=== PATIENT | male | born 1985 | race Two or more races ===

== ENCOUNTER 2016-05-09 18:27 | Emergency (ER) | payer MEDICAID ==
[2016-05-09 19:21] VITALS: BP 145/87
[2016-05-09] MEDS ORDERED: Ketorolac 60 MG/2 ML SDV IM ONE (19:26)
[2016-05-09] MEDS ORDERED: Cyclobenzaprine 10 MG Tab PO ONE (19:30)
[2016-05-09] MEDS ORDERED: traMADol 50 MG Tab PO ONE (19:30)
--- NOTE | 2016-05-10 01:53 | ER ---
DATE SEEN: 05/09/2016 CHIEF COMPLAINT: Back pain. HISTORY OF PRESENT ILLNESS: This is a 30-year-old male with back pain. Complains that the pain is severe, started about 2 days ago and goes down to the right lower extremity. Has not taken anything to relieve and any movement makes it worse. PAST MEDICAL HISTORY: Chronic back pain, had surgery last year for cauda equina syndrome. ALLERGIES: No known allergies. REVIEW OF SYSTEMS: No urinary symptoms or fever. PHYSICAL EXAMINATION: GENERAL: Pleasant in a wheelchair. VITAL SIGNS: Blood pressure and temperature are normal. EXTREMITIES: Lower back, no obvious swelling. There is tenderness on the right paraspinal muscle group and the buttock. Straight leg raising test is positive. Deep tendon reflexes are symmetric. NEUROLOGIC: No lateralizing signs. IMPRESSION: Acute lumbar back pain. PLAN: 1. Ketorolac 60 mg IM. 2. Flexeril and tramadol p.r.n. 3. I advised him to follow up in the office in 1 to 2 days. /[id number] JASON/NIMCO
== END 2016-05-09 19:37 | disposition home or self-care (01) ==
LOC: FB.ED 18:27
DX: M54.5 Low back pain (principal)
CPT/HCPCS: 96372; 99282; A9270; J1885

== ENCOUNTER 2016-05-11 13:20 | Emergency (ER) | payer MEDICAID ==
[2016-05-11] MEDS ORDERED: Gabapentin 300 MG Cap PO ONE (13:37)
[2016-05-11] MEDS ORDERED: Ketorolac 60 MG/2 ML SDV IM ONE (13:37)
--- NOTE | 2016-05-11 13:43 | EDM.PDOC ---
ED HPI LOWER BACK PAIN/INJURY - General Chief Complaint: Back Pain or Injury Stated Complaint: BACK PAIN Time Seen by Provider: 05/11/16 13:30 Source: Reports: Patient History Limitations: Reports: Other (poor historian) - History of Present Illness INITIAL COMMENTS - FREE TEXT/NARRATIVE: 30 yo male presents for the 2nd time in the past 48 hrs with a complaint of low back pain radiating down his R leg posteriorly. He denies bowel or bladder dysfunction. Was given Tramadol and Flexeril which is not giving him relief. He was asked when he was last here by Dr. Ceballos to follow up in the clinic in 1- 2 days, he didn't call yet for an appt. Onset of pain this time after moving a couch. Last May he had discectomies at L4L5 and L5S1. This pain he has now is similar to then, but he is not having urinary incontinence now like he was then. 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 below) (Tramadol/Flexeril) - Related Data Allergies/ADRs: Allergies Allergy/AdvReac Type Severity Reaction Status Date / Time No Known Allergies Allergy Verified 05/09/16 19:21 Home Meds: Home Meds NK [No Known Home Meds] 05/09/16 [History] Past Medical History - Past Health History Medical/Surgical History: Denies Medical/Surgical History HEENT History: Reports: Impaired vision Gastrointestinal History: Reports: Pancreatitis, Other (see below) Other Gastrointestinal History: HX OF PANCREATITIS Musculoskeletal History: Reports: Fracture, Other (see below) Other Musculoskeletal History: LOW BACK PAIN Psychiatric History: Reports: ADD, Addiction, Bipolar, Depression, Hallucinations, Panic attack, Psych Hospitalization(s), Suicide attempt, Suicidal ideation, Other (see below) Other Psychiatric History: ALCOHOL ABUSE - Infectious Disease History Infectious Disease History: Reports: Chicken pox - Past Surgical History GI Surgical History: Reports: Appendectomy Musculoskeletal Surgical History: Reports: Other (see below) Other Musculoskeletal Surgeries/Procedures:: back surgery 2016 Social & Family History - Family History Family Medical History: Noncontributory Cardiac: Reports: None GI: Reports: None Neurological: Reports: None Psychiatric: Reports: None Endocrine/Metabolic: Reports: None - Tobacco Use Smoking Status *Q: Current Every Day Smoker Years of Tobacco use: 10 Packs/Tins Daily: 0.2 Used Tobacco, but Quit: No Second Hand Smoke Exposure: No - Caffeine Use Caffeine Use: Reports: None - Alcohol Use Days Per Week of Alcohol Use: 3 Number of Drinks Per Day: 10 Total Drinks Per Week: 30 - Recreational Drug Use Recreational Drug Use: Yes Drug Use in Last 12 Months: No Recreational Drug Type: Reports: Cocaine, Marijuana/Hashish, Methamphetamine Recreational Drug Use Frequency: Patient Refuses To Answer - Living Situation & Occupation Living situation: Reports: Occupation: employed ([employer]) ED ROS GENERAL - Review of Systems Review Of Systems: See Below Constitutional: Reports: no symptoms HEENT: Reports: No symptoms Respiratory: Reports: No Symptoms Cardiovascular: Reports: No symptoms Endocrine: Reports: no symptoms GI/Abdominal: Reports: No symptoms : Reports: no symptoms Musculoskeletal: Reports: back pain (low), leg pain (posterior R thigh) Skin: Reports: no symptoms Neurological: Reports: No Symptoms Psychiatric: Reports: No symptoms ED EXAM,LOWER BACK PAIN/INJURY - Physical Exam Exam: See Below Exam Limited By: No limitations General Appearance: alert, WD/WN, no apparent distress Eye Exam: bilateral eye: normal inspection, PERRL Ears: normal external exam, normal canal, hearing grossly normal Nose: normal inspection, normal mucosa, no blood Throat/Mouth: Normal inspection, Normal lips, Normal teeth, Normal oropharynx, Normal voice, No airway compromise Head: atraumatic, normocephalic Neck: normal inspection, supple, non-tender Respiratory/Chest: no respiratory distress, lungs clear, normal breath sounds Cardiovascular: regular rate, rhythm, no murmur GI/Abdominal: normal bowel sounds, soft, non tender, no distention Back Exam: normal inspection Extremities: normal inspection, normal range of motion, no pedal edema, leg pain (straight leg raising + on right) Neurological: alert, normal mood/affect, normal dorsiflexion, CN II-XII intact, normal plantar flexion, no motor/sensory deficits, oriented x 3, straight leg raise (R). No: straight leg raise (L), saddle anesthesia Psychiatric: normal affect, normal mood Skin Exam: Warm, Dry, Intact, Normal color, No rash Lymphatic: no adenopathy Course - Orders/Labs/Meds Meds: Medications Discontinued Medications Generic Name Dose Route Start Last Admin Trade Name Freq PRN Reason Stop Dose Admin Gabapentin 300 mg 05/11/16 13:37 Neurontin PO 05/11/16 13:38 ONETIME ONE Ketorolac Tromethamine 60 mg 05/11/16 13:37 Toradol IM 05/11/16 13:38 ONETIME ONE Departure - Departure Time of Disposition: 14:30 Disposition: Home, Self-Care 01 Condition: fair Clinical Impression: Sciatica associated with disorder of lumbar spine
[2016-05-11] MEDS ORDERED: Gadobutrol 10 mMOL/10 ML SDV IV SCH (14:15)
[2016-05-11 18:27] VITALS: BP 132/70
== END 2016-05-11 15:00 | disposition home or self-care (01) ==
LOC: FB.ED 13:20
DX: M54.41 Lumbago with sciatica, right side (principal); Z90.49 Acquired absence of other specified parts of digestive tract; F17.210 Nicotine dependence, cigarettes, uncomplicated
CPT/HCPCS: 72158; 96372; 99284; A9270; A9585; J1885

== ENCOUNTER 2016-05-13 17:07 | Emergency (ER) | payer MEDICAID ==
[2016-05-13 17:32] VITALS: BP 159/94
[2016-05-13] MEDS ORDERED: Ondansetron 8 MG Tab.DIS PO ONE (17:52)
[2016-05-13] MEDS ORDERED: HYDROmorphone 2 MG/ML SDV IM ONE (17:52)
[2016-05-13] MEDS ORDERED: Acetaminophen/oxyCODONE 325-5 MG Tab PO ONE (18:08)
--- NOTE | 2016-05-19 11:26 | ER ---
DATE SEEN: 05/13/2016 TIME SEEN: The patient was seen at 1745 hours. CHIEF COMPLAINT: Back pain. HISTORY OF PRESENT ILLNESS: This 30-year-old man was seen at 1745 hours. He was recently seen on 05/09/[address] Ceballos and placed on ketorolac, Flexeril, to be off work for 1 to 2 days. One year ago, he was diagnosed with cauda equina syndrome. On 05/11/2016, he was also seen for low back pain, again with radiation of pain down the right leg, treated with tramadol and Flexeril with no relief. On review of the chart, it is apparent that in 05/2015 he had a diskectomy of L4-5 and L5-S1 without urinary incontinence in combination with posterior leg pain radiating down, was "burning, aching, numb and increased with movement". His previous surgeries: Appendectomy, back surgery in 2015. SOCIAL HISTORY: He used to smoke of half a pack of cigarettes per day. PAST MEDICAL HISTORY: Pancreatitis, drug abuse, drug use, depression, alcohol abuse, hallucinations, previous use of cocaine and marijuana, hash and methamphetamine. More recently he was treated with gabapentin and ketorolac. MRI was performed on 05/11/2016, two days ago, and the results demonstrate postoperative changes, prior posterior decompression at L4-5, L5-S1 on the right. Normal alignment lumbar spine. Vertebral body heights are maintained. Facet joints well aligned. No evidence for acute fracture or subluxation. Multilevel degenerative disk disease with facet arthropathy as described below. Spinal cord terminates at L1. The spinal cord and cauda equina within normal limits. L5-S1 circumferential disk bulge with superimposed large central and right paracentral disk protrusion, which displaces and likely impinges upon S1 nerve root, causes mild spinal canal narrowing. No significant neural foraminal narrowing noted. Mild bilateral facet arthropathy per Dr. Jelani Law, Radiology, on 05/12/2016. PHYSICAL EXAMINATION: VITAL SIGNS: Blood pressure 159/94, heart rate 98, respirations 18, oxygen saturation 98%, and temperature 36.8 degrees. SKIN: No needle abraham noted in the antecubital fossa. HEENT: PERRLA intact. Appropriate response to pupils noted. No miosis and no mydriasis to suggest any drug abuse/use. NECK: Supple. No cervical adenopathy or thyromegaly. GENERAL: The patient is a moderately asthenic, muscular fellow, in moderate distress. He is also very polite. LUNGS: Clear to auscultation. HEART: S1, S2. No murmur. ABDOMEN: Soft. No guarding. No abdominal discomfort. Groin negative. GENITALIA: Negative. No ulcers noted. EXTREMITIES: Lower extremities, moderate discomfort in the left lateral thigh and posterior to the left lateral thigh. Does not go beyond the popliteal fossa. He has no muscle wasting noted in lower extremities. Deep tendon reflexes in the upper extremities normal. Normoactive lower extremities. Straight leg raise causes moderate pain in the right leg, none in the left leg. On the right leg it occurs at about 60 to 80 degrees. ASSESSMENT: On the basis of the MRI, the patient has a large bulge, which may be impinging on the S1 right nerve root and has large central and paracentral disk protrusion, which displaces this and impinges on this nerve root. I think he has true nociceptive pain. PLAN: Treat with pain medicine. The patient was given a shot of Dilaudid 2 mg IM and also Zofran 8 mg orally sublingual. The patient was given prescription for Percocet 12 tablets one q.4 to 6 hours p.r.n. for breakthrough pain, otherwise use Tylenol 1000 mg and ibuprofen 600 mg q.6 hours. Follow up with doctor this week or earlier. Further discussion regarding perhaps surgical intervention is raised by the abnormalities noted on the MRI. He did not have any S3 involvement which is perirectal and also superior and posterior thigh involvement. /[id number] CARLOS/NIMCO
--- NOTE | 2016-06-07 21:48 | ER ---
DATE SEEN: 05/13/2016 ADDENDUM: DIAGNOSES: 1. Low back pain, disk impingement S1 right nerve, large paracentral and central disk protrusion - nociceptive pain. 2. Chemical dependency. 3. Pancreatitis. 4. Depression. 5. Alcohol abuse history. 6. Hallucinations, previous use of cocaine, marijuana, alcohol and other drugs, hashish and methamphetamine. 7. 05/2015, diskectomy of L4-5 and L5-S1 without incontinence in combination with posterior leg pain radiating down. 8. Status post appendectomy. /[id number] CARLOS/RODERICKL
== END 2016-05-13 18:20 | disposition home or self-care (01) ==
LOC: FB.ED 17:07
DX: M53.3 Sacrococcygeal disorders, not elsewhere classified (principal); F17.210 Nicotine dependence, cigarettes, uncomplicated; F32.9 Major depressive disorder, single episode, unspecified; Z90.49 Acquired absence of other specified parts of digestive tract
CPT/HCPCS: 96372; 99282; A9270; J1170

== ENCOUNTER 2016-09-26 07:37 | Emergency (ER) | payer MEDICAID ==
[2016-09-26] MEDS ORDERED: Aspirin 325 MG Tab.EC PO ONE (08:01)
[2016-09-26] MEDS ORDERED: Aspirin 81 MG Tab.Chew PO ONE (08:01)
--- NOTE | 2016-09-26 08:03 | EDM.PDOC ---
ED HPI GENERAL MEDICAL PROBLEM - General Chief Complaint: Chest Pain Stated Complaint: CHEST PAIN Time Seen by Provider: 09/26/16 07:53 Source of Information: Reports: Patient History Limitations: Reports: No Limitations - History of Present Illness Onset: Unknown/Unsure Onset Date: 09/23/16 Onset Time: 04:00 Duration: Day(s):, Intermittent Location: Reports: Chest Quality: Reports: Dull, Pressure Severity: Moderate Improves with: Reports: Medication Worsens with: Reports: Movement Associated Symptoms: Reports: No Other Symptoms Left Chest Pain Score (Numeric/FACES): 8 - Related Data Allergies Allergy/AdvReac Type Severity Reaction Status Date / Time No Known Allergies Allergy Verified 05/13/16 17:18 Home Meds: Home Meds Ibuprofen [Motrin] 600 mg PO TID PRN #20 tab 09/26/16 [Rx] Past Medical History - Past Health History Medical/Surgical History: Denies Medical/Surgical History HEENT History: Reports: Impaired Vision Gastrointestinal History: Reports: Pancreatitis, Other (See Below) Other Gastrointestinal History: HX OF PANCREATITIS Musculoskeletal History: Reports: Fracture, Other (See Below) Other Musculoskeletal History: LOW BACK PAIN Psychiatric History: Reports: ADD, Addiction, Bipolar, Depression, Hallucinations, Panic Attack, Psych Hospitalization(s), Suicide Attempt, Suicidal Ideation, Other (See Below) Other Psychiatric History: ALCOHOL ABUSE - Infectious Disease History Infectious Disease History: Reports: Chicken Pox - Past Surgical History Musculoskeletal Surgical History: Reports: Other (See Below) Social & Family History - Family History Family Medical History: Noncontributory Cardiac: Reports: None GI: Reports: None Neurological: Reports: None Psychiatric: Reports: None Endocrine/Metabolic: Reports: None - Tobacco Use Smoking Status *Q: Current Every Day Smoker Years of Tobacco use: 10 Packs/Tins Daily: 0.2 Used Tobacco, but Quit: No Second Hand Smoke Exposure: No - Caffeine Use Caffeine Use: Reports: None - Alcohol Use Days Per Week of Alcohol Use: 1 Number of Drinks Per Day: 4 Total Drinks Per Week: 4 - Recreational Drug Use Recreational Drug Use: No Drug Use in Last 12 Months: No Recreational Drug Type: Reports: Cocaine, Marijuana/Hashish, Methamphetamine Recreational Drug Use Frequency: Patient Refuses To Answer - Living Situation & Occupation Living situation: Reports: Occupation: Employed ED ROS GENERAL - Review of Systems Review Of Systems: See Below Constitutional: Reports: No Symptoms HEENT: Reports: No Symptoms Respiratory: Reports: No Symptoms Cardiovascular: Reports: Chest Pain Endocrine: Reports: No Symptoms GI/Abdominal: Reports: No Symptoms : Reports: No Symptoms Musculoskeletal: Reports: No Symptoms Skin: Reports: No Symptoms Neurological: Reports: No Symptoms Psychiatric: Reports: No Symptoms Hematologic/Lymphatic: Reports: No Symptoms Immunologic: Reports: No Symptoms ED EXAM, GENERAL - Physical Exam Exam: See Below Exam Limited By: No Limitations General Appearance: Alert, WD/WN, Mild Distress Eye Exam: Bilateral Eye: Normal Inspection Ears: Normal External Exam Ear Exam: Bilateral Ear: Auricle Normal Nose: Normal Inspection, Normal Mucosa Throat/Mouth: Normal Inspection, Normal Lips, Normal Teeth Head: Atraumatic, Normocephalic Neck: Normal Inspection, Supple, Non-Tender Respiratory/Chest: No Respiratory Distress, Lungs Clear, Normal Breath Sounds Cardiovascular: Normal Peripheral Pulses, Regular Rate, Rhythm, No Edema, No Gallop Peripheral Pulses: 1+: Femoral (L), Femoral (R) GI/Abdominal: Normal Bowel Sounds, Soft, Non-Tender, No Organomegaly (Male) Exam: Deferred Rectal (Males) Exam: Deferred Back Exam: Normal Inspection, Full Range of Motion Extremities: Normal Inspection, Normal Range of Motion, Non-Tender, No Pedal Edema, Normal Capillary Refill Neurological: Alert, Oriented, CN II-XII Intact, Normal Cognition, Normal Gait Psychiatric: Normal Affect, Normal Mood Skin Exam: Warm, Dry, Intact, Normal Color, No Rash Lymphatic: No Adenopathy EKG INTERPRETATION EKG Date: 09/26/16 Time: 07:45 Rhythm: NSR Rate (Beats/Min): 99 [place]: Normal P-Wave: Present QRS: Normal ST-T: Normal QT: Normal Comparison: NA - No Prior EKG Course - Vital Signs Last Recorded V/S: Last Vital Signs Temp 36.8 C 09/26/16 07:53 Pulse 97 09/26/16 07:53 Resp 16 09/26/16 09:16 BP 146/89 H 09/26/16 09:16 Pulse Ox 100 09/26/16 09:16 - Orders/Labs/Meds Orders: Active Orders 24 hr Category Date Time Status EKG Documentation Completion [RC] STAT Care 09/26/16 08:37 Active Chest 1V Frontal [CR] Stat Exams 09/26/16 08:01 Taken EKG 12 Lead [EK] Routine Ther 09/26/16 08:37 Stop Req Labs: Laboratory Tests 09/26/16 09/26/16 09/26/16 Range/Units 08:25 08:25 08:25 WBC 6.1 (4.5-12.0) X10-3/uL RBC 5.69 (4.30-5.75) x10(6)uL Hgb 18.2 H (11.5-15.5) g/dL Hct 50.8 (30.0-51.3) % MCV 89.4 (80-96) fL MCH 32.1 (27.7-33.6) pg MCHC 35.9 H (32.2-35.4) g/dL RDW 11.9 (11.5-15.5) % Plt Count 339 (125-369) X10(3)uL MPV 8.6 (7.4-10.4) fL Neut % (Auto) 57.7 (46-82) % Lymph % (Auto) 32.8 (13-37) % [place] % (Auto) 6.3 (4-12) % Eos % (Auto) 2 (1.0-5.0) % Baso % (Auto) 1 (0-2) % Neut # (Auto) 3.5 (1.6-8.3) # Lymph # (Auto) 2.0 (0.6-5.0) # [place] # (Auto) 0.4 (0.0-1.3) # Eos # (Auto) 0.1 (0.0-0.8) # Baso # (Auto) 0.1 (0.0-0.2) # D-Dimer, Quantitative < 100 L (100-400) ng/mL Sodium 134 L (135-145) mmol/L Potassium 3.4 L (3.5-5.3) mmol/L Chloride 101 (100-110) mmol/L Carbon Dioxide 24 (23-29) mmol/L BUN 12 (5-20) mg/dL Creatinine 0.6 (0.6-1.3) mg/dL Est Cr Clr Drug Dosing 183.30 mL/min Estimated GFR (MDRD) > 60 (>60) BUN/Creatinine Ratio 20.0 (9-20) Glucose 117 H (80-116) mg/dL Calcium 9.1 (8.6-10.2) mg/dL Creatine Kinase (60-160) IU/L Troponin I (0.02-0.06) NG/ML B-Natriuretic Peptide (0-100) pg/mL Urine Opiates Screen (NEGATIVE) Ur Oxycodone Screen (NEGATIVE) Ur Propoxyphene Screen (NEGATIVE) Ur Barbituates Screen (NEGATIVE) Ur Tricyclics Screen (NEGATIVE) Ur Phencyclidine Scrn (NEGATIVE) Ur Amphetamine Screen (NEGATIVE) Urine MDMA Screen (NEGATIVE) U Benzodiazepines Scrn (NEGATIVE) U Cocaine Metab Screen (NEGATIVE) U Marijuana (THC) Screen (NEGATIVE) Ethyl Alcohol (<0.01) % 09/26/16 09/26/16 09/26/16 Range/Units 08:25 08:25 08:25 WBC (4.5-12.0) X10-3/uL RBC (4.30-5.75) x10(6)uL Hgb (11.5-15.5) g/dL Hct (30.0-51.3) % MCV (80-96) fL MCH (27.7-33.6) pg MCHC (32.2-35.4) g/dL RDW (11.5-15.5) % Plt Count (125-369) X10(3)uL MPV (7.4-10.4) fL Neut % (Auto) (46-82) % Lymph % (Auto) (13-37) % [place] % (Auto) (4-12) % Eos % (Auto) (1.0-5.0) % Baso % (Auto) (0-2) % Neut # (Auto) (1.6-8.3) # Lymph # (Auto) (0.6-5.0) # [place] # (Auto) (0.0-1.3) # Eos # (Auto) (0.0-0.8) # Baso # (Auto) (0.0-0.2) # D-Dimer, Quantitative (100-400) ng/mL Sodium (135-145) mmol/L Potassium (3.5-5.3) mmol/L Chloride (100-110) mmol/L Carbon Dioxide (23-29) mmol/L BUN (5-20) mg/dL Creatinine (0.6-1.3) mg/dL Est Cr Clr Drug Dosing mL/min Estimated GFR (MDRD) (>60) BUN/Creatinine Ratio (9-20) Glucose (80-116) mg/dL Calcium (8.6-10.2) mg/dL Creatine Kinase 55 L (60-160) IU/L Troponin I (0.02-0.06) NG/ML B-Natriuretic Peptide < 5 (0-100) pg/mL Urine Opiates Screen (NEGATIVE) Ur Oxycodone Screen (NEGATIVE) Ur Propoxyphene Screen (NEGATIVE) Ur Barbituates Screen (NEGATIVE) Ur Tricyclics Screen (NEGATIVE) Ur Phencyclidine Scrn (NEGATIVE) Ur Amphetamine Screen (NEGATIVE) Urine MDMA Screen (NEGATIVE) U Benzodiazepines Scrn (NEGATIVE) U Cocaine Metab Screen (NEGATIVE) U Marijuana (THC) Screen (NEGATIVE) Ethyl Alcohol 0.01 (<0.01) % 09/26/16 09/26/16 Range/Units 08:25 08:30 WBC (4.5-12.0) X10-3/uL RBC (4.30-5.75) x10(6)uL Hgb (11.5-15.5) g/dL Hct (30.0-51.3) % MCV (80-96) fL MCH (27.7-33.6) pg MCHC (32.2-35.4) g/dL RDW (11.5-15.5) % Plt Count (125-369) X10(3)uL MPV (7.4-10.4) fL Neut % (Auto) (46-82) % Lymph % (Auto) (13-37) % [place] % (Auto) (4-12) % Eos % (Auto) (1.0-5.0) % Baso % (Auto) (0-2) % Neut # (Auto) (1.6-8.3) # Lymph # (Auto) (0.6-5.0) # [place] # (Auto) (0.0-1.3) # Eos # (Auto) (0.0-0.8) # Baso # (Auto) (0.0-0.2) # D-Dimer, Quantitative (100-400) ng/mL Sodium (135-145) mmol/L Potassium (3.5-5.3) mmol/L Chloride (100-110) mmol/L Carbon Dioxide (23-29) mmol/L BUN (5-20) mg/dL Creatinine (0.6-1.3) mg/dL Est Cr Clr Drug Dosing mL/min Estimated GFR (MDRD) (>60) BUN/Creatinine Ratio (9-20) Glucose (80-116) mg/dL Calcium (8.6-10.2) mg/dL Creatine Kinase (60-160) IU/L Troponin I < 0.01 L (0.02-0.06) NG/ML B-Natriuretic Peptide (0-100) pg/mL Urine Opiates Screen Negative (NEGATIVE) Ur Oxycodone Screen Negative (NEGATIVE) Ur Propoxyphene Screen Negative (NEGATIVE) Ur Barbituates Screen Negative (NEGATIVE) Ur Tricyclics Screen Negative (NEGATIVE) Ur Phencyclidine Scrn Negative (NEGATIVE) Ur Amphetamine Screen Negative (NEGATIVE) Urine MDMA Screen Negative (NEGATIVE) U Benzodiazepines Scrn Negative (NEGATIVE) U Cocaine Metab Screen Negative (NEGATIVE) U Marijuana (THC) Screen Negative (NEGATIVE) Ethyl Alcohol (<0.01) % Meds: Medications Discontinued Medications Generic Name Dose Route Start Last Admin Trade Name Freq PRN Reason Stop Dose Admin Aspirin 324 mg 09/26/16 08:01 09/26/16 08:08 Aspirin PO 09/26/16 08:02 324 mg ONETIME ONE Administration Aspirin 325 mg 09/26/16 08:01 Ecotrin PO 09/26/16 08:02 ONETIME ONE Ketorolac Tromethamine 30 mg 09/26/16 09:24 09/26/16 09:29 Toradol IVPUSH 09/26/16 09:25 30 mg ONETIME ONE Administration Potassium Chloride 40 meq 09/26/16 08:47 09/26/16 09:12 Klor-Con M20 PO 09/26/16 08:48 40 meq ONETIME ONE Administration Departure - Departure Time of Disposition: 10:00 Disposition: Home, Self-Care 01 Condition: Good Clinical Impression: Atypical chest pain, Pleurisy Prescriptions: Ibuprofen [Motrin] 600 mg PO TID PRN #20 tab PRN Reason: pleuritic chest pain Referrals: Deniz Ceballos MD [Primary Care Provider] - Forms: ED Department Discharge Additional Instructions: Please take motrin for pain, please follow up, please come back if your symptoms get worse acutely. - My Orders Last 24 Hours: My Active Orders 09/26/16 08:01 Chest 1V Frontal [CR] Stat 09/26/16 08:37 EKG Documentation Completion [RC] STAT EKG 12 Lead [EK] Routine - Assessment/Plan Last 24 Hours: My Active Orders 09/26/16 08:01 Chest 1V Frontal [CR] Stat 09/26/16 08:37 EKG Documentation Completion [RC] STAT EKG 12 Lead [EK] Routine
[2016-09-26] MEDS ORDERED: Potassium Chloride 20 MEQ Tab.ER PO ONE (08:47)
[2016-09-26] MEDS ORDERED: Ketorolac 30 MG/ML SDV IVPUSH ONE (09:24)
[2016-09-26 10:25] VITALS: BP 138/88
--- NOTE | 2016-09-26 11:50 | CR ---
INDICATION: Chest pain started 3 days ago, into left arm. CHEST: AP portable view of the chest 09/26/2016 was obtained. No comparisons. The heart is normal in size and shape. Mediastinum and bony thorax were unremarkable. An active infiltrate or effusion was not identified. IMPRESSION: No active disease. MTDD
== END 2016-09-26 10:15 | disposition home or self-care (01) ==
LOC: FB.ED 07:37
DX: R09.1 Pleurisy (principal); F98.8 Other specified behavioral and emotional disorders with onset usually occurring in childhood and adolescence; F17.210 Nicotine dependence, cigarettes, uncomplicated
CPT/HCPCS: 36415; 71010; 80048; 80305; 82550; 83880; 84484; 85025; 85379; 93005; 96374; 99285; A9270; G0480; J1885

== ENCOUNTER 2016-12-14 06:57 | Emergency (ER) | payer MEDICAID ==
[2016-12-14] MEDS ORDERED: Sodium Chloride 0.9% 1,000 ML IV ONE (07:23)
[2016-12-14] MEDS ORDERED: Pantoprazole 40 MG Vial IVPUSH ONE (07:23)
[2016-12-14] MEDS ORDERED: Ondansetron 4 MG/2 ML SDV IVPUSH ONE (07:23)
--- NOTE | 2016-12-14 07:29 | EDM.PDOC ---
ED HPI GENERAL MEDICAL PROBLEM - General Stated Complaint: STOMACH CRAMPS Time Seen by Provider: 12/14/16 07:00 Source of Information: Reports: Patient History Limitations: Reports: No Limitations - History of Present Illness INITIAL COMMENTS - FREE TEXT/NARRATIVE: 31 y.o.w.m. with h/o pancreatitis, was drinking last night and came to the ed this am due to vomiting and epigtsric pain. last [facility], no blood in stool. No other acute med. issues, pt was seen for same in this ED. Onset: Today Onset Date: 12/13/16 Onset Time: 21:00 Duration: Hour(s): Location: Reports: Abdomen (periumbilical) Quality: Reports: Ache Severity: Moderate Improves with: Reports: Medication Worsens with: Reports: Movement Associated Symptoms: Reports: Nausea/Vomiting Abdominal Pain Score (Numeric/FACES): 9 - Related Data Allergies Allergy/AdvReac Type Severity Reaction Status Date / Time No Known Allergies Allergy Verified 12/14/16 07:11 Home Meds: Home Meds Hydrocodone/Acetaminophen [Vicodin 5-300 mg Tablet] 1 each PO Q4HR #4 tablet [Rx] Ondansetron [Zofran ODT] 4 mg PO Q6H PRN #10 tab.dis 12/14/16 [Rx] Pantoprazole Sodium [Protonix] 20 mg PO DAILY #20 tablet. 12/14/16 [Rx] Past Medical History - Past Health History Medical/Surgical History: Denies Medical/Surgical History HEENT History: Reports: Impaired Vision Gastrointestinal History: Reports: Pancreatitis, Other (See Below) Other Gastrointestinal History: HX OF PANCREATITIS Musculoskeletal History: Reports: Fracture, Other (See Below) Other Musculoskeletal History: LOW BACK PAIN Psychiatric History: Reports: ADD, Addiction, Bipolar, Depression, Hallucinations, Panic Attack, Psych Hospitalization(s), Suicide Attempt, Suicidal Ideation, Other (See Below) Other Psychiatric History: ALCOHOL ABUSE - Infectious Disease History Infectious Disease History: Reports: Chicken Pox - Past Surgical History Musculoskeletal Surgical History: Reports: Other (See Below) Social & Family History - Family History Family Medical History: Noncontributory Cardiac: Reports: None GI: Reports: None Neurological: Reports: None Psychiatric: Reports: None Endocrine/Metabolic: Reports: None - Tobacco Use Smoking Status *Q: Never Smoker Years of Tobacco use: 10 Packs/Tins Daily: 0.2 Used Tobacco, but Quit: No Second Hand Smoke Exposure: No - Caffeine Use Caffeine Use: Reports: None - Alcohol Use Days Per Week of Alcohol Use: 3 Number of Drinks Per Day: 10 Total Drinks Per Week: 30 - Recreational Drug Use Recreational Drug Use: No Drug Use in Last 12 Months: No Recreational Drug Type: Reports: Cocaine, Marijuana/Hashish, Methamphetamine Recreational Drug Use Frequency: Patient Refuses To Answer - Living Situation & Occupation Living situation: Reports: Occupation: Employed ED ROS GENERAL - Review of Systems Review Of Systems: See Below Constitutional: Reports: No Symptoms HEENT: Reports: No Symptoms Respiratory: Reports: No Symptoms Cardiovascular: Reports: No Symptoms Endocrine: Reports: No Symptoms GI/Abdominal: Reports: Abdominal Pain (epigastric) : Reports: No Symptoms Musculoskeletal: Reports: No Symptoms Skin: Reports: No Symptoms Neurological: Reports: No Symptoms Psychiatric: Reports: No Symptoms Hematologic/Lymphatic: Reports: No Symptoms Immunologic: Reports: No Symptoms ED EXAM, GI/ABD - Physical Exam Exam: See Below Exam Limited By: No Limitations General Appearance: Alert, WD/WN, Mild Distress Eyes: Bilateral: Normal Appearance Ears: Normal External Exam Nose: Normal Inspection Throat/Mouth: Other (dry mucosal membrane) Head: Atraumatic Neck: Normal Inspection Respiratory/Chest: No Respiratory Distress Cardiovascular: Normal Peripheral Pulses GI/Abdominal Exam: Normal Bowel Sounds, Distended, Tender (Male) Exam: No Hernia Rectal (Males) Exam: Deferred Back Exam: Normal Inspection Extremities: Normal Inspection Neurological: Alert, Oriented, CN II-XII Intact, Normal Cognition, Normal Gait, Normal Reflexes, No Motor/Sensory Deficits Psychiatric: Normal Affect, Normal Mood Skin Exam: Warm, Dry, Intact, Normal Color, No Rash Lymphatic: No Adenopathy Course - Vital Signs Text/Narrative:: 31 y.o.w.m. with h/o pancreatitis, was drinking last night and came to the ed this am due to vomiting and epigastric pain. Last BM [facility], no blood in stool. No other acute med. issues, pt was seen for same in this ED. PE: Epigastric pain Labs; CBC NlETOH and drug screen neg, Amylase neg Imaging: Flat/upright abdomen: NAD Impression: gastritis Tx: NS. Protonix, Dilaudid reexam: improved Plan: D/C with instructions Last Recorded V/S: Last Vital Signs Temp 36.6 C 12/14/16 09:40 Pulse 88 12/14/16 09:40 Resp 17 12/14/16 09:40 BP 149/100 H 12/14/16 09:40 Pulse Ox 99 12/14/16 09:40 - Orders/Labs/Meds Orders: Active Orders 24 hr Category Date Time Status Abdomen 2V AP Flat Upright [CR] Stat Exams 12/14/16 07:28 Taken Labs: Laboratory Tests 12/14/16 12/14/16 12/14/16 Range/Units 07:15 07:15 07:15 WBC 9.1 (4.5-12.0) X10-3/uL RBC 5.61 (4.30-5.75) x10(6)uL Hgb 15.8 H (11.5-15.5) g/dL Hct 49.5 (30.0-51.3) % MCV 88.3 (80-96) fL MCH 31.6 (27.7-33.6) pg MCHC 35.9 H (32.2-35.4) g/dL RDW 12.5 (11.5-15.5) % Plt Count 286 (125-369) X10(3)uL MPV 8.7 (7.4-10.4) fL Add Manual Diff Yes Neutrophils % (Manual) 67 (46-82) % Lymphocytes % (Manual) 25 (13-37) % Monocytes % (Manual) 4 (4-12) % Eosinophils % (Manual) 4 (0-5) % Sodium 139 (135-145) mmol/L Potassium 4.2 (3.5-5.3) mmol/L Chloride 102 (100-110) mmol/L Carbon Dioxide 25 (23-29) mmol/L BUN 13 (5-20) mg/dL Creatinine 0.8 (0.6-1.3) mg/dL Est Cr Clr Drug Dosing 127.38 mL/min Estimated GFR (MDRD) > 60 (>60) BUN/Creatinine Ratio 16.3 (9-20) Glucose 125 H (80-116) mg/dL Calcium 8.6 (8.6-10.2) mg/dL Total Bilirubin 0.8 (0.1-1.3) mg/dL AST 64 H D (5-27) IU/L ALT 92 H D (14-26) IU/L Alkaline Phosphatase 67 (56-112) IU/L Total Protein 6.7 (6.0-8.0) g/dL Albumin 4.7 (3.5-5.2) g/dL Globulin 2.0 g/dL Albumin/Globulin Ratio 2.4 Amylase 41 (28-100) U/L Urine Color (YELLOW) Urine Appearance (CLEAR) Urine pH (5.0-6.5) Ur Specific [place] (1.010-1.025) Urine Protein (NEGATIVE) mg/dL Urine Glucose (UA) (NEGATIVE) mg/dL Urine Ketones (NEGATIVE) mg/dL Urine Occult Blood (NEGATIVE) Urine Nitrite (NEGATIVE) Urine Bilirubin (NEGATIVE) Urine Urobilinogen (NEGATIVE) mg/dL Ur Leukocyte Esterase (NEGATIVE) Urine WBC (0) Ur Squamous Epith Cells (NS,R,O) Urine Bacteria (NS) Urine Mucus (NS) Urine Opiates Screen (NEGATIVE) Ur Oxycodone Screen (NEGATIVE) Ur Propoxyphene Screen (NEGATIVE) Ur Barbituates Screen (NEGATIVE) Ur Tricyclics Screen (NEGATIVE) Ur Phencyclidine Scrn (NEGATIVE) Ur Amphetamine Screen (NEGATIVE) Urine MDMA Screen (NEGATIVE) U Benzodiazepines Scrn (NEGATIVE) U Cocaine Metab Screen (NEGATIVE) U Marijuana (THC) Screen (NEGATIVE) Ethyl Alcohol < 0.01 (<0.01) % 12/14/16 12/14/16 Range/Units 07:40 07:40 WBC (4.5-12.0) X10-3/uL RBC (4.30-5.75) x10(6)uL Hgb (11.5-15.5) g/dL Hct (30.0-51.3) % MCV (80-96) fL MCH (27.7-33.6) pg MCHC (32.2-35.4) g/dL RDW (11.5-15.5) % Plt Count (125-369) X10(3)uL MPV (7.4-10.4) fL Add Manual Diff Neutrophils % (Manual) (46-82) % Lymphocytes % (Manual) (13-37) % Monocytes % (Manual) (4-12) % Eosinophils % (Manual) (0-5) % Sodium (135-145) mmol/L Potassium (3.5-5.3) mmol/L Chloride (100-110) mmol/L Carbon Dioxide (23-29) mmol/L BUN (5-20) mg/dL Creatinine (0.6-1.3) mg/dL Est Cr Clr Drug Dosing mL/min Estimated GFR (MDRD) (>60) BUN/Creatinine Ratio (9-20) Glucose (80-116) mg/dL Calcium (8.6-10.2) mg/dL Total Bilirubin (0.1-1.3) mg/dL AST (5-27) IU/L ALT (14-26) IU/L Alkaline Phosphatase (56-112) IU/L Total Protein (6.0-8.0) g/dL Albumin (3.5-5.2) g/dL Globulin g/dL Albumin/Globulin Ratio Amylase (28-100) U/L Urine Color Yellow (YELLOW) Urine Appearance Clear (CLEAR) Urine pH 7.0 H (5.0-6.5) Ur Specific [place] 1.010 (1.010-1.025) Urine Protein Negative (NEGATIVE) mg/dL Urine Glucose (UA) Normal (NEGATIVE) mg/dL Urine Ketones Negative (NEGATIVE) mg/dL Urine Occult Blood Negative (NEGATIVE) Urine Nitrite Negative (NEGATIVE) Urine Bilirubin Negative (NEGATIVE) Urine Urobilinogen Normal (NEGATIVE) mg/dL Ur Leukocyte Esterase Negative (NEGATIVE) Urine WBC 0-5 (0) Ur Squamous Epith Cells Rare (NS,R,O) Urine Bacteria Rare H (NS) Urine Mucus Rare H (NS) Urine Opiates Screen Negative (NEGATIVE) Ur Oxycodone Screen Negative (NEGATIVE) Ur Propoxyphene Screen Negative (NEGATIVE) Ur Barbituates Screen Negative (NEGATIVE) Ur Tricyclics Screen Negative (NEGATIVE) Ur Phencyclidine Scrn Negative (NEGATIVE) Ur Amphetamine Screen Negative (NEGATIVE) Urine MDMA Screen Negative (NEGATIVE) U Benzodiazepines Scrn Negative (NEGATIVE) U Cocaine Metab Screen Negative (NEGATIVE) U Marijuana (THC) Screen Negative (NEGATIVE) Ethyl Alcohol (<0.01) % Meds: Medications Discontinued Medications Generic Name Dose Route Start Last Admin Trade Name Freq PRN Reason Stop Dose Admin Hydromorphone HCl 0.5 mg 12/14/16 08:54 12/14/16 09:17 Dilaudid IVPUSH 12/14/16 08:55 0.5 mg ONETIME ONE Administration Sodium Chloride 1,000 mls @ 999 mls/hr 12/14/16 07:23 12/14/16 08:27 Normal Saline IV 12/14/16 08:23 999 mls/hr .BOLUS ONE Administration Ondansetron HCl 8 mg 12/14/16 07:23 12/14/16 08:27 Zofran IVPUSH 12/14/16 07:24 8 mg ONETIME ONE Administration Pantoprazole Sodium 40 mg 12/14/16 07:23 12/14/16 08:33 Protonix Iv IVPUSH 12/14/16 07:24 40 mg ONETIME ONE Administration Departure - Departure Time of Disposition: 09:07 Disposition: Home, Self-Care 01 Condition: Good Clinical Impression: Gastritis Qualifiers: Gastritis type: superficial Chronicity: acute Gastritis bleeding: without bleeding Qualified Code(s): K29.00 - Acute gastritis without bleeding - Discharge Information Prescriptions: Hydrocodone/Acetaminophen [Vicodin 5-300 mg Tablet] 1 each PO Q4HR #4 tablet Ondansetron [Zofran ODT] 4 mg PO Q6H PRN #10 tab.dis PRN Reason: Nausea Pantoprazole Sodium [Protonix] 20 mg PO DAILY #20 tablet.dr Instructions: Gastritis, Adult, [id number] Referrals: Deniz Ceballos MD [Primary Care Provider] - Forms: ED Department Discharge Additional Instructions: Please, NO ETOH, ever. Please take the meds as recommended, please f/u with your PMD, please advance diet as tolerated, please come back if your symptoms get worse acutely - My Orders Last 24 Hours: My Active Orders 12/14/16 07:28 Abdomen 2V AP Flat Upright [CR] Stat - Assessment/Plan Last 24 Hours: My Active Orders 12/14/16 07:28 Abdomen 2V AP Flat Upright [CR] Stat
[2016-12-14] MEDS ORDERED: HYDROmorphone 2 MG/ML SDV IVPUSH ONE (08:54)
[2016-12-14 09:49] VITALS: BP 149/100
== END 2016-12-14 09:43 | disposition home or self-care (01) ==
LOC: FB.ED 06:57
DX: K29.00 Acute gastritis without bleeding (principal)
CPT/HCPCS: 36415; 74020; 80053; 80305; 81001; 82150; 85025; 96361; 96374; 99284; C9113; G0480; J1170; J2405; J7040; 96375

== ENCOUNTER 2017-07-01 17:50 | Emergency (ER) | payer MEDICAID ==
[2017-07-01] MEDS ORDERED: Ketorolac 60 MG/2 ML SDV IM ONE (18:11)
[2017-07-01] MEDS ORDERED: Cyclobenzaprine 10 MG Tab PO ONE (18:12)
--- NOTE | 2017-07-01 18:18 | EDM.PDOC ---
ED HPI GENERAL MEDICAL PROBLEM - General Chief Complaint: Back Pain or Injury Stated Complaint: BACK PAIN Time Seen by Provider: 07/01/17 18:05 Source of Information: Reports: Patient History Limitations: Reports: No Limitations - History of Present Illness INITIAL COMMENTS - FREE TEXT/NARRATIVE: c/o LBP h/o recurrent LBP, had surgery on 2 discs 2y ago in 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, worked Mon-Sun this week without difficulty yesterday, Sat, pt spent 8h cleaning out his garage, he reached for his leaf blower and had pain in his L lower back and down his leg took no meds at home came into ED in a w/c says he will have pain for 1w and will need to miss work some days does stretches x 15 min for his back every AM as taught to him by PT did his stretches yesterday last saw PCP Dr Ceballos 2w ago, given meloxicam 7.5 mg 1 tab daily for mild LBP which he takes before work altho not this weekend, thinks he has 5 tabs left did put cold bag of rice on his back not working tomorrow (Sun), has class instead Lower Back Pain Score (Numeric/FACES): 9 - Related Data Allergies Allergy/AdvReac Type Severity Reaction Status Date / Time No Known Allergies Allergy Verified 07/01/17 17:54 Home Meds: Home Meds Cyclobenzaprine HCl 10 mg PO TID PRN #15 tablet 07/01/17 [Rx] DULoxetine [Cymbalta] 60 mg PO DAILY 07/01/17 [History] Meloxicam 15 mg PO DAILY #30 tablet 07/01/17 [Rx] hydrOXYzine HCl [Atarax] 50 mg PO BEDTIME 07/01/17 [History] Past Medical History - Past Health History Medical/Surgical History: Denies Medical/Surgical History HEENT History: Reports: Impaired Vision Cardiovascular History: Reports: Hypertension Gastrointestinal History: Reports: Pancreatitis, Other (See Below) Other Gastrointestinal History: HX OF PANCREATITIS Musculoskeletal History: Reports: Fracture, Other (See Below) Other Musculoskeletal History: LOW BACK PAIN Neurological History: Reports: Concussion Other Neuro History: concussion x 2 Psychiatric History: Reports: ADD, Addiction, Bipolar, Depression, Hallucinations, Panic Attack, Psych Hospitalization(s), Suicide Attempt, Suicidal Ideation, Other (See Below) Other Psychiatric History: ALCOHOL ABUSE Endocrine/Metabolic History: Reports: Obesity/BMI 30+ - Infectious Disease History Infectious Disease History: Reports: Chicken Pox - Past Surgical History Musculoskeletal Surgical History: Reports: Other (See Below) Social & Family History - Family History Family Medical History: Noncontributory Cardiac: Reports: None GI: Reports: None Neurological: Reports: None Psychiatric: Reports: None Endocrine/Metabolic: Reports: None - Tobacco Use Smoking Status *Q: Current Every Day Smoker Years of Tobacco use: 10 Packs/Tins Daily: 0.5 Used Tobacco, but Quit: No Second Hand Smoke Exposure: No - Caffeine Use Caffeine Use: Reports: None - Alcohol Use Days Per Week of Alcohol Use: 1 Number of Drinks Per Day: 1 Total Drinks Per Week: 1 - Recreational Drug Use Recreational Drug Use: No Drug Use in Last 12 Months: No Recreational Drug Type: Reports: Cocaine, Marijuana/Hashish, Methamphetamine Recreational Drug Use Frequency: Patient Refuses To Answer - Living Situation & Occupation Living situation: Reports: Occupation: Employed ED ROS GENERAL - Review of Systems Review Of Systems: See Below Constitutional: Reports: No Symptoms HEENT: Reports: No Symptoms Respiratory: Reports: No Symptoms Cardiovascular: Reports: No Symptoms Endocrine: Reports: No Symptoms GI/Abdominal: Reports: No Symptoms : Reports: No Symptoms Musculoskeletal: Reports: Back Pain Skin: Reports: No Symptoms Neurological: Reports: No Symptoms Psychiatric: Reports: No Symptoms Hematologic/Lymphatic: Reports: No Symptoms Immunologic: Reports: No Symptoms ED EXAM,LOWER BACK PAIN/INJURY - Physical Exam Exam: See Below Exam Limited By: No Limitations General Appearance: Alert, WD/WN, Mild Distress Ears: Normal External Exam, Hearing Grossly Normal Nose: Normal Inspection, Normal Mucosa, No Blood Throat/Mouth: Normal Inspection, Normal Lips, Normal Gums, No Airway Compromise Head: Atraumatic, Normocephalic Neck: Normal Inspection, Supple, Non-Tender, Full Range of Motion Respiratory/Chest: No Respiratory Distress, Lungs Clear, Normal Breath Sounds, No Accessory Muscle Use, Chest Non-Tender Cardiovascular: Regular Rate, Rhythm, No Edema Back Exam: Other (l-spine NT, mild tender at sacrum in midline as well as L SI joint, NT at L iliac crest, muscles tight in lower back after I began examining him) Extremities: Normal Inspection, Normal Range of Motion, Non-Tender, No Pedal Edema Neurological: Alert, Normal Mood/Affect, CN II-XII Intact, Normal Gait, Normal Reflexes, No Motor/Sensory Deficits, Oriented x 3, Other (2+ patella DTR b/l, 1 + Achilles b/l, m/s intact at feet, great toe extension 5/5) Psychiatric: Normal Affect, Normal Mood Skin Exam: Warm, Dry, Intact, Normal Color, No Rash Lymphatic: No Adenopathy Course - Vital Signs Last Recorded V/S: Last Vital Signs Temp 36.7 C 07/01/17 17:50 Pulse 99 07/01/17 17:50 Resp 17 07/01/17 17:50 BP 153/103 H 07/01/17 17:50 Pulse Ox 98 07/01/17 17:50 - Orders/Labs/Meds Orders: Active Orders 24 hr Category Date Time Status Cyclobenzaprine [Flexeril] Med 07/01/17 18:12 Once 10 mg PO ONETIME ONE Medication Orders Cyclobenzaprine HCl (Flexeril) 10 mg PO ONETIME ONE Stop: 07/01/17 18:13 Meds: Medications Generic Name Dose Route Start Last Admin Trade Name Freq PRN Reason Stop Dose Admin Cyclobenzaprine HCl 10 mg 07/01/17 18:12 Flexeril PO 07/01/17 18:13 ONETIME ONE Discontinued Medications Generic Name Dose Route Start Last Admin Trade Name Freq PRN Reason Stop Dose Admin Ketorolac Tromethamine 60 mg 07/01/17 18:11 Toradol IM 07/01/17 18:12 ONETIME ONE - Re-Assessments/Exams Free Text/Narrative Re-Assessment/Exam: 07/01/17 18:21 exam most c/w a strain Departure - Departure Time of Disposition: 18:21 Disposition: Home, Self-Care 01 Condition: Good Clinical Impression: Low back strain - Discharge Information Prescriptions: Cyclobenzaprine HCl 10 mg PO TID PRN #15 tablet PRN Reason: Spasms Meloxicam 15 mg PO DAILY #30 tablet Instructions: Muscle Strain, Back Pain, Adult, Back Exercises Referrals: Deniz Ceballos MD [Primary Care Provider] - Additional Instructions: Resume taking the duloxetine 60 mg 1 tab daily as long as it does not make you dizzy or give you side effects, as it can help with your back pain. For pain and inflammation, take meloxicam 7.5 mg 2 tabs daily until gone, then change to 15 mg 1 tab daily. Do this for 1 week, longer if needed. For pain and inflammation, take acetaminophen 500 mg 2 tabs 4 times a day for 1 week, longer if needed. For spasm, take cyclobenzaprine 15 mg 1 tab 3 times a day as needed. Use ice for 10 minutes 4 times a day for the next 2 days. Do your stretching exercises (gently) 2 times a day for the next several days, then resume once a day as you are doing. No lifting for 24 hours. May work in 2 days if feeling better. See your PCP in 2-3 days. Call your Physician or Return to Emergency Department if: * Your condition worsens in any way. * You develop fever greater than 100.4. * You have vomitting that does not stop with medications. * You have pain that is not controlled with medications. - My Orders Last 24 Hours: My Active Orders 07/01/17 18:12 Cyclobenzaprine [Flexeril] 10 mg PO ONETIME ONE - Assessment/Plan Last 24 Hours: My Active Orders 07/01/17 18:12 Cyclobenzaprine [Flexeril] 10 mg PO ONETIME ONE
[2017-07-01 18:47] VITALS: BP 152/107
== END 2017-07-01 18:40 | disposition home or self-care (01) ==
LOC: FB.ED 17:50
DX: S39.012A Strain of muscle, fascia and tendon of lower back, initial encounter (principal); I10 Essential (primary) hypertension; F17.210 Nicotine dependence, cigarettes, uncomplicated; F31.9 Bipolar disorder, unspecified; Z79.899 Other long term (current) drug therapy; X58.XXXA Exposure to other specified factors, initial encounter; Y99.0 Civilian activity done for income or pay
CPT/HCPCS: 96372; 99283; A9270; J1885

== ENCOUNTER 2017-07-16 16:40 | Emergency (ER) | payer MEDICAID ==
[2017-07-16] MEDS ORDERED: Ciprofloxacin 500 MG Tab PO ONE (18:40)
--- NOTE | 2017-07-16 18:40 | EDM.PDOC ---
ED HPI GENERAL MEDICAL PROBLEM - General Chief Complaint: Upper Extremity Injury/Pain Stated Complaint: SHOT WITH NAIL GUN IN FINGER ON LT HAND Time Seen by Provider: 07/16/17 17:00 Source of Information: Reports: Patient History Limitations: Reports: No Limitations - History of Present Illness INITIAL COMMENTS - FREE TEXT/NARRATIVE: c/o finger injury pt shot a nail through his L index finger with a nail gun, just nicked his L middle finger last Td 2015 has some pain XR neg no joint involvement left index finger Pain Score (Numeric/FACES): 10 - Related Data Allergies Allergy/AdvReac Type Severity Reaction Status Date / Time No Known Allergies Allergy Verified 07/16/17 17:20 Home Meds: Home Meds Cyclobenzaprine HCl 10 mg PO TID PRN #15 tablet 07/01/17 [Rx] DULoxetine [Cymbalta] 60 mg PO DAILY 07/01/17 [History] Meloxicam 15 mg PO DAILY #30 tablet 07/01/17 [Rx] hydrOXYzine HCl [Atarax] 50 mg PO BEDTIME 07/01/17 [History] Ciprofloxacin HCl [Cipro] 500 mg PO BID #10 tablet 07/16/17 [Rx] Past Medical History - Past Health History Medical/Surgical History: Denies Medical/Surgical History HEENT History: Reports: Impaired Vision Cardiovascular History: Reports: Hypertension Gastrointestinal History: Reports: Pancreatitis, Other (See Below) Other Gastrointestinal History: HX OF PANCREATITIS Musculoskeletal History: Reports: Fracture, Other (See Below) Other Musculoskeletal History: LOW BACK PAIN Neurological History: Reports: Concussion Other Neuro History: concussion x 2 Psychiatric History: Reports: ADD, Addiction, Bipolar, Depression, Hallucinations, Panic Attack, Psych Hospitalization(s), Suicide Attempt, Suicidal Ideation, Other (See Below) Other Psychiatric History: ALCOHOL ABUSE Endocrine/Metabolic History: Reports: Obesity/BMI 30+ - Infectious Disease History Infectious Disease History: Reports: Chicken Pox - Past Surgical History Musculoskeletal Surgical History: Reports: Other (See Below) Social & Family History - Family History Family Medical History: Noncontributory Cardiac: Reports: None GI: Reports: None Neurological: Reports: None Psychiatric: Reports: None Endocrine/Metabolic: Reports: None - Tobacco Use Smoking Status *Q: Current Every Day Smoker Years of Tobacco use: 10 Packs/Tins Daily: 0.5 - Caffeine Use Caffeine Use: Reports: None - Alcohol Use Days Per Week of Alcohol Use: 1 Number of Drinks Per Day: 1 Total Drinks Per Week: 1 - Recreational Drug Use Recreational Drug Use: No - Living Situation & Occupation Living situation: Reports: Occupation: Employed Review of Systems - Review of Systems Review Of Systems: See Below Constitutional: Reports: No Symptoms Eyes: Reports: No Symptoms Ears: Reports: No Symptoms Nose: Reports: No Symptoms Mouth/Throat: Reports: No Symptoms Respiratory: Reports: No Symptoms Cardiovascular: Reports: No Symptoms GI/Abdominal: Reports: No Symptoms Genitourinary: Reports: No Symptoms Musculoskeletal: Reports: Other (finger pain) Skin: Reports: Other (puncture wound) Neurological: Reports: No Symptoms Psychiatric: Reports: No Symptoms ED EXAM, GENERAL - Physical Exam Exam: See Below Exam Limited By: No Limitations General Appearance: Alert, WD/WN, No Apparent Distress Extremities: Other (2 mm entry and exit wounds at distal L index finger, both closed, exits laterally over the midline and may have injured nerve bundle altho sensation seems intact, no swell, 1+ tender over distal phalanx, XR neg, nail appears to have grazed the bone based on locations of wounds) Course - Vital Signs Last Recorded V/S: Last Vital Signs Temp 36.7 C 07/16/17 16:40 Pulse 106 H 07/16/17 16:40 Resp 20 07/16/17 16:40 BP 160/108 H 07/16/17 16:40 Pulse Ox 99 07/16/17 16:40 - Orders/Labs/Meds Orders: Active Orders 24 hr Category Date Time Status Fingers Second Digit Lt F1 [CR] Stat Exams 07/16/17 17:22 Taken Departure - Departure Time of Disposition: 18:39 Disposition: Home, Self-Care 01 Condition: Good Clinical Impression: Puncture wound of finger of left hand Qualifiers: Encounter type: initial encounter Qualified Code(s): S61.239A - Puncture wound without foreign body of unspecified finger without damage to nail, initial encounter - Discharge Information Prescriptions: Ciprofloxacin HCl [Cipro] 500 mg PO BID #10 tablet Instructions: Puncture Wound Referrals: Deniz Ceballos MD [Primary Care Provider] - Additional Instructions: Use fingerguard for next 5 days. No pressure on fingerpad. For possible infection, take ciprofloxacin 500 mg 1 tab 2 times a day for 5 days. This antibiotic penetrates well into bone. For pain and inflammation, take ibuprofen 200 mg 4 tabs 3 times a day as needed. See your doctor in 3-4 days. See your doctor the same day for any increase in redness, swelling, pain, warmth , fever or drainage. - My Orders Last 24 Hours: My Active Orders 07/16/17 17:22 Fingers Second Digit Lt F1 [CR] Stat - Assessment/Plan Last 24 Hours: My Active Orders 07/16/17 17:22 Fingers Second Digit Lt F1 [CR] Stat
[2017-07-16 20:55] VITALS: BP 154/97
--- NOTE | 2017-07-17 13:07 | CR ---
INDICATION: Nail gun injury - finishing nail through distal finger, entrance on thumb side, exit on third digit side. LEFT SECOND FINGER: Three views of the left second finger revealed no evidence of a fracture, dislocation, or other significant bone or joint abnormality. [facility]
== END 2017-07-16 18:50 | disposition home or self-care (01) ==
LOC: FB.ED 16:40
DX: S61.231A Puncture wound without foreign body of left index finger without damage to nail, initial encounter (principal); I10 Essential (primary) hypertension; F31.9 Bipolar disorder, unspecified; F32.9 Major depressive disorder, single episode, unspecified; Z79.899 Other long term (current) drug therapy; W29.4XXA Contact with nail gun, initial encounter
CPT/HCPCS: 73140; 99283; A9270

== ENCOUNTER 2017-08-30 13:43 | Emergency (ER) | payer MEDICAID ==
[2017-08-30] MEDS ORDERED: Ketorolac 60 MG/2 ML SDV IM ONE (14:04)
[2017-08-30] MEDS ORDERED: Doxycycline 100 MG Tab PO ONE (14:04)
--- NOTE | 2017-08-30 14:13 | EDM.PDOC ---
ED HPI GENERAL MEDICAL PROBLEM - General Chief Complaint: Bite:Animal, Insect Stated Complaint: INSECT BITE LEFT LEG Time Seen by Provider: 08/30/17 13:43 Source of Information: Reports: Patient, Family History Limitations: Reports: No Limitations - History of Present Illness INITIAL COMMENTS - FREE TEXT/NARRATIVE: 31 y.o.m came to the ed shortly after he was bit by a spider into his left lower leg. this am. Pt has painh around the wound with mild erythema. No F/C no N/V/D or any other acute medical issue. 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 Left Lower Leg Pain Score (Numeric/FACES): 8 - Related Data Allergies Allergy/AdvReac Type Severity Reaction Status Date / Time No Known Allergies Allergy Verified 08/30/17 13:50 Home Meds: Home Meds Doxycycline [Vibramycin] 100 mg PO BID #20 cap 08/30/17 [Rx] Past Medical History - Past Health History Medical/Surgical History: Denies Medical/Surgical History HEENT History: Reports: Impaired Vision Cardiovascular History: Reports: Hypertension Gastrointestinal History: Reports: Pancreatitis, Other (See Below) Other Gastrointestinal History: HX OF PANCREATITIS Musculoskeletal History: Reports: Fracture, Other (See Below) Other Musculoskeletal History: LOW BACK PAIN Neurological History: Reports: Concussion Other Neuro History: concussion x 2 Psychiatric History: Reports: ADD, Addiction, Bipolar, Depression, Hallucinations, Panic Attack, Psych Hospitalization(s), Suicide Attempt, Suicidal Ideation, Other (See Below) Other Psychiatric History: ALCOHOL ABUSE Endocrine/Metabolic History: Reports: Obesity/BMI 30+ - Infectious Disease History Infectious Disease History: Reports: Chicken Pox - Past Surgical History Musculoskeletal Surgical History: Reports: Other (See Below) Social & Family History - Family History Family Medical History: Noncontributory Cardiac: Reports: None GI: Reports: None Neurological: Reports: None Psychiatric: Reports: None Endocrine/Metabolic: Reports: None - Caffeine Use Caffeine Use: Reports: None - Living Situation & Occupation Living situation: Reports: Occupation: Employed ED ROS GENERAL - Review of Systems Review Of Systems: See Below Constitutional: Reports: No Symptoms HEENT: Reports: No Symptoms Respiratory: Reports: No Symptoms Cardiovascular: Reports: No Symptoms Endocrine: Reports: No Symptoms GI/Abdominal: Reports: No Symptoms : Reports: No Symptoms Musculoskeletal: Reports: No Symptoms Skin: Reports: Wound (spider bite left lower leg) Neurological: Reports: No Symptoms Psychiatric: Reports: No Symptoms Hematologic/Lymphatic: Reports: No Symptoms Immunologic: Reports: No Symptoms ED EXAM, ANIMAL BITE - Physical Exam Exam: See Below Exam Limited By: No Limitations General Appearance: Alert, WD/WN, Mild Distress Eye Exam: Bilateral Eye: Normal Inspection Ears: Normal External Exam, Normal Canal, Hearing Grossly Normal, Normal TMs Nose: Normal Inspection, Normal Mucosa, No Blood Throat/Mouth: Normal Inspection, Normal Lips, Normal Gums, Normal Voice, No Airway Compromise Head: Atraumatic, Normocephalic Neck: Normal Inspection, Supple, Non-Tender, Full Range of Motion Respiratory/Chest: No Respiratory Distress Cardiovascular: Normal Peripheral Pulses, Regular Rate, Rhythm, No Edema, No Gallop, No JVD, No Murmur, No Rub Peripheral Pulses: 1+: Brachial (R) GI/Abdominal: Normal Bowel Sounds, Soft, Non-Tender, No Organomegaly, No Abnormal Bruit, No Mass (Male) Exam: Deferred Rectal (Males) Exam: Deferred Back Exam: Normal Inspection, Full Range of Motion Extremities: Normal Range of Motion, No Pedal Edema, Other (spider bite left lower leg) Neurological: Alert, Oriented, CN II-XII Intact, Normal Cognition, Normal Gait Psychiatric: Normal Affect, Normal Mood Skin Exam: Rash (spider bite left lower leg) Lymphadenopathy: Bilateral: No Adenopathy Lymphatic: No Adenopathy Course - Vital Signs Text/Narrative:: 31 y.o.m came to the ed shortly after he was bit by a spider into his left lower leg. this am. Pt has painh around the wound with mild erythema. No F/C no N/V/D or any other acute medical issue. BP 155/112 Pulse 102 RR 16 Pulse ox 95% on RA temp 36.7 Pt said, he was at one time on BP meds, but does not remember its name PE: WNWD male with a spider bite wound left lower leg, no FB seen in wound Impression: Spider bite left lower leg Tx: Doxycycline, Toradol, Ice Reexam: Improved Plan: D/C with instructions Last Recorded V/S: Last Vital Signs Temp 37.0 C 08/30/17 14:39 Pulse 99 08/30/17 14:39 Resp 18 08/30/17 14:39 BP 151/104 H 08/30/17 14:39 Pulse Ox 97 08/30/17 14:39 - Orders/Labs/Meds Orders: Active Orders 24 hr Category Date Time Status Cooling Warming Measures [RC] ASDIRECTED Care 08/30/17 14:05 Active Ice Bag [Ice Therapy] [OM.PC] Routine Oth 08/30/17 14:05 Ordered Meds: Medications Discontinued Medications Generic Name Dose Route Start Last Admin Trade Name Samantha PRN Reason Stop Dose Admin Doxycycline Hyclate 200 mg 08/30/17 14:04 08/30/17 14:19 Vibra-Tabs PO 08/30/17 14:05 200 mg ONETIME ONE Administration Ketorolac Tromethamine 60 mg 08/30/17 14:04 08/30/17 14:16 Toradol IM 08/30/17 14:05 60 mg ONETIME ONE Administration Departure - Departure Time of Disposition: 14:08 Disposition: Home, Self-Care 01 Condition: Good Clinical Impression: Spider bite Qualifiers: Encounter type: initial encounter - Discharge Information Prescriptions: Doxycycline [Vibramycin] 100 mg PO BID #20 cap Instructions: Spider Bite, [id number] Referrals: Deniz Ceballos MD [Primary Care Provider] - Forms: ED Department Discharge Additional Instructions: Please apply ice to the affected area, please take motrin for pain, please f/u with your Doctor, please come back if your symptoms get worse acutely. - My Orders Last 24 Hours: My Active Orders 08/30/17 14:05 Cooling Warming Measures [RC] ASDIRECTED Ice Bag [Ice Therapy] [OM.PC] Routine - Assessment/Plan Last 24 Hours: My Active Orders 08/30/17 14:05 Cooling Warming Measures [RC] ASDIRECTED Ice Bag [Ice Therapy] [OM.PC] Routine
[2017-08-30 14:57] VITALS: BP 151/104
== END 2017-08-30 14:39 | disposition home or self-care (01) ==
LOC: FB.ED 13:43
DX: S80.862A Insect bite (nonvenomous), left lower leg, initial encounter (principal); I10 Essential (primary) hypertension; E66.9 Obesity, unspecified; W57.XXXA Bitten or stung by nonvenomous insect and other nonvenomous arthropods, initial encounter
CPT/HCPCS: 99282; A9270; J1885; 96372

== ENCOUNTER 2017-09-09 15:31 | Emergency (ER) | payer MEDICAID ==
[2017-09-09] MEDS ORDERED: hydrOXYzine HCl 50 MG/ML SDV IM ONE (15:37)
--- NOTE | 2017-09-09 15:38 | EDM.PDOC ---
ED HPI GENERAL MEDICAL PROBLEM - General Stated Complaint: ALLERGIC REACTION Time Seen by Provider: 09/09/17 15:31 Source of Information: Reports: Patient, Family History Limitations: Reports: No Limitations - History of Present Illness INITIAL COMMENTS - FREE TEXT/NARRATIVE: 31 y.o.w.m came to the ed with is family due to gen itch whicg started after he was cleaning the basement. No SOB. No N/V/D. Pt has never those symptoms before. No dizziness, No F/C or any other acute medical issues. HBP 147/99 RR 19 Pulse ox 98% on RA temp 37.0 Pule 87 Onset Date: 09/09/17 Onset Time: 07:00 Duration: Hour(s):, Intermittent Location: Reports: Generalized Severity: Moderate Improves with: Reports: None Worsens with: Reports: None Context: Reports: Other (exposture ) Associated Symptoms: Reports: Other (itch) head Pain Score (Numeric/FACES): 8 - Related Data Allergies Allergy/AdvReac Type Severity Reaction Status Date / Time No Known Allergies Allergy Verified 09/09/17 15:43 Home Meds: Home Meds hydrOXYzine Pamoate [Vistaril] 50 mg PO Q6H PRN #20 cap 09/09/17 [Rx] Past Medical History - Past Health History Medical/Surgical History: Denies Medical/Surgical History HEENT History: Reports: Impaired Vision Cardiovascular History: Reports: Hypertension Gastrointestinal History: Reports: Pancreatitis, Other (See Below) Other Gastrointestinal History: HX OF PANCREATITIS Musculoskeletal History: Reports: Fracture, Other (See Below) Other Musculoskeletal History: LOW BACK PAIN Neurological History: Reports: Concussion Other Neuro History: concussion x 2 Psychiatric History: Reports: ADD, Addiction, Bipolar, Depression, Hallucinations, Panic Attack, Psych Hospitalization(s), Suicide Attempt, Suicidal Ideation, Other (See Below) Other Psychiatric History: ALCOHOL ABUSE Endocrine/Metabolic History: Reports: Obesity/BMI 30+ - Infectious Disease History Infectious Disease History: Reports: Chicken Pox - Past Surgical History Musculoskeletal Surgical History: Reports: Other (See Below) Social & Family History - Family History Family Medical History: Noncontributory Cardiac: Reports: None GI: Reports: None Neurological: Reports: None Psychiatric: Reports: None Endocrine/Metabolic: Reports: None - Caffeine Use Caffeine Use: Reports: None - Living Situation & Occupation Living situation: Reports: Occupation: Employed ED ROS GENERAL - Review of Systems Review Of Systems: See Below Constitutional: Reports: No Symptoms HEENT: Reports: No Symptoms Respiratory: Reports: No Symptoms Cardiovascular: Reports: No Symptoms Endocrine: Reports: No Symptoms GI/Abdominal: Reports: No Symptoms : Reports: No Symptoms Musculoskeletal: Reports: No Symptoms Skin: Reports: Pruritis Neurological: Reports: No Symptoms Psychiatric: Reports: No Symptoms Hematologic/Lymphatic: Reports: No Symptoms Immunologic: Reports: No Symptoms ED EXAM, SKIN/RASH Exam: See Below Exam Limited By: No Limitations General Appearance: Alert, WD/WN, Mild Distress Eye Exam: Bilateral Eye: Normal Inspection Ears: Normal External Exam Nose: Normal Inspection Throat/Mouth: Normal Inspection Head: Atraumatic, Normocephalic Neck: Normal Inspection Respiratory/Chest: No Respiratory Distress, Lungs Clear, Normal Breath Sounds Cardiovascular: Normal Peripheral Pulses, Regular Rate, Rhythm, No Edema, No Gallop Peripheral Pulses: 2+: Brachial (L) GI/Abdominal: Normal Bowel Sounds, Soft, Non-Tender, No Organomegaly, No Abnormal Bruit (Male) Exam: Deferred Rectal (Males) Exam: Deferred Back Exam: Normal Inspection, Full Range of Motion Extremities: Normal Inspection, Normal Range of Motion, Non-Tender, No Pedal Edema Neurological: Alert, Oriented, CN II-XII Intact, Normal Cognition, Normal Gait, No Motor/Sensory Deficits Psychiatric: Normal Affect Skin: Rash (itching, urticaria) Course - Vital Signs Text/Narrative:: 31 y.o.w.m came to the ed with is family due to gen itch whicg started after he was cleaning the basement. No SOB. No N/V/D. Pt has never those symptoms before. No dizziness, No F/C or any other acute medical issues. HBP 147/99 RR 19 Pulse ox 98% on RA temp 37.0 Pule 87 PE: WNWD W M with gen itch, hives/urticaria Impression: Urticaria TxL Vistrail Reexam: 100% improvement Plan: D/C with instructions Last Recorded V/S: Last Vital Signs Temp 36.7 C 09/09/17 15:32 Pulse 103 H 09/09/17 15:32 Resp 19 09/09/17 15:32 BP 147/99 H 09/09/17 15:32 Pulse Ox 99 09/09/17 15:32 - Orders/Labs/Meds Meds: Medications Discontinued Medications Generic Name Dose Route Start Last Admin Trade Name Dagobertoq PRN Reason Stop Dose Admin Hydroxyzine HCl 50 mg 09/09/17 15:37 09/09/17 15:47 Vistaril IM 09/09/17 15:38 50 mg ONETIME ONE Administration Departure - Departure Time of Disposition: 17:09 Disposition: Home, Self-Care 01 Condition: Good Clinical Impression: Urticaria - Discharge Information Prescriptions: hydrOXYzine Pamoate [Vistaril] 50 mg PO Q6H PRN #20 cap PRN Reason: for itch, hives Instructions: Hives, [id number] Referrals: Deniz Ceballos MD [Primary Care Provider] - Forms: ED Department Discharge Additional Instructions: Please increase water intake, take vistaril as recommended, please f/u, come back if your symptoms get worse acutely
[2017-09-09 18:46] VITALS: BP 139/99
== END 2017-09-09 17:34 | disposition home or self-care (01) ==
LOC: FB.ED 15:31
DX: L50.9 Urticaria, unspecified (principal); I10 Essential (primary) hypertension
CPT/HCPCS: 96372; 99283; A9270; J3410

== ENCOUNTER 2017-10-06 15:40 | Emergency (ER) | payer MEDICAID ==
[2012-12-28 09:12] VITALS: BP 145/93
[2017-10-06] MEDS ORDERED: Ketorolac 60 MG/2 ML SDV IM ONE (17:26)
[2017-10-06 18:14] VITALS: BP 137/101
--- NOTE | 2017-10-08 08:45 | EDM.PDOC ---
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 that gets worse while he is working the chest pain is midsternal , 8/10 radiates to his left "arm pit" Location: Reports: Chest Quality: Reports: Sharp, Other (intermittent) Severity: Severe Improves with: Reports: Medication Worsens with: Reports: Movement Context: Reports: Activity, Exercise, Lifting, Other (mostly with hoeing) Treatments 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: Other (see below) (none) Midsternal chest region Pain Score (Numeric/FACES): 8 - Related Data Allergies Allergy/AdvReac Type Severity Reaction Status Date / Time No Known Allergies Allergy Verified 10/06/17 16:58 Home Meds: Home Meds hydrOXYzine pamoate [Vistaril] 50 mg PO Q6H PRN #20 cap 09/09/17 [Rx] oxyCODONE HCl/Acetaminophen [Percocet 5-325 mg Tablet] 1 each PO Q6HR PRN #10 tablet 10/06/17 [Rx] Past Medical History - Past Health History Medical/Surgical History: Denies Medical/Surgical History HEENT History: Reports: Impaired Vision Cardiovascular History: Reports: Hypertension Gastrointestinal History: Reports: Pancreatitis, Other (See Below) Other Gastrointestinal History: HX OF PANCREATITIS Musculoskeletal History: Reports: Fracture, Other (See Below) Other Musculoskeletal History: LOW BACK PAIN Neurological History: Reports: Concussion Other Neuro History: concussion x 2 Psychiatric History: Reports: ADD, Addiction, Bipolar, Depression, Hallucinations, Panic Attack, Psych Hospitalization(s), Suicide Attempt, Suicidal Ideation, Other (See Below) Other Psychiatric History: ALCOHOL ABUSE Endocrine/Metabolic History: Reports: Obesity/BMI 30+ - Infectious Disease History Infectious Disease History: Reports: Chicken Pox - Past Surgical History Cardiovascular Surgical History: Reports: None Social & Family History - Family History Family Medical History: Noncontributory Cardiac: Reports: None GI: Reports: None Neurological: Reports: None Psychiatric: Reports: None Endocrine/Metabolic: Reports: None - Tobacco Use Smoking Status *Q: Current Every Day Smoker Years of Tobacco use: 12 Packs/Tins Daily: 0.4 - Caffeine Use Caffeine Use: Reports: Coffee - Alcohol Use Days Per Week of Alcohol Use: 1 Number of Drinks Per Day: 8 Total Drinks Per Week: 8 - Recreational Drug Use Recreational Drug Use: No - Living Situation & Occupation Living situation: Reports: Occupation: Employed ED ROS GENERAL - Review of Systems Review Of Systems: See Below Constitutional: Reports: No Symptoms HEENT: Reports: No Symptoms Respiratory: Reports: No Symptoms Cardiovascular: Reports: Chest Pain Endocrine: Reports: No Symptoms GI/Abdominal: Reports: No Symptoms : Reports: No Symptoms Musculoskeletal: Reports: Other (chest wall pain) Skin: Reports: No Symptoms Neurological: Reports: No Symptoms Psychiatric: Reports: No Symptoms ED EXAM, GENERAL - Physical Exam Exam: See Below Free Text/Narrative:: health looking man with reproducible lefgt parasternal and costochondral chest wall pain tahtr radiates to the left pectoral area Exam Limited By: No Limitations General Appearance: Alert, Mild Distress, Moderate Distress Nose: Normal Inspection Throat/Mouth: Normal Inspection Head: Atraumatic Neck: Normal Inspection Respiratory/Chest: No Respiratory Distress, Other (tender left parasterna asn costochondral tenderness) Cardiovascular: Normal Peripheral Pulses, Regular Rate, Rhythm, No Edema, No Gallop, No JVD, No Murmur Peripheral Pulses: 0: Dorsalis Pedis (L), 1+: Brachial (L), Brachial (R) GI/Abdominal: Normal Bowel Sounds, Soft, Non-Tender, No Organomegaly, No Distention, No Abnormal Bruit, No Mass (Male) Exam: Normal Inspection Rectal (Males) Exam: Normal Rectal Tone Back Exam: Normal Inspection, Full Range of Motion Extremities: Normal Inspection, Normal Range of Motion, Non-Tender, No Pedal Edema, Normal Capillary Refill Neurological: Alert Course - Vital Signs Last Recorded V/S: Last Vital Signs Temp 37.0 C 10/06/17 15:45 Pulse 111 H 10/06/17 15:45 Resp 18 10/06/17 18:10 BP 137/101 H 10/06/17 18:10 Pulse Ox 97 10/06/17 18:10 - Orders/Labs/Meds Labs: Laboratory Tests 10/06/17 10/06/17 10/06/17 Range/Units 16:05 16:05 16:05 WBC 2.9 L (4.5-12.0) X10-3/uL RBC 5.65 (4.30-5.75) x10(6)uL Hgb 17.9 H (11.5-15.5) g/dL Hct 51.3 (30.0-51.3) % MCV 90.9 (80-96) fL MCH 31.6 (27.7-33.6) pg MCHC 34.8 (32.2-35.4) g/dL RDW 12.7 (11.5-15.5) % Plt Count 191 (125-369) X10(3)uL MPV 9.5 (7.4-10.4) fL Add Manual Diff Yes Neutrophils % (Manual) 40 L (46-82) % Lymphocytes % (Manual) 35 (13-37) % Monocytes % (Manual) 25 H (4-12) % D-Dimer, Quantitative (0.0-0.59) mg/LFEU Sodium 136 (135-145) mmol/L Potassium 3.4 L (3.5-5.3) mmol/L Chloride 102 (100-110) mmol/L Carbon Dioxide 23 (21-32) mmol/L BUN 10 (7-18) mg/dL Creatinine 0.9 (0.70-1.30) mg/dL Est Cr Clr Drug Dosing TNP Estimated GFR (MDRD) > 60 (>60) BUN/Creatinine Ratio 11.1 (9-20) Glucose 129 H (80-116) mg/dL Calcium 8.3 L (8.6-10.2) mg/dL Total Bilirubin 0.8 (0.1-1.3) mg/dL AST 237 H* (5-25) IU/L ALT 440 H* (12-36) U/L Alkaline Phosphatase 81 (56-112) IU/L Troponin I < 0.017 L (<0.017-0.056) ng/mL Total Protein 7.6 (6.0-8.0) g/dL Albumin 3.6 (3.5-5.2) g/dL Globulin 4.0 g/dL Albumin/Globulin Ratio 0.9 08//18 Range/Units 16:05 WBC (4.5-12.0) X10-3/uL RBC (4.30-5.75) x10(6)uL Hgb (11.5-15.5) g/dL Hct (30.0-51.3) % MCV (80-96) fL MCH (27.7-33.6) pg MCHC (32.2-35.4) g/dL RDW (11.5-15.5) % Plt Count (125-369) X10(3)uL MPV (7.4-10.4) fL Add Manual Diff Neutrophils % (Manual) (46-82) % Lymphocytes % (Manual) (13-37) % Monocytes % (Manual) (4-12) % D-Dimer, Quantitative 0.28 (0.0-0.59) mg/LFEU Sodium (135-145) mmol/L Potassium (3.5-5.3) mmol/L Chloride (100-110) mmol/L Carbon Dioxide (21-32) mmol/L BUN (7-18) mg/dL Creatinine (0.70-1.30) mg/dL Est Cr Clr Drug Dosing Estimated GFR (MDRD) (>60) BUN/Creatinine Ratio (9-20) Glucose (80-116) mg/dL Calcium (8.6-10.2) mg/dL Total Bilirubin (0.1-1.3) mg/dL AST (5-25) IU/L ALT (12-36) U/L Alkaline Phosphatase (56-112) IU/L Troponin I (<0.017-0.056) ng/mL Total Protein (6.0-8.0) g/dL Albumin (3.5-5.2) g/dL Globulin g/dL Albumin/Globulin Ratio Meds: Medications Discontinued Medications Generic Name Dose Route Start Last Admin Trade Name Freq PRN Reason Stop Dose Admin Ketorolac Tromethamine 60 mg 10/06/17 17:26 10/06/17 18:12 Toradol IM 10/06/17 17:27 60 mg ONETIME ONE Administration Departure - Departure Time of Disposition: 18:00 Disposition: Home, Self-Care 01 Clinical Impression: Costochondritis, Chest wall pain Prescriptions: oxyCODONE HCl/Acetaminophen [Percocet 5-325 mg Tablet] 1 each PO Q6HR PRN #10 tablet PRN Reason: Pain Instructions: Costochondritis, [id number], Ketorolac injection, Liver Function Tests, Chest Wall Pain, [id number] Referrals: Deniz Ceballos MD [Primary Care Provider] - Forms: ED Department Discharge Additional Instructions: YOU WILL HAVE TO FOLLOW UP WITH YOUR MD FOR THE RESULTS OF THE HEPATITIS BLOOD TEST FOR YOUR LEFT RIB PAIN YOU CAN TAKE 1000 MG OF TYLENOL AND 600 MG OF IBUPROFEN TOGETHER EVERY 6 HOURS SEE YOUR MD NEXT WEEK
--- NOTE | 2017-10-08 12:47 | CR ---
INDICATION: Left parasternal chest discomfort. CHEST: Two PA views and a lateral view of the chest 10/06/2017 were compared with an AP of 09/26/2016, again revealing the heart to be normal in size and shape. Mediastinum and bony thorax are unremarkable. An active infiltrate or effusion was not identified. IMPRESSION: No acute process - no definite active disease. MTDD
[2017-10-09 07:36] LABS: HBSAG SCREEN Negative (Negative); HEP A AB, IGM Negative (Negative); HEP B CORE AB, IGM Negative (Negative); HEP C VIRUS AB <0.1 s/co ratio (0.0-0.9)
== END 2017-10-06 18:24 | disposition home or self-care (01) ==
LOC: FB.ED 15:40
DX: M94.0 Chondrocostal junction syndrome [Tietze] (principal); I10 Essential (primary) hypertension; F17.210 Nicotine dependence, cigarettes, uncomplicated
CPT/HCPCS: 36415; 71046; 80053; 80074; 84484; 85025; 85379; 96372; 99284; J1885

== ENCOUNTER 2018-08-14 10:15 | Emergency (ER) | payer MEDICAID ==
[2018-08-14] MEDS ORDERED: Ketorolac 60 MG/2 ML SDV IM ONE (10:36)
--- NOTE | 2018-08-14 10:41 | EDM.PDOC ---
ED HPI GENERAL MEDICAL PROBLEM - General Chief Complaint: Back Pain or Injury Stated Complaint: INJURED BACK Time Seen by Provider: 08/14/18 10:37 Source of Information: Reports: Patient History Limitations: Reports: No Limitations - History of Present Illness INITIAL COMMENTS - FREE TEXT/NARRATIVE: Attempted to sit in a chair, it rolled, patient fell to the ground. Complains of low back pain radiating to RLE, and RLE tingling. Has a prior h/o lumbar disk herniation. 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 Denies incontinence. 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: Denies: Acetaminophen, NSAIDS Low back Pain Score (Numeric/FACES): 9 - Related Data Allergies Allergy/AdvReac Type Severity Reaction Status Date / Time No Known Allergies Allergy Verified 08/14/18 10:23 Home Meds: Home Meds Cyclobenzaprine [Flexeril] 10 mg PO TID PRN #20 tab 08/14/18 [Rx] Ibuprofen 600 mg PO Q6H PRN #20 tablet 08/14/18 [Rx] Past Medical History HEENT History: Reports: Impaired Vision Cardiovascular History: Reports: Hypertension Gastrointestinal History: Reports: Pancreatitis, Other (See Below) Other Gastrointestinal History: HX OF PANCREATITIS Musculoskeletal History: Reports: Fracture, Other (See Below) Other Musculoskeletal History: Intervertebral disk disease Neurological History: Reports: Concussion Other Neuro History: concussion x 2 Psychiatric History: Reports: ADD, Addiction, Bipolar, Depression, Hallucinations, Panic Attack, Psych Hospitalization(s), Suicide Attempt, Suicidal Ideation, Other (See Below) Other Psychiatric History: ALCOHOL ABUSE Endocrine/Metabolic History: Reports: Obesity/BMI 30+ - Infectious Disease History Infectious Disease History: Reports: Chicken Pox - Past Surgical History Cardiovascular Surgical History: Reports: None Social & Family History - Family History Family Medical History: Noncontributory Cardiac: Reports: None GI: Reports: None Neurological: Reports: None Psychiatric: Reports: None Endocrine/Metabolic: Reports: None - Caffeine Use Caffeine Use: Reports: Coffee - Living Situation & Occupation Living situation: Reports: Occupation: Employed ED ROS GENERAL - Review of Systems Review Of Systems: ROS reveals no pertinent complaints other than HPI. ED EXAM,LOWER BACK PAIN/INJURY - Physical Exam Exam: See Below Exam Limited By: No Limitations General Appearance: Alert, WD/WN, No Apparent Distress Ears: Normal External Exam Nose: Normal Inspection Throat/Mouth: No Airway Compromise Head: Atraumatic, Normocephalic Neck: Full Range of Motion Respiratory/Chest: No Respiratory Distress Back Exam: Other (mild low back tenderness) Extremities: Normal Inspection, Normal Range of Motion Neurological: Alert, Normal Mood/Affect, No Motor/Sensory Deficits DTR - Lower Extremities: 2+: Knee (R), Knee (L) Psychiatric: Normal Affect, Normal Mood Skin Exam: Warm, Dry, Intact, Normal Color, No Rash Course - Vital Signs Last Recorded V/S: Last Vital Signs Temp 36.3 C 08/14/18 10:17 Pulse 54 L 08/14/18 10:17 Resp 16 08/14/18 10:17 BP 157/93 H 08/14/18 10:17 Pulse Ox 98 08/14/18 10:17 - Orders/Labs/Meds Orders: Active Orders 24 hr Category Date Time Status Lumbar Spine 2 or 3V [CR] Stat Exams 08/14/18 10:41 Taken Meds: Medications Discontinued Medications Generic Name Dose Route Start Last Admin Trade Name Freq PRN Reason Stop Dose Admin Ketorolac Tromethamine 60 mg 08/14/18 10:36 08/14/18 10:45 Toradol IM 08/14/18 10:37 60 mg ONETIME ONE Administration Ondansetron HCl 4 mg 08/14/18 10:48 08/14/18 10:58 Zofran IM 08/14/18 10:49 Not Given ONETIME ONE Ondansetron HCl 4 mg 08/14/18 10:52 08/14/18 10:55 Zofran Odt PO 08/14/18 10:53 4 mg ONETIME ONE Administration - Radiology Interpretation Free Text/Narrative:: Lumbar spine XR: No fracture or subluxation - Re-Assessments/Exams Free Text/Narrative Re-Assessment/Exam: 08/14/18 12:12 Patient request PO Zofran w/ Toradol as this medication causes nausea. Symptoms improved after Toradol 60 mg IM. Departure - Departure Time of Disposition: 12:13 Disposition: Home, Self-Care 01 Condition: Good Clinical Impression: Sciatica of right side - Discharge Information *PRESCRIPTION DRUG MONITORING PROGRAM REVIEWED*: Yes *COPY OF PRESCRIPTION DRUG MONITORING REPORT IN PATIENT MAN: Not Applicable Prescriptions: Cyclobenzaprine [Flexeril] 10 mg PO TID PRN #20 tab PRN Reason: Muscle Spasm Ibuprofen 600 mg PO Q6H PRN #20 tablet PRN Reason: Pain Instructions: Sciatica, [id number] Referrals: Deniz Ceballos MD [Primary Care Provider] - 2 Days Forms: ED Department Discharge, ED Return to Work/School Form Additional Instructions: Fill prescriptions for Ibuprofen and Flexeril and take as directed. Do not lift more than 10 lbs x 1 week. Follow up with your primary physician in 2 days. Return to the ER if symptoms worsen. - My Orders Last 24 Hours: My Active Orders 08/14/18 10:41 Lumbar Spine 2 or 3V [CR] Stat - Assessment/Plan Last 24 Hours: My Active Orders 08/14/18 10:41 Lumbar Spine 2 or 3V [CR] Stat
[2018-08-14] MEDS ORDERED: Ondansetron 4 MG/2 ML SDV IM ONE (10:48)
[2018-08-14] MEDS ORDERED: Ondansetron 4 MG Tab.DIS PO ONE (10:52)
[2018-08-14 13:24] VITALS: BP 153/96
== END 2018-08-14 12:29 | disposition home or self-care (01) ==
LOC: FB.ED 10:15
DX: M54.41 Lumbago with sciatica, right side (principal); I10 Essential (primary) hypertension; Z79.899 Other long term (current) drug therapy; W19.XXXA Unspecified fall, initial encounter
CPT/HCPCS: 72100; 96372; 99283-25; A9270-GY; J1885

== ENCOUNTER 2018-10-17 16:36 | Emergency (ER) | payer MEDICAID ==
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
[2018-10-17 19:07] VITALS: BP 155/115
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
== END 2018-10-17 18:33 | disposition home or self-care (01) ==
LOC: FB.ED 16:36
DX: S90.31XA Contusion of right foot, initial encounter (principal); S90.32XA Contusion of left foot, initial encounter; I10 Essential (primary) hypertension; F17.210 Nicotine dependence, cigarettes, uncomplicated; V86.59XA Driver of other special all-terrain or other off-road motor vehicle injured in nontraffic accident, initial encounter; Y99.0 Civilian activity done for income or pay
CPT/HCPCS: 73630-50; 99283-25

== ENCOUNTER 2018-11-22 15:01 | Observation (INO) | payer MEDICAID ==
[2018-11-22] MEDS ORDERED: Ondansetron 4 MG/2 ML SDV IVPUSH ONE (15:27)
[2018-11-22] MEDS ORDERED: Sodium Chloride 0.9% 1,000 ML IV ONE (15:27)
[2018-11-22] MEDS ORDERED: Alum Hydroxide/Mag Hydroxide 15 ML, Lidocaine 2% 15 ML PO ONE ×2 (15:28)
--- NOTE | 2018-11-22 15:29 | EDM.PDOC ---
ED HPI GENERAL MEDICAL PROBLEM - General Chief Complaint: Abdominal Pain Time Seen by Provider: 11/22/18 15:07 Source of Information: Reports: Patient, Family History Limitations: Reports: No Limitations - History of Present Illness INITIAL COMMENTS - FREE TEXT/NARRATIVE: 33 y.o.w.m with a h/o ETOH abuse and chronic pancreatitis, came to the ed due to epigastric pain and vomiting. Last ETOH intake was > 12 hours ago. No trauma. Pt No Cp.NoSOB or any other acute medical issues. He is here with his . BP 147/112 RR 18 Pulse ox 98% on RA temp 36.8 Onset Date: 11/22/18 Onset Time: 06:00 Duration: Hour(s):, Getting Worse, Intermittent Location: Reports: Abdomen (epigatsric pain) Quality: Reports: Burning, Dull Severity: Moderate Improves with: Reports: None Worsens with: Reports: Eating Context: Reports: Other Associated Symptoms: Reports: Nausea/Vomiting Upper abdominal pain Pain Score (Numeric/FACES): 10 - Related Data Allergies Allergy/AdvReac Type Severity Reaction Status Date / Time No Known Allergies Allergy Verified 11/22/18 15:13 Home Meds: Home Meds Metoprolol Tartrate 25 mg BID 11/22/18 [History] Past Medical History HEENT History: Reports: Impaired Vision Cardiovascular History: Reports: Hypertension Gastrointestinal History: Reports: Gastritis, Pancreatitis, Other (See Below) Other Gastrointestinal History: HX OF PANCREATITIS Musculoskeletal History: Reports: Back Pain, Chronic, Fracture, Other (See Below ) Other Musculoskeletal History: Intervertebral disk disease Neurological History: Reports: Concussion Other Neuro History: concussion x 2 Psychiatric History: Reports: ADD, Addiction, Bipolar, Depression, Hallucinations, Panic Attack, Psych Hospitalization(s), Suicide Attempt, Suicidal Ideation, Other (See Below) Other Psychiatric History: ALCOHOL ABUSE Endocrine/Metabolic History: Reports: Obesity/BMI 30+ - Infectious Disease History Infectious Disease History: Reports: Chicken Pox - Past Surgical History HEENT Surgical History: Reports: None Cardiovascular Surgical History: Reports: None GI Surgical History: Reports: None Musculoskeletal Surgical History: Reports: Other (See Below) Other Musculoskeletal Surgeries/Procedures:: hx back surgery (discetomy) Social & Family History - Family History Family Medical History: Noncontributory Cardiac: Reports: None GI: Reports: None Neurological: Reports: None Psychiatric: Reports: None Endocrine/Metabolic: Reports: None - Tobacco Use Smoking Status *Q: Current Every Day Smoker Years of Tobacco use: 13 Packs/Tins Daily: 0.7 - Caffeine Use Caffeine Use: Reports: Soda - Alcohol Use Days Per Week of Alcohol Use: 2 Number of Drinks Per Day: 6 Total Drinks Per Week: 12 - Recreational Drug Use Recreational Drug Use: Yes - Living Situation & Occupation Living situation: Reports: Occupation: Employed ED ROS GENERAL - Review of Systems Review Of Systems: See Below Constitutional: Reports: No Symptoms HEENT: Reports: No Symptoms Respiratory: Reports: No Symptoms Cardiovascular: Reports: No Symptoms Endocrine: Reports: No Symptoms GI/Abdominal: Reports: Abdominal Pain (epigastric) : Reports: No Symptoms Musculoskeletal: Reports: No Symptoms Skin: Reports: No Symptoms Neurological: Reports: No Symptoms Psychiatric: Reports: No Symptoms Hematologic/Lymphatic: Reports: No Symptoms Immunologic: Reports: No Symptoms ED EXAM, GI/ABD - Physical Exam Exam: See Below Exam Limited By: No Limitations General Appearance: Alert, WD/WN, Moderate Distress Eyes: Bilateral: Normal Appearance Ears: Normal External Exam, Normal Canal Nose: Normal Inspection, Normal Mucosa, No Blood Throat/Mouth: Normal Lips, Normal Voice, No Airway Compromise Head: Atraumatic, Normocephalic Neck: Normal Inspection, Non-Tender Respiratory/Chest: No Respiratory Distress, Lungs Clear, Normal Breath Sounds, Chest Non-Tender Cardiovascular: Normal Peripheral Pulses, Regular Rate, Rhythm, No Edema, No Gallop, No JVD, No Murmur, No Rub GI/Abdominal Exam: Normal Bowel Sounds, Tender (epigatsric area) (Male) Exam: Deferred Rectal (Males) Exam: Deferred Back Exam: Normal Inspection, Full Range of Motion Extremities: Normal Inspection, Normal Range of Motion, Non-Tender Neurological: Alert, Oriented, CN II-XII Intact, Normal Cognition, Normal Gait, No Motor/Sensory Deficits Psychiatric: Normal Affect, Normal Mood Skin Exam: Warm, Dry, Intact, Normal Color, No Rash Lymphatic: No Adenopathy Course - Vital Signs Text/Narrative:: 33 y.o.w.m with a h/o ETOH abuse and chronic pancreatitis, came to the ed due to epigastric pain and vomiting. Last ETOH intake was > 12 hours ago. No trauma. Pt No CP. No SOB or any other acute medical issues. He is here with his . BP 147/112 RR 18 Pulse ox 98% on RA temp 36.8 PE: WNWD W M with epigastric pain Imaging: CT abd/pelvis: Chronic pancreatitis Labs: CBC nl INR 1.15 Ca 8.4 Na 146 CL 111 ALT> AST Lipase 987 Impression: Acute pancreatitis on top of chronic pancreatitis, chronic ETOH abuse. Dehydration, Hypernatremia. Tx Zofran, GI cocktail, NS, Dilaudid, Morphine Clonidine. Reexam: pain improved from 12/05 to 10/05 Plan: Admit for obs to M/S Addendum 11/23/2018 Was called by the nurse 0.5 mg Q 2 hours is too low of a dose. in increased to 1 mg every 3 hours. CHECKERER HAND pump protocol is not available at this time Last Recorded V/S: Last Vital Signs Temp 36.8 C 11/23/18 00:00 Pulse 92 11/23/18 00:00 Resp 19 11/23/18 00:00 BP 149/99 H 11/23/18 00:00 Pulse Ox 96 11/23/18 00:00 - Orders/Labs/Meds Orders: Active Orders 24 hr Category Date Time Status Abdomen Pelvis w Cont [CT] Stat Exams 11/22/18 18:30 Taken Sodium Chloride 0.9% [Saline Flush] Med 11/22/18 19:36 Active 10 ml FLUSH ASDIRECTED PRN Medication Orders Hydromorphone HCl (Dilaudid) 1 mg IVPUSH ONETIME PRN PRN Reason: Pain (severe 7-10) Lactated Ringer's (Ringers, Lactated) 1,000 mls @ 125 mls/hr IV ASDIRECTED RAHAT Last Admin: 11/22/18 20:52 Dose: 125 mls/hr Ondansetron HCl (Zofran) 8 mg IV Q6H PRN PRN Reason: Nausea/Vomiting Sodium Chloride (Saline Flush) 10 ml FLUSH ASDIRECTED PRN PRN Reason: Abdominal Pain Last Admin: 11/22/18 19:40 Dose: 10 ml Labs: Laboratory Tests 11/22/18 11/22/18 11/22/18 Range/Units 15:15 15:15 15:15 WBC 6.0 (4.5-12.0) X10-3/uL RBC 5.32 (4.30-5.75) x10(6)uL Hgb 15.8 (13.5-17.8) g/dL Hct 49.5 (30.0-51.3) % MCV 88.3 (80-96) fL MCH 31.6 (27.7-33.6) pg MCHC 35.9 H (32.2-35.4) g/dL RDW 12.5 (11.5-15.5) % Plt Count 154 (125-369) X10(3)uL MPV 8.8 (7.4-10.4) fL Add Manual Diff Yes Neutrophils % (Manual) 76 (46-82) % Band Neutrophils % 4 (0-6) % Lymphocytes % (Manual) 12 L (13-37) % Monocytes % (Manual) 6 (4-12) % Eosinophils % (Manual) 2 (0-5) % PT 11.9 H (8.7-11.1) INR 1.22 H (0.89-1.13) Sodium 146 H D (135-145) mmol/L Potassium 4.5 D (3.5-5.3) mmol/L Chloride 111 H D (100-110) mmol/L Carbon Dioxide 28 (21-32) mmol/L BUN 12 (7-18) mg/dL Creatinine 0.7 (0.70-1.30) mg/dL Est Cr Clr Drug Dosing 142.95 mL/min Estimated GFR (MDRD) > 60 (>60) BUN/Creatinine Ratio 17.1 (9-20) Glucose 91 (80-116) mg/dL Calcium 8.4 L (8.6-10.2) mg/dL Total Bilirubin 0.9 (0.1-1.3) mg/dL Direct Bilirubin 0.10 (0.10-0.20) mg/dL AST 68 H D (5-25) IU/L ALT 114 H D (12-36) U/L Alkaline Phosphatase 76 (56-112) IU/L Total Protein 7.5 (6.0-8.0) g/dL Albumin 3.6 (3.5-5.2) g/dL Amylase (25-115) U/L Lipase (73-393) U/L Urine Color (YELLOW) Urine Appearance (CLEAR) Urine pH (5.0-6.5) Ur Specific [place] (1.010-1.025) Urine Protein (NEGATIVE) mg/dL Urine Glucose (UA) (NORMAL) mg/dL Urine Ketones (NEGATIVE) mg/dL Urine Occult Blood (NEGATIVE) Urine Nitrite (NEGATIVE) Urine Bilirubin (NEGATIVE) Urine Urobilinogen (NEGATIVE) mg/dL Ur Leukocyte Esterase (NEGATIVE) Urine RBC (0-5) Urine WBC (0-5) Ur Squamous Epith Cells (NS,R,O) Urine Bacteria (NS) Urine Opiates Screen (NEGATIVE) Ur Oxycodone Screen (NEGATIVE) Ur Propoxyphene Screen (NEGATIVE) Ur Barbituates Screen (NEGATIVE) Ur Tricyclics Screen (NEGATIVE) Ur Phencyclidine Scrn (NEGATIVE) Ur Amphetamine Screen (NEGATIVE) Urine MDMA Screen (NEGATIVE) U Benzodiazepines Scrn (NEGATIVE) U Cocaine Metab Screen (NEGATIVE) U Marijuana (THC) Screen (NEGATIVE) Ethyl Alcohol (<0.03) % 11/22/18 11/22/18 11/22/18 Range/Units 15:15 15:15 15:15 WBC (4.5-12.0) X10-3/uL RBC (4.30-5.75) x10(6)uL Hgb (13.5-17.8) g/dL Hct (30.0-51.3) % MCV (80-96) fL MCH (27.7-33.6) pg MCHC (32.2-35.4) g/dL RDW (11.5-15.5) % Plt Count (125-369) X10(3)uL MPV (7.4-10.4) fL Add Manual Diff Neutrophils % (Manual) (46-82) % Band Neutrophils % (0-6) % Lymphocytes % (Manual) (13-37) % Monocytes % (Manual) (4-12) % Eosinophils % (Manual) (0-5) % PT (8.7-11.1) INR (0.89-1.13) Sodium (135-145) mmol/L Potassium (3.5-5.3) mmol/L Chloride (100-110) mmol/L Carbon Dioxide (21-32) mmol/L BUN (7-18) mg/dL Creatinine (0.70-1.30) mg/dL Est Cr Clr Drug Dosing mL/min Estimated GFR (MDRD) (>60) BUN/Creatinine Ratio (9-20) Glucose (80-116) mg/dL Calcium (8.6-10.2) mg/dL Total Bilirubin (0.1-1.3) mg/dL Direct Bilirubin (0.10-0.20) mg/dL AST (5-25) IU/L ALT (12-36) U/L Alkaline Phosphatase (56-112) IU/L Total Protein (6.0-8.0) g/dL Albumin (3.5-5.2) g/dL Amylase 82 (25-115) U/L Lipase 941 H (73-393) U/L Urine Color (YELLOW) Urine Appearance (CLEAR) Urine pH (5.0-6.5) Ur Specific [place] (1.010-1.025) Urine Protein (NEGATIVE) mg/dL Urine Glucose (UA) (NORMAL) mg/dL Urine Ketones (NEGATIVE) mg/dL Urine Occult Blood (NEGATIVE) Urine Nitrite (NEGATIVE) Urine Bilirubin (NEGATIVE) Urine Urobilinogen (NEGATIVE) mg/dL Ur Leukocyte Esterase (NEGATIVE) Urine RBC (0-5) Urine WBC (0-5) Ur Squamous Epith Cells (NS,R,O) Urine Bacteria (NS) Urine Opiates Screen (NEGATIVE) Ur Oxycodone Screen (NEGATIVE) Ur Propoxyphene Screen (NEGATIVE) Ur Barbituates Screen (NEGATIVE) Ur Tricyclics Screen (NEGATIVE) Ur Phencyclidine Scrn (NEGATIVE) Ur Amphetamine Screen (NEGATIVE) Urine MDMA Screen (NEGATIVE) U Benzodiazepines Scrn (NEGATIVE) U Cocaine Metab Screen (NEGATIVE) U Marijuana (THC) Screen (NEGATIVE) Ethyl Alcohol < 0.03 (<0.03) % 11/22/18 11/22/18 Range/Units 17:25 17:35 WBC (4.5-12.0) X10-3/uL RBC (4.30-5.75) x10(6)uL Hgb (13.5-17.8) g/dL Hct (30.0-51.3) % MCV (80-96) fL MCH (27.7-33.6) pg MCHC (32.2-35.4) g/dL RDW (11.5-15.5) % Plt Count (125-369) X10(3)uL MPV (7.4-10.4) fL Add Manual Diff Neutrophils % (Manual) (46-82) % Band Neutrophils % (0-6) % Lymphocytes % (Manual) (13-37) % Monocytes % (Manual) (4-12) % Eosinophils % (Manual) (0-5) % PT (8.7-11.1) INR (0.89-1.13) Sodium (135-145) mmol/L Potassium (3.5-5.3) mmol/L Chloride (100-110) mmol/L Carbon Dioxide (21-32) mmol/L BUN (7-18) mg/dL Creatinine (0.70-1.30) mg/dL Est Cr Clr Drug Dosing mL/min Estimated GFR (MDRD) (>60) BUN/Creatinine Ratio (9-20) Glucose (80-116) mg/dL Calcium (8.6-10.2) mg/dL Total Bilirubin (0.1-1.3) mg/dL Direct Bilirubin (0.10-0.20) mg/dL AST (5-25) IU/L ALT (12-36) U/L Alkaline Phosphatase (56-112) IU/L Total Protein (6.0-8.0) g/dL Albumin (3.5-5.2) g/dL Amylase (25-115) U/L Lipase (73-393) U/L Urine Color Yellow (YELLOW) Urine Appearance Clear (CLEAR) Urine pH 7.0 H (5.0-6.5) Ur Specific [place] 1.015 (1.010-1.025) Urine Protein Negative (NEGATIVE) mg/dL Urine Glucose (UA) Normal (NORMAL) mg/dL Urine Ketones Negative (NEGATIVE) mg/dL Urine Occult Blood Negative (NEGATIVE) Urine Nitrite Negative (NEGATIVE) Urine Bilirubin Negative (NEGATIVE) Urine Urobilinogen Normal (NEGATIVE) mg/dL Ur Leukocyte Esterase Negative (NEGATIVE) Urine RBC 0-5 (0-5) Urine WBC 0-5 (0-5) Ur Squamous Epith Cells Rare (NS,R,O) Urine Bacteria Few H (NS) Urine Opiates Screen Positive H (NEGATIVE) Ur Oxycodone Screen Negative (NEGATIVE) Ur Propoxyphene Screen Negative (NEGATIVE) Ur Barbituates Screen Negative (NEGATIVE) Ur Tricyclics Screen Negative (NEGATIVE) Ur Phencyclidine Scrn Negative (NEGATIVE) Ur Amphetamine Screen Negative (NEGATIVE) Urine MDMA Screen Negative (NEGATIVE) U Benzodiazepines Scrn Negative (NEGATIVE) U Cocaine Metab Screen Negative (NEGATIVE) U Marijuana (THC) Screen Negative (NEGATIVE) Ethyl Alcohol (<0.03) % Meds: Medications Generic Name Dose Route Start Last Admin Trade Name Freq PRN Reason Stop Dose Admin Hydromorphone HCl 1 mg 11/23/18 00:02 Dilaudid IVPUSH ONETIME PRN Pain (severe 7-10) Lactated Ringer's 1,000 mls @ 125 mls/hr 11/22/18 20:30 11/22/18 20:52 Ringers, Lactated IV 125 mls/hr ASDIRECTED RAHAT Administration Ondansetron HCl 8 mg 11/22/18 20:26 Zofran IV Q6H PRN Nausea/Vomiting Sodium Chloride 10 ml 11/22/18 19:36 11/22/18 19:40 Saline Flush FLUSH 10 ml ASDIRECTED PRN Administration Abdominal Pain Discontinued Medications Generic Name Dose Route Start Last Admin Trade Name Freq PRN Reason Stop Dose Admin Clonidine HCl 0.1 mg 11/22/18 17:50 11/22/18 18:09 Catapres PO 11/22/18 17:51 0.1 mg ONETIME ONE Administration Al Hydroxide/Mg Hydroxide 15 0 ml 11/22/18 15:28 11/22/18 15:50 ml/ Lidocaine HCl 15 ml PO 11/22/18 15:29 15 ml ONETIME ONE Administration Hydromorphone HCl 1 mg 11/22/18 16:49 11/22/18 17:02 Dilaudid IVPUSH 11/22/18 16:50 1 mg ONETIME ONE Administration Hydromorphone HCl 1 mg 11/22/18 17:50 11/22/18 18:10 Dilaudid IVPUSH 11/22/18 17:51 1 mg ONETIME ONE Administration Hydromorphone HCl 0.5 mg 11/22/18 20:26 11/22/18 23:14 Dilaudid IVPUSH 11/23/18 00:02 0.5 mg Q2H PRN Administration Pain (severe 7-10) Sodium Chloride 1,000 mls @ 999 mls/hr 11/22/18 15:27 11/22/18 16:05 Normal Saline IV 11/22/18 16:27 999 mls/hr .BOLUS ONE Administration Iopamidol 100 ml 11/22/18 18:39 11/22/18 18:45 Isovue-370 (76%) IV 11/22/18 18:40 100 ml . DIRECTED ONE Administration Morphine Sulfate 2 mg 11/22/18 19:29 11/22/18 20:59 Morphine IM 11/22/18 19:30 Not Given ONETIME ONE Morphine Sulfate 2 mg 11/22/18 19:35 11/22/18 19:41 Morphine IVPUSH 11/22/18 19:36 2 mg ONETIME ONE Administration Ondansetron HCl 8 mg 11/22/18 15:27 11/22/18 16:05 Zofran IVPUSH 11/22/18 15:28 8 mg ONETIME ONE Administration Departure - Departure Time of Disposition: 20:25 Disposition: Refer to Observation Condition: Fair Clinical Impression: Pancreatitis Qualifiers: Chronicity: acute Pancreatitis type: alcohol induced Acute pancreatitis complication: no infection or necrosis Qualified Code(s): K85.20 - Alcohol induced acute pancreatitis without necrosis or infection - Discharge Information - My Orders Last 24 Hours: My Active Orders 11/22/18 18:30 Abdomen Pelvis w Cont [CT] Stat 11/22/18 19:36 Sodium Chloride 0.9% [Saline Flush] 10 ml FLUSH ASDIRECTED PRN - Assessment/Plan Last 24 Hours: My Active Orders 11/22/18 18:30 Abdomen Pelvis w Cont [CT] Stat 11/22/18 19:36 Sodium Chloride 0.9% [Saline Flush] 10 ml FLUSH ASDIRECTED PRN
[2018-11-22] MEDS ORDERED: HYDROmorphone 2 MG/ML SDV IVPUSH ONE ×2 (16:49→17:50)
[2018-11-22] MEDS ORDERED: cloNIDine 0.1 MG Tab PO ONE (17:50)
[2018-11-22] MEDS ORDERED: Iopamidol 755 Mg/ML 100 ML Bottle IV ONE (18:39)
[2018-11-22] MEDS ORDERED: Morphine 2 MG/ML Syringe IM ONE (19:29)
[2018-11-22] MEDS ORDERED: Morphine 2 MG/ML Syringe IVPUSH ONE (19:35)
[2018-11-22] MEDS ORDERED: Sodium Chloride 0.9% 10 ML Syringe FLUSH PRN (19:36)
[2018-11-22] MEDS: Lactated Ringers 1,000 ML IV SCH (20:52)
[2018-11-22] MEDS: HYDROmorphone 2 MG/ML SDV IVPUSH PRN ×2 (21:14→23:14)
[2018-11-23] MEDS ORDERED: HYDROmorphone 2 MG/ML SDV IVPUSH PRN (00:02)
[2018-11-23] MEDS: HYDROmorphone 2 MG/ML SDV IVPUSH PRN ×10 (03:46→23:56)
[2018-11-23] MEDS: Lactated Ringers 1,000 ML IV SCH ×3 (04:45→22:39)
[2018-11-23] MEDS: Ondansetron 4 MG/2 ML SDV IV PRN ×2 (10:01→16:07)
[2018-11-23] MEDS ORDERED: chlordiazePOXIDE 25 MG Cap PO PRN (10:02)
--- NOTE | 2018-11-23 12:26 | HP ---
ADMISSION DATE: 11/22/2018 REASON FOR VISIT: Bad abdominal pain, pancreatitis. HISTORY OF PRESENT ILLNESS: Wm Gloria is a 33-year-old [place]-Tong[place] male admitted through [facility] ER. Began with problematic pain, beginning about 24 hours prior to admission. Vague, nondescript. Day of admission, pain became severe and intolerant. Epigastric, burning, disabling. Severe, scale of 10/10. Last intake of alcohol, 6-pack by report on 11/20/2017. Has had problems with alcohol use in the past. Has had hospitalizations and treatment for alcohol. When seen at [facility] ER, exam was appropriate. Laboratory studies revealed elevated liver enzymes. MEDICATIONS: Daily home medications, none. ALLERGIES: No medication, environmental, or latex allergies. PAST MEDICAL HISTORY: Significant for previous appendectomy at age 11, hospitalization for alcohol pancreatitis. No other operative procedures, hospitalizations, unusual childhood diseases, major injuries, or fractures. SOCIAL HISTORY: Lives in [place]. 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 29, four kids, triplets. Girls age 10, a daughter 9, four kids total. One-half to three-quarter pack per day smoker, alcohol as mentioned above. No illicit drug use or vaping. FAMILY HISTORY: Dad 68, reasonable health. Mom 66, reasonable health. Two brothers, three sisters, six siblings total. No family history of early heart disease, diabetes mellitus, or inheritable cancer. REVIEW OF SYSTEMS: CONSTITUTIONAL: Feeling poorly. Pain not controlled. EYES: Sees well. EARS: Hears well. OROPHARYNX: Intact dentition. CHEST: No cough, wheeze, or congestion. CARDIOVASCULAR: Denies chest pain, palpitations, or syncope. GI: Please see HPI. : Voiding comfortably. No blood in urine. SKIN: No open sores or lesions. ENDOCRINE: No excessive thirst, urination, hot or cold intolerance. ALLERGIES: No medication, environmental, or latex allergies. ORTHOPEDIC: Generalized joint complaints. PSYCHIATRIC: Mood stable. PHYSICAL EXAMINATION: VITAL SIGNS: 36.9, 99 is the pulse, 147/100, 115 is the mean blood pressure, 20, and 97. GENERAL: Appears comfortable, but really no true agitation. Anxious to control. HEENT: Funduscopic benign. Bright TMs. Clear nasal discharge. Mouth and oropharynx clear. NECK: Benign. Thyroid small. CHEST: Clear in all lung brady. No adventitious sounds. HEART: No ectopy or murmur. ABDOMEN: Benign. Diffusely tender, epigastric. Decreased bowel sounds. Appendectomy scar well healed. : Normal male genitalia. Testes normal size, shape, and contour. Hernia is absent. RECTAL: Deferred. EXTREMITIES: Well perfused. NEUROMUSCULAR: Intact. LABORATORY STUDIES: Hemoglobin 15.8, white count 6000, normal indices. INR 1.22. Sodium 141, chloride 111. AST 68, two times normal; ALT 114, two times normal. Lipase 194. Amylase normal. Urine unremarkable. CT scan revealed pancreatitis, no stones, no cyst. ASSESSMENT: Acute pancreatitis, alcohol related. PLAN: Admission to hospital is indicated. Pain control timely and appropriate, avoidance of alcohol, alcohol withdrawal intervention. Proceed accordingly. /[id number] CAYLA/NIMCO
[2018-11-23] MEDS ORDERED: Metoprolol Tartrate 25 MG Tab PO ONE (20:48)
[2018-11-24] MEDS: HYDROmorphone 2 MG/ML SDV IVPUSH PRN ×3 (04:22→08:37)
[2018-11-24] MEDS: Lactated Ringers 1,000 ML IV SCH (06:29)
[2018-11-24] MEDS: Ondansetron 4 MG/2 ML SDV IV PRN (09:09)
[2018-11-24 11:08] VITALS: BP 143/99; PULSE 103
--- NOTE | 2018-11-25 07:58 | DISCH ---
DISCHARGE DATE: 11/24/2018 DIAGNOSIS: Acute alcohol-induced pancreatitis. HISTORY OF PRESENT ILLNESS: Wm Gloria is a 33-year-old Kyrgyz[place]Surinamese male, who was seen at [facility] by Dr. Albrecht. Presented with complicated epigastric pain. Clinical and radiographic evidence of pancreatitis. CT confirmed clinical findings. Stranding noted. No abscess or pancreatic pseudocysts. Laboratory studies revealed hemoglobin 15.8, white count 6,000, mildly elevated INR of 1.22, and elevated liver enzymes including AST, ALT, and lipase. The patient was admitted to the hospital for intervention and treatment. He was placed n.p.o., except for ice chips. IV analgesics given and bowel rest. Followup enzymes revealed reduction and stabilization of AST and ALT, lipase dropped dramatically. Diet was advanced as tolerated, avoidance of alcohol. Did require a little bit of Librium for alcohol withdrawal. Quite urgently about 1 o'clock on the date of discharge, 10/24/18, felt some urgency to go home. Appropriateness uncertain. Vital signs are stable. No alcohol withdrawal, demands in his life necessitate discharge. Will discharge accordingly. PHYSICAL EXAMINATION: VITAL SIGNS: Temperature 36.7, pulse 103, blood pressure 143/99, 113 is the mean blood pressure, respiratory rate 18, and O2 saturation 93%. MOUTH AND OROPHARYNX: Clear. Good hydration. NECK: Benign. CHEST: Clear in all lung brady. HEART: No ectopy or murmur. ABDOMEN: Perfectly benign. No focal tenderness. No hepatosplenomegaly. ASSESSMENT: Acute pancreatitis, resolving. PLAN: No alcohol. Referral to [employer] our social media senior associate for support services for alcohol. Discharged home. Tylenol 3 one or two q.i.d. #30, avoidance of alcohol, good nutrition, bland diet. Advance as tolerated. Will make an upcoming appointment with Dr. Deniz Ceballos, Family Medicine in [place]. /[id number] CAYLA/NIMCO
== END 2018-11-24 14:23 | disposition home or self-care (01) ==
LOC: FB.ED 15:01 → FB.MS 20:26
PROVIDERS: ADMIT Family Medicine; ATTEND Family Medicine
DX: K85.20 Alcohol induced acute pancreatitis without necrosis or infection (principal); I10 Essential (primary) hypertension; F10.10 Alcohol abuse, uncomplicated; F17.210 Nicotine dependence, cigarettes, uncomplicated; Z79.899 Other long term (current) drug therapy
CPT/HCPCS: 36415; 74177; 80048; 80076; 80305-QW; 81001; 82150; 83690; 84075; 84450; 84460; 85025; 85610; 96361; 96374; 96375; 96376; 99285-25; A9270-GY; G0378; G0480; J1170; J2270; J2405; J7030; J7120; Q9967

== ENCOUNTER 2019-02-07 19:55 | Emergency (ER) | payer OTHER, MEDICAID ==
--- NOTE | 2019-02-07 20:24 | EDM.PDOC ---
ED HPI GENERAL MEDICAL PROBLEM - General Chief Complaint: Back Pain or Injury Stated Complaint: BACK PAIN Time Seen by Provider: 02/07/19 20:00 Source of Information: Reports: Patient History Limitations: Reports: No Limitations - History of Present Illness INITIAL COMMENTS - FREE TEXT/NARRATIVE: pt c/o sever , 12/05 low back sharp pain radiating to lower extremities with associated numbness but no weakness, worsened with any movement , tells me this happened about an hr ago while at work, he jumped trying to avoid a heavy object falling on him, and felt like a pop in back and started with this pain, pt repot Hx of similar problems about 4 years ago with herniated disk that he had laminectomy for, and similar flares of pain on and off since then with last one about a year ago. pt denies any other associated sx or any other medical concerns with the above. - Related Data Allergies Allergy/AdvReac Type Severity Reaction Status Date / Time No Known Allergies Allergy Verified 11/22/18 15:13 Home Meds: Home Meds Metoprolol Tartrate 25 mg BID 11/22/18 [History] Past Medical History HEENT History: Reports: Impaired Vision Cardiovascular History: Reports: Hypertension Gastrointestinal History: Reports: Gastritis, Pancreatitis, Other (See Below) Other Gastrointestinal History: HX OF PANCREATITIS Musculoskeletal History: Reports: Back Pain, Chronic, Fracture, Other (See Below ) Other Musculoskeletal History: Intervertebral disk disease Neurological History: Reports: Concussion Other Neuro History: concussion x 2 Psychiatric History: Reports: ADD, Addiction, Bipolar, Depression, Hallucinations, Panic Attack, Psych Hospitalization(s), Suicide Attempt, Suicidal Ideation, Other (See Below) Other Psychiatric History: ALCOHOL ABUSE Endocrine/Metabolic History: Reports: Obesity/BMI 30+ - Infectious Disease History Infectious Disease History: Reports: Chicken Pox - Past Surgical History HEENT Surgical History: Reports: None Cardiovascular Surgical History: Reports: None GI Surgical History: Reports: None Musculoskeletal Surgical History: Reports: Other (See Below) Other Musculoskeletal Surgeries/Procedures:: hx back surgery (discetomy) Social & Family History - Family History Family Medical History: Noncontributory Cardiac: Reports: None GI: Reports: None Neurological: Reports: None Psychiatric: Reports: None Endocrine/Metabolic: Reports: None - Tobacco Use Smoking Status *Q: Current Every Day Smoker Years of Tobacco use: 10 Packs/Tins Daily: 1 - Caffeine Use Caffeine Use: Reports: None - Recreational Drug Use Recreational Drug Use: No Other Recreational Drug Type: Denies any recreational drug use. - Living Situation & Occupation Living situation: Reports: Occupation: Employed ED ROS GENERAL - Review of Systems Review Of Systems: See Below Constitutional: Reports: No Symptoms HEENT: Reports: No Symptoms Respiratory: Reports: No Symptoms Cardiovascular: Reports: No Symptoms GI/Abdominal: Reports: No Symptoms Neurological: Reports: Numbness. Denies: Paresthesia, Weakness Psychiatric: Reports: No Symptoms ED EXAM, GENERAL - Physical Exam Exam: See Below Exam Limited By: No Limitations General Appearance: Moderate Distress, Severe Distress Head: Atraumatic, Normocephalic Neck: Normal Inspection, Supple, Non-Tender Respiratory/Chest: No Respiratory Distress, Lungs Clear, Normal Breath Sounds Cardiovascular: Normal Peripheral Pulses, Regular Rate, Rhythm, No Murmur GI/Abdominal: Normal Bowel Sounds, Soft, Non-Tender Back Exam: Normal Inspection, Other (tender all across lower back, lumbar spine has limited ROM. lower extremities has no strength and DTR. straight leg exam is positive bilaterally at 30 degrees. ) Neurological: Alert, Oriented, CN II-XII Intact, Normal Reflexes, No Motor/ Sensory Deficits Course - Vital Signs Text/Narrative:: pt clinically has recurrent acute low back pain with sciatica , was given Dilaudid 2 mg IM , and Rx on hydrocodone 20 + Flexeril 20 , pt to follow with PCP in 1 week for re-check. Last Recorded V/S: Last Vital Signs Temp 36.3 C 02/07/19 20:00 Pulse 91 02/07/19 20:00 Resp 14 02/07/19 20:00 BP 140/125 H 02/07/19 20:00 Pulse Ox 99 02/07/19 20:00 Departure - Departure Time of Disposition: 20:28 Disposition: Home, Self-Care 01 Clinical Impression: Acute low back pain - Discharge Information Referrals: Deniz Ceballos MD [Primary Care Provider] - Sepsis Event Note - Evaluation Sepsis Screening Result: No Definite Risk - Focused Exam Vital Signs: Vital Signs Temp Pulse Resp BP Pulse Ox 02/07/19 20:00 36.3 C 91 14 140/125 H 99 Date Exam was Performed: 02/07/19 Time Exam was Performed: :
[2019-02-07] MEDS ORDERED: HYDROmorphone 2 MG/ML SDV IM ONE (20:29)
[2019-02-07] MEDS ORDERED: Ondansetron 4 MG Tab.DIS PO ONE (20:42)
[2019-02-07 21:06] VITALS: BP 173/110; PULSE 95
== END 2019-02-07 21:00 | disposition home or self-care (01) ==
LOC: FB.ED 19:55
DX: M54.5 Low back pain (principal); I10 Essential (primary) hypertension; F17.210 Nicotine dependence, cigarettes, uncomplicated; E66.9 Obesity, unspecified; Z68.32 Body mass index [BMI] 32.0-32.9, adult; Z79.899 Other long term (current) drug therapy
CPT/HCPCS: 96372; 99000; 99283-25; A9270-GY; J1170

== ENCOUNTER 2019-03-30 22:19 | Emergency (ER) | payer MEDICAID, OTHER ==
--- NOTE | 2019-03-30 23:38 | EDM.PDOC ---
ED HPI GENERAL MEDICAL PROBLEM - General Chief Complaint: Abdominal Pain Stated Complaint: VOMITING; DIARHEA; ABDOMINAL PAIN Time Seen by Provider: 03/30/19 23:15 Source of Information: Reports: Patient History Limitations: Reports: No Limitations - History of Present Illness INITIAL COMMENTS - FREE TEXT/NARRATIVE: not feeling well since this am with chills , cough than 5pm he developed worsening pain with nausea and vomiting vomited more than 10 times and diarrhea bout 5 times, non bloody unsure what he ate he has not travelled Onset: Today Onset Date: 03/31/19 Duration: Hour(s): Location: Reports: Abdomen Quality: Reports: Ache, Dull Severity: Moderate Improves with: Reports: Rest Worsens with: Reports: Eating, Movement Context: Reports: Sick Contact Associated Symptoms: Reports: Loss of Appetite, Nausea/Vomiting Upper abdomen & epigastric region Pain Score (Numeric/FACES): 10 - Related Data Allergies Allergy/AdvReac Type Severity Reaction Status Date / Time No Known Allergies Allergy Verified 03/30/19 23:07 Home Meds: Home Meds Ondansetron [Zofran ODT] 4 mg PO Q6H PRN #30 tab.dis 03/31/19 [Rx] Past Medical History HEENT History: Reports: Impaired Vision Cardiovascular History: Reports: Hypertension Gastrointestinal History: Reports: Gastritis, Pancreatitis, Other (See Below) Other Gastrointestinal History: HX OF PANCREATITIS Musculoskeletal History: Reports: Back Pain, Chronic, Fracture, Other (See Below ) Other Musculoskeletal History: Intervertebral disk disease Neurological History: Reports: Concussion Other Neuro History: concussion x 2 Psychiatric History: Reports: ADD, Addiction, Bipolar, Depression, Hallucinations, Panic Attack, Psych Hospitalization(s), Suicide Attempt, Suicidal Ideation, Other (See Below) Other Psychiatric History: ALCOHOL ABUSE Endocrine/Metabolic History: Reports: Obesity/BMI 30+ - Infectious Disease History Infectious Disease History: Reports: Chicken Pox - Past Surgical History HEENT Surgical History: Reports: None Cardiovascular Surgical History: Reports: None GI Surgical History: Reports: None Musculoskeletal Surgical History: Reports: Other (See Below) Other Musculoskeletal Surgeries/Procedures:: hx back surgery (discetomy) Dermatological Surgical History: Reports: None Social & Family History - Family History Family Medical History: Noncontributory Cardiac: Reports: None GI: Reports: None Neurological: Reports: None Psychiatric: Reports: None Endocrine/Metabolic: Reports: None - Tobacco Use Smoking Status *Q: Former Smoker Years of Tobacco use: 18 Used Tobacco, but Quit: Yes Month/Year Tobacco Last Used: 2019 - Caffeine Use Caffeine Use: Reports: None - Alcohol Use Days Per Week of Alcohol Use: 2 Number of Drinks Per Day: 5 Total Drinks Per Week: 10 - Recreational Drug Use Recreational Drug Use: No - Living Situation & Occupation Living situation: Reports: Occupation: Employed ED ROS GENERAL - Review of Systems Review Of Systems: Comprehensive ROS is negative, except as noted in HPI. ED EXAM, GI/ABD - Physical Exam Exam: See Below Exam Limited By: No Limitations General Appearance: Alert, WD/WN, No Apparent Distress, Anxious, Lethargic Ears: Normal External Exam Nose: Normal Inspection Throat/Mouth: Normal Inspection Neck: Normal Inspection Respiratory/Chest: No Respiratory Distress Cardiovascular: Normal Peripheral Pulses GI/Abdominal Exam: Soft, Distended, Abnormal Bowel Sounds (hyperactive) Course - Vital Signs Last Recorded V/S: Last Vital Signs Temp 38.2 C H 03/31/19 01:10 Pulse 124 H 03/31/19 01:10 Resp 20 03/31/19 01:10 BP 169/101 H 03/31/19 01:10 Pulse Ox 98 03/31/19 01:10 - Orders/Labs/Meds Orders: Active Orders 24 hr Category Date Time Status Abdomen Pelvis w Cont [CT] Stat Exams 03/31/19 01:25 Taken Ondansetron [Zofran] Med 03/30/19 23:58 Active 4 mg IVPUSH Q6H PRN Sodium Chloride 0.9% [Normal Saline] 1,000 ml Med 03/30/19 23:30 Active IV ASDIRECTED Sodium Chloride 0.9% [Normal Saline] 1,000 ml Med 03/31/19 01:30 Active IV ASDIRECTED Medication Orders Sodium Chloride (Normal Saline) 1,000 mls @ 150 mls/hr IV ASDIRECTED RAHAT Last Admin: 03/31/19 01:24 Dose: 150 mls/hr Infusion: 03/31/19 01:24 Dose: 150 mls/hr Admin: 03/31/19 00:07 Dose: 150 mls/hr Sodium Chloride (Normal Saline) 1,000 mls @ 150 mls/hr IV ASDIRECTED RAHAT Ondansetron HCl (Zofran) 4 mg IVPUSH Q6H PRN PRN Reason: Nausea/Vomiting Last Admin: 03/31/19 00:07 Dose: 4 mg Labs: Laboratory Tests 03/30/19 03/30/19 03/30/19 Range/Units 00:15 00:15 00:15 WBC 9.4 (4.5-12.0) X10-3/uL RBC 5.93 H (4.30-5.75) x10(6)uL Hgb 18.5 H (13.5-17.8) g/dL Hct 53.0 H (30.0-51.3) % MCV 89.3 (80-96) fL MCH 31.2 (27.7-33.6) pg MCHC 34.9 (32.2-35.4) g/dL RDW 12.3 (11.5-15.5) % Plt Count 235 (125-369) X10(3)uL MPV 8.2 (7.4-10.4) fL Add Manual Diff Yes Neutrophils % (Manual) 82 (46-82) % Band Neutrophils % 4 (0-6) % Lymphocytes % (Manual) 9 L (13-37) % Monocytes % (Manual) 5 (4-12) % Sodium 141 (135-145) mmol/L Potassium 3.6 (3.5-5.3) mmol/L Chloride 101 D (100-110) mmol/L Carbon Dioxide 29 (21-32) mmol/L BUN 11 (7-18) mg/dL Creatinine 1.0 (0.70-1.30) mg/dL Est Cr Clr Drug Dosing 100.07 mL/min Estimated GFR (MDRD) > 60 (>60) BUN/Creatinine Ratio 11.0 (9-20) Glucose 133 H (80-116) mg/dL Calcium 8.8 (8.6-10.2) mg/dL Total Bilirubin 1.5 H (0.1-1.3) mg/dL AST 85 H D (5-25) IU/L ALT 201 H* D (12-36) U/L Alkaline Phosphatase 90 (56-112) IU/L C-Reactive Protein 1.1 H (0.5-0.9) mg/dL Total Protein 7.9 (6.0-8.0) g/dL Albumin 4.2 (3.5-5.2) g/dL Globulin 3.7 g/dL Albumin/Globulin Ratio 1.1 Amylase (25-115) U/L Lipase (73-393) U/L 03/31/19 03/31/19 Range/Units 00:15 00:15 WBC (4.5-12.0) X10-3/uL RBC (4.30-5.75) x10(6)uL Hgb (13.5-17.8) g/dL Hct (30.0-51.3) % MCV (80-96) fL MCH (27.7-33.6) pg MCHC (32.2-35.4) g/dL RDW (11.5-15.5) % Plt Count (125-369) X10(3)uL MPV (7.4-10.4) fL Add Manual Diff Neutrophils % (Manual) (46-82) % Band Neutrophils % (0-6) % Lymphocytes % (Manual) (13-37) % Monocytes % (Manual) (4-12) % Sodium (135-145) mmol/L Potassium (3.5-5.3) mmol/L Chloride (100-110) mmol/L Carbon Dioxide (21-32) mmol/L BUN (7-18) mg/dL Creatinine (0.70-1.30) mg/dL Est Cr Clr Drug Dosing mL/min Estimated GFR (MDRD) (>60) BUN/Creatinine Ratio (9-20) Glucose (80-116) mg/dL Calcium (8.6-10.2) mg/dL Total Bilirubin (0.1-1.3) mg/dL AST (5-25) IU/L ALT (12-36) U/L Alkaline Phosphatase (56-112) IU/L C-Reactive Protein (0.5-0.9) mg/dL Total Protein (6.0-8.0) g/dL Albumin (3.5-5.2) g/dL Globulin g/dL Albumin/Globulin Ratio Amylase 32 (25-115) U/L Lipase 117 (73-393) U/L Meds: Medications Generic Name Dose Route Start Last Admin Trade Name Freq PRN Reason Stop Dose Admin Sodium Chloride 1,000 mls @ 150 mls/hr 03/30/19 23:30 03/31/19 01:24 Normal Saline IV 150 mls/hr ASDIRECTED RAHAT Administration Sodium Chloride 1,000 mls @ 150 mls/hr 03/31/19 01:30 Normal Saline IV ASDIRECTED RAHAT Ondansetron HCl 4 mg 03/30/19 23:58 03/31/19 00:07 Zofran IVPUSH 4 mg Q6H PRN Administration Nausea/Vomiting Discontinued Medications Generic Name Dose Route Start Last Admin Trade Name Samantha PRN Reason Stop Dose Admin Iopamidol 100 ml 03/31/19 01:33 03/31/19 01:49 Isovue-370 (76%) IV 03/31/19 01:34 100 ml . DIRECTED ONE Administration Metoclopramide HCl 10 mg 03/31/19 01:10 03/31/19 01:15 Reglan IVPUSH 03/31/19 01:11 10 mg ONETIME ONE Administration - Re-Assessments/Exams Free Text/Narrative Re-Assessment/Exam: 03/31/19 03:58 pt was given IVF then had Zofran for nausea abdomen seemed still distended and painful CT of the abd was ordered : this showed he had enteritis . No other finding discussed iwth pt : bland diet , zofran prn Departure - Departure Time of Disposition: 04:00 Disposition: Home, Self-Care 01 Clinical Impression: Gastroenteritis, Enteritis Gastritis Qualifiers: Gastritis type: superficial Chronicity: acute Gastritis bleeding: without bleeding Qualified Code(s): K29.00 - Acute gastritis without bleeding - Discharge Information *PRESCRIPTION DRUG MONITORING PROGRAM REVIEWED*: Not Applicable *COPY OF PRESCRIPTION DRUG MONITORING REPORT IN PATIENT MAN: Not Applicable Prescriptions: Ondansetron [Zofran ODT] 4 mg PO Q6H PRN #30 tab.dis PRN Reason: Nausea/Vomiting Referrals: Deniz Ceballos MD [Primary Care Provider] - Forms: ED Department Discharge Additional Instructions: Activity as tolerated. [place] diet. Zofran 4mg every 6 hours as needed for nausea. Follow up with your regular MD as needed at clinic. Sepsis Event Note - Evaluation Sepsis Screening Result: No Definite Risk - Focused Exam Vital Signs: Vital Signs Temp Pulse Resp BP Pulse Ox 03/31/19 01:10 38.2 C H 124 H 20 169/101 H 98 03/30/19 22:59 36.7 C 125 H 20 152/110 H 98 Date Exam was Performed: 03/31/19 Time Exam was Performed: 03:58 - My Orders Last 24 Hours: My Active Orders 03/30/19 23:30 Sodium Chloride 0.9% [Normal Saline] 1,000 ml IV ASDIRECTED 03/30/19 23:58 Ondansetron [Zofran] 4 mg IVPUSH Q6H PRN 03/31/19 01:25 Abdomen Pelvis w Cont [CT] Stat 03/31/19 01:30 Sodium Chloride 0.9% [Normal Saline] 1,000 ml IV ASDIRECTED - Assessment/Plan Last 24 Hours: My Active Orders 03/30/19 23:30 Sodium Chloride 0.9% [Normal Saline] 1,000 ml IV ASDIRECTED 03/30/19 23:58 Ondansetron [Zofran] 4 mg IVPUSH Q6H PRN 03/31/19 01:25 Abdomen Pelvis w Cont [CT] Stat 03/31/19 01:30 Sodium Chloride 0.9% [Normal Saline] 1,000 ml IV ASDIRECTED
[2019-03-30] MEDS ORDERED: Ondansetron 4 MG/2 ML SDV IVPUSH PRN (23:58)
[2019-03-31] MEDS: Sodium Chloride 0.9% 1,000 ML IV SCH ×2 (00:07→01:24)
[2019-03-31] MEDS ORDERED: Metoclopramide 10 MG/2 ML SDV IVPUSH ONE (01:10)
[2019-03-31] MEDS ORDERED: Sodium Chloride 0.9% 1,000 ML IV SCH (01:30)
[2019-03-31] MEDS ORDERED: Iopamidol 755 Mg/ML 100 ML Bottle IV ONE (01:33)
[2019-03-31 04:20] VITALS: BP 146/90; PULSE 123
== END 2019-03-31 04:00 | disposition home or self-care (01) ==
LOC: FB.ED 22:19
DX: K52.9 Noninfective gastroenteritis and colitis, unspecified (principal); K29.00 Acute gastritis without bleeding; I10 Essential (primary) hypertension; E66.9 Obesity, unspecified; Z68.34 Body mass index [BMI] 34.0-34.9, adult; Z87.891 Personal history of nicotine dependence
CPT/HCPCS: 36415; 74177; 80053; 82150; 83690; 85025; 86140; 96361; 96374; 96375; 99284-25; J2405; J2765; J7030; Q9967

== ENCOUNTER 2019-08-09 09:48 | Emergency (ER) | payer MEDICAID, OTHER ==
[2019-08-09] MEDS ORDERED: Acetaminophen/HYDROcodone 325-5 MG Tab PO ONE (09:49)
--- NOTE | 2019-08-09 09:57 | EDM.PDOC ---
ED HPI GENERAL MEDICAL PROBLEM - General Chief Complaint: Upper Extremity Injury/Pain Stated Complaint: RT ARM PAIN Time Seen by Provider: 08/09/19 09:53 Source of Information: Reports: Patient History Limitations: Reports: No Limitations - History of Present Illness INITIAL COMMENTS - FREE TEXT/NARRATIVE: 33-year-old male who reports he was doing some work and replacing a door in his home and he hit his right radial hand and wrist against the door frame. His occurred approximately 8 AM he reports he had immediate pain in the area of his right wrist and hand that seemed to radiate up his arm into his neck. It was a sharp and shooting type pain. There is swelling in the area and pain is worse with palpation and with movement. He currently rates the pain as a 9/10. This occurred approximately 8:30 to 9 AM today. There were no other injuries. There are no open wounds. He presents via private vehicle by his . He has normal sensation in his fingers. He states that he had no symptoms or of any other kind in his right wrist and hand before this injury. There are no other associated signs or symptoms. There are no other modifying factors. 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 Pain Score (Numeric/FACES): 9 - Related Data Allergies Allergy/AdvReac Type Severity Reaction Status Date / Time No Known Allergies Allergy Verified 03/30/19 23:07 Home Meds: Home Meds Ondansetron [Zofran ODT] 4 mg PO Q6H PRN #30 tab.dis 03/31/19 [Rx] Past Medical History HEENT History: Reports: Impaired Vision Cardiovascular History: Reports: Hypertension Gastrointestinal History: Reports: Gastritis, Pancreatitis Musculoskeletal History: Reports: Back Pain, Chronic, Fracture, Other (See Below ) Other Musculoskeletal History: Intervertebral disk disease Neurological History: Reports: Concussion Other Neuro History: concussion x 2 Psychiatric History: Reports: ADD, Addiction, Bipolar, Depression, Hallucinations, Panic Attack, Psych Hospitalization(s), Suicide Attempt, Suicidal Ideation, Other (See Below) Other Psychiatric History: ALCOHOL ABUSE Endocrine/Metabolic History: Reports: Obesity/BMI 30+ - Infectious Disease History Infectious Disease History: Reports: Chicken Pox - Past Surgical History GI Surgical History: Reports: Appendectomy Neurological Surgical History: Reports: Discectomy, Lumbar Spine Dermatological Surgical History: Reports: None Social & Family History - Family History Cardiac: Reports: None GI: Reports: None Neurological: Reports: None Endocrine/Metabolic: Reports: None - Tobacco Use Smoking Status *Q: Unknown Ever Smoked (Nonsmoker) - Caffeine Use Caffeine Use: Reports: None - Alcohol Use Alcohol Use History: Yes Alcohol Use Frequency: Socially (Patient reports "occasional" but on his record he has a history of alcohol abuse.) - Living Situation & Occupation Living situation: Reports: Occupation: Unemployed (He reports that he is currently not working.) Review of Systems - Review of Systems Review Of Systems: See Below Constitutional: Reports: No Symptoms Eyes: Reports: No Symptoms Ears: Reports: No Symptoms Nose: Reports: No Symptoms Mouth/Throat: Reports: No Symptoms Respiratory: Reports: No Symptoms Cardiovascular: Reports: No Symptoms GI/Abdominal: Reports: No Symptoms Genitourinary: Reports: No Symptoms Musculoskeletal: Reports: Hand Pain (Right hand and wrist pain), Other (He is right-hand dominant) Skin: Reports: No Symptoms Neurological: Reports: No Symptoms ED EXAM, GENERAL - Physical Exam Exam: See Below Exam Limited By: No Limitations General Appearance: Alert, WD/WN, Moderate Distress (Appears in some pain.) Eye Exam: Bilateral Eye: EOMI, Normal Inspection Ears: Normal External Exam, Hearing Grossly Normal Ear Exam: Bilateral Ear: Auricle Normal Nose: Normal Inspection, Normal Mucosa, No Blood Throat/Mouth: Normal Inspection, Normal Lips, Normal Oropharynx, Normal Voice, No Airway Compromise Head: Atraumatic, Normocephalic Neck: Normal Inspection, Supple, Non-Tender, Full Range of Motion Respiratory/Chest: No Respiratory Distress, Lungs Clear, Normal Breath Sounds, No Accessory Muscle Use, Chest Non-Tender Cardiovascular: Normal Peripheral Pulses, Regular Rate, Rhythm, No Murmur Peripheral Pulses: 2+: Radial (L), Radial (R) GI/Abdominal: Normal Bowel Sounds, Soft, Non-Tender Back Exam: Normal Inspection Extremities: No Pedal Edema, Normal Capillary Refill, Limited Range of Motion ( Right wrist secondary to pain.), Other (Some swelling and tenderness over the right radial hand and wrist area.). No: Increased Warmth, Redness Neurological: Alert, Oriented, CN II-XII Intact, Normal Cognition, No Motor/ Sensory Deficits Psychiatric: Normal Affect Skin Exam: Warm, Dry, Intact, Normal Color, No Rash Course - Vital Signs Last Recorded V/S: Last Vital Signs Temp 36.4 C 08/09/19 10:00 Pulse 92 08/09/19 11:17 Resp 16 08/09/19 11:17 BP 155/97 H 08/09/19 11:17 Pulse Ox 97 08/09/19 11:17 - Orders/Labs/Meds Orders: Active Orders 24 hr Category Date Time Status Hand Comp Min 3V Rt [CR] Stat Exams 08/09/19 10:12 Taken Wrist Comp Min 3V Rt [CR] Stat Exams 08/09/19 10:12 Taken Meds: Medications Discontinued Medications Generic Name Dose Route Start Last Admin Trade Name Freq PRN Reason Stop Dose Admin Hydrocodone Bitart/Acetaminophen 2 tab 08/09/19 10:13 08/09/19 10:21 [place] 325-5 Mg PO 08/09/19 10:14 2 tab ONETIME ONE Administration - Radiology Interpretation Free Text/Narrative:: X-ray of right hand shows no definite fracture. X-ray of right wrist shows no definite fracture. - Re-Assessments/Exams Free Text/Narrative Re-Assessment/Exam: 08/09/19 11:05: The x-rays of the patient's right wrist and hand showed no fractures. He appears to have a bruise/contusion to the area. We will place the patient in a Velcro, volar splint for comfort and support. He may take ibuprofen for pain as needed. I will give him a take home pack of hydrocodone use for more severe pain over the next 1-2 days. Precautions and reasons for return to the emergency department were discussed with the patient is in the emergency department and were detailed in his discharge instructions. 08/09/19 11:30: Patient with elevated blood pressure reading. He is asymptomatic. He does have a history of high blood pressure that is not currently taking any medication (his choice). I have told him to follow up with his primary provider in regard to his elevated blood pressure. Departure - Departure Time of Disposition: 11:30 Disposition: Home, Self-Care 01 Condition: Good Clinical Impression: Elevated blood pressure reading, History of hypertension Contusion of multiple sites of right hand and wrist Qualifiers: Encounter type: initial encounter Qualified Code(s): S60.221A - Contusion of right hand, initial encounter - Discharge Information Instructions: Hand Contusion, [id number], Contusion, [id number] Referrals: Deniz Ceballos MD [Primary Care Provider] - Forms: ED Department Discharge Additional Instructions: The x-ray of your right hand and right wrist showed no definite fracture. You appear to have a bruise or contusion to this area. There is a nerve that travels over the top of the thumb and wrist area that could have been injured and this causes pain that sometimes shoots up the arm as you are having. Apply ice packs intermittently to the bruised area. Avoid strenuous use with the right hand for the next few days. Use the splint for comfort and support. Follow -up with your primary doctor as needed. Back to the emergency department for redness, increased warmth, fever or any other concerning sign or symptom. Your blood pressure was elevated in the emergency department. You need to follow-up with your primary provider in regard to your high blood pressure. Sepsis Event Note (ED) - Focused Exam Vital Signs: Vital Signs Temp Pulse Resp BP Pulse Ox 08/09/19 11:17 92 16 155/97 H 97 08/09/19 10:00 36.4 C 101 H 15 173/111 H 98 - My Orders Last 24 Hours: My Active Orders 08/09/19 10:12 Hand Comp Min 3V Rt [CR] Stat Wrist Comp Min 3V Rt [CR] Stat - Assessment/Plan Last 24 Hours: My Active Orders 08/09/19 10:12 Hand Comp Min 3V Rt [CR] Stat Wrist Comp Min 3V Rt [CR] Stat
[2019-08-09] MEDS: Acetaminophen/HYDROcodone 325-5 MG Tab PO ONE (10:21)
[2019-08-09 11:17] VITALS: BP 155/97; PULSE 92
--- NOTE | 2019-08-11 18:09 | CR ---
INDICATION: Right hand and wrist pain, status post injury. RIGHT HAND: Three views of the right hand were obtained 08/09/19 - no comparison. A fracture, dislocation or other significant bone or joint abnormality was not identified. If symptoms persist - if occult fracture site is suspected clinically, reexamination 10 to 14 days may be helpful. [facility]
--- NOTE | 2019-08-11 18:12 | CR ---
INDICATION: Right hand and wrist pain, status post injury. RIGHT WRIST: Three views of the right wrist were obtained and revealed no evidence of a fracture, dislocation or other significant bone or joint abnormality. If occult fracture site is suspected clinically - if symptoms persist - followup study in 10 to 14 days, or possibly more advanced imaging may be helpful, as felt to be clinically necessary. [facility]
== END 2019-08-09 11:38 | disposition home or self-care (01) ==
LOC: FB.ED 09:48
DX: S60.211A Contusion of right wrist, initial encounter (principal); I10 Essential (primary) hypertension; E66.9 Obesity, unspecified; Z68.34 Body mass index [BMI] 34.0-34.9, adult; W22.8XXA Striking against or struck by other objects, initial encounter; Y92.009 Unspecified place in unspecified non-institutional (private) residence as the place of occurrence of the external cause
CPT/HCPCS: 73110-RT; 73130-RT; 99283; A9270-GY

== ENCOUNTER 2019-08-11 05:32 | Emergency (ER) | payer MEDICAID ==
[2019-08-11] MEDS ORDERED: Cephalexin 500 MG Cap PO ONE (05:47)
--- NOTE | 2019-08-11 05:54 | EDM.PDOC ---
ED HPI GENERAL MEDICAL PROBLEM - General Chief Complaint: Skin Complaint Stated Complaint: SOB; HIGH BLOOD PRESSURE Time Seen by Provider: 08/11/19 05:48 Source of Information: Reports: Patient, Old Records, RN History Limitations: Reports: No Limitations - History of Present Illness INITIAL COMMENTS - FREE TEXT/NARRATIVE: 33 yo male here with R hand swelling and increased warmth. Had some pain in the same area on Sunday that was X-ray'd and did not show any fx. Yesterday the hand was more swollen even than today. This morning had a panic attack that resolved before arrival. No fever or chills. Wonders if he incurred a spider bite to the R hand causing his swelling. Denies pain. 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) - Related Data Allergies Allergy/AdvReac Type Severity Reaction Status Date / Time No Known Allergies Allergy Verified 03/30/19 23:07 Home Meds: Home Meds Ondansetron [Zofran ODT] 4 mg PO Q6H PRN #30 tab.dis 03/31/19 [Rx] Past Medical History HEENT History: Reports: Impaired Vision Cardiovascular History: Reports: Hypertension Gastrointestinal History: Reports: Gastritis, Pancreatitis Other Gastrointestinal History: HX OF PANCREATITIS Musculoskeletal History: Reports: Back Pain, Chronic, Fracture, Other (See Below ) Other Musculoskeletal History: Intervertebral disk disease Neurological History: Reports: Concussion Other Neuro History: concussion x 2 Psychiatric History: Reports: ADD, Addiction, Bipolar, Depression, Hallucinations, Panic Attack, Psych Hospitalization(s), Suicide Attempt, Suicidal Ideation, Other (See Below) Other Psychiatric History: ALCOHOL ABUSE Endocrine/Metabolic History: Reports: Obesity/BMI 30+ - Infectious Disease History Infectious Disease History: Reports: Chicken Pox - Past Surgical History GI Surgical History: Reports: Appendectomy Neurological Surgical History: Reports: Discectomy, Lumbar Spine Dermatological Surgical History: Reports: None Social & Family History - Family History Family Medical History: Noncontributory Cardiac: Reports: None GI: Reports: None Neurological: Reports: None Psychiatric: Reports: None Endocrine/Metabolic: Reports: None - Caffeine Use Caffeine Use: Reports: None - Living Situation & Occupation Living situation: Reports: Occupation: Unemployed (He reports that he is currently not working.) ED ROS GENERAL - Review of Systems Review Of Systems: Comprehensive ROS is negative, except as noted in HPI. Constitutional: Reports: No Symptoms Musculoskeletal: Denies: Hand Pain Skin: Reports: Rash (R hand), Wound (R hand), Other (R hand warm). Denies: Erythema Neurological: Reports: No Symptoms ED EXAM, SKIN/RASH Exam: See Below Exam Limited By: No Limitations General Appearance: Alert, WD/WN, No Apparent Distress Extremities: Normal Range of Motion, Non-Tender, Pedal Edema (R hand swollen dorsally), Increased Warmth (R hand). No: Normal Inspection, No Pedal Edema, Limited Range of Motion, Redness Neurological: Alert, Oriented, CN II-XII Intact, Normal Cognition, No Motor/ Sensory Deficits Psychiatric: Normal Affect, Normal Mood Skin: Warm, Dry, Normal Color, Increased Warmth (R hand), Wound/Incision (? bite site to dorsum of R hand near thumb). No: Ecchymosis Location, Skin: Upper Extremity, Right Associated features: Warmth. No: Tenderness Course - Orders/Labs/Meds Orders: Active Orders 24 hr Category Date Time Status cephALEXin [Keflex] Med 08/11/19 05:47 Once 1,000 mg PO ONETIME ONE Medication Orders Cephalexin (Keflex) 1,000 mg PO ONETIME ONE Stop: 08/11/19 05:48 Meds: Medications Generic Name Dose Route Start Last Admin Trade Name Freq PRN Reason Stop Dose Admin Cephalexin 1,000 mg 08/11/19 05:47 Keflex PO 08/11/19 05:48 ONETIME ONE Departure - Departure Time of Disposition: 05:54 Disposition: Home, Self-Care 01 Condition: Good Clinical Impression: Insect bite Qualifiers: Encounter type: initial encounter Site of insect bite: hand Laterality: right Qualified Code(s): S60.561A - Insect bite (nonvenomous) of right hand, initial encounter; W57.XXXA - Bitten or stung by nonvenomous insect and other nonvenomous arthropods, initial encounter Cellulitis Qualifiers: Site of cellulitis: extremity Site of cellulitis of extremity: upper extremity Laterality: right Qualified Code(s): L03.113 - Cellulitis of right upper limb - Discharge Information *PRESCRIPTION DRUG MONITORING PROGRAM REVIEWED*: Not Applicable *COPY OF PRESCRIPTION DRUG MONITORING REPORT IN PATIENT MAN: Not Applicable Instructions: Cellulitis, Adult, [id number] Referrals: Deniz Ceballos MD [Primary Care Provider] - Forms: ED Department Discharge Additional Instructions: Take Cephalexin 500 mg every 6 hrs. Elevate your hand to reduce swelling. Recheck by tomorrow by your doctor. - My Orders Last 24 Hours: My Active Orders 08/11/19 05:47 cephALEXin [Keflex] 1,000 mg PO ONETIME ONE - Assessment/Plan Last 24 Hours: My Active Orders 08/11/19 05:47 cephALEXin [Keflex] 1,000 mg PO ONETIME ONE
[2019-08-11 08:12] VITALS: BP 157/108; PULSE 108
== END 2019-08-11 06:07 | disposition home or self-care (01) ==
LOC: FB.ED 05:32
DX: S60.561A Insect bite (nonvenomous) of right hand, initial encounter (principal); L03.113 Cellulitis of right upper limb; I10 Essential (primary) hypertension; E66.9 Obesity, unspecified; Z68.32 Body mass index [BMI] 32.0-32.9, adult; W57.XXXA Bitten or stung by nonvenomous insect and other nonvenomous arthropods, initial encounter
CPT/HCPCS: 99283; A9270

== ENCOUNTER 2020-04-22 12:03 | Emergency (ER) | payer MEDICAID ==
[~2020-04-22 12:03] MED LIST: Aspirin 81 MG Tab.Chew PO ONE
[2020-04-22 12:27] VITALS: BP 171/120; PULSE 99
--- NOTE | 2020-04-22 13:55 | EDM.PDOC ---
ED HPI GENERAL MEDICAL PROBLEM - General Stated Complaint: CHEST PAIN Time Seen by Provider: 04/22/20 12:20 Source of Information: Reports: Patient History Limitations: Reports: No Limitations - History of Present Illness INITIAL COMMENTS - FREE TEXT/NARRATIVE: c/o epigastric pain for 6h since 6a nonspecific discomfort in epigastrium, no n/v, no f/c/d has had pancreatitis in past usual BMs ran out of 2 BP meds 2m ago, does not know names, says his gives them to him per EHR: pt on atenolol 25 mg/d, lis/hctz 20/25 mg/d and atorvastatin 20 mg/d per lab, serum is very lipemic, is being diluted PMH: includes bipolar, see record in [employer] EKG with no acute changes 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 Left Chest Pain Score (Numeric/FACES): 2 - Related Data Allergies Allergy/AdvReac Type Severity Reaction Status Date / Time No Known Allergies Allergy Verified 04/22/20 12:19 Home Meds: Home Meds Ondansetron [Zofran ODT] 4 mg PO Q6H PRN #30 tab.dis 03/31/19 [Rx] Lisinopril/Hydrochlorothiazide [Lisinopril-Hctz 20-25 mg Tab] 1 each PO DAILY #30 tablet 04/22/20 [Rx] atenoloL [Atenolol] 25 mg PO DAILY #30 tablet 04/22/20 [Rx] atorvaSTATin [Lipitor] 20 mg PO BEDTIME #30 tab 04/22/20 [Rx] Past Medical History HEENT History: Reports: Impaired Vision Cardiovascular History: Reports: Hypertension Gastrointestinal History: Reports: Gastritis, Pancreatitis Other Gastrointestinal History: HX OF PANCREATITIS Musculoskeletal History: Reports: Back Pain, Chronic, Fracture, Other (See Below) Other Musculoskeletal History: Intervertebral disk disease Neurological History: Reports: Concussion Other Neuro History: concussion x 2 Psychiatric History: Reports: ADD, Addiction, Bipolar, Depression, Hallucinations, Panic Attack, Psych Hospitalization(s), Suicide Attempt, Suicidal Ideation, Other (See Below) Other Psychiatric History: ALCOHOL ABUSE Endocrine/Metabolic History: Reports: Obesity/BMI 30+ - Infectious Disease History Infectious Disease History: Reports: Chicken Pox - Past Surgical History GI Surgical History: Reports: Appendectomy Neurological Surgical History: Reports: Discectomy, Lumbar Spine Dermatological Surgical History: Reports: None Social & Family History - Family History Family Medical History: No Pertinent Family History Cardiac: Reports: None GI: Reports: None Neurological: Reports: None Psychiatric: Reports: None Endocrine/Metabolic: Reports: None - Tobacco Use Tobacco Use Status *Q: Never Tobacco User - Caffeine Use Caffeine Use: Reports: None - Recreational Drug Use Recreational Drug Use: No - Living Situation & Occupation Living situation: Reports: Occupation: Unemployed (He reports that he is currently not working.) ED ROS GENERAL - Review of Systems Review Of Systems: See Below Constitutional: Reports: No Symptoms HEENT: Reports: No Symptoms Respiratory: Reports: No Symptoms Cardiovascular: Reports: No Symptoms Endocrine: Reports: No Symptoms GI/Abdominal: Reports: Other (mild epigastric tender) : Reports: No Symptoms Musculoskeletal: Reports: No Symptoms Skin: Reports: No Symptoms Neurological: Reports: No Symptoms Psychiatric: Reports: No Symptoms Hematologic/Lymphatic: Reports: No Symptoms Immunologic: Reports: No Symptoms ED EXAM, GENERAL - Physical Exam Exam: See Below Exam Limited By: No Limitations General Appearance: Alert, WD/WN, No Apparent Distress Eye Exam: Bilateral Eye: EOMI, PERRL Throat/Mouth: Normal Inspection, Normal Lips, Normal Voice, No Airway Compromise Head: Atraumatic, Normocephalic Neck: Normal Inspection, Supple, Non-Tender Respiratory/Chest: No Respiratory Distress, Lungs Clear, Normal Breath Sounds, Chest Non-Tender Cardiovascular: Regular Rate, Rhythm, No Edema, No Murmur GI/Abdominal: Soft, No Distention Back Exam: Normal Inspection, Full Range of Motion, NT Extremities: Normal Inspection, Normal Range of Motion, Non-Tender, No Pedal Edema Neurological: Alert, Oriented, CN II-XII Intact, Normal Cognition, No Motor/Sensory Deficits Psychiatric: Normal Affect, Normal Mood, Anxious Skin Exam: Warm, Dry, Intact, Normal Color, No Rash Lymphatic: No Adenopathy Course - Vital Signs Last Recorded V/S: Last Vital Signs Temp 36.7 C 04/22/20 12:03 Pulse 99 04/22/20 12:03 Resp 16 04/22/20 12:03 BP 171/120 H 04/22/20 12:03 Pulse Ox 98 04/22/20 12:03 - Orders/Labs/Meds Orders: Active Orders 24 hr Category Date Time Status EKG Documentation Completion [RC] ASDIRECTED Care 04/22/20 12:20 Active C-REACTIVE PROTEIN [CHEM] Stat Lab 04/22/20 12:20 Results LIPASE [CHEM] Stat Lab 04/22/20 12:20 Results EKG 12 Lead [EK] Routine Ther 04/22/20 12:19 Ordered Labs: Laboratory Tests 04/22/20 04/22/20 04/22/20 Range/Units 12:20 12:20 12:20 WBC 5.6 (3.2-10.1) x10-3/uL RBC 5.36 (3.90-5.90) x10(6)uL Hgb 16.2 (12.9-17.7) g/dL Hct 46.3 (38.3-50.1) % MCV 93.6 (80.8-98.7) fL MCH 33.3 (27.0-33.3) pg MCHC 35.1 (28.7-35.3) g/dL RDW 13.5 (12.4-15.0) % Plt Count 277 (117-477) x10(3)uL MPV 9.1 (6.7-11.0) fL Neut % (Auto) 57.2 (40.3-71.8) % Lymph % (Auto) 29.7 (15.8-45.3) % Wood % (Auto) 9.7 (5.5-15.2) % Eos % (Auto) 2.3 (0.1-6.8) % Baso % (Auto) 1.1 (0.3-3.8) % Neut # (Auto) 3.2 (1.7-6.9) x10-3/uL Lymph # (Auto) 1.7 (0.5-4.5) x10-3/uL Wood # (Auto) 0.5 (0.0-1.2) x10-3/uL Eos # (Auto) 0.1 (0.0-0.6) x10-3/uL Baso # (Auto) 0.1 (0.0-0.3) x10-3/uL Sodium 139 (135-145) mmol/L Potassium 4.1 (3.5-5.3) mmol/L Chloride 103 (100-110) mmol/L Carbon Dioxide 23 (21-32) mmol/L BUN 8 (7-18) mg/dL Creatinine 0.7 (0.70-1.30) mg/dL Est Cr Clr Drug Dosing 141.64 mL/min Estimated GFR (MDRD) > 60 (>60) BUN/Creatinine Ratio 11.4 (9-20) Glucose 113 (80-116) mg/dL Calcium 8.0 L (8.6-10.2) mg/dL Total Bilirubin 0.7 (0.1-1.3) mg/dL AST 70 H D (5-25) IU/L ALT 152 H* D (12-36) U/L Alkaline Phosphatase 71 (56-112) IU/L Troponin I (4.0-60.3) pg/mL Total Protein 6.6 (6.0-8.0) g/dL Albumin 4.2 (3.5-5.2) g/dL Globulin 2.4 g/dL Albumin/Globulin Ratio 1.8 Lipase 125 (73-393) U/L 04/22/20 Range/Units 12:20 WBC (3.2-10.1) x10-3/uL RBC (3.90-5.90) x10(6)uL Hgb (12.9-17.7) g/dL Hct (38.3-50.1) % MCV (80.8-98.7) fL MCH (27.0-33.3) pg MCHC (28.7-35.3) g/dL RDW (12.4-15.0) % Plt Count (117-477) x10(3)uL MPV (6.7-11.0) fL Neut % (Auto) (40.3-71.8) % Lymph % (Auto) (15.8-45.3) % Wood % (Auto) (5.5-15.2) % Eos % (Auto) (0.1-6.8) % Baso % (Auto) (0.3-3.8) % Neut # (Auto) (1.7-6.9) x10-3/uL Lymph # (Auto) (0.5-4.5) x10-3/uL Wood # (Auto) (0.0-1.2) x10-3/uL Eos # (Auto) (0.0-0.6) x10-3/uL Baso # (Auto) (0.0-0.3) x10-3/uL Sodium (135-145) mmol/L Potassium (3.5-5.3) mmol/L Chloride (100-110) mmol/L Carbon Dioxide (21-32) mmol/L BUN (7-18) mg/dL Creatinine (0.70-1.30) mg/dL Est Cr Clr Drug Dosing mL/min Estimated GFR (MDRD) (>60) BUN/Creatinine Ratio (9-20) Glucose (80-116) mg/dL Calcium (8.6-10.2) mg/dL Total Bilirubin (0.1-1.3) mg/dL AST (5-25) IU/L ALT (12-36) U/L Alkaline Phosphatase (56-112) IU/L Troponin I 12.1 (4.0-60.3) pg/mL Total Protein (6.0-8.0) g/dL Albumin (3.5-5.2) g/dL Globulin g/dL Albumin/Globulin Ratio Lipase (73-393) U/L Meds: Medications Discontinued Medications Generic Name Dose Route Start Last Admin Trade Name Freq PRN Reason Stop Dose Admin Aspirin 324 mg 04/22/20 12:03 04/22/20 12:14 Aspirin PO 04/22/20 12:04 324 mg ONETIME ONE Administration Ketorolac Tromethamine 30 mg 04/22/20 14:18 Toradol IVPUSH 04/22/20 14:19 ONETIME ONE - Re-Assessments/Exams Free Text/Narrative Re-Assessment/Exam: 04/22/20 14:45 pt shown tube of blood with creamy serum, he took a photo and said his was going to put him on a diet deferred on BP meds here as side effects from meds here and home meds combined might discourage him from continuing home meds labs and EKG at baseline epigastric/chest pain is nonspecific 6-hour trop is neg Departure - Departure Time of Disposition: 14:28 Disposition: Home, Self-Care 01 Condition: Good Clinical Impression: Chest wall pain, Elevated blood pressure reading, Not taking medication for chronic disease, Serum lipids high Prescriptions: atenoloL [Atenolol] 25 mg PO DAILY #30 tablet atorvaSTATin [Lipitor] 20 mg PO BEDTIME #30 tab Lisinopril/Hydrochlorothiazide [Lisinopril-Hctz 20-25 mg Tab] 1 each PO DAILY #30 tablet Instructions: Hypertension, Adult, Dyslipidemia Referrals: Deniz Ceballos MD [Primary Care Provider] - Additional Instructions: Resume your 2 meds for your blood pressure and your 1 med for your lipids. Take a first dose this afternoon and then continue with your blood pressure meds in the morning. See your doctor in 4 days for additional instructions. Your doctor will need to give you additional refills on your meds. Check your blood pressure at home once a day and write down your readings and take them to your doctor appointments. Sepsis Event Note (ED) - Evaluation Sepsis Screening Result: No Definite Risk - Focused Exam Vital Signs: Vital Signs Temp Pulse Resp BP Pulse Ox 04/22/20 12:03 36.7 C 99 16 171/120 H 98 - My Orders Last 24 Hours: My Active Orders 04/22/20 12:19 EKG 12 Lead [EK] Routine 04/22/20 12:20 EKG Documentation Completion [RC] ASDIRECTED C-REACTIVE PROTEIN [CHEM] Stat LIPASE [CHEM] Stat - Assessment/Plan Last 24 Hours: My Active Orders 04/22/20 12:19 EKG 12 Lead [EK] Routine 04/22/20 12:20 EKG Documentation Completion [RC] ASDIRECTED C-REACTIVE PROTEIN [CHEM] Stat LIPASE [CHEM] Stat
[2020-04-22] MEDS ORDERED: Ketorolac 30 MG/ML SDV IVPUSH ONE (14:18)
[2020-04-22] MEDS ORDERED: Sodium Chloride 0.9% 10 ML Syringe FLUSH PRN (15:58)
== END 2020-04-22 14:54 | disposition home or self-care (01) ==
LOC: FB.ED 12:03
DX: R07.89 Other chest pain (principal); R74.8 Abnormal levels of other serum enzymes; I10 Essential (primary) hypertension; R10.13 Epigastric pain; E66.9 Obesity, unspecified; Z68.34 Body mass index [BMI] 34.0-34.9, adult; Z79.899 Other long term (current) drug therapy
CPT/HCPCS: 36415; 80053; 83690; 84484; 85025; 86140; 93005; 99285; A9270; 99283

== ENCOUNTER 2020-05-23 10:46 | Emergency (ER) | payer MEDICAID ==
[2020-05-23] MEDS ORDERED: HYDROmorphone 2 MG/ML SDV IM ONE (11:01)
[2020-05-23] MEDS ORDERED: Ketorolac 60 MG/2 ML SDV IM ONE (11:01)
--- NOTE | 2020-05-23 11:05 | EDM.PDOC ---
ED HPI GENERAL MEDICAL PROBLEM - General Chief Complaint: Back Pain or Injury Stated Complaint: LOWER BACK PAIN Time Seen by Provider: 05/23/20 11:02 Source of Information: Reports: Patient History Limitations: Reports: No Limitations - History of Present Illness INITIAL COMMENTS - FREE TEXT/NARRATIVE: Presents with low back pain radiating to right leg x 4 days. Denies injury. Pain is worsening. No improvement with Tylenol or Ibuprofen. Has h/o chronic LBP, had back surgery 3 years ago. Denies numbness, tingling, or loss of bowel/bladder control. 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 - Related Data Allergies Allergy/AdvReac Type Severity Reaction Status Date / Time No Known Allergies Allergy Verified 04/22/20 12:19 Home Meds: Home Meds Ondansetron [Zofran ODT] 4 mg PO Q6H PRN #30 tab.dis 03/31/19 [Rx] Lisinopril/Hydrochlorothiazide [Lisinopril-Hctz 20-25 mg Tab] 1 each PO DAILY #30 tablet 04/22/20 [Rx] atenoloL [Atenolol] 25 mg PO DAILY #30 tablet 04/22/20 [Rx] atorvaSTATin [Lipitor] 20 mg PO BEDTIME #30 tab 04/22/20 [Rx] Acetaminophen/HYDROcodone [[place] 325-5 MG] 1 - 2 tab PO Q6H PRN #12 tab 05/23/20 [Rx] Baclofen 10 mg PO TID PRN #30 tablet 05/23/20 [Rx] Past Medical History HEENT History: Reports: Impaired Vision Cardiovascular History: Reports: Hypertension Gastrointestinal History: Reports: Gastritis, Pancreatitis Other Gastrointestinal History: HX OF PANCREATITIS Musculoskeletal History: Reports: Back Pain, Chronic, Fracture, Other (See Below) Other Musculoskeletal History: Intervertebral disk disease Neurological History: Reports: Concussion Other Neuro History: concussion x 2 Psychiatric History: Reports: ADD, Addiction, Bipolar, Depression, Hallucinations, Panic Attack, Psych Hospitalization(s), Suicide Attempt, Suicidal Ideation, Other (See Below) Other Psychiatric History: ALCOHOL ABUSE Endocrine/Metabolic History: Reports: Obesity/BMI 30+ - Infectious Disease History Infectious Disease History: Reports: Chicken Pox - Past Surgical History GI Surgical History: Reports: Appendectomy Neurological Surgical History: Reports: Discectomy, Lumbar Spine Dermatological Surgical History: Reports: None Social & Family History - Family History Family Medical History: No Pertinent Family History Cardiac: Reports: None GI: Reports: None Neurological: Reports: None Psychiatric: Reports: None Endocrine/Metabolic: Reports: None - Caffeine Use Caffeine Use: Reports: None - Living Situation & Occupation Living situation: Reports: Occupation: Unemployed (He reports that he is currently not working.) ED ROS GENERAL - Review of Systems Review Of Systems: Comprehensive ROS is negative, except as noted in HPI. ED EXAM,LOWER BACK PAIN/INJURY - Physical Exam Exam: See Below Exam Limited By: No Limitations General Appearance: Alert, WD/WN, No Apparent Distress Throat/Mouth: No Airway Compromise Head: Atraumatic, Normocephalic Neck: Full Range of Motion Respiratory/Chest: No Respiratory Distress GI/Abdominal: Normal Bowel Sounds, Soft, Non-Tender, No Distention Back Exam: Paraspinal Tenderness (bilateral) Extremities: Normal Range of Motion, No Pedal Edema Neurological: Alert, Normal Mood/Affect, No Motor/Sensory Deficits DTR - Lower Extremities: 2+: Knee (R) Psychiatric: Normal Affect, Normal Mood Skin Exam: Warm, Dry, Intact Course - Vital Signs Last Recorded V/S: Last Vital Signs Temp 36.6 C 05/23/20 10:58 Pulse 114 H 05/23/20 10:58 Resp 18 05/23/20 10:58 BP 155/101 H 05/23/20 10:58 Pulse Ox 96 05/23/20 10:58 - Orders/Labs/Meds Meds: Medications Discontinued Medications Generic Name Dose Route Start Last Admin Trade Name Freq PRN Reason Stop Dose Admin Hydromorphone HCl 1 mg 05/23/20 11:01 05/23/20 11:09 Hydromorphone 2 Mg/Ml Sdv IM 05/23/20 11:02 1 mg ONETIME ONE Administration Ketorolac Tromethamine 60 mg 05/23/20 11:01 05/23/20 11:08 Ketorolac 60 Mg/2 Ml Sdv IM 05/23/20 11:02 60 mg ONETIME ONE Administration Ondansetron HCl 4 mg 05/23/20 11:19 Ondansetron 4 Mg/2 Ml Sdv IM 05/23/20 11:20 ONETIME ONE Ondansetron HCl 4 mg 05/23/20 11:22 05/23/20 11:25 Ondansetron 4 Mg Tab.Dis PO 05/23/20 11:23 4 mg ONETIME ONE Administration - Re-Assessments/Exams Free Text/Narrative Re-Assessment/Exam: 05/23/20 11:41 Pain improved after Dilaudid 1mg IM and Toradol 60mg IM. 05/23/20 11:44 BP rechecked at 168/100, patient states he has not yet taken his BP meds today. Departure - Departure Time of Disposition: 11:41 Disposition: Home, Self-Care 01 Condition: Good Clinical Impression: Sciatica of right side - Discharge Information *PRESCRIPTION DRUG MONITORING PROGRAM REVIEWED*: Yes *COPY OF PRESCRIPTION DRUG MONITORING REPORT IN PATIENT MAN: No Prescriptions: Baclofen 10 mg PO TID PRN #30 tablet PRN Reason: Muscle Spasm Acetaminophen/HYDROcodone [[place] 325-5 MG] 1 - 2 tab PO Q6H PRN #12 tab PRN Reason: Pain Instructions: Sciatica, [id number] Referrals: Deniz Ceballos MD [ED Physician] - 2 Days Forms: ED Department Discharge Additional Instructions: Fill the prescriptions for [place] and Baclofen and take as directed. Rest. You may also take OTC Ibuprofen as needed to control pain, but do not take Acetaminophen (eg. Tylenol) containing medications while taking [place]. Follow up with your primary physician in 2-3 days. Return to the ER if symptoms worsen. Sepsis Event Note (ED) - Focused Exam Vital Signs: Vital Signs Temp Pulse Resp BP Pulse Ox 05/23/20 10:58 36.6 C 114 H 18 155/101 H 96
[2020-05-23] MEDS ORDERED: Ondansetron 4 MG/2 ML SDV IM ONE (11:19)
[2020-05-23] MEDS ORDERED: Ondansetron 4 MG Tab.DIS PO ONE (11:22)
[2020-05-23 11:53] VITALS: BP 169/100; PULSE 105
== END 2020-05-23 11:58 | disposition home or self-care (01) ==
LOC: FB.ED 10:46
DX: M54.41 Lumbago with sciatica, right side (principal); I10 Essential (primary) hypertension; E66.9 Obesity, unspecified; Z68.34 Body mass index [BMI] 34.0-34.9, adult; Z79.899 Other long term (current) drug therapy
CPT/HCPCS: 96372; 99283; A9270-GY; J1170; J1885

== ENCOUNTER 2020-06-28 10:47 | Emergency (ER) | payer MEDICAID ==
[2020-06-28] MEDS ORDERED: Ketorolac 30 MG/ML SDV IM ONE (12:06)
--- NOTE | 2020-06-28 13:49 | EDM.PDOC ---
ED HPI GENERAL MEDICAL PROBLEM - General Chief Complaint: Back Pain or Injury Stated Complaint: PACK PAIN Time Seen by Provider: 06/28/20 11:15 Source of Information: Reports: Patient History Limitations: Reports: No Limitations - History of Present Illness INITIAL COMMENTS - FREE TEXT/NARRATIVE: c/o back pain for several years requesting imaging which was last done 2y ago, LS spine show health bones with preserved disc spaces and nerve root canals no change in imaging c/w 2y ago per [facility] pt has received ~20 doses Toradol and ~10 does Dilaudid in past 3y per [facility], he received 2 short courses of Lortab 5/325 in past month pt states he has pain down his RLE PMH: includes bipolar, other pain c/o in past he said PT has not helped has taken NSAIDs and APAP in past 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, 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, lives with sig other and children Right Lower Back Pain Score (Numeric/FACES): 10 - Related Data Allergies Allergy/AdvReac Type Severity Reaction Status Date / Time No Known Allergies Allergy Verified 05/23/20 11:49 Home Meds: Home Meds atenoloL [Atenolol] 25 mg PO DAILY #30 tablet 04/22/20 [Rx] atorvaSTATin [Lipitor] 20 mg PO BEDTIME #30 tab 04/22/20 [Rx] Acetaminophen/HYDROcodone [[place] 325-5 MG] 1 - 2 tab PO Q6H PRN #12 tab 05/23/20 [Rx] Baclofen 10 mg PO TID PRN #30 tablet 05/23/20 [Rx] Past Medical History HEENT History: Reports: Impaired Vision Cardiovascular History: Reports: Hypertension Gastrointestinal History: Reports: Gastritis, Pancreatitis Other Gastrointestinal History: HX OF PANCREATITIS Musculoskeletal History: Reports: Back Pain, Chronic, Fracture, Other (See Below) Other Musculoskeletal History: Intervertebral disk disease Neurological History: Reports: Concussion Other Neuro History: concussion x 2 Psychiatric History: Reports: ADD, Addiction, Bipolar, Depression, Hallucinations, Panic Attack, Psych Hospitalization(s), Suicide Attempt, Suicidal Ideation, Other (See Below) Other Psychiatric History: ALCOHOL ABUSE Endocrine/Metabolic History: Reports: Obesity/BMI 30+ - Infectious Disease History Infectious Disease History: Reports: Chicken Pox - Past Surgical History HEENT Surgical History: Reports: None Cardiovascular Surgical History: Reports: None GI Surgical History: Reports: Appendectomy Neurological Surgical History: Reports: Discectomy, Lumbar Spine Other Neurological Surgeries/Procedures: disc surgery Musculoskeletal Surgical History: Reports: Other (See Below) Other Musculoskeletal Surgeries/Procedures:: hx back surgery (discetomy) Dermatological Surgical History: Reports: None Social & Family History - Family History Family Medical History: No Pertinent Family History Cardiac: Reports: None GI: Reports: None Neurological: Reports: None Psychiatric: Reports: None Endocrine/Metabolic: Reports: None - Tobacco Use Tobacco Use Status *Q: Current Some Day Tobacco User Years of Tobacco use: 8 Packs/Tins Daily: 0.2 - Caffeine Use Caffeine Use: Reports: None - Alcohol Use Days Per Week of Alcohol Use: 2 Number of Drinks Per Day: 6 Total Drinks Per Week: 12 - Recreational Drug Use Recreational Drug Use: No - Living Situation & Occupation Living situation: Reports: Occupation: Unemployed (He reports that he is currently not working.) ED ROS GENERAL - Review of Systems Review Of Systems: See Below Constitutional: Reports: No Symptoms HEENT: Reports: No Symptoms Respiratory: Reports: No Symptoms Cardiovascular: Reports: No Symptoms Endocrine: Reports: No Symptoms GI/Abdominal: Reports: No Symptoms : Reports: No Symptoms Musculoskeletal: Reports: Back Pain Skin: Reports: No Symptoms Neurological: Reports: No Symptoms Psychiatric: Reports: No Symptoms Hematologic/Lymphatic: Reports: No Symptoms Immunologic: Reports: No Symptoms ED EXAM,LOWER BACK PAIN/INJURY - Physical Exam Exam: See Below Exam Limited By: No Limitations General Appearance: Alert, WD/WN Respiratory/Chest: No Respiratory Distress Cardiovascular: Regular Rate, Rhythm Back Exam: Other (exam is essentially unremarkable, lying somewhat awkwardly on R side, 2+ DTR patella b/l and brisk, difficult to elicit Achilles b/l, great toe extension 5/5, LT intact, 1+ tender at L SI, nonspecific lower 2/3rd L spine, low back muscles a little tight d/t body position) Neurological: Alert, Normal Mood/Affect, Normal Dorsiflexion, CN II-XII Intact, No Motor/Sensory Deficits, Oriented x 3 Psychiatric: Normal Affect, Normal Mood Skin Exam: Warm, Dry, Intact, Normal Color, No Rash Lymphatic: No Adenopathy Course - Vital Signs Last Recorded V/S: Last Vital Signs Temp 36.3 C 06/28/20 11:51 Pulse 101 H 06/28/20 11:51 Resp 18 06/28/20 11:51 BP 157/104 H 06/28/20 11:51 Pulse Ox 94 L 06/28/20 11:51 - Orders/Labs/Meds Orders: Active Orders 24 hr Category Date Time Status Lumbar Spine 2 or 3V [CR] Stat Exams 06/28/20 12:47 Taken Meds: Medications Discontinued Medications Generic Name Dose Route Start Last Admin Trade Name Samantha PRN Reason Stop Dose Admin Ketorolac Tromethamine 60 mg 06/28/20 12:06 06/28/20 12:31 Ketorolac 30 Mg/Ml Sdv IM 06/28/20 12:07 60 mg ONETIME ONE Administration - Re-Assessments/Exams Free Text/Narrative Re-Assessment/Exam: 06/28/20 13:56 pt with back surgery 3y ago in [place], not seen in f/u, said he herniation x 2, n o clinical evidence of recurrent radiculopathy, deconditioning appears to be the main issue f/u with both PCP and ortho recommended pt requested a copy of his images which was provided on a disc Departure - Departure Time of Disposition: 13:41 Disposition: Home, Self-Care 01 Preliminary Cause of *Q: Other_Special Instruction Condition: Good Clinical Impression: Low back strain, Deconditioned low back, Sacroiliac joint pain - Discharge Information *PRESCRIPTION DRUG MONITORING PROGRAM REVIEWED*: Not Applicable *COPY OF PRESCRIPTION DRUG MONITORING REPORT IN PATIENT MAN: Not Applicable Instructions: Lumbosacral Strain Referrals: Deniz Ceballos MD [Primary Care Provider] - Additional Instructions: The x-rays look excellent. The bone is healthy. Increased conditioning and strengthening of the back muscles can help. There is some inflammation of the left sacroiliac joint. Use heat for 10 minutes several times a day as needed. Sleep on a firm matress. For inflammation, take ibuprofen 200 mg 3 tabs and acetaminophen 325 mg 2 tabs 3-4 times day. For spasm, take cyclobenzaprine up to 3 times a day as needed. See Dr Ceballos in the next week for further recommendations. Sepsis Event Note (ED) - Evaluation Sepsis Screening Result: No Definite Risk - Focused Exam Vital Signs: Vital Signs Temp Pulse Resp BP Pulse Ox 06/28/20 11:51 36.3 C 101 H 18 157/104 H 94 L - My Orders Last 24 Hours: My Active Orders 06/28/20 12:47 Lumbar Spine 2 or 3V [CR] Stat - Assessment/Plan Last 24 Hours: My Active Orders 06/28/20 12:47 Lumbar Spine 2 or 3V [CR] Stat
[2020-06-28 14:56] VITALS: BP 148/74; PULSE 72
--- NOTE | 2020-06-28 15:52 | CR ---
INDICATION: Chronic LBP. 8694 LUMBOSACRAL SPINE: AP and 3 lateral views of the lumbosacral spine were obtained 06/28/20 and compared with 08/14/18. Decreased disk space and minimal hypertrophic degenerative changes are noted with slight progression of hypertrophic changes at L4-5. Decreased disk space is also noted at L5-S1 similar to the previous examination. Vertebral body heights were maintained. Pedicles appear to be intact. Sacroiliac joints were intact. IMPRESSION: Possible degenerative disk disease L4-5 and L5-S1. MTDD
== END 2020-06-28 13:50 | disposition home or self-care (01) ==
LOC: FB.ED 10:47
DX: S39.012A Strain of muscle, fascia and tendon of lower back, initial encounter (principal); E66.9 Obesity, unspecified; Z79.899 Other long term (current) drug therapy; Z72.0 Tobacco use; Z68.33 Body mass index [BMI] 33.0-33.9, adult; X58.XXXA Exposure to other specified factors, initial encounter
CPT/HCPCS: 72100; 96372; 99283; J1885

== ENCOUNTER 2020-07-27 14:34 | Inpatient (IN) | payer MEDICAID ==
[2020-07-27] MEDS ORDERED: Ondansetron 4 MG/2 ML SDV IVPUSH ONE (14:50)
[2020-07-27] MEDS ORDERED: Morphine 2 MG/ML SYRINGE IVPUSH ONE (14:50)
[2020-07-27] MEDS ORDERED: Ketorolac 30 MG/ML SDV IVPUSH ONE (14:50)
[2020-07-27] MEDS ORDERED: Sodium Chloride 0.9% 1,000 ML IV SCH (15:00)
[2020-07-27] MEDS ORDERED: Alum Hydroxide/Mag Hydroxide 15 ML, Lidocaine 2% 15 ML PO ONE ×2 (15:08)
[2020-07-27] MEDS ORDERED: Morphine 2 MG/ML SYRINGE IVPUSH STA (15:55)
[2020-07-27] MEDS ORDERED: Iopamidol 755 Mg/ML 100 ML Bottle IV ONE (16:14)
--- NOTE | 2020-07-27 16:59 | EDM.PDOC ---
ED HPI GENERAL MEDICAL PROBLEM - General Chief Complaint: Abdominal Pain Time Seen by Provider: 07/27/20 14:40 Source of Information: Reports: Patient History Limitations: Reports: No Limitations - History of Present Illness INITIAL COMMENTS - FREE TEXT/NARRATIVE: Patient is a 34 YO M who presented to the ED because of sudden onset of epigastric and LUQ pain which started at 0600 and gradually got worse throughout the day. The pain is sharp, cramping, 10/10, radiating to the mid back. He also c/o nausea but no vomiting. There is no diarrhea or constipation or urinary symptoms. At times he has chills but no fever, cough or cold. Upper Abdomen Pain Score (Numeric/FACES): 10 - Related Data Allergies Allergy/AdvReac Type Severity Reaction Status Date / Time No Known Allergies Allergy Verified 07/27/20 14:47 Home Meds: Home Meds atenoloL [Atenolol] 25 mg PO DAILY #30 tablet 04/22/20 [Rx] atorvaSTATin [Lipitor] 20 mg PO BEDTIME #30 tab 04/22/20 [Rx] Cyclobenzaprine [Flexeril] 10 mg PO DAILY 07/27/20 [History] Diclofenac Sodium [Voltaren] 75 mg PO BID 07/27/20 [History] Hydrochlorothiazide/Lisinopril [Lisinopril-HCTZ 10-12.5 MG] 1 tab PO BEDTIME 07/27/20 [History] Past Medical History HEENT History: Reports: Impaired Vision Cardiovascular History: Reports: High Cholesterol, Hypertension Gastrointestinal History: Reports: Gastritis, Pancreatitis Other Gastrointestinal History: HX OF PANCREATITIS Musculoskeletal History: Reports: Back Pain, Chronic, Fracture, Other (See Below) Other Musculoskeletal History: Intervertebral disk disease Neurological History: Reports: Concussion Other Neuro History: concussion x 2 Psychiatric History: Reports: ADD, Addiction, Bipolar, Depression, Hallucinations, Panic Attack, Psych Hospitalization(s), Suicide Attempt, Suicidal Ideation, Other (See Below) Other Psychiatric History: ALCOHOL ABUSE Endocrine/Metabolic History: Reports: Obesity/BMI 30+ - Infectious Disease History Infectious Disease History: Reports: Chicken Pox - Past Surgical History HEENT Surgical History: Reports: None Cardiovascular Surgical History: Reports: None GI Surgical History: Reports: Appendectomy Neurological Surgical History: Reports: Discectomy, Lumbar Spine Other Neurological Surgeries/Procedures: disc surgery Musculoskeletal Surgical History: Reports: Other (See Below) Other Musculoskeletal Surgeries/Procedures:: hx back surgery (discetomy) Dermatological Surgical History: Reports: None Social & Family History - Family History Family Medical History: No Pertinent Family History Cardiac: Reports: None GI: Reports: None Neurological: Reports: None Psychiatric: Reports: None Endocrine/Metabolic: Reports: None - Caffeine Use Caffeine Use: Reports: None - Alcohol Use Days Per Week of Alcohol Use: 1 Number of Drinks Per Day: 5 Total Drinks Per Week: 5 Date of Last Drink: 06/24/20 - Recreational Drug Use Recreational Drug Use: No - Living Situation & Occupation Living situation: Reports: Occupation: Unemployed (He reports that he is currently not working.) ED ROS GENERAL - Review of Systems Review Of Systems: See Below Constitutional: Reports: No Symptoms HEENT: Reports: No Symptoms Respiratory: Reports: No Symptoms Cardiovascular: Reports: No Symptoms Endocrine: Reports: No Symptoms GI/Abdominal: Reports: Abdominal Pain, Nausea : Reports: No Symptoms Musculoskeletal: Reports: No Symptoms Skin: Reports: No Symptoms Neurological: Reports: No Symptoms Psychiatric: Reports: No Symptoms ED EXAM, GI/ABD - Physical Exam Exam: See Below Exam Limited By: No Limitations General Appearance: Alert, No Apparent Distress Ears: Normal External Exam, Normal Canal Nose: Normal Inspection, Normal Mucosa, No Blood Throat/Mouth: Normal Inspection, Normal Lips, Normal Teeth Head: Atraumatic, Normocephalic Neck: Normal Inspection, Supple, Non-Tender, Full Range of Motion Respiratory/Chest: No Respiratory Distress, Lungs Clear, Normal Breath Sounds, No Accessory Muscle Use, Chest Non-Tender Cardiovascular: Normal Peripheral Pulses, Regular Rate, Rhythm, No Edema, No Gallop, No JVD, No Murmur, No Rub GI/Abdominal Exam: Normal Bowel Sounds, Soft, Other (tenderness epigastric and LUQ) Back Exam: Normal Inspection Extremities: Normal Inspection Neurological: Alert, Oriented, CN II-XII Intact Psychiatric: Normal Affect #1 Interpretation EKG Date: 07/27/20 Time: 17:25 Rhythm: NSR (SVT) Rate (Beats/Min): 76 [place]: Normal P-Wave: Present QRS: Normal ST-T: Normal QT: Normal Comparison: NA - No Prior EKG EKG Interpretation Comments: NSR #2 Interpretation EKG Date: 07/27/20 Time: 16:33 Rhythm: Other (Sinus achy) Rate (Beats/Min): 110 [place]: Normal P-Wave: Present QRS: Normal ST-T: Normal QT: Normal Comparison: NA - No Prior EKG EKG Interpretation Comments: Sinus Tach Course - Vital Signs Text/Narrative:: Lab and CT result was reviewed and discussed with patient NS 1 L bolus Zofran 4 mg IV x1 Toradol 30 mg IV x1 Morphine 2 mg IV x 2 doses GI cocktail 1 po x1 Covid test-neg Last Recorded V/S: Last Vital Signs Temp 36.2 C 07/27/20 14:34 Pulse 106 H 07/27/20 14:34 Resp 19 07/27/20 14:34 BP 151/89 H 07/27/20 14:34 Pulse Ox 100 07/27/20 14:34 - Orders/Labs/Meds Orders: Active Orders 24 hr Category Date Time Status Patient Status [ADT] Routine ADT 07/27/20 17:03 Active Oxygen Therapy [RC] PRN Care 07/27/20 17:03 Active Pulse Oximetry [RC] PRN Care 07/27/20 17:05 Active Up ad Ngoc [RC] ASDIRECTED Care 07/27/20 17:03 Active VTE/DVT Education [RC] Per Unit Routine Care 07/27/20 17:03 Active Vital Signs [RC] Q4H Care 07/27/20 17:03 Active Nothing per Oral Now Diet [DIET] Diet 07/27/20 Dinner Ordered AMYLASE [CHEM] Stat Lab 07/27/20 15:10 Received CBC WITH AUTO DIFF [HEME] AM Lab 07/28/20 05:11 Ordered COMPREHENSIVE METABOLIC PN,CMP [CHEM] AM Lab 07/28/20 05:11 Ordered COMPREHENSIVE METABOLIC PN,CMP [CHEM] Stat Lab 07/27/20 15:10 Received LIPASE [CHEM] Stat Lab 07/27/20 17:03 Ordered LIPID PANEL [CHEM] Stat Lab 07/27/20 15:39 Ordered Cyclobenzaprine [Flexeril] Med 07/28/20 09:00 Pending 10 mg PO DAILY Diclofenac Sodium [Voltaren] Med 07/27/20 21:00 Active 75 mg PO BID Hydrochlorothiazide/Lisinopril [Lisinopril/HCTZ 10-12.5 Med 07/27/20 21:00 Active MG] 1 tab PO BEDTIME Morphine Med 07/27/20 17:03 Active 2 mg IVPUSH Q2H PRN Ondansetron [Zofran] Med 07/27/20 17:03 Active 4 mg IV Q4H PRN Sodium Chloride 0.9% [Normal Saline] 1,000 ml Med 07/27/20 17:15 Active IV ASDIRECTED atenoloL [Tenormin] Med 07/28/20 09:00 Active 25 mg PO DAILY atorvaSTATin [Lipitor] Med 07/27/20 21:00 Active 20 mg PO BEDTIME Sequential Compression Device [OM.PC] Per Unit Routine Oth 07/27/20 17:06 Ordered Resuscitation Status Routine Resus Stat 07/27/20 17:03 Ordered Medication Orders Atenolol (Atenolol 25 Mg Tab) 25 mg PO DAILY RAHAT Atorvastatin Calcium (Atorvastatin 20 Mg Tab) 20 mg PO BEDTIME RAHAT Cyclobenzaprine HCl (Cyclobenzaprine 10 Mg Tab) 10 mg PO DAILY RAHAT Diclofenac Sodium (Diclofenac Sodium 75 Mg Tab.Ec) 75 mg PO BID RAHAT Lisinopril/HCTZ (Hydrochlorothiazide/Lisinopril 12.5-10 Mg Tab) 1 tab PO BEDTIME RAHAT Sodium Chloride (Normal Saline) 1,000 mls @ 125 mls/hr IV ASDIRECTED RAHAT Morphine Sulfate (Morphine 2 Mg/Ml Syringe) 2 mg IVPUSH Q2H PRN PRN Reason: Pain Last Admin: 07/27/20 18:17 Dose: 2 mg Documented by: KARISHMA Ondansetron HCl (Ondansetron 4 Mg/2 Ml Sdv) 4 mg IV Q4H PRN PRN Reason: Nausea/Vomiting Labs: Laboratory Tests 07/27/20 07/27/20 07/27/20 Range/Units 14:50 15:10 15:10 WBC Cancelled Corrected WBC Cancelled RBC Cancelled Hgb Cancelled Hct Cancelled MCV Cancelled MCH Cancelled MCHC Cancelled RDW Cancelled Plt Count Cancelled MPV Cancelled Neut % (Auto) Cancelled Lymph % (Auto) Cancelled Sebastian % (Auto) Cancelled Eos % (Auto) Cancelled Baso % (Auto) Cancelled Neut # (Auto) Cancelled Lymph # (Auto) Cancelled Sebastian # (Auto) Cancelled Eos # (Auto) Cancelled Baso # (Auto) Cancelled Add Manual Diff Cancelled Lipase 1438 H (73-393) U/L Ethyl Alcohol (<0.03) % SARS-CoV-2 RNA (BASSEM) Negative (NEGATIVE) 07/27/20 07/27/20 Range/Units 15:10 15:10 WBC 5.3 Corrected WBC RBC 4.87 Hgb 16.5 Hct 47.1 MCV 96.7 MCH 33.9 H MCHC 35.0 RDW 13.3 Plt Count 269 MPV 10.2 Neut % (Auto) 60.0 Lymph % (Auto) 30.4 Sebastian % (Auto) 6.5 Eos % (Auto) 2.4 Baso % (Auto) 0.7 Neut # (Auto) 3.2 Lymph # (Auto) 1.6 Sebastian # (Auto) 0.3 Eos # (Auto) 0.1 Baso # (Auto) 0.0 Add Manual Diff Lipase (73-393) U/L Ethyl Alcohol < 0.03 (<0.03) % SARS-CoV-2 RNA (BASSEM) (NEGATIVE) Meds: Medications Generic Name Dose Route Start Last Admin Trade Name Freq PRN Reason Stop Dose Admin Atenolol 25 mg 07/28/20 09:00 Atenolol 25 Mg Tab PO DAILY RAHAT Atorvastatin Calcium 20 mg 07/27/20 21:00 Atorvastatin 20 Mg Tab PO BEDTIME RAHAT Cyclobenzaprine HCl 10 mg 07/28/20 09:00 Cyclobenzaprine 10 Mg Tab PO DAILY RAHAT Diclofenac Sodium 75 mg 07/27/20 21:00 Diclofenac Sodium 75 Mg Tab.Ec PO BID RAHAT Lisinopril/HCTZ 1 tab 07/27/20 21:00 Hydrochlorothiazide/Lisinopril 12.5-10 Mg Tab PO BEDTIME [facility] Sodium Chloride 1,000 mls @ 125 mls/hr 07/27/20 17:15 Normal Saline IV ASDIRECTED RAHAT Morphine Sulfate 2 mg 07/27/20 17:03 07/27/20 18:17 Morphine 2 Mg/Ml Syringe IVPUSH 2 mg Q2H PRN Administration Pain Ondansetron HCl 4 mg 07/27/20 17:03 Ondansetron 4 Mg/2 Ml Sdv IV Q4H PRN Nausea/Vomiting Discontinued Medications Generic Name Dose Route Start Last Admin Trade Name Freq PRN Reason Stop Dose Admin Al Hydroxide/Mg Hydroxide 15 0 ml 07/27/20 15:08 07/27/20 15:11 ml/ Lidocaine HCl 15 ml PO 07/27/20 15:09 30 ml ONETIME ONE Administration Sodium Chloride 1,000 mls @ 999 mls/hr 07/27/20 15:00 07/27/20 15:00 Normal Saline IV 999 mls/hr ASDIRECTED RAHAT Administration Iopamidol 100 ml 07/27/20 16:14 07/27/20 16:27 Iopamidol 755 Mg/Ml 100 Ml Bottle IV 07/27/20 16:15 100 ml . DIRECTED ONE Administration Ketorolac Tromethamine 30 mg 07/27/20 14:50 07/27/20 15:27 Ketorolac 30 Mg/Ml Sdv IVPUSH 07/27/20 14:51 30 mg ONETIME ONE Administration Morphine Sulfate 2 mg 07/27/20 14:50 07/27/20 15:28 Morphine 2 Mg/Ml Syringe IVPUSH 07/27/20 14:51 2 mg ONETIME ONE Administration Morphine Sulfate 2 mg 07/27/20 15:55 07/27/20 15:59 Morphine 2 Mg/Ml Syringe IVPUSH 07/27/20 15:56 2 mg NOW STA Administration Ondansetron HCl 4 mg 07/27/20 14:50 07/27/20 15:11 Ondansetron 4 Mg/2 Ml Sdv IVPUSH 07/27/20 14:51 4 mg ONETIME ONE Administration Departure - Departure Time of Disposition: 18:00 Disposition: Refer to Observation Condition: Good Clinical Impression: Acute pancreatitis - Discharge Information Referrals: Deniz Ceballos MD [Primary Care Provider] - Forms: ED Department Discharge Sepsis Event Note (ED) - Evaluation Sepsis Screening Result: No Definite Risk - Focused Exam Vital Signs: Vital Signs Temp Pulse Resp BP Pulse Ox 07/27/20 14:34 36.2 C 106 H 19 151/89 H 100 - My Orders Last 24 Hours: My Active Orders 07/27/20 15:10 AMYLASE [CHEM] Stat COMPREHENSIVE METABOLIC PN,CMP [CHEM] Stat 07/27/20 15:39 LIPID PANEL [CHEM] Stat 07/27/20 Dinner Nothing per Oral Now Diet [DIET] 07/27/20 17:03 Patient Status [ADT] Routine Oxygen Therapy [RC] PRN Up ad Ngoc [RC] ASDIRECTED VTE/DVT Education [RC] Per Unit Routine Vital Signs [RC] Q4H LIPASE [CHEM] Stat Morphine 2 mg IVPUSH Q2H PRN Ondansetron [Zofran] 4 mg IV Q4H PRN Resuscitation Status Routine 07/27/20 17:05 Pulse Oximetry [RC] PRN 07/27/20 17:06 Sequential Compression Device [OM.PC] Per Unit Routine 07/27/20 17:15 Sodium Chloride 0.9% [Normal Saline] 1,000 ml IV ASDIRECTED 07/27/20 21:00 Diclofenac Sodium [Voltaren] 75 mg PO BID Hydrochlorothiazide/Lisinopril [Lisinopril/HCTZ 10-12.5 MG] 1 tab PO BEDTIME atorvaSTATin [Lipitor] 20 mg PO BEDTIME 07/28/20 05:11 CBC WITH AUTO DIFF [HEME] AM COMPREHENSIVE METABOLIC PN,CMP [CHEM] AM 07/28/20 09:00 Cyclobenzaprine [Flexeril] 10 mg PO DAILY atenoloL [Tenormin] 25 mg PO DAILY - Assessment/Plan Last 24 Hours: My Active Orders 07/27/20 15:10 AMYLASE [CHEM] Stat COMPREHENSIVE METABOLIC PN,CMP [CHEM] Stat 07/27/20 15:39 LIPID PANEL [CHEM] Stat 07/27/20 Dinner Nothing per Oral Now Diet [DIET] 07/27/20 17:03 Patient Status [ADT] Routine Oxygen Therapy [RC] PRN Up ad Ngoc [RC] ASDIRECTED VTE/DVT Education [RC] Per Unit Routine Vital Signs [RC] Q4H LIPASE [CHEM] Stat Morphine 2 mg IVPUSH Q2H PRN Ondansetron [Zofran] 4 mg IV Q4H PRN Resuscitation Status Routine 07/27/20 17:05 Pulse Oximetry [RC] PRN 07/27/20 17:06 Sequential Compression Device [OM.PC] Per Unit Routine 07/27/20 17:15 Sodium Chloride 0.9% [Normal Saline] 1,000 ml IV ASDIRECTED 07/27/20 21:00 Diclofenac Sodium [Voltaren] 75 mg PO BID Hydrochlorothiazide/Lisinopril [Lisinopril/HCTZ 10-12.5 MG] 1 tab PO BEDTIME atorvaSTATin [Lipitor] 20 mg PO BEDTIME 07/28/20 05:11 CBC WITH AUTO DIFF [HEME] AM COMPREHENSIVE METABOLIC PN,CMP [CHEM] AM 07/28/20 09:00 Cyclobenzaprine [Flexeril] 10 mg PO DAILY atenoloL [Tenormin] 25 mg PO DAILY
--- NOTE | 2020-07-27 17:16 | CT ---
INDICATION: Epigastric and left upper quadrant pain, elevated lipase. CT ABDOMEN AND PELVIS WITH CONTRAST: Spiral 3.75 mm axial sections were obtained through the abdomen and pelvis with 100 mL Isovue-370 at 2 mL per second with sagittal and coronal reconstructions 07/27/20 and compared with 03/31/19. Total exam DLP was 1012.67 mGy-cm. An active infiltrate or effusion was not identified. Minimal densities in the lungs at the lung base suggest minimal scarring. The gallbladder is contracted with no visualized calculi. No focal defects are noted in the liver which was not grossly abnormal in density. The spleen appeared normal. The pancreas appears to be somewhat dilated in size with peripancreatic fluid and some fat stranding compatible with pancreatitis at the body of the pancreas. No gross pancreatic phlegmon was noted beyond that peripancreatic area. Common bile duct was not dilated in the head of the pancreas. No pancreatic masses were identified. The adrenal glands and kidneys appeared normal. Thickened walled small bowel loops seen on the previous study in the proximal small bowel - jejunum have markedly improved with only minimal thickening of the de la cruz in the jejunal loops noted at this time. No dilatation of the bowel or bowel obstruction was suggested. The appendix is absent compatible with history of its removal. No evidence of free air was identified - no evidence of bowel obstruction was suggested. No retroperitoneal mass was identified. Urinary bladder was unremarkable. Prostate did not appear grossly enlarged. IMPRESSION: Findings are compatible with a mild degree of pancreatitis with very limited peripancreatic fluid and fat stranding in the area of the body of the pancreas extending only slightly posteriorly. Report was called to Dr. Venegas at 1644 hours, 07/27/20. [facility] HEALTH NETWORKPrabhjot
[2020-07-27] MEDS: Morphine 2 MG/ML SYRINGE IVPUSH PRN ×3 (18:17→22:18)
[2020-07-27] MEDS ORDERED: Cyclobenzaprine 10 MG Tab PO PRN (18:33)
[2020-07-27] MEDS: Sodium Chloride 0.9% 1,000 ML IV SCH (20:15)
[2020-07-27] MEDS: Ketorolac 30 MG/ML SDV IVPUSH PRN (20:21)
[2020-07-27] MEDS ORDERED: Diclofenac Sodium 75 MG Tab.EC PO SCH (21:00)
[2020-07-27] MEDS ORDERED: Hydrochlorothiazide/Lisinopril 12.5-10 MG Tab PO SCH (21:00)
[2020-07-27] MEDS: atorvaSTATin 20 MG Tab PO SCH (21:02)
[2020-07-27] MEDS ORDERED: hydrOXYzine HCl 50 MG/ML SDV IM ONE (23:19)
[2020-07-27] MEDS ORDERED: hydrOXYzine HCl 50 MG/ML SDV ONE (23:30)
[2020-07-28] MEDS: Morphine 2 MG/ML SYRINGE IVPUSH PRN ×4 (00:18→06:18)
[2020-07-28] MEDS: Ondansetron 4 MG/2 ML SDV IV PRN ×4 (00:28→23:55)
[2020-07-28] MEDS: Ketorolac 30 MG/ML SDV IVPUSH PRN ×3 (04:17→19:58)
[2020-07-28] MEDS ORDERED: HYDROmorphone 2 MG/ML SDV IVPUSH PRN (08:06)
[2020-07-28] MEDS ORDERED: Naloxone 0.4 MG/ML SDV IVPUSH PRN (08:11)
[2020-07-28] MEDS: Hydrochlorothiazide/Lisinopril 12.5-10 MG Tab PO SCH (08:30)
[2020-07-28] MEDS: Pantoprazole 40 MG Vial IVPUSH SCH (08:30)
[2020-07-28] MEDS ORDERED: Atenolol 25 MG Tab PO SCH (09:00)
--- NOTE | 2020-07-28 09:18 | PCM.HP.2 ---
H&P History of Present Illness - General Date of Service: 07/28/20 Admit Problem/Dx: Admission Diagnosis/Problem Admission Diagnosis/Problem Acute pancreatitis Source of Information: Patient History Limitations: Reports: No Limitations - History of Present Illness Initial Comments - Free Text/Narative: Wm is a 34-year-old male complaining of the epigastric and right upper quadrant pain since yesterday morning. He came to the ER last night, was admitted for acute pancreatitis. His pain is still uncontrolled this morning. He has no constipation or vomiting but complains of nausea. He does have a history of hypertriglyceridemia, and alcohol abuse, & his last admission was 2018 for pancreatitis. His last drink ,he says, was 2 months ago. He further has a history of HTN,chronic back pain, anxiety and depression that are stable. Upper Abdomen Pain Score (Numeric/FACES): 10 - Related Data Allergies/Adverse Reactions: Allergies Allergy/AdvReac Type Severity Reaction Status Date / Time No Known Allergies Allergy Verified 07/27/20 14:47 Home Medications: Home Meds atorvaSTATin [Lipitor] 20 mg PO BEDTIME #30 tab 04/22/20 [Rx] Cyclobenzaprine [Flexeril] 10 mg PO BEDTIME 07/27/20 [History] Diclofenac Sodium [Voltaren] 75 mg PO BID 07/27/20 [History] Hydrochlorothiazide/Lisinopril [Lisinopril-HCTZ 10-12.5 MG] 1 tab PO DAILY 07/27/20 [History] Past Medical History HEENT History: Reports: Impaired Vision Cardiovascular History: Reports: High Cholesterol, Hypertension Gastrointestinal History: Reports: Gastritis, Pancreatitis Other Gastrointestinal History: HX OF PANCREATITIS Musculoskeletal History: Reports: Back Pain, Chronic, Fracture, Other (See Below) Other Musculoskeletal History: Intervertebral disk disease Neurological History: Reports: Concussion Other Neuro History: concussion x 2 Psychiatric History: Reports: ADD, Addiction, Bipolar, Depression, Hallucinations, Panic Attack, Psych Hospitalization(s), Suicide Attempt Other Psychiatric History: ALCOHOL ABUSE Endocrine/Metabolic History: Reports: Obesity/BMI 30+ - Infectious Disease History Infectious Disease History: Reports: Chicken Pox - Past Surgical History HEENT Surgical History: Reports: None Cardiovascular Surgical History: Reports: None GI Surgical History: Reports: Appendectomy Neurological Surgical History: Reports: Discectomy, Lumbar Spine Other Neurological Surgeries/Procedures: disc surgery Musculoskeletal Surgical History: Reports: Other (See Below) Other Musculoskeletal Surgeries/Procedures:: hx back surgery (discetomy) Dermatological Surgical History: Reports: None Social & Family History - Family History Family Medical History: No Pertinent Family History Cardiac: Reports: None GI: Reports: None Neurological: Reports: None Psychiatric: Reports: None Endocrine/Metabolic: Reports: None - Tobacco Use Tobacco Use Status *Q: Former Tobacco User Used Tobacco, but Quit: Yes Month/Year Tobacco Last Used: 06/2020 - Caffeine Use Caffeine Use: Reports: None - Alcohol Use Days Per Week of Alcohol Use: 1 Number of Drinks Per Day: 2 Total Drinks Per Week: 2 Date of Last Drink: 06/24/20 - Recreational Drug Use Recreational Drug Use: Yes Drug Use in Last 12 Months: No Other Recreational Drug Type: used meth one time while intoxicated 6 years ago - Living Situation & Occupation Living situation: Reports: Occupation: Unemployed (He reports that he is currently not working.) H&P Review of Systems - Review of Systems: Review Of Systems: Comprehensive ROS is negative, except as noted in HPI. Exam - Exam Exam: See Below - Vital Signs Vital Signs: Last Vital Signs Temp 97.6 F 07/28/20 04:00 Pulse 106 H 07/28/20 04:00 Resp 18 07/28/20 04:00 BP 130/93 H 07/28/20 08:30 Pulse Ox 98 07/28/20 04:00 Weight: 99.79 kg - Exam General: Alert, Oriented, 4 HEENT: PERRLA, Hearing Intact, Mucosa Moist & [place], Nares Patent, Normal Nasal Septum, Posterior Pharynx Clear, Conjunctiva Clear, EOMI, EACs Clear, TMs Clear Neck: Supple, Trachea Midline, 2 Lungs: Clear to Auscultation, Normal Respiratory Effort Cardiovascular: Regular Rate, Regular Rhythm GI/Abdominal Exam: No Distention, Guarding, Tender (Male) Exam: No Hernia Rectal (Males) Exam: Deferred Back Exam: Normal Inspection, Full Range of Motion, NT Extremities: Normal Inspection, Normal Range of Motion, Non-Tender, No Pedal Edema, Normal Capillary Refill Skin: Warm, Dry, Intact Neurological: Cranial Nerves Intact, Reflexes Equal Bilateral Neuro Extensive - Mental Status: Alert, Oriented x3, Normal Mood/Affect, Normal Cognition Neuro Extensive - Motor, Sensory, Reflexes: CN II-XII Intact, Normal Gait, Normal Reflexes Psychiatric: Anxious - Patient Data Lab Results Last 24 hrs: Laboratory Results - last 24 hr 07/27/20 07/27/20 07/27/20 Range/Units 14:50 15:10 15:10 WBC Cancelled Corrected WBC Cancelled RBC Cancelled Hgb Cancelled Hct Cancelled MCV Cancelled MCH Cancelled MCHC Cancelled RDW Cancelled Plt Count Cancelled MPV Cancelled Neut % (Auto) Cancelled Lymph % (Auto) Cancelled Davis % (Auto) Cancelled Eos % (Auto) Cancelled Baso % (Auto) Cancelled Neut # (Auto) Cancelled Lymph # (Auto) Cancelled Davis # (Auto) Cancelled Eos # (Auto) Cancelled Baso # (Auto) Cancelled Add Manual Diff Cancelled Neutrophils % (Manual) Band Neutrophils % Lymphocytes % (Manual) Atypical Lymphs % Monocytes % (Manual) Eosinophils % (Manual) Basophils % (Manual) Metamyelocytes % Myelocytes % Promyelocytes % Blast Cells % Nucleated RBCs Differential Comment Hypersegmented Neuts Smudge Cells Toxic Granulation Dohle Bodies Inocencio Rods WBC Morphology Comment Platelet Estimate Clumped Platelets Giant Platelets Plt Morphology Comment Polychromasia Hypochromasia Poikilocytosis Basophilic Stippling Anisocytosis Microcytosis Macrocytosis Spherocytes Pappenheimer Bodies Siderocytes Sickle Cells Target Cells Tear Drop Cells Ovalocytes Stomatocytes Helmet Cells Portillo-Dunbar Bodies [place] Rings Alberto Cells Elliptocytes Acanthocytes (Spur) Rouleaux Schistocytes Sodium 132 L (135-145) mmol/L Potassium 3.4 L (3.5-5.3) mmol/L Chloride 103 (100-110) mmol/L Carbon Dioxide 18 L (21-32) mmol/L BUN 12 (7-18) mg/dL Creatinine 0.7 (0.70-1.30) mg/dL Est Cr Clr Drug Dosing 141.64 mL/min Estimated GFR (MDRD) > 60 (>60) BUN/Creatinine Ratio 17.1 (9-20) Glucose 154 H (80-116) mg/dL Calcium 8.5 L (8.6-10.2) mg/dL Total Bilirubin 1.1 (0.1-1.3) mg/dL AST 148 H D (5-25) IU/L ALT 262 H* D (12-36) U/L Alkaline Phosphatase 100 (56-112) IU/L Total Protein 7.2 (6.0-8.0) g/dL Albumin 3.8 (3.5-5.2) g/dL Globulin 3.4 g/dL Albumin/Globulin Ratio 1.1 Triglycerides (15-150) mg/dL Cholesterol (50-200) mg/dL LDL Cholesterol Direct (60-130) mg/dL HDL Cholesterol (40-75) mg/dL Cholesterol/HDL Ratio (0-5) Amylase 110 (25-115) U/L Lipase (73-393) U/L Ethyl Alcohol (<0.03) % SARS-CoV-2 RNA (BASSEM) Negative (NEGATIVE) 07/27/20 07/27/20 07/27/20 Range/Units 15:10 15:10 15:10 WBC Corrected WBC RBC Hgb Hct MCV MCH MCHC RDW Plt Count MPV Neut % (Auto) Lymph % (Auto) Davis % (Auto) Eos % (Auto) Baso % (Auto) Neut # (Auto) Lymph # (Auto) Davis # (Auto) Eos # (Auto) Baso # (Auto) Add Manual Diff Neutrophils % (Manual) Band Neutrophils % Lymphocytes % (Manual) Atypical Lymphs % Monocytes % (Manual) Eosinophils % (Manual) Basophils % (Manual) Metamyelocytes % Myelocytes % Promyelocytes % Blast Cells % Nucleated RBCs Differential Comment Hypersegmented Neuts Smudge Cells Toxic Granulation Dohle Bodies Inocencio Rods WBC Morphology Comment Platelet Estimate Clumped Platelets Giant Platelets Plt Morphology Comment Polychromasia Hypochromasia Poikilocytosis Basophilic Stippling Anisocytosis Microcytosis Macrocytosis Spherocytes Pappenheimer Bodies Siderocytes Sickle Cells Target Cells Tear Drop Cells Ovalocytes Stomatocytes Helmet Cells Portillo-Dunbar Bodies [place] Rings Alberto Cells Elliptocytes Acanthocytes (Spur) Rouleaux Schistocytes Sodium (135-145) mmol/L Potassium (3.5-5.3) mmol/L Chloride (100-110) mmol/L Carbon Dioxide (21-32) mmol/L BUN (7-18) mg/dL Creatinine (0.70-1.30) mg/dL Est Cr Clr Drug Dosing mL/min Estimated GFR (MDRD) (>60) BUN/Creatinine Ratio (9-20) Glucose (80-116) mg/dL Calcium (8.6-10.2) mg/dL Total Bilirubin (0.1-1.3) mg/dL AST (5-25) IU/L ALT (12-36) U/L Alkaline Phosphatase (56-112) IU/L Total Protein (6.0-8.0) g/dL Albumin (3.5-5.2) g/dL Globulin g/dL Albumin/Globulin Ratio Triglycerides 8217 H (15-150) mg/dL Cholesterol 599 H (50-200) mg/dL LDL Cholesterol Direct 166 H (60-130) mg/dL HDL Cholesterol 15 L (40-75) mg/dL Cholesterol/HDL Ratio 39.9 H (0-5) Amylase (25-115) U/L Lipase 1438 H (73-393) U/L Ethyl Alcohol < 0.03 (<0.03) % SARS-CoV-2 RNA (BASSEM) (NEGATIVE) 07/27/20 07/28/20 07/28/20 Range/Units 15:10 06:20 06:20 WBC 5.3 Cancelled Corrected WBC Cancelled RBC 4.87 Cancelled Hgb 16.5 Cancelled Hct 47.1 Cancelled MCV 96.7 Cancelled MCH 33.9 H Cancelled MCHC 35.0 Cancelled RDW 13.3 Cancelled Plt Count 269 Cancelled MPV 10.2 Cancelled Neut % (Auto) 60.0 Cancelled Lymph % (Auto) 30.4 Cancelled Davis % (Auto) 6.5 Cancelled Eos % (Auto) 2.4 Cancelled Baso % (Auto) 0.7 Cancelled Neut # (Auto) 3.2 Cancelled Lymph # (Auto) 1.6 Cancelled Davis # (Auto) 0.3 Cancelled Eos # (Auto) 0.1 Cancelled Baso # (Auto) 0.0 Cancelled Add Manual Diff Cancelled Neutrophils % (Manual) Cancelled Band Neutrophils % Cancelled Lymphocytes % (Manual) Cancelled Atypical Lymphs % Cancelled Monocytes % (Manual) Cancelled Eosinophils % (Manual) Cancelled Basophils % (Manual) Cancelled Metamyelocytes % Cancelled Myelocytes % Cancelled Promyelocytes % Cancelled Blast Cells % Cancelled Nucleated RBCs Cancelled Differential Comment Cancelled Hypersegmented Neuts Cancelled Smudge Cells Cancelled Toxic Granulation Cancelled Dohle Bodies Cancelled Inocencio Rods Cancelled WBC Morphology Comment Cancelled Platelet Estimate Cancelled Clumped Platelets Cancelled Giant Platelets Cancelled Plt Morphology Comment Cancelled Polychromasia Cancelled Hypochromasia Cancelled Poikilocytosis Cancelled Basophilic Stippling Cancelled Anisocytosis Cancelled Microcytosis Cancelled Macrocytosis Cancelled Spherocytes Cancelled Pappenheimer Bodies Cancelled Siderocytes Cancelled Sickle Cells Cancelled Target Cells Cancelled Tear Drop Cells Cancelled Ovalocytes Cancelled Stomatocytes Cancelled Helmet Cells Cancelled Portillo-Dunbar Bodies Cancelled [place] Rings Cancelled Alberto Cells Cancelled Elliptocytes Cancelled Acanthocytes (Spur) Cancelled Rouleaux Cancelled Schistocytes Cancelled Sodium (135-145) mmol/L Potassium (3.5-5.3) mmol/L Chloride (100-110) mmol/L Carbon Dioxide (21-32) mmol/L BUN (7-18) mg/dL Creatinine (0.70-1.30) mg/dL Est Cr Clr Drug Dosing mL/min Estimated GFR (MDRD) (>60) BUN/Creatinine Ratio (9-20) Glucose (80-116) mg/dL Calcium (8.6-10.2) mg/dL Total Bilirubin (0.1-1.3) mg/dL AST (5-25) IU/L ALT (12-36) U/L Alkaline Phosphatase (56-112) IU/L Total Protein (6.0-8.0) g/dL Albumin (3.5-5.2) g/dL Globulin g/dL Albumin/Globulin Ratio Triglycerides (15-150) mg/dL Cholesterol (50-200) mg/dL LDL Cholesterol Direct (60-130) mg/dL HDL Cholesterol (40-75) mg/dL Cholesterol/HDL Ratio (0-5) Amylase (25-115) U/L Lipase 61769 H (73-393) U/L Ethyl Alcohol (<0.03) % SARS-CoV-2 RNA (BASSEM) (NEGATIVE) 07/28/20 Range/Units 06:20 WBC 14.4 H Corrected WBC RBC 4.66 Hgb 15.1 Hct 44.9 MCV 96.3 MCH 33.5 H MCHC 34.3 RDW 13.5 Plt Count 251 MPV 9.1 Neut % (Auto) Lymph % (Auto) Davis % (Auto) Eos % (Auto) Baso % (Auto) Neut # (Auto) Lymph # (Auto) Davis # (Auto) Eos # (Auto) Baso # (Auto) Add Manual Diff Yes Neutrophils % (Manual) 75 Band Neutrophils % 12 H Lymphocytes % (Manual) 5 L Atypical Lymphs % Monocytes % (Manual) 5 Eosinophils % (Manual) Basophils % (Manual) Metamyelocytes % 3 H Myelocytes % Promyelocytes % Blast Cells % Nucleated RBCs Differential Comment Hypersegmented Neuts Smudge Cells Toxic Granulation Dohle Bodies Inocencio Rods WBC Morphology Comment Platelet Estimate Clumped Platelets Giant Platelets Plt Morphology Comment Polychromasia Hypochromasia Poikilocytosis Basophilic Stippling Anisocytosis Microcytosis Macrocytosis Spherocytes Pappenheimer Bodies Siderocytes Sickle Cells Target Cells Tear Drop Cells Ovalocytes Stomatocytes Helmet Cells Portillo-Dunbar Bodies [place] Rings Alberto Cells Elliptocytes Acanthocytes (Spur) Rouleaux Schistocytes Sodium (135-145) mmol/L Potassium (3.5-5.3) mmol/L Chloride (100-110) mmol/L Carbon Dioxide (21-32) mmol/L BUN (7-18) mg/dL Creatinine (0.70-1.30) mg/dL Est Cr Clr Drug Dosing mL/min Estimated GFR (MDRD) (>60) BUN/Creatinine Ratio (9-20) Glucose (80-116) mg/dL Calcium (8.6-10.2) mg/dL Total Bilirubin (0.1-1.3) mg/dL AST (5-25) IU/L ALT (12-36) U/L Alkaline Phosphatase (56-112) IU/L Total Protein (6.0-8.0) g/dL Albumin (3.5-5.2) g/dL Globulin g/dL Albumin/Globulin Ratio Triglycerides (15-150) mg/dL Cholesterol (50-200) mg/dL LDL Cholesterol Direct (60-130) mg/dL HDL Cholesterol (40-75) mg/dL Cholesterol/HDL Ratio (0-5) Amylase (25-115) U/L Lipase (73-393) U/L Ethyl Alcohol (<0.03) % SARS-CoV-2 RNA (BASSEM) (NEGATIVE) Result Diagrams: 07/28/20 06:20 07/27/20 15:10 Sepsis Event Note - Evaluation Sepsis Screening Result: No Definite Risk - Focused Exam Vital Signs: Vital Signs Temp Pulse Resp BP BP Pulse Ox 07/28/20 08:30 130/93 H 07/28/20 04:00 97.6 F 106 H 18 143/92 H 98 07/27/20 23:43 106 H 22 H 133/93 H 97 - Problem List (1) Acute pancreatitis SNOMED Code(s): 962947792 ICD Code: K85.90 - ACUTE PANCREATITIS WITHOUT NECROSIS OR INFECTION, UNSP Status: Acute Current Visit: Yes Qualifiers: Pancreatitis type: unspecified pancreatitis type Acute pancreatitis complication: no infection or necrosis Qualified Code(s): K85.90 - Acute pancreatitis without necrosis or infection, unspecified (2) Hypertriglyceridemia SNOMED Code(s): 088986099 ICD Code: E78.1 - PURE HYPERGLYCERIDEMIA Status: Acute Current Visit: Yes (3) FLORENTINO (generalized anxiety disorder) SNOMED Code(s): 96158581 ICD Code: F41.1 - GENERALIZED ANXIETY DISORDER Status: Acute Current Visit: Yes (4) HTN (hypertension) SNOMED Code(s): 44045658 ICD Code: I10 - ESSENTIAL (PRIMARY) HYPERTENSION Status: Acute Current Visit: Yes Qualifiers: Hypertension type: essential hypertension Qualified Code(s): I10 - Essential (primary) hypertension (5) Alcohol abuse SNOMED Code(s): 85943259 ICD Code: F10.10 - ALCOHOL ABUSE, UNCOMPLICATED Status: Chronic Current Visit: No (6) Depressive disorder SNOMED Code(s): 09600294 ICD Code: F32.9 - MAJOR DEPRESSIVE DISORDER, SINGLE EPISODE, UNSPECIFIED Status: Chronic Current Visit: No Problem List Initiated/Reviewed/Updated: Yes Orders Last 24hrs: Active Orders 24 hr Category Date Time Status Patient Status [ADT] Routine ADT 07/27/20 17:03 Active Communication Order [RC] STAT Care 07/28/20 08:11 Active Notify Provider [RC] PRN Care 07/28/20 08:11 Active Oxygen Therapy [RC] PRN Care 07/27/20 17:03 Active [employer] Record [RC] PER UNIT ROUTINE Care 07/28/20 08:11 Active Pulse Oximetry [RC] .PRN Care 07/27/20 17:05 Active Pulse Oximetry [RC] CONTINUOUS Care 07/28/20 08:11 Active Up ad Ngoc [RC] ASDIRECTED Care 07/27/20 17:03 Active VTE/DVT Education [RC] DAILY Care 07/27/20 17:03 Active Vital Signs [RC] 00,04,08,12,16,20 Care 07/27/20 17:03 Active Nothing per Oral Now Diet [DIET] Diet 07/27/20 Dinner Ordered Abdomen Ltd [US] Routine Exams 07/28/20 08:06 Ordered AMYLASE [CHEM] AM Lab 07/29/20 05:11 Ordered C-REACTIVE PROTEIN [CHEM] AM Lab 07/29/20 05:11 Ordered CBC WITH AUTO DIFF [HEME] AM Lab 07/29/20 05:11 Ordered COMPREHENSIVE METABOLIC PN,CMP [CHEM] AM Lab 07/28/20 06:20 Received COMPREHENSIVE METABOLIC PN,CMP [CHEM] AM Lab 07/29/20 05:11 Ordered LACTIC ACID [CHEM] AM Lab 07/29/20 05:11 Ordered LIPASE [CHEM] Routine Lab 07/28/20 09:12 Ordered Cyclobenzaprine [Flexeril] Med 07/27/20 18:33 Active 10 mg PO TID PRN HYDROmorphone [Dilaudid] Med 07/28/20 08:06 Hold 2 mg IVPUSH Q4H PRN Hydrochlorothiazide/Lisinopril [Lisinopril/HCTZ 10-12.5 Med 07/28/20 09:00 Active MG] 1 tab PO DAILY Ketorolac [Toradol] Med 07/27/20 20:04 Active 30 mg IVPUSH Q8H PRN Naloxone [Narcan] Med 07/28/20 08:11 Active 0.4 mg IVPUSH Q2M PRN Ondansetron [Zofran] Med 07/27/20 17:03 Active 4 mg IV Q4H PRN Pantoprazole [ProTONIX IV] Med 07/28/20 09:00 Active 40 mg IVPUSH DAILY Sodium Chloride 0.9% [Normal Saline] 1,000 ml Med 07/27/20 17:15 Active IV ASDIRECTED atorvaSTATin [Lipitor] Med 07/27/20 21:00 Active 20 mg PO BEDTIME fentaNYL/Normal Saline [fentaNYL in NS 300 MCG/30 ML Med 07/28/20 10:00 Active [employer]] See Protocol IV ASDIRECTED Medication Discontinuation Instructions [OM.PC] Stat Oth 07/28/20 08:11 Ordered Sequential Compression Device [OM.PC] Per Unit Routine Oth 07/27/20 17:06 Orde red Resuscitation Status Routine Resus Stat 07/27/20 17:03 Ordered Medication Orders Atorvastatin Calcium (Atorvastatin 20 Mg Tab) 20 mg PO BEDTIME [facility] Last Admin: 07/27/20 21:02 Dose: 20 mg Documented by: LEANNE Cyclobenzaprine HCl (Cyclobenzaprine 10 Mg Tab) 10 mg PO TID PRN PRN Reason: Muscle Spasm Last Admin: 07/27/20 21:02 Dose: 10 mg Documented by: LEANNE Fentanyl Citrate (Fentanyl/Normal Saline 300 Mcg/30 Ml Slitter And Rewinder Vial) 0 mcg IV ASDIRECTED [facility]; Protocol Stop: 07/29/20 10:01 Last Admin: 07/28/20 08:59 Dose: 300 mcg Documented by: CANDY Lisinopril/HCTZ (Hydrochlorothiazide/Lisinopril 12.5-10 Mg Tab) 1 tab PO DAILY [facility] Last Admin: 07/28/20 08:30 Dose: 1 tab Documented by: CANDY Hydromorphone HCl (Hydromorphone 2 Mg/Ml Sdv) 2 mg IVPUSH Q4H PRN PRN Reason: Breakthrough Pain Last Admin: 07/28/20 08:23 Dose: 2 mg Documented by: CANDY Sodium Chloride (Normal Saline) 1,000 mls @ 125 mls/hr IV ASDIRECTED [facility] Last Admin: 07/27/20 20:15 Dose: 125 mls/hr Documented by: LEANNE Ketorolac Tromethamine (Ketorolac 30 Mg/Ml Sdv) 30 mg IVPUSH Q8H PRN PRN Reason: Pain Stop: 08/01/20 20:05 Last Admin: 07/28/20 04:17 Dose: 30 mg Documented by: Admin: 07/27/20 20:21 Dose: 30 mg Documented by: LEANNE Naloxone HCl (Naloxone 0.4 Mg/Ml Sdv) 0.4 mg IVPUSH Q2M PRN PRN Reason: Respiratory Distress Ondansetron HCl (Ondansetron 4 Mg/2 Ml Sdv) 4 mg IV Q4H PRN PRN Reason: Nausea/Vomiting Last Admin: 07/28/20 08:23 Dose: 4 mg Documented by: Admin: 07/28/20 00:28 Dose: 4 mg Documented by: LEANNE Pantoprazole Sodium (Pantoprazole 40 Mg Vial) 40 mg IVPUSH DAILY [facility] Last Admin: 07/28/20 08:30 Dose: 40 mg Documented by: CANDY Assessment/Plan Comment:: Admit to inpatient, start [employer] for fentanyl for pain control. Keep nothing by mouth and replace fluids as necessary. Repeat labs in the morning. Had a discussion with the radiologist, who concurs that the images show a mild acute pancreatitis.
[2020-07-28] MEDS ORDERED: fentaNYL/Normal Saline 300 MCG/30 ML PCA Vial IV SCH (10:00)
[2020-07-28] MEDS: hydrOXYzine HCl 50 MG/ML SDV IM PRN ×3 (10:47→23:55)
[2020-07-28] MEDS ORDERED: Bisacodyl 10 MG Supp RECTAL PRN (12:37)
--- NOTE | 2020-07-28 15:30 | US ---
INDICATION: Right upper quadrant pain. RIGHT UPPER QUADRANT/GALLBLADDER ULTRASOUND: Multiple ultrasonic images were somewhat limited by a large amount of intestinal gas with the IVC and pancreas not adequately visualized. The liver is echogenic in appearance compatible with a fatty liver. No focal liver lesions were identified. The gallbladder appeared normal in size measuring 6.7 x 3.3 x 3.2 cm without evidence of wall thickening, calculi, pericholecystic fluid, or sludge. There was some tenderness while scanning over the area of the gallbladder which could be on the basis of the patient's apparent pancreatitis, however. No significant abdominal ascites was identified, no mass lesions were seen. The right kidney appeared normal measuring 12.9 x 6.5 x 6.3 cm. Common bile duct was normal in caliber at 3.6 mm. IMPRESSION: 1. Normal appearing gallbladder. 2. Fatty liver. 3. Poor visualization of the IVC and pancreas due to overlying intestinal gas. MTDD
[2020-07-28] MEDS: Sodium Chloride 0.9% 1,000 ML IV SCH (15:45)
[2020-07-28] MEDS: HYDROmorphone 2 MG/ML SDV IVPUSH PRN ×2 (16:55→21:28)
[2020-07-28] MEDS: atorvaSTATin 20 MG Tab PO SCH (21:28)
[2020-07-29] MEDS: Sodium Chloride 0.9% 1,000 ML IV SCH (00:10)
[2020-07-29] MEDS: HYDROmorphone 2 MG/ML SDV IVPUSH PRN ×3 (01:30→09:42)
[2020-07-29] MEDS: Ketorolac 30 MG/ML SDV IVPUSH PRN ×2 (01:58→07:59)
[2020-07-29] MEDS: Ondansetron 4 MG/2 ML SDV IV PRN (05:40)
[2020-07-29] MEDS: Hydrochlorothiazide/Lisinopril 12.5-10 MG Tab PO SCH (08:01)
[2020-07-29] MEDS: Pantoprazole 40 MG Vial IVPUSH SCH (08:02)
[2020-07-29] MEDS ORDERED: Sodium Chloride 0.9% 1,000 ML IV SCH (08:15)
[2020-07-29] MEDS ORDERED: Dextrose 5%-0.9% NaCl 1,000 ML IV SCH (08:30)
--- NOTE | 2020-07-29 08:41 | PCM.PN ---
- General Info Date of Service: 07/29/20 Admission Dx/Problem (Free Text): Admission Diagnosis/Problem Admission Diagnosis/Problem Acute pancreatitis Subjective Update: Pain is better controlled today.He has decreased urine output,tachycardia.No fever.Denies any shortness of breath or chest pain.He tried Fentanyl [employer] yesterday,with not much improvement,. Dilaudid seems to help better,and Toradol - Review of Systems General: Reports: No Symptoms HEENT: Reports: No Symptoms Pulmonary: Denies: Shortness of Breath, Sputum Cardiovascular: Denies: No Symptoms Gastrointestinal: Reports: Abdominal Pain, Nausea Genitourinary: Reports: Other (oligura) Musculoskeletal: Reports: No Symptoms - Patient Data Vitals - Most Recent: Last Vital Signs Temp 98.7 F 07/29/20 08:00 Pulse 123 H 07/29/20 08:00 Resp 27 H 07/29/20 08:00 BP 112/76 07/29/20 08:01 Pulse Ox 92 L 07/29/20 08:00 Weight - Most Recent: 99.79 kg Lab Results Last 24 Hours: Laboratory Results - last 24 hr 07/28/20 07/29/20 07/29/20 Range/Units 06:20 06:30 06:30 WBC 12.7 H (3.2-10.1) x10-3/uL RBC 4.62 (3.90-5.90) x10(6)uL Hgb 14.7 (12.9-17.7) g/dL Hct 45.5 (38.3-50.1) % MCV 98.4 (80.8-98.7) fL MCH 31.7 (27.0-33.3) pg MCHC 32.2 (28.7-35.3) g/dL RDW 13.8 (12.4-15.0) % Plt Count 282 (117-477) x10(3)uL MPV 11.6 H (6.7-11.0) fL Add Manual Diff Yes Neutrophils % (Manual) 73 (46-82) % Band Neutrophils % 8 H (0-6) % Lymphocytes % (Manual) 5 L (13-37) % Monocytes % (Manual) 12 (4-12) % Eosinophils % (Manual) 1 (0-5) % Basophils % (Manual) 1 (0-2) % Sodium 134 L (135-145) mmol/L Potassium 3.7 (3.5-5.3) mmol/L Chloride 107 (100-110) mmol/L Carbon Dioxide 16 L (21-32) mmol/L BUN 14 (7-18) mg/dL Creatinine 0.7 (0.70-1.30) mg/dL Est Cr Clr Drug Dosing 141.64 mL/min Estimated GFR (MDRD) > 60 (>60) BUN/Creatinine Ratio 20.0 (9-20) Glucose 131 H (80-116) mg/dL Calcium 7.4 L (8.6-10.2) mg/dL Total Bilirubin 1.4 H (0.1-1.3) mg/dL AST 118 H D (5-25) IU/L ALT 205 H* D (12-36) U/L Alkaline Phosphatase 90 (56-112) IU/L C-Reactive Protein 33.7 H* (0.5-0.9) mg/dL Total Protein 6.6 (6.0-8.0) g/dL Albumin 3.6 (3.5-5.2) g/dL Globulin 3.0 g/dL Albumin/Globulin Ratio 1.2 Lipase 73254 H (73-393) U/L Med Orders - Current: Current Medications Atorvastatin Calcium (Atorvastatin 20 Mg Tab) 20 mg PO BEDTIME RAHAT Last Admin: 07/28/20 21:28 Dose: 20 mg Documented by: Bisacodyl (Bisacodyl 10 Mg Supp) 10 mg RECTAL DAILY PRN PRN Reason: Constipation Last Admin: 07/28/20 12:47 Dose: 10 mg Documented by: Cyclobenzaprine HCl (Cyclobenzaprine 10 Mg Tab) 10 mg PO TID PRN PRN Reason: Muscle Spasm Last Admin: 07/27/20 21:02 Dose: 10 mg Documented by: Hydromorphone HCl (Hydromorphone 2 Mg/Ml Sdv) 2 mg IVPUSH Q4H PRN PRN Reason: Abdominal Pain Last Admin: 07/29/20 05:41 Dose: 2 mg Documented by: Hydroxyzine HCl (Hydroxyzine Hcl 50 Mg/Ml Sdv) 50 mg IM Q6H PRN PRN Reason: Pain Last Admin: 07/28/20 23:55 Dose: 50 mg Documented by: Sodium Chloride (Normal Saline) 1,000 mls @ 125 mls/hr IV ASDIRECTED [facility] Last Admin: 07/29/20 00:10 Dose: 125 mls/hr Documented by: Sodium Chloride (Normal Saline) 1,000 mls @ 999 mls/hr IV ASDIRECTED [facility] Last Admin: 07/29/20 08:10 Dose: 999 mls/hr Documented by: Dextrose/Sodium Chloride (Dextrose 5%-Normal Saline) 1,000 mls @ 150 mls/hr IV ASDIRECTED [facility] Ketorolac Tromethamine (Ketorolac 30 Mg/Ml Sdv) 30 mg IVPUSH Q6H PRN PRN Reason: Pain Stop: 08/01/20 20:05 Last Admin: 07/29/20 07:59 Dose: 30 mg Documented by: Naloxone HCl (Naloxone 0.4 Mg/Ml Sdv) 0.4 mg IVPUSH Q2M PRN PRN Reason: Respiratory Distress Ondansetron HCl (Ondansetron 4 Mg/2 Ml Sdv) 4 mg IV Q4H PRN PRN Reason: Nausea/Vomiting Last Admin: 07/29/20 05:40 Dose: 4 mg Documented by: Pantoprazole Sodium (Pantoprazole 40 Mg Vial) 40 mg IVPUSH DAILY [facility] Last Admin: 07/29/20 08:02 Dose: 40 mg Documented by: Discontinued Medications Atenolol (Atenolol 25 Mg Tab) 25 mg PO DAILY [facility] Al Hydroxide/Mg Hydroxide 15 (ml/ Lidocaine HCl 15 ml) 0 ml PO ONETIME ONE Stop: 07/27/20 15:09 Last Admin: 07/27/20 15:11 Dose: 30 ml Documented by: Diclofenac Sodium (Diclofenac Sodium 75 Mg Tab.Ec) 75 mg PO BID [facility] Last Admin: 07/27/20 21:00 Dose: Not Given Documented by: Fentanyl Citrate (Fentanyl/Normal Saline 300 Mcg/30 Ml 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) 0 mcg IV [facility] [employer]; Protocol Stop: 07/29/20 10:01 Last Admin: 07/28/20 08:59 Dose: 300 mcg Documented by: Lisinopril/HCTZ (Hydrochlorothiazide/Lisinopril 12.5-10 Mg Tab) 1 tab PO BEDTIME [facility] Last Admin: 07/27/20 21:00 Dose: Not Given Documented by: Lisinopril/HCTZ (Hydrochlorothiazide/Lisinopril 12.5-10 Mg Tab) 1 tab PO DAILY [facility] Last Admin: 07/29/20 08:01 Dose: 1 tab Documented by: Hydromorphone HCl (Hydromorphone 2 Mg/Ml Sdv) 2 mg IVPUSH Q4H PRN PRN Reason: Breakthrough Pain Last Admin: 07/28/20 08:23 Dose: 2 mg Documented by: Hydroxyzine HCl (Hydroxyzine Hcl 50 Mg/Ml Sdv) 100 mg IM ONETIME ONE Stop: 07/27/20 23:20 Last Admin: 07/27/20 23:38 Dose: 100 mg Documented by: Hydroxyzine HCl (Hydroxyzine Hcl 50 Mg/Ml Sdv) Confirm Administered Dose 100 mg .ROUTE .STK-MED ONE Stop: 07/27/20 23:31 Last Admin: 07/28/20 02:21 Dose: Not Given Documented by: Sodium Chloride (Normal Saline) 1,000 mls @ 999 mls/hr IV ASDIRECTED [facility] Last Admin: 07/27/20 15:00 Dose: 999 mls/hr Documented by: Iopamidol (Iopamidol 755 Mg/Ml 100 Ml Bottle) 100 ml IV . DIRECTED ONE Stop: 07/27/20 16:15 Last Admin: 07/27/20 16:27 Dose: 100 ml Documented by: Ketorolac Tromethamine (Ketorolac 30 Mg/Ml Sdv) 30 mg IVPUSH ONETIME ONE Stop: 07/27/20 14:51 Last Admin: 07/27/20 15:27 Dose: 30 mg Documented by: Ketorolac Tromethamine (Ketorolac 30 Mg/Ml Sdv) 30 mg IVPUSH Q8H PRN PRN Reason: Pain Stop: 08/01/20 20:05 Last Admin: 07/28/20 04:17 Dose: 30 mg Documented by: Morphine Sulfate (Morphine 2 Mg/Ml Syringe) 2 mg IVPUSH ONETIME ONE Stop: 07/27/20 14:51 Last Admin: 07/27/20 15:28 Dose: 2 mg Documented by: Morphine Sulfate (Morphine 2 Mg/Ml Syringe) 2 mg IVPUSH NOW STA Stop: 07/27/20 15:56 Last Admin: 07/27/20 15:59 Dose: 2 mg Documented by: Morphine Sulfate (Morphine 2 Mg/Ml Syringe) 2 mg IVPUSH Q2H PRN PRN Reason: Pain Last Admin: 07/28/20 06:18 Dose: 2 mg Documented by: Ondansetron HCl (Ondansetron 4 Mg/2 Ml Sdv) 4 mg IVPUSH ONETIME ONE Stop: 07/27/20 14:51 Last Admin: 07/27/20 15:11 Dose: 4 mg Documented by: - Exam Quality Assessment: No: Supplemental Oxygen General: Alert, Oriented HEENT: Pupils Equal Neck: Supple Lungs: Clear to Auscultation Cardiovascular: Regular Rate GI/Abdominal Exam: Distended, Guarding, Tender, Abnormal Bowel Sounds (Decreased). No: Normal Bowel Sounds, Soft, Non-Tender, Splenomegaly (Male) Exam: No Hernia Extremities: Normal Inspection Skin: Dry Neurological: No New Focal Deficit Psy/Mental Status: Alert - Patient Data Lab Results Last 24 hrs: Laboratory Results - last 24 hr 07/28/20 07/29/20 07/29/20 Range/Units 06:20 06:30 06:30 WBC 12.7 H (3.2-10.1) x10-3/uL RBC 4.62 (3.90-5.90) x10(6)uL Hgb 14.7 (12.9-17.7) g/dL Hct 45.5 (38.3-50.1) % MCV 98.4 (80.8-98.7) fL MCH 31.7 (27.0-33.3) pg MCHC 32.2 (28.7-35.3) g/dL RDW 13.8 (12.4-15.0) % Plt Count 282 (117-477) x10(3)uL MPV 11.6 H (6.7-11.0) fL Add Manual Diff Yes Neutrophils % (Manual) 73 (46-82) % Band Neutrophils % 8 H (0-6) % Lymphocytes % (Manual) 5 L (13-37) % Monocytes % (Manual) 12 (4-12) % Eosinophils % (Manual) 1 (0-5) % Basophils % (Manual) 1 (0-2) % Sodium 134 L (135-145) mmol/L Potassium 3.7 (3.5-5.3) mmol/L Chloride 107 (100-110) mmol/L Carbon Dioxide 16 L (21-32) mmol/L BUN 14 (7-18) mg/dL Creatinine 0.7 (0.70-1.30) mg/dL Est Cr Clr Drug Dosing 141.64 mL/min Estimated GFR (MDRD) > 60 (>60) BUN/Creatinine Ratio 20.0 (9-20) Glucose 131 H (80-116) mg/dL Calcium 7.4 L (8.6-10.2) mg/dL Total Bilirubin 1.4 H (0.1-1.3) mg/dL AST 118 H D (5-25) IU/L ALT 205 H* D (12-36) U/L Alkaline Phosphatase 90 (56-112) IU/L C-Reactive Protein 33.7 H* (0.5-0.9) mg/dL Total Protein 6.6 (6.0-8.0) g/dL Albumin 3.6 (3.5-5.2) g/dL Globulin 3.0 g/dL Albumin/Globulin Ratio 1.2 Lipase 71908 H (73-393) U/L Result Diagrams: 07/29/20 06:30 07/28/20 06:20 Sepsis Event Note - Evaluation Sepsis Screening Result: Sepsis Risk - Focused Exam Vital Signs: Vital Signs Temp Pulse Resp BP BP Pulse Ox 07/29/20 08:01 112/76 07/29/20 08:00 98.7 F 123 H 27 H 112/76 92 L 07/29/20 05:54 126 H 18 108/70 92 L 07/29/20 00:00 98 F 130 H 18 131/76 96 - Problem List & Annotations (1) Acute pancreatitis SNOMED Code(s): 909805700 Code(s): K85.90 - ACUTE PANCREATITIS WITHOUT NECROSIS OR INFECTION, UNSP Status: Acute Current Visit: Yes Qualifiers: Pancreatitis type: unspecified pancreatitis type Acute pancreatitis complication: no infection or necrosis Qualified Code(s): K85.90 - Acute pancreatitis without necrosis or infection, unspecified (2) Hypertriglyceridemia SNOMED Code(s): 937635386 Code(s): E78.1 - PURE HYPERGLYCERIDEMIA Status: Acute Current Visit: Yes (3) FLORENTINO (generalized anxiety disorder) SNOMED Code(s): 36703317 Code(s): F41.1 - GENERALIZED ANXIETY DISORDER Status: Acute Current Visit: Yes (4) HTN (hypertension) SNOMED Code(s): 21901158 Code(s): I10 - ESSENTIAL (PRIMARY) HYPERTENSION Status: Acute Current Visit: Yes Qualifiers: Hypertension type: essential hypertension Qualified Code(s): I10 - Essential (primary) hypertension (5) Alcohol abuse SNOMED Code(s): 11957135 Code(s): F10.10 - ALCOHOL ABUSE, UNCOMPLICATED Status: Chronic Current Visit: No (6) Depressive disorder SNOMED Code(s): 57667562 Code(s): F32.9 - MAJOR DEPRESSIVE DISORDER, SINGLE EPISODE, UNSPECIFIED Status: Chronic Current Visit: No (7) Dehydration SNOMED Code(s): 06387893 Code(s): E86.0 - DEHYDRATION Status: Acute Current Visit: Yes - Problem List Review Problem List Initiated/Reviewed/Updated: Yes - My Orders Last 24 Hours: My Active Orders 07/28/20 08:11 Notify Provider [RC] PRN Naloxone [Narcan] 0.4 mg IVPUSH Q2M PRN Medication Discontinuation Instructions [OM.PC] Stat 07/28/20 09:00 Pantoprazole [ProTONIX IV] 40 mg IVPUSH DAILY 07/28/20 10:00 Ketorolac [Toradol] 30 mg IVPUSH Q6H PRN hydrOXYzine HCL [Vistaril] 50 mg IM Q6H PRN 07/28/20 12:37 bisacodyL [Dulcolax] 10 mg RECTAL DAILY PRN 07/28/20 16:39 HYDROmorphone [Dilaudid] 2 mg IVPUSH Q4H PRN 07/29/20 06:30 AMYLASE [CHEM] AM COMPREHENSIVE METABOLIC PN,CMP [CHEM] AM LACTIC ACID [CHEM] AM 07/29/20 08:15 Sodium Chloride 0.9% [Normal Saline] 1,000 ml IV ASDIRECTED 07/29/20 08:30 Dextrose 5%-0.9% NaCl [Dextrose 5%-Normal Saline] 1,000 ml IV ASDIRECTED 07/30/20 05:11 CBC WITH AUTO DIFF [HEME] AM COMPREHENSIVE METABOLIC PN,CMP [CHEM] AM LIPASE [CHEM] AM - Plan Plan:: I have recommend more aggressive fluid resuscitation. Start with a bolus of 1 L NS,then D5NS at 15 cc /hr. Continue current pain regimen with IV Dilaudid PRN and Toradol. Perhaps later today we may start early oral intake with clear sips/fluids.
[2020-07-29] MEDS ORDERED: Sodium Chloride 0.9% 1,000 ML IV ONE (09:56)
[2020-07-29 10:15] VITALS: BP 98/65; PULSE 122
[2020-07-29] MEDS ORDERED: HYDROmorphone 2 MG/ML SDV IVPUSH ONE (11:45)
--- NOTE | 2020-07-29 13:12 | DISCH ---
DISCHARGE DATE: 07/29/2020 DISCHARGE DIAGNOSIS: Acute pancreatitis. DISCHARGE DIAGNOSIS: Acute pancreatitis, severe. BRIEF HISTORY: This is a 34-year-old male who has hypertriglyceridemia, history of alcohol use, admitted with abdominal pain. CT showed mild pancreatitis initially. 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 Over the last 12 hours, his urine output has decreased significantly. He is tachycardic with blood pressures in the 90 systolic. As such, a decision was made to transfer him to [facility] for further treatment. I spent more than 30 minutes in the transfer summary and discharge. /[id number] JASON/NIMCO
== END 2020-07-29 11:55 | DRG 440 ==
LOC: FB.ED 14:34 → FB.MS 17:03 → OBSVTOIN 07-28 09:19
PROVIDERS: ADMIT Emergency Medicine; ATTEND Family Medicine
DX: K85.90 Acute pancreatitis without necrosis or infection, unspecified (principal); E78.1 Pure hyperglyceridemia; I10 Essential (primary) hypertension; M54.9 Dorsalgia, unspecified; G89.29 Other chronic pain; H54.7 Unspecified visual loss; E78.00 Pure hypercholesterolemia, unspecified; F31.9 Bipolar disorder, unspecified; Z20.822 Contact with and (suspected) exposure to COVID-19; F41.0 Panic disorder [episodic paroxysmal anxiety]; E66.9 Obesity, unspecified; F10.10 Alcohol abuse, uncomplicated; F90.9 Attention-deficit hyperactivity disorder, unspecified type; Z79.899 Other long term (current) drug therapy; Z90.49 Acquired absence of other specified parts of digestive tract; Z98.890 Other specified postprocedural states; Z87.891 Personal history of nicotine dependence; Z68.34 Body mass index [BMI] 34.0-34.9, adult
CPT/HCPCS: 36415; 74177; 76705; 80053; 80061; 80307; 82150; 83605; 83690; 85025; 86140; 94150; 96372; 96374; 96375; 96376; 99285-25; A9270-GY; C9113; G0378; J1170; J1885; J2270; J2405; J3010; J3410; J7030; Q9967; U0002

== ENCOUNTER 2020-09-05 09:25 | Observation (INO) | payer MEDICAID ==
--- NOTE | 2020-09-05 09:49 | EDM.PDOC ---
ED HPI GENERAL MEDICAL PROBLEM - General Chief Complaint: Abdominal Pain Stated Complaint: POST OP PAIN Time Seen by Provider: 09/05/20 09:44 Source of Information: Reports: Patient History Limitations: Reports: No Limitations - History of Present Illness INITIAL COMMENTS - FREE TEXT/NARRATIVE: 34-year-old male who was just discharged from [facility] on 09/01/2020 after a prolonged hospital stay secondary to pancreatitis which involved intubation and then a tracheotomy and multiple abdominal surgeries related to his pancreatitis. He also had a prolonged postoperative course with delayed procedures for closing of his abdominal wound and apparently he was initially slated to have rehabilitation therapy after discharge but refused this and wanted to go home to try that. Since he has been at home, he has not been sleeping well and he finds it difficult to move around his house and do his ADLs and his has been finding it very difficult to care for him and to also care further children and he is just not really doing well at home. He feels that he will need rehabilitation or swelling bed care. He does tell me that he is having ongoing abdominal pain and sweating off and on he would rate the pain in his abdomen now is a 5/10 but it has been up to an 8/10. He has had no nausea or vomiting. He has been able to eat and drink normally. He has had normal urine output and he has had normal bowel movements. The pain in his abdomen is a sharp and stabbing type pain and it is worse with palpation. Patient does state that he had a leftover hydrocodone from previous and he took that yesterday and it did help somewhat with his pain. He finds that he feels very anxious as well. He has had no fevers or chills. He has had a cough that has been productive of some phlegm but no shortness of breath and no hemoptysis. There are no other associated signs or symptoms. There are no other modifying factors. 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(s) (As above.) Abdomen Pain Score (Numeric/FACES): 8 - Related Data Allergies Allergy/AdvReac Type Severity Reaction Status Date / Time No Known Allergies Allergy Verified 09/05/20 09:39 Home Meds: Home Meds Fenofibrate 160 mg PO DAILY 09/05/20 [History] QUEtiapine [SEROquel] 300 ng PO TID 09/05/20 [History] Rosuvastatin [Crestor] 10 mg PO DAILY 09/05/20 [History] Past Medical History HEENT History: Reports: Impaired Vision Cardiovascular History: Reports: High Cholesterol, Hypertension Gastrointestinal History: Reports: Gastritis, Pancreatitis Other Gastrointestinal History: HX OF PANCREATITIS Musculoskeletal History: Reports: Back Pain, Chronic, Fracture, Other (See Below) Other Musculoskeletal History: Intervertebral disk disease Neurological History: Reports: Concussion Other Neuro History: concussion x 2 Psychiatric History: Reports: ADD, Addiction, Bipolar, Depression, Lehman llucinations, Panic Attack, Psych Hospitalization(s), Suicide Attempt Other Psychiatric History: ALCOHOL ABUSE Endocrine/Metabolic History: Reports: Obesity/BMI 30+ - Infectious Disease History Infectious Disease History: Reports: Chicken Pox - Past Surgical History GI Surgical History: Reports: Appendectomy, Other (See Below) (Abdominal surgeries 5 related to pancreatitis) Neurological Surgical History: Reports: Discectomy, Lumbar Spine Other Neurological Surgeries/Procedures: disc surgery Musculoskeletal Surgical History: Reports: Other (See Below) Other Musculoskeletal Surgeries/Procedures:: hx back surgery (discetomy) Dermatological Surgical History: Reports: None Social & Family History - Family History Cardiac: Reports: None GI: Reports: None Neurological: Reports: None Psychiatric: Reports: None Endocrine/Metabolic: Reports: None - Tobacco Use Tobacco Use Status *Q: Unknown Ever Used Tobacco (Nonsmoker.) - Caffeine Use Caffeine Use: Reports: None - Alcohol Use Alcohol Use History: Yes Alcohol Use Frequency: Binges (Physical drinking and heavy drinking in the past.) Alcohol Use Comment: No current alcohol use. - Recreational Drug Use Recreational Drug Use Comment: Patient denies any illicit drug use. - Living Situation & Occupation Living situation: Reports: Occupation: Unemployed (He reports that he is currently not working.) ED ROS GENERAL - Review of Systems Review Of Systems: See Below Constitutional: Reports: Night Sweats. Denies: Fever, Chills HEENT: Denies: Throat Pain, Throat Swelling Respiratory: Reports: Cough, Sputum. Denies: Shortness of Breath Cardiovascular: Denies: Chest Pain, Palpitations Endocrine: Denies: Polydypsia, Polyuria GI/Abdominal: Reports: Abdominal Pain. Denies: Nausea, Vomiting : Denies: Dysuria, Hematuria Musculoskeletal: Reports: Back Pain (Chronic back pain). Denies: Neck Pain Skin: Denies: Rash, Wound Neurological: Denies: Dizziness, Headache Psychiatric: Reports: Anxiety Hematologic/Lymphatic: Denies: Easy Bleeding, Easy Bruising ED EXAM, GI/ABD - Physical Exam Exam: See Below Exam Limited By: No Limitations General Appearance: Alert, WD/WN, Anxious, Moderate Distress (Seems to be in some pain but most of his distress secondary to his anxiety. He is otherwise nontoxic.) Eyes: Bilateral: Normal Appearance (Sclera are anicteric), EOMI Ears: Normal External Exam, Hearing Grossly Normal Nose: Normal Inspection, Normal Mucosa, No Blood Throat/Mouth: Normal Inspection, Normal Lips, Normal Oropharynx, Normal Voice, No Airway Compromise Head: Atraumatic, Normocephalic Neck: Normal Inspection, Supple, Non-Tender, Full Range of Motion Respiratory/Chest: No Respiratory Distress, Lungs Clear, Normal Breath Sounds, No Accessory Muscle Use, Chest Non-Tender Cardiovascular: Normal Peripheral Pulses, No Murmur, Tachycardia (Mild) GI/Abdominal Exam: Normal Bowel Sounds, Soft, No Mass, Distended (Mildly), Tender (Mild diffuse tenderness.). No: Guarding, Rebound Back Exam: Normal Inspection, Full Range of Motion Extremities: Normal Inspection, Normal Range of Motion, Non-Tender, No Pedal Edema, Normal Capillary Refill Neurological: Alert, Oriented, CN II-XII Intact, No Motor/Sensory Deficits Psychiatric: Anxious Skin Exam: Warm, Dry, Intact, Wound/Incision (Abdominal incision appears to be well-healed) #1 Interpretation EKG Date: 09/05/20 Time: 10:25 Rhythm: NSR Rate (Beats/Min): 100 Steele: Normal P-Wave: Present QRS: Normal ST-T: Normal QT: Prolonged (Mildly prolonged QTc.) Comparison: No Change (No change from EKG performed on 04/22/2020.) Course - Vital Signs Last Recorded V/S: Last Vital Signs Temp 36.8 C 09/05/20 09:30 Pulse 100 09/05/20 11:40 Resp 20 09/05/20 11:40 BP 161/114 H 09/05/20 12:05 Pulse Ox 99 09/05/20 12:05 - Orders/Labs/Meds Orders: Active Orders 24 hr Category Date Time Status EKG Documentation Completion [RC] ASDIRECTED Care 09/05/20 09:52 Active Chest 1V Frontal [CR] Stat Exams 09/05/20 10:08 Taken UA W/MICROSCOPIC [URIN] Stat Lab 09/05/20 09:52 Ordered Sodium Chloride 0.9% [Saline Flush] Med 09/05/20 09:51 Active 10 ml FLUSH ASDIRECTED PRN Peripheral IV Insertion Adult [OM.PC] Routine Oth 09/05/20 09:51 Ordered EKG 12 Lead [EK] Routine Ther 09/05/20 09:51 Ordered Medication Orders Sodium Chloride (Sodium Chloride 0.9% 10 Ml Syringe) 10 ml FLUSH ASDIRECTED PRN PRN Reason: Keep Vein Open Labs: Laboratory Tests 09/05/20 09/05/20 09/05/20 Range/Units 10:00 10:00 10:00 WBC 8.3 (3.2-10.1) x10-3/uL RBC 3.98 (3.90-5.90) x10(6)uL Hgb 12.3 L (12.9-17.7) g/dL Hct 36.3 L (38.3-50.1) % MCV 91.3 (80.8-98.7) fL MCH 30.8 (27.0-33.3) pg MCHC 33.8 (28.7-35.3) g/dL RDW 14.6 (12.4-15.0) % Plt Count 337 (117-477) x10(3)uL MPV 9.1 (6.7-11.0) fL Neut % (Auto) 72.4 H (40.3-71.8) % Lymph % (Auto) 16.9 (15.8-45.3) % [place] % (Auto) 6.4 (5.5-15.2) % Eos % (Auto) 3.6 (0.1-6.8) % Baso % (Auto) 0.7 (0.3-3.8) % Neut # (Auto) 6.0 (1.7-6.9) x10-3/uL Lymph # (Auto) 1.4 (0.5-4.5) x10-3/uL [place] # (Auto) 0.5 (0.0-1.2) x10-3/uL Eos # (Auto) 0.3 (0.0-0.6) x10-3/uL Baso # (Auto) 0.1 (0.0-0.3) x10-3/uL Sodium 137 (135-145) mmol/L Potassium 4.1 (3.5-5.3) mmol/L Chloride 98 L D (100-110) mmol/L Carbon Dioxide 26 (21-32) mmol/L BUN 6 L D (7-18) mg/dL Creatinine 0.8 (0.70-1.30) mg/dL Est Cr Clr Drug Dosing TNP Estimated GFR (MDRD) > 60 (>60) BUN/Creatinine Ratio 7.5 L (9-20) Glucose 107 (80-116) mg/dL Lactic Acid (0.4-2.0) mmol/L Calcium 9.6 D (8.6-10.2) mg/dL Magnesium 1.7 L (1.8-2.5) mg/dL Total Bilirubin 0.6 (0.1-1.3) mg/dL AST 35 H D (5-25) IU/L ALT 37 H D (12-36) U/L Alkaline Phosphatase 219 H (56-112) IU/L Troponin I 17.3 (4.0-60.3) pg/mL Total Protein 8.6 H (6.0-8.0) g/dL Albumin 3.7 (3.5-5.2) g/dL Globulin 4.9 g/dL Albumin/Globulin Ratio 0.8 Triglycerides (15-150) mg/dL Cholesterol (50-200) mg/dL LDL Cholesterol Direct (60-130) mg/dL HDL Cholesterol (40-75) mg/dL Cholesterol/HDL Ratio (0-5) Lipase 206 (73-393) U/L Ethyl Alcohol < 0.03 (<0.03) % SARS-CoV-2 RNA (BASSEM) (NEGATIVE) 09/05/20 09/05/20 09/05/20 Range/Units 10:00 10:00 11:00 WBC (3.2-10.1) x10-3/uL RBC (3.90-5.90) x10(6)uL Hgb (12.9-17.7) g/dL Hct (38.3-50.1) % MCV (80.8-98.7) fL MCH (27.0-33.3) pg MCHC (28.7-35.3) g/dL RDW (12.4-15.0) % Plt Count (117-477) x10(3)uL MPV (6.7-11.0) fL Neut % (Auto) (40.3-71.8) % Lymph % (Auto) (15.8-45.3) % [place] % (Auto) (5.5-15.2) % Eos % (Auto) (0.1-6.8) % Baso % (Auto) (0.3-3.8) % Neut # (Auto) (1.7-6.9) x10-3/uL Lymph # (Auto) (0.5-4.5) x10-3/uL [place] # (Auto) (0.0-1.2) x10-3/uL Eos # (Auto) (0.0-0.6) x10-3/uL Baso # (Auto) (0.0-0.3) x10-3/uL Sodium (135-145) mmol/L Potassium (3.5-5.3) mmol/L Chloride (100-110) mmol/L Carbon Dioxide (21-32) mmol/L BUN (7-18) mg/dL Creatinine (0.70-1.30) mg/dL Est Cr Clr Drug Dosing Estimated GFR (MDRD) (>60) BUN/Creatinine Ratio (9-20) Glucose (80-116) mg/dL Lactic Acid 0.5 (0.4-2.0) mmol/L Calcium (8.6-10.2) mg/dL Magnesium (1.8-2.5) mg/dL Total Bilirubin (0.1-1.3) mg/dL AST (5-25) IU/L ALT (12-36) U/L Alkaline Phosphatase (56-112) IU/L Troponin I (4.0-60.3) pg/mL Total Protein (6.0-8.0) g/dL Albumin (3.5-5.2) g/dL Globulin g/dL Albumin/Globulin Ratio Triglycerides 1044 H (15-150) mg/dL Cholesterol 226 H (50-200) mg/dL LDL Cholesterol Direct 55 L (60-130) mg/dL HDL Cholesterol 25 L (40-75) mg/dL Cholesterol/HDL Ratio 9.0 H (0-5) Lipase (73-393) U/L Ethyl Alcohol (<0.03) % SARS-CoV-2 RNA (BASSEM) Negative (NEGATIVE) Meds: Medications Generic Name Dose Route Start Last Admin Trade Name Freq PRN Reason Stop Dose Admin Sodium Chloride 10 ml 09/05/20 09:51 Sodium Chloride 0.9% 10 Ml Syringe FLUSH ASDIRECTED PRN Keep Vein Open Discontinued Medications Generic Name Dose Route Start Last Admin Trade Name Freq PRN Reason Stop Dose Admin Lorazepam 0.5 mg 09/05/20 12:09 09/05/20 12:16 Lorazepam 0.5 Mg Tab PO 09/05/20 12:10 0.5 mg ONETIME ONE Administration - Radiology Interpretation Free Text/Narrative:: Portable chest x-ray showed no acute disease per my read. - Re-Assessments/Exams Free Text/Narrative Re-Assessment/Exam: 09/05/20 10:45: All of the patient's blood tests are reassuring. His chest x-ray showed no acute process. His urinalysis is pending. He does have generalized weakness and inability to perform his ADLs at home. He will need cares which she cannot provide at home. He had met swing bed/rehabilitation criteria with his previous admission and should be able to meet these criteria now. I discussed the patient's case with Dr. Villalobos in the plan will be to admit the patient for now. I discussed this with the patient and with his and they are in agreement with this plan. Departure - Departure Time of Disposition: 10:48 Disposition: Refer to Observation Condition: Fair (Stable) Clinical Impression: Ambulatory dysfunction Abdominal pain Qualifiers: Abdominal location: generalized Qualified Code(s): R10.84 - Generalized abdominal pain - Discharge Information Sepsis Event Note (ED) - Evaluation Sepsis Screening Result: No Definite Risk - Focused Exam Vital Signs: Vital Signs Temp Pulse Resp BP Pulse Ox 09/05/20 09:30 36.8 C 110 H 21 H 155/117 H 96 - My Orders Last 24 Hours: My Active Orders 09/05/20 09:51 Sodium Chloride 0.9% [Saline Flush] 10 ml FLUSH ASDIRECTED PRN Peripheral IV Insertion Adult [OM.PC] Routine EKG 12 Lead [EK] Routine 09/05/20 09:52 EKG Documentation Completion [RC] ASDIRECTED UA W/MICROSCOPIC [URIN] Stat 09/05/20 10:08 Chest 1V Frontal [CR] Stat - Assessment/Plan Last 24 Hours: My Active Orders 09/05/20 09:51 Sodium Chloride 0.9% [Saline Flush] 10 ml FLUSH ASDIRECTED PRN Peripheral IV Insertion Adult [OM.PC] Routine EKG 12 Lead [EK] Routine 09/05/20 09:52 EKG Documentation Completion [RC] ASDIRECTED UA W/MICROSCOPIC [URIN] Stat 09/05/20 10:08 Chest 1V Frontal [CR] Stat
[2020-09-05] MEDS ORDERED: Sodium Chloride 0.9% 10 ML Syringe FLUSH PRN (09:51)
[2020-09-05] MEDS ORDERED: LORazepam 0.5 MG Tab PO ONE (12:09)
[2020-09-05] MEDS ORDERED: LORazepam 0.5 MG Tab PO PRN (12:42)
--- NOTE | 2020-09-05 12:52 | PCM.HP.2 ---
H&P History of Present Illness - General Date of Service: 09/05/20 Admit Problem/Dx: Admission Diagnosis/Problem Admission Diagnosis/Problem Abdominal pain History Limitations: Reports: No Limitations - History of Present Illness Initial Comments - Free Text/Narative: 34-year-old gentleman came to the emergency department due to weakness, chills, abdominal pain/pressure, and anxiety. He was discharged on 09/01/2020 from [facility] after being diagnosed with acute necrotizing pancreatitis and treated with multiple surgeries to relieve compartment syndrome. He had to be intubated during his time in the hospital and eventually received a tracheotomy. He was discharged to home because he chose to try to rehabilitate at home but has been unable to carry out activities of daily living. He is having episodes of abdominal pain as high as 8 out of 10, intermittent chills and sweating, and severe anxiety. He has a history of alcoholism and severe anxiety. He stated that he stopped taking the medications that he was discharged home with including statin, fenofibrate, and Seroquel. Abdomen Pain Score (Numeric/FACES): 8 - Related Data Allergies/Adverse Reactions: Allergies Allergy/AdvReac Type Severity Reaction Status Date / Time No Known Allergies Allergy Verified 09/05/20 09:39 Home Medications: Home Meds Fenofibrate 160 mg PO DAILY 09/05/20 [History] QUEtiapine [SEROquel] 300 ng PO TID 09/05/20 [History] Rosuvastatin [Crestor] 10 mg PO DAILY 09/05/20 [History] Past Medical History HEENT History: Reports: Impaired Vision Cardiovascular History: Reports: High Cholesterol, Hypertension Gastrointestinal History: Reports: Gastritis, Pancreatitis Other Gastrointestinal History: HX OF PANCREATITIS Musculoskeletal History: Reports: Back Pain, Chronic, Fracture, Other (See Below) Other Musculoskeletal History: Intervertebral disk disease Neurological History: Reports: Concussion Other Neuro History: concussion x 2 Psychiatric History: Reports: ADD, Addiction, Bipolar, Depression, Hallucinations, Panic Attack, Psych Hospitalization(s), Suicide Attempt Other Psychiatric History: ALCOHOL ABUSE Endocrine/Metabolic History: Reports: Obesity/BMI 30+ - Infectious Disease History Infectious Disease History: Reports: Chicken Pox - Past Surgical History GI Surgical History: Reports: Appendectomy, Other (See Below) (Abdominal surgeries 5 related to pancreatitis) Social & Family History - Family History Family Medical History: No Pertinent Family History Cardiac: Reports: None GI: Reports: None Neurological: Reports: None Psychiatric: Reports: None Endocrine/Metabolic: Reports: None - Tobacco Use Tobacco Use Status *Q: Former Tobacco User Used Tobacco, but Quit: Yes Month/Year Tobacco Last Used: 06/26/2020 Second Hand Smoke Exposure: No - Caffeine Use Caffeine Use: Reports: None - Alcohol Use Date of Last Drink: 06/26/20 - Recreational Drug Use Recreational Drug Use: No - Living Situation & Occupation Living situation: Reports: Occupation: Unemployed (He reports that he is currently not working.) H&P Review of Systems - Review of Systems: Review Of Systems: See Below General: Reports: Fever, Chills, Malaise, Weakness, Fatigue, Diaphoresis, Decreased Appetite, Weight Loss HEENT: Reports: No Symptoms Pulmonary: Reports: No Symptoms Cardiovascular: Reports: No Symptoms Gastrointestinal: Reports: Abdominal Pain, Anorexia, Decreased Appetite, Distension Genitourinary: Reports: No Symptoms Musculoskeletal: Reports: No Symptoms Skin: Reports: No Symptoms Psychiatric: Reports: Anxiety Neurological: Reports: No Symptoms Hematologic/Lymphatic: Reports: No Symptoms Immunologic: Reports: No Symptoms Exam - Exam Exam: See Below - Vital Signs Vital Signs: Last Vital Signs Temp 36.9 C 09/05/20 12:25 Pulse 107 H 09/05/20 12:25 Resp 22 H 09/05/20 12:25 BP 170/119 H 09/05/20 12:25 Pulse Ox 96 09/05/20 12:25 Weight: 83.5 kg - Exam Quality Assessment: DVT Prophylaxis General: Alert, Oriented, Cooperative, Mild Distress HEENT: EOMI Neck: Supple Lungs: Clear to Auscultation, Normal Respiratory Effort Cardiovascular: Regular Rate, Regular Rhythm GI/Abdominal Exam: Normal Bowel Sounds, Distended, Tender Extremities: Normal Inspection Peripheral Pulses: 2+: Radial (L), Radial (R), Dorsalis Pedis (L), Dorsalis Pedis (R) Skin: Warm, Dry, Intact, Other (Several surgical scars along the abdominal midline without abnormality) Neurological: Cranial Nerves Intact Neuro Extensive - Mental Status: Alert, Oriented x3 Psychiatric: Alert, Anxious - Patient Data Lab Results Last 24 hrs: Laboratory Results - last 24 hr 09/05/20 09/05/20 09/05/20 Range/Units 10:00 10:00 10:00 WBC 8.3 (3.2-10.1) x10-3/uL RBC 3.98 (3.90-5.90) x10(6)uL Hgb 12.3 L (12.9-17.7) g/dL Hct 36.3 L (38.3-50.1) % MCV 91.3 (80.8-98.7) fL MCH 30.8 (27.0-33.3) pg MCHC 33.8 (28.7-35.3) g/dL RDW 14.6 (12.4-15.0) % Plt Count 337 (117-477) x10(3)uL MPV 9.1 (6.7-11.0) fL Neut % (Auto) 72.4 H (40.3-71.8) % Lymph % (Auto) 16.9 (15.8-45.3) % Daggett % (Auto) 6.4 (5.5-15.2) % Eos % (Auto) 3.6 (0.1-6.8) % Baso % (Auto) 0.7 (0.3-3.8) % Neut # (Auto) 6.0 (1.7-6.9) x10-3/uL Lymph # (Auto) 1.4 (0.5-4.5) x10-3/uL Daggett # (Auto) 0.5 (0.0-1.2) x10-3/uL Eos # (Auto) 0.3 (0.0-0.6) x10-3/uL Baso # (Auto) 0.1 (0.0-0.3) x10-3/uL Sodium 137 (135-145) mmol/L Potassium 4.1 (3.5-5.3) mmol/L Chloride 98 L D (100-110) mmol/L Carbon Dioxide 26 (21-32) mmol/L BUN 6 L D (7-18) mg/dL Creatinine 0.8 (0.70-1.30) mg/dL Est Cr Clr Drug Dosing TNP Estimated GFR (MDRD) > 60 (>60) BUN/Creatinine Ratio 7.5 L (9-20) Glucose 107 (80-116) mg/dL Lactic Acid (0.4-2.0) mmol/L Calcium 9.6 D (8.6-10.2) mg/dL Magnesium 1.7 L (1.8-2.5) mg/dL Total Bilirubin 0.6 (0.1-1.3) mg/dL AST 35 H D (5-25) IU/L ALT 37 H D (12-36) U/L Alkaline Phosphatase 219 H (56-112) IU/L Troponin I 17.3 (4.0-60.3) pg/mL Total Protein 8.6 H (6.0-8.0) g/dL Albumin 3.7 (3.5-5.2) g/dL Globulin 4.9 g/dL Albumin/Globulin Ratio 0.8 Triglycerides (15-150) mg/dL Cholesterol (50-200) mg/dL LDL Cholesterol Direct (60-130) mg/dL HDL Cholesterol (40-75) mg/dL Cholesterol/HDL Ratio (0-5) Lipase 206 (73-393) U/L Ethyl Alcohol < 0.03 (<0.03) % SARS-CoV-2 RNA (BASSEM) (NEGATIVE) 09/05/20 09/05/20 09/05/20 Range/Units 10:00 10:00 11:00 WBC (3.2-10.1) x10-3/uL RBC (3.90-5.90) x10(6)uL Hgb (12.9-17.7) g/dL Hct (38.3-50.1) % MCV (80.8-98.7) fL MCH (27.0-33.3) pg MCHC (28.7-35.3) g/dL RDW (12.4-15.0) % Plt Count (117-477) x10(3)uL MPV (6.7-11.0) fL Neut % (Auto) (40.3-71.8) % Lymph % (Auto) (15.8-45.3) % Daggett % (Auto) (5.5-15.2) % Eos % (Auto) (0.1-6.8) % Baso % (Auto) (0.3-3.8) % Neut # (Auto) (1.7-6.9) x10-3/uL Lymph # (Auto) (0.5-4.5) x10-3/uL Daggett # (Auto) (0.0-1.2) x10-3/uL Eos # (Auto) (0.0-0.6) x10-3/uL Baso # (Auto) (0.0-0.3) x10-3/uL Sodium (135-145) mmol/L Potassium (3.5-5.3) mmol/L Chloride (100-110) mmol/L Carbon Dioxide (21-32) mmol/L BUN (7-18) mg/dL Creatinine (0.70-1.30) mg/dL Est Cr Clr Drug Dosing Estimated GFR (MDRD) (>60) BUN/Creatinine Ratio (9-20) Glucose (80-116) mg/dL Lactic Acid 0.5 (0.4-2.0) mmol/L Calcium (8.6-10.2) mg/dL Magnesium (1.8-2.5) mg/dL Total Bilirubin (0.1-1.3) mg/dL AST (5-25) IU/L ALT (12-36) U/L Alkaline Phosphatase (56-112) IU/L Troponin I (4.0-60.3) pg/mL Total Protein (6.0-8.0) g/dL Albumin (3.5-5.2) g/dL Globulin g/dL Albumin/Globulin Ratio Triglycerides 1044 H (15-150) mg/dL Cholesterol 226 H (50-200) mg/dL LDL Cholesterol Direct 55 L (60-130) mg/dL HDL Cholesterol 25 L (40-75) mg/dL Cholesterol/HDL Ratio 9.0 H (0-5) Lipase (73-393) U/L Ethyl Alcohol (<0.03) % SARS-CoV-2 RNA (BASSEM) Negative (NEGATIVE) Result Diagrams: 09/05/20 10:00 09/05/20 10:00 Sepsis Event Note - Evaluation Sepsis Screening Result: No Definite Risk - Focused Exam Vital Signs: Vital Signs Temp Pulse Resp BP Pulse Ox 09/05/20 12:25 36.9 C 107 H 22 H 170/119 H 96 09/05/20 12:05 161/114 H 99 09/05/20 11:40 100 20 170/120 H 98 09/05/20 09:30 36.8 C 110 H 21 H 155/117 H 96 *Q Meaningful Use (ADM) - VTE *Q VTE Pharmacological Contraindications *Q: Risk of Bleeding - Problem List (1) Anxiety SNOMED Code(s): 36857826 ICD Code: F41.9 - ANXIETY DISORDER, UNSPECIFIED Status: Acute Current Visit: Yes (2) Necrotizing pancreatitis SNOMED Code(s): 9032752 ICD Code: K85.91 - ACUTE PANCREATITIS WITH UNINFECTED NECROSIS, UNSPECIFIED Status: Chronic Current Visit: Yes (3) Abdominal pain SNOMED Code(s): 28783448 ICD Code: R10.9 - UNSPECIFIED ABDOMINAL PAIN Status: Acute Current Visit: Yes Qualifiers: Abdominal location: generalized Qualified Code(s): R10.84 - Generalized abdominal pain (4) Ambulatory dysfunction SNOMED Code(s): 769337787 ICD Code: R26.2 - DIFFICULTY IN WALKING, NOT ELSEWHERE CLASSIFIED Status: Acute Current Visit: Yes (5) Back pain of lumbar region with sciatica SNOMED Code(s): 850906306 ICD Code: M54.40 - LUMBAGO WITH SCIATICA, UNSPECIFIED SIDE Status: Chronic Priority: Medium Current Visit: No (6) Elevated blood pressure reading SNOMED Code(s): 57975344 ICD Code: R03.0 - ELEVATED BLOOD-PRESSURE READING, W/O DIAGNOSIS OF HTN Status: Acute Current Visit: No (7) FLORENTINO (generalized anxiety disorder) SNOMED Code(s): 93353988 ICD Code: F41.1 - GENERALIZED ANXIETY DISORDER Status: Chronic Current Visit: No (8) HTN (hypertension) SNOMED Code(s): 14902226 ICD Code: I10 - ESSENTIAL (PRIMARY) HYPERTENSION Status: Chronic Current Visit: No Qualifiers: Hypertension type: essential hypertension Qualified Code(s): I10 - Essential (primary) hypertension (9) Hypertriglyceridemia SNOMED Code(s): 722254537 ICD Code: E78.1 - PURE HYPERGLYCERIDEMIA Status: Acute Current Visit: No (10) Not taking medication for chronic disease SNOMED Code(s): 427469167, 147006088 ICD Code: MTS0222 - Status: Acute Current Visit: No (11) Alcohol abuse SNOMED Code(s): 84840367 ICD Code: F10.10 - ALCOHOL ABUSE, UNCOMPLICATED Status: Chronic Current Visit: No (12) Bipolar disorder SNOMED Code(s): 67274472 ICD Code: F31.9 - BIPOLAR DISORDER, UNSPECIFIED Status: Chronic Current Visit: No Qualifiers: Active/Remission status: currently active Current bipolar episode type: dep ressed Psychotic features: with psychotic features Qualified Code(s): F31.5 - Bipolar disorder, current episode depressed, severe, with psychotic features Problem List Initiated/Reviewed/Updated: Yes Orders Last 24hrs: Active Orders 24 hr Category Date Time Status Patient Status [ADT] Routine ADT 09/05/20 11:13 Active Ambulate [RC] PER UNIT ROUTINE Care 09/05/20 11:13 Active Antiembolic Devices [RC] .Routine Care 09/05/20 11:14 Active EKG Documentation Completion [RC] ASDIRECTED Care 09/05/20 09:52 Active Pulse Oximetry [RC] PRN Care 09/05/20 11:13 Active Vital Signs [RC] QSHIFT Care 09/05/20 11:13 Active Soft Diet [DIET] Diet 09/05/20 Dinner Active Soft Diet [DIET] Diet 09/05/20 Lunch Active Chest 1V Frontal [CR] Stat Exams 09/05/20 10:08 Taken UA W/MICROSCOPIC [URIN] Stat Lab 09/05/20 09:52 Ordered Fenofibrate [Fenofibrate] Med 09/05/20 12:45 Ordered 160 mg PO DAILY LORazepam [Ativan] Med 09/05/20 12:42 Ordered 0.5 mg PO Q8H PRN Melatonin Med 09/05/20 21:00 Ordered 9 mg PO BEDTIME QUEtiapine [SEROquel] Med 09/05/20 21:00 Ordered 150 mg PO BEDTIME Rosuvastatin [Crestor] Med 09/06/20 09:00 Ordered 10 mg PO DAILY Sodium Chloride 0.9% [Saline Flush] Med 09/05/20 09:51 Active 10 ml FLUSH ASDIRECTED PRN DVT/VTE Prophylaxis Reflex [OM.PC] Per Unit Routine Oth 09/05/20 11:13 Ordered Peripheral IV Insertion Adult [OM.PC] Routine Oth 09/05/20 09:51 Ordered VTE Pharmacological Contraindications [AST] Click to Oth 09/05/20 11:13 Ordered Edit Resuscitation Status Routine Resus Stat 09/05/20 11:13 Ordered EKG 12 Lead [EK] Routine Ther 09/05/20 09:51 Ordered Medication Orders Lorazepam (Lorazepam 0.5 Mg Tab) 0.5 mg PO Q8H PRN PRN Reason: Anxiety Melatonin (Melatonin 3 Mg Tab) 9 mg PO BEDTIME RAHAT Non-Formulary Medication (Fenofibrate [Fenofibrate]) 160 mg PO DAILY RAHAT Non-Formulary Medication (Rosuvastatin [Crestor]) 10 mg PO DAILY RAHAT Quetiapine Fumarate (Quetiapine 50 Mg Tab) 150 mg PO BEDTIME RAHAT Sodium Chloride (Sodium Chloride 0.9% 10 Ml Syringe) 10 ml FLUSH ASDIRECTED PRN PRN Reason: Keep Vein Open Assessment/Plan Comment:: 1. Admit patient to observation status. Restart home medications to include atorvastatin, fenofibrate, and Seroquel. I will reduce Seroquel to 150 mg once daily, at bedtime. 2. Anxiety: Patient has previously been under the care of psychiatry. We will start the patient on Ativan, 0.5 mg 3 times daily. 3. Insomnia: Patient states that he has had good results with melatonin in the past. We will give him Seroquel at night as above and Ativan as needed. Patient will need to follow-up with psychiatric care. 4. DVT prophylaxis: SCDs. Patient has significant history of multiple recent abdominal surgeries 5. GI prophylaxis. Patient will be given Protonix p.o. 6. Disposition: Patient has severe weakness and concerning abdominal symptoms. Patient qualified for rehabilitation prior to discharge from the hospital on 09/01/2020. We will try to get the patient qualified for swing bed/rehabilitation. Continue with treatment as above and follow-up with surgery and psychiatry after discharge from rehabilitation.
[2020-09-05] MEDS: Fenofibrate 160 MG Tab PO SCH (13:27)
[2020-09-05] MEDS: HYDROmorphone 2 MG Tab PO PRN ×2 (13:27→21:09)
[2020-09-05] MEDS ORDERED: Acetaminophen 325 MG Tab PO PRN (17:36)
[2020-09-05] MEDS ORDERED: Melatonin 3 MG Tab PO SCH (21:00)
[2020-09-06] MEDS ORDERED: Pantoprazole 40 MG Tab.CR PO SCH (06:00)
--- NOTE | 2020-09-06 07:58 | PCM.PN ---
- General Info Date of Service: 09/06/20 Admission Dx/Problem (Free Text): Admission Diagnosis/Problem Admission Diagnosis/Problem Abdominal pain Subjective Update: Patient states that he has been able to walk somewhat but feels very unsteady and needed some assistance while walking. He was able to have a bowel movement. He did not sleep well last night but finally fell asleep this morning. He continues to have significant, intermittent, sharp abdominal pains and significant diaphoresis Functional Status: Reports: Pain Controlled, Tolerating Diet, Ambulating, Urinating - Review of Systems General: Reports: Weakness, Fatigue, Malaise, Night Sweats HEENT: Reports: No Symptoms Pulmonary: Reports: No Symptoms Cardiovascular: Reports: No Symptoms Gastrointestinal: Reports: Abdominal Pain Genitourinary: Reports: No Symptoms Musculoskeletal: Reports: No Symptoms Skin: Reports: No Symptoms Neurological: Reports: Difficulty Walking, Weakness Psychiatric: Reports: Anxiety - Patient Data Vitals - Most Recent: Last Vital Signs Temp 37.4 C 09/06/20 00:00 Pulse 105 H 09/06/20 00:00 Resp 17 09/06/20 00:00 BP 157/116 H 09/06/20 00:00 Pulse Ox 99 09/06/20 00:00 Weight - Most Recent: 83.5 kg Lab Results Last 24 Hours: Laboratory Results - last 24 hr 09/05/20 09/05/20 09/05/20 Range/Units 10:00 10:00 10:00 WBC 8.3 (3.2-10.1) x10-3/uL RBC 3.98 (3.90-5.90) x10(6)uL Hgb 12.3 L (12.9-17.7) g/dL Hct 36.3 L (38.3-50.1) % MCV 91.3 (80.8-98.7) fL MCH 30.8 (27.0-33.3) pg MCHC 33.8 (28.7-35.3) g/dL RDW 14.6 (12.4-15.0) % Plt Count 337 (117-477) x10(3)uL MPV 9.1 (6.7-11.0) fL Neut % (Auto) 72.4 H (40.3-71.8) % Lymph % (Auto) 16.9 (15.8-45.3) % Wayne % (Auto) 6.4 (5.5-15.2) % Eos % (Auto) 3.6 (0.1-6.8) % Baso % (Auto) 0.7 (0.3-3.8) % Neut # (Auto) 6.0 (1.7-6.9) x10-3/uL Lymph # (Auto) 1.4 (0.5-4.5) x10-3/uL Wayne # (Auto) 0.5 (0.0-1.2) x10-3/uL Eos # (Auto) 0.3 (0.0-0.6) x10-3/uL Baso # (Auto) 0.1 (0.0-0.3) x10-3/uL Sodium 137 (135-145) mmol/L Potassium 4.1 (3.5-5.3) mmol/L Chloride 98 L D (100-110) mmol/L Carbon Dioxide 26 (21-32) mmol/L BUN 6 L D (7-18) mg/dL Creatinine 0.8 (0.70-1.30) mg/dL Est Cr Clr Drug Dosing TNP Estimated GFR (MDRD) > 60 (>60) BUN/Creatinine Ratio 7.5 L (9-20) Glucose 107 (80-116) mg/dL Lactic Acid (0.4-2.0) mmol/L Calcium 9.6 D (8.6-10.2) mg/dL Magnesium 1.7 L (1.8-2.5) mg/dL Total Bilirubin 0.6 (0.1-1.3) mg/dL AST 35 H D (5-25) IU/L ALT 37 H D (12-36) U/L Alkaline Phosphatase 219 H (56-112) IU/L Troponin I 17.3 (4.0-60.3) pg/mL Total Protein 8.6 H (6.0-8.0) g/dL Albumin 3.7 (3.5-5.2) g/dL Globulin 4.9 g/dL Albumin/Globulin Ratio 0.8 Triglycerides (15-150) mg/dL Cholesterol (50-200) mg/dL LDL Cholesterol Direct (60-130) mg/dL HDL Cholesterol (40-75) mg/dL Cholesterol/HDL Ratio (0-5) Lipase 206 (73-393) U/L Urine Color (YELLOW) Urine Appearance (CLEAR) Urine pH (5.0-6.5) Ur Specific [place] (1.010-1.025) Urine Protein (NEGATIVE) mg/dL Urine Glucose (UA) (NORMAL) mg/dL Urine Ketones (NEGATIVE) mg/dL Urine Occult Blood (NEGATIVE) Urine Nitrite (NEGATIVE) Urine Bilirubin (NEGATIVE) Urine Urobilinogen (NEGATIVE) mg/dL Ur Leukocyte Esterase (NEGATIVE) Urine RBC (0-5) Urine WBC (0-5) Ur Squamous Epith Cells (NS,R,O) Urine Bacteria (NS) Ethyl Alcohol < 0.03 (<0.03) % SARS-CoV-2 RNA (BASSEM) (NEGATIVE) 09/05/20 09/05/20 09/05/20 Range/Units 10:00 10:00 11:00 WBC (3.2-10.1) x10-3/uL RBC (3.90-5.90) x10(6)uL Hgb (12.9-17.7) g/dL Hct (38.3-50.1) % MCV (80.8-98.7) fL MCH (27.0-33.3) pg MCHC (28.7-35.3) g/dL RDW (12.4-15.0) % Plt Count (117-477) x10(3)uL MPV (6.7-11.0) fL Neut % (Auto) (40.3-71.8) % Lymph % (Auto) (15.8-45.3) % Wayne % (Auto) (5.5-15.2) % Eos % (Auto) (0.1-6.8) % Baso % (Auto) (0.3-3.8) % Neut # (Auto) (1.7-6.9) x10-3/uL Lymph # (Auto) (0.5-4.5) x10-3/uL Wayne # (Auto) (0.0-1.2) x10-3/uL Eos # (Auto) (0.0-0.6) x10-3/uL Baso # (Auto) (0.0-0.3) x10-3/uL Sodium (135-145) mmol/L Potassium (3.5-5.3) mmol/L Chloride (100-110) mmol/L Carbon Dioxide (21-32) mmol/L BUN (7-18) mg/dL Creatinine (0.70-1.30) mg/dL Est Cr Clr Drug Dosing Estimated GFR (MDRD) (>60) BUN/Creatinine Ratio (9-20) Glucose (80-116) mg/dL Lactic Acid 0.5 (0.4-2.0) mmol/L Calcium (8.6-10.2) mg/dL Magnesium (1.8-2.5) mg/dL Total Bilirubin (0.1-1.3) mg/dL AST (5-25) IU/L ALT (12-36) U/L Alkaline Phosphatase (56-112) IU/L Troponin I (4.0-60.3) pg/mL Total Protein (6.0-8.0) g/dL Albumin (3.5-5.2) g/dL Globulin g/dL Albumin/Globulin Ratio Triglycerides 1044 H (15-150) mg/dL Cholesterol 226 H (50-200) mg/dL LDL Cholesterol Direct 55 L (60-130) mg/dL HDL Cholesterol 25 L (40-75) mg/dL Cholesterol/HDL Ratio 9.0 H (0-5) Lipase (73-393) U/L Urine Color (YELLOW) Urine Appearance (CLEAR) Urine pH (5.0-6.5) Ur Specific [place] (1.010-1.025) Urine Protein (NEGATIVE) mg/dL Urine Glucose (UA) (NORMAL) mg/dL Urine Ketones (NEGATIVE) mg/dL Urine Occult Blood (NEGATIVE) Urine Nitrite (NEGATIVE) Urine Bilirubin (NEGATIVE) Urine Urobilinogen (NEGATIVE) mg/dL Ur Leukocyte Esterase (NEGATIVE) Urine RBC (0-5) Urine WBC (0-5) Ur Squamous Epith Cells (NS,R,O) Urine Bacteria (NS) Ethyl Alcohol (<0.03) % SARS-CoV-2 RNA (BASSEM) Negative (NEGATIVE) 09/05/20 Range/Units 13:35 WBC (3.2-10.1) x10-3/uL RBC (3.90-5.90) x10(6)uL Hgb (12.9-17.7) g/dL Hct (38.3-50.1) % MCV (80.8-98.7) fL MCH (27.0-33.3) pg MCHC (28.7-35.3) g/dL RDW (12.4-15.0) % Plt Count (117-477) x10(3)uL MPV (6.7-11.0) fL Neut % (Auto) (40.3-71.8) % Lymph % (Auto) (15.8-45.3) % Wayne % (Auto) (5.5-15.2) % Eos % (Auto) (0.1-6.8) % Baso % (Auto) (0.3-3.8) % Neut # (Auto) (1.7-6.9) x10-3/uL Lymph # (Auto) (0.5-4.5) x10-3/uL Wayne # (Auto) (0.0-1.2) x10-3/uL Eos # (Auto) (0.0-0.6) x10-3/uL Baso # (Auto) (0.0-0.3) x10-3/uL Sodium (135-145) mmol/L Potassium (3.5-5.3) mmol/L Chloride (100-110) mmol/L Carbon Dioxide (21-32) mmol/L BUN (7-18) mg/dL Creatinine (0.70-1.30) mg/dL Est Cr Clr Drug Dosing Estimated GFR (MDRD) (>60) BUN/Creatinine Ratio (9-20) Glucose (80-116) mg/dL Lactic Acid (0.4-2.0) mmol/L Calcium (8.6-10.2) mg/dL Magnesium (1.8-2.5) mg/dL Total Bilirubin (0.1-1.3) mg/dL AST (5-25) IU/L ALT (12-36) U/L Alkaline Phosphatase (56-112) IU/L Troponin I (4.0-60.3) pg/mL Total Protein (6.0-8.0) g/dL Albumin (3.5-5.2) g/dL Globulin g/dL Albumin/Globulin Ratio Triglycerides (15-150) mg/dL Cholesterol (50-200) mg/dL LDL Cholesterol Direct (60-130) mg/dL HDL Cholesterol (40-75) mg/dL Cholesterol/HDL Ratio (0-5) Lipase (73-393) U/L Urine Color Yellow (YELLOW) Urine Appearance Clear (CLEAR) Urine pH 8.0 H (5.0-6.5) Ur Specific [place] 1.010 (1.010-1.025) Urine Protein Negative (NEGATIVE) mg/dL Urine Glucose (UA) Normal (NORMAL) mg/dL Urine Ketones Negative (NEGATIVE) mg/dL Urine Occult Blood Negative (NEGATIVE) Urine Nitrite Negative (NEGATIVE) Urine Bilirubin Negative (NEGATIVE) Urine Urobilinogen Normal (NEGATIVE) mg/dL Ur Leukocyte Esterase Negative (NEGATIVE) Urine RBC 0-5 (0-5) Urine WBC 0-5 (0-5) Ur Squamous Epith Cells Few H (NS,R,O) Urine Bacteria Moderate H (NS) Ethyl Alcohol (<0.03) % SARS-CoV-2 RNA (BASSEM) (NEGATIVE) Med Orders - Current: Current Medications Acetaminophen (Acetaminophen 325 Mg Tab) 650 mg PO Q4H PRN PRN Reason: Abdominal Pain Fenofibrate (Fenofibrate 160 Mg Tab) 160 mg PO DAILY [facility] Last Admin: 09/05/20 13:27 Dose: 160 mg Documented by: Hydromorphone HCl (Hydromorphone 2 Mg Tab) 2 mg PO Q3H PRN PRN Reason: Pain (severe 7-10) Last Admin: 09/05/20 21:09 Dose: 2 mg Documented by: Lorazepam (Lorazepam 0.5 Mg Tab) 0.5 mg PO Q8H PRN PRN Reason: Anxiety Melatonin (Melatonin 3 Mg Tab) 9 mg PO BEDTIME [facility] Last Admin: 09/05/20 21:47 Dose: 9 mg Documented by: Pantoprazole Sodium (Pantoprazole 40 Mg Tab.Cr) 40 mg PO 0600 [facility] Last Admin: 09/06/20 06:18 Dose: 40 mg Documented by: Quetiapine Fumarate (Quetiapine 50 Mg Tab) 150 mg PO BEDTIME [facility] Last Admin: 09/05/20 21:47 Dose: 150 mg Documented by: Rosuvastatin Calcium (Rosuvastatin 10 Mg Tab) 10 mg PO DAILY [facility] Sodium Chloride (Sodium Chloride 0.9% 10 Ml Syringe) 10 ml FLUSH ASDIRECTED PRN PRN Reason: Keep Vein Open Discontinued Medications Lorazepam (Lorazepam 0.5 Mg Tab) 0.5 mg PO ONETIME ONE Stop: 09/05/20 12:10 Last Admin: 09/05/20 12:16 Dose: 0.5 mg Documented by: Comments:: Patient was lying in bed on his right side. When I pulled back the blankets the patient is covered in sweat. Patient's hands are shaky and he appears anxious. He is alert, oriented, pleasant - Exam Quality Assessment: Supplemental Oxygen, DVT Prophylaxis General: Alert, Oriented, Cooperative, Mild Distress Lungs: Clear to Auscultation Cardiovascular: Regular Rate, Regular Rhythm, No Murmurs GI/Abdominal Exam: Normal Bowel Sounds, Distended, Tender Extremities: Normal Inspection Peripheral Pulses: 2+: Radial (L), Radial (R), Dorsalis Pedis (L), Dorsalis Pedis (R) Skin: Other (Diaphoresis) Wound/Incisions: Healing Well Neurological: No New Focal Deficit Psy/Mental Status: Alert, Anxious - Patient Data Lab Results Last 24 hrs: Laboratory Results - last 24 hr 09/05/20 09/05/20 09/05/20 Range/Units 10:00 10:00 10:00 WBC 8.3 (3.2-10.1) x10-3/uL RBC 3.98 (3.90-5.90) x10(6)uL Hgb 12.3 L (12.9-17.7) g/dL Hct 36.3 L (38.3-50.1) % MCV 91.3 (80.8-98.7) fL MCH 30.8 (27.0-33.3) pg MCHC 33.8 (28.7-35.3) g/dL RDW 14.6 (12.4-15.0) % Plt Count 337 (117-477) x10(3)uL MPV 9.1 (6.7-11.0) fL Neut % (Auto) 72.4 H (40.3-71.8) % Lymph % (Auto) 16.9 (15.8-45.3) % Wayne % (Auto) 6.4 (5.5-15.2) % Eos % (Auto) 3.6 (0.1-6.8) % Baso % (Auto) 0.7 (0.3-3.8) % Neut # (Auto) 6.0 (1.7-6.9) x10-3/uL Lymph # (Auto) 1.4 (0.5-4.5) x10-3/uL Wayne # (Auto) 0.5 (0.0-1.2) x10-3/uL Eos # (Auto) 0.3 (0.0-0.6) x10-3/uL Baso # (Auto) 0.1 (0.0-0.3) x10-3/uL Sodium 137 (135-145) mmol/L Potassium 4.1 (3.5-5.3) mmol/L Chloride 98 L D (100-110) mmol/L Carbon Dioxide 26 (21-32) mmol/L BUN 6 L D (7-18) mg/dL Creatinine 0.8 (0.70-1.30) mg/dL Est Cr Clr Drug Dosing TNP Estimated GFR (MDRD) > 60 (>60) BUN/Creatinine Ratio 7.5 L (9-20) Glucose 107 (80-116) mg/dL Lactic Acid (0.4-2.0) mmol/L Calcium 9.6 D (8.6-10.2) mg/dL Magnesium 1.7 L (1.8-2.5) mg/dL Total Bilirubin 0.6 (0.1-1.3) mg/dL AST 35 H D (5-25) IU/L ALT 37 H D (12-36) U/L Alkaline Phosphatase 219 H (56-112) IU/L Troponin I 17.3 (4.0-60.3) pg/mL Total Protein 8.6 H (6.0-8.0) g/dL Albumin 3.7 (3.5-5.2) g/dL Globulin 4.9 g/dL Albumin/Globulin Ratio 0.8 Triglycerides (15-150) mg/dL Cholesterol (50-200) mg/dL LDL Cholesterol Direct (60-130) mg/dL HDL Cholesterol (40-75) mg/dL Cholesterol/HDL Ratio (0-5) Lipase 206 (73-393) U/L Urine Color (YELLOW) Urine Appearance (CLEAR) Urine pH (5.0-6.5) Ur Specific [place] (1.010-1.025) Urine Protein (NEGATIVE) mg/dL Urine Glucose (UA) (NORMAL) mg/dL Urine Ketones (NEGATIVE) mg/dL Urine Occult Blood (NEGATIVE) Urine Nitrite (NEGATIVE) Urine Bilirubin (NEGATIVE) Urine Urobilinogen (NEGATIVE) mg/dL Ur Leukocyte Esterase (NEGATIVE) Urine RBC (0-5) Urine WBC (0-5) Ur Squamous Epith Cells (NS,R,O) Urine Bacteria (NS) Ethyl Alcohol < 0.03 (<0.03) % SARS-CoV-2 RNA (BASSEM) (NEGATIVE) 09/05/20 09/05/20 09/05/20 Range/Units 10:00 10:00 11:00 WBC (3.2-10.1) x10-3/uL RBC (3.90-5.90) x10(6)uL Hgb (12.9-17.7) g/dL Hct (38.3-50.1) % MCV (80.8-98.7) fL MCH (27.0-33.3) pg MCHC (28.7-35.3) g/dL RDW (12.4-15.0) % Plt Count (117-477) x10(3)uL MPV (6.7-11.0) fL Neut % (Auto) (40.3-71.8) % Lymph % (Auto) (15.8-45.3) % [place] % (Auto) (5.5-15.2) % Eos % (Auto) (0.1-6.8) % Baso % (Auto) (0.3-3.8) % Neut # (Auto) (1.7-6.9) x10-3/uL Lymph # (Auto) (0.5-4.5) x10-3/uL Wayne # (Auto) (0.0-1.2) x10-3/uL Eos # (Auto) (0.0-0.6) x10-3/uL Baso # (Auto) (0.0-0.3) x10-3/uL Sodium (135-145) mmol/L Potassium (3.5-5.3) mmol/L Chloride (100-110) mmol/L Carbon Dioxide (21-32) mmol/L BUN (7-18) mg/dL Creatinine (0.70-1.30) mg/dL Est Cr Clr Drug Dosing Estimated GFR (MDRD) (>60) BUN/Creatinine Ratio (9-20) Glucose (80-116) mg/dL Lactic Acid 0.5 (0.4-2.0) mmol/L Calcium (8.6-10.2) mg/dL Magnesium (1.8-2.5) mg/dL Total Bilirubin (0.1-1.3) mg/dL AST (5-25) IU/L ALT (12-36) U/L Alkaline Phosphatase (56-112) IU/L Troponin I (4.0-60.3) pg/mL Total Protein (6.0-8.0) g/dL Albumin (3.5-5.2) g/dL Globulin g/dL Albumin/Globulin Ratio Triglycerides 1044 H (15-150) mg/dL Cholesterol 226 H (50-200) mg/dL LDL Cholesterol Direct 55 L (60-130) mg/dL HDL Cholesterol 25 L (40-75) mg/dL Cholesterol/HDL Ratio 9.0 H (0-5) Lipase (73-393) U/L Urine Color (YELLOW) Urine Appearance (CLEAR) Urine pH (5.0-6.5) Ur Specific [place] (1.010-1.025) Urine Protein (NEGATIVE) mg/dL Urine Glucose (UA) (NORMAL) mg/dL Urine Ketones (NEGATIVE) mg/dL Urine Occult Blood (NEGATIVE) Urine Nitrite (NEGATIVE) Urine Bilirubin (NEGATIVE) Urine Urobilinogen (NEGATIVE) mg/dL Ur Leukocyte Esterase (NEGATIVE) Urine RBC (0-5) Urine WBC (0-5) Ur Squamous Epith Cells (NS,R,O) Urine Bacteria (NS) Ethyl Alcohol (<0.03) % SARS-CoV-2 RNA (BASSEM) Negative (NEGATIVE) 09/05/20 Range/Units 13:35 WBC (3.2-10.1) x10-3/uL RBC (3.90-5.90) x10(6)uL Hgb (12.9-17.7) g/dL Hct (38.3-50.1) % MCV (80.8-98.7) fL MCH (27.0-33.3) pg MCHC (28.7-35.3) g/dL RDW (12.4-15.0) % Plt Count (117-477) x10(3)uL MPV (6.7-11.0) fL Neut % (Auto) (40.3-71.8) % Lymph % (Auto) (15.8-45.3) % [place] % (Auto) (5.5-15.2) % Eos % (Auto) (0.1-6.8) % Baso % (Auto) (0.3-3.8) % Neut # (Auto) (1.7-6.9) x10-3/uL Lymph # (Auto) (0.5-4.5) x10-3/uL [place] # (Auto) (0.0-1.2) x10-3/uL Eos # (Auto) (0.0-0.6) x10-3/uL Baso # (Auto) (0.0-0.3) x10-3/uL Sodium (135-145) mmol/L Potassium (3.5-5.3) mmol/L Chloride (100-110) mmol/L Carbon Dioxide (21-32) mmol/L BUN (7-18) mg/dL Creatinine (0.70-1.30) mg/dL Est Cr Clr Drug Dosing Estimated GFR (MDRD) (>60) BUN/Creatinine Ratio (9-20) Glucose (80-116) mg/dL Lactic Acid (0.4-2.0) mmol/L Calcium (8.6-10.2) mg/dL Magnesium (1.8-2.5) mg/dL Total Bilirubin (0.1-1.3) mg/dL AST (5-25) IU/L ALT (12-36) U/L Alkaline Phosphatase (56-112) IU/L Troponin I (4.0-60.3) pg/mL Total Protein (6.0-8.0) g/dL Albumin (3.5-5.2) g/dL Globulin g/dL Albumin/Globulin Ratio Triglycerides (15-150) mg/dL Cholesterol (50-200) mg/dL LDL Cholesterol Direct (60-130) mg/dL HDL Cholesterol (40-75) mg/dL Cholesterol/HDL Ratio (0-5) Lipase (73-393) U/L Urine Color Yellow (YELLOW) Urine Appearance Clear (CLEAR) Urine pH 8.0 H (5.0-6.5) Ur Specific [place] 1.010 (1.010-1.025) Urine Protein Negative (NEGATIVE) mg/dL Urine Glucose (UA) Normal (NORMAL) mg/dL Urine Ketones Negative (NEGATIVE) mg/dL Urine Occult Blood Negative (NEGATIVE) Urine Nitrite Negative (NEGATIVE) Urine Bilirubin Negative (NEGATIVE) Urine Urobilinogen Normal (NEGATIVE) mg/dL Ur Leukocyte Esterase Negative (NEGATIVE) Urine RBC 0-5 (0-5) Urine WBC 0-5 (0-5) Ur Squamous Epith Cells Few H (NS,R,O) Urine Bacteria Moderate H (NS) Ethyl Alcohol (<0.03) % SARS-CoV-2 RNA (BASSEM) (NEGATIVE) Result Diagrams: 09/05/20 10:00 09/05/20 10:00 Sepsis Event Note - Evaluation Sepsis Screening Result: No Definite Risk - Focused Exam Vital Signs: Vital Signs Temp Pulse Resp BP Pulse Ox 09/06/20 00:00 37.4 C 105 H 17 157/116 H 99 - Problem List & Annotations (1) Anxiety SNOMED Code(s): 84634265 Code(s): F41.9 - ANXIETY DISORDER, UNSPECIFIED Status: Acute Current Visit: Yes (2) Necrotizing pancreatitis SNOMED Code(s): 7134238 Code(s): K85.91 - ACUTE PANCREATITIS WITH UNINFECTED NECROSIS, UNSPECIFIED Status: Chronic Current Visit: Yes (3) Abdominal pain SNOMED Code(s): 70012143 Code(s): R10.9 - UNSPECIFIED ABDOMINAL PAIN Status: Acute Current Visit: Yes Qualifiers: Abdominal location: generalized Qualified Code(s): R10.84 - Generalized abdominal pain (4) Ambulatory dysfunction SNOMED Code(s): 048655260 Code(s): R26.2 - DIFFICULTY IN WALKING, NOT ELSEWHERE CLASSIFIED Status: Acute Current Visit: Yes (5) Back pain of lumbar region with sciatica SNOMED Code(s): 869572419 Code(s): M54.40 - LUMBAGO WITH SCIATICA, UNSPECIFIED SIDE Status: Chronic Priority: Medium Current Visit: No (6) Elevated blood pressure reading SNOMED Code(s): 01107543 Code(s): R03.0 - ELEVATED BLOOD-PRESSURE READING, W/O DIAGNOSIS OF HTN Status: Acute Current Visit: No (7) FLORENTINO (generalized anxiety disorder) SNOMED Code(s): 67721992 Code(s): F41.1 - GENERALIZED ANXIETY DISORDER Status: Chronic Current Visit: No (8) HTN (hypertension) SNOMED Code(s): 10213725 Code(s): I10 - ESSENTIAL (PRIMARY) HYPERTENSION Status: Chronic Current Visit: No Qualifiers: Hypertension type: essential hypertension Qualified Code(s): I10 - Essential (primary) hypertension (9) Hypertriglyceridemia SNOMED Code(s): 060236571 Code(s): E78.1 - PURE HYPERGLYCERIDEMIA Status: Acute Current Visit: No (10) Not taking medication for chronic disease SNOMED Code(s): 647034194, 226040578 Code(s): FZL8087 - Status: Acute Current Visit: No (11) Alcohol abuse SNOMED Code(s): 49226414 Code(s): F10.10 - ALCOHOL ABUSE, UNCOMPLICATED Status: Chronic Current Visit: No (12) Bipolar disorder SNOMED Code(s): 11065572 Code(s): F31.9 - BIPOLAR DISORDER, UNSPECIFIED Status: Chronic Current Visit: No Qualifiers: Active/Remission status: currently active Current bipolar episode type: depressed Psychotic features: with psychotic features Qualified Code(s): F31.5 - Bipolar disorder, current episode depressed, severe, with psychotic features - Problem List Review Problem List Initiated/Reviewed/Updated: Yes - My Orders Last 24 Hours: My Active Orders 09/05/20 Lunch Soft Diet [DIET] 09/05/20 11:13 Patient Status [ADT] Routine Ambulate [RC] PER UNIT ROUTINE Pulse Oximetry [RC] PRN Vital Signs [RC] QSHIFT DVT/VTE Prophylaxis Reflex [OM.PC] Per Unit Routine VTE Pharmacological Contraindications [AST] Click to Edit Resuscitation Status Routine 09/05/20 11:14 Antiembolic Devices [RC] .Routine 09/05/20 12:42 LORazepam [Ativan] 0.5 mg PO Q8H PRN 09/05/20 12:45 Fenofibrate 160 mg PO DAILY 09/05/20 12:58 PT Evaluation and Treatment [CONS] Routine 09/05/20 12:59 OT Evaluation and Treatment [CONS] Routine HYDROmorphone [Dilaudid] 2 mg PO Q3H PRN 09/05/20 17:36 Acetaminophen [TylenoL] 650 mg PO Q4H PRN 09/05/20 21:00 Melatonin 9 mg PO BEDTIME QUEtiapine [SEROquel] 150 mg PO BEDTIME 09/06/20 06:00 Pantoprazole [ProTONIX] 40 mg PO 0600 09/06/20 07:51 CTA Abd Pelv w Cont [CT] Routine 09/06/20 09:00 Rosuvastatin [Crestor] 10 mg PO DAILY - Plan Plan:: 1. Admit patient to observation status. Restart home medications to include atorvastatin, fenofibrate, and Seroquel. Reduce Seroquel to 150 mg once daily, at bedtime. 2. Anxiety: Patient has previously been under the care of psychiatry. We will start the patient on Ativan, 0.5 mg 3 times daily. 3. Insomnia: Patient states that he has had good results with melatonin in the past. We will give him Seroquel at night as above and Ativan as needed. Patient will need to follow-up with psychiatric care. 4. DVT prophylaxis: SCDs. Patient has significant history of multiple recent abdominal surgeries 5. GI prophylaxis. Patient will be given Protonix p.o. 6. Disposition: Patient has severe weakness and concerning abdominal symptoms including pain, diaphoresis -abdominal/pelvic CT with contrast today. Patient qualified for rehabilitation prior to discharge from the hospital on 09/01/2020. We will try to get the patient qualified for swing bed/rehabilitation. Continue with treatment as above and follow-up with surgery and psychiatry after discharge from rehabilitation.
[2020-09-06] MEDS ORDERED: Iopamidol 755 Mg/ML 100 ML Bottle IV ONE (08:43)
[2020-09-06] MEDS ORDERED: Rosuvastatin 10 MG Tab PO SCH (09:00)
[2020-09-06] MEDS: Fenofibrate 160 MG Tab PO SCH (09:14)
[2020-09-06] MEDS ORDERED: Metoprolol Succinate 25 MG Tab.ER PO SCH (10:00)
--- NOTE | 2020-09-06 11:22 | CT ---
INDICATION: Abdominal pain, diaphoresis, recent history of compartment syndrome secondary to necrotizing pancreatitis. CTA ABDOMEN AND PELVIS WITH CONTRAST: Spiral 2.5 mm axial sections were obtained through the abdomen and pelvis with sagittal and coronal reconstructions utilizing 100 mL [id number]-[id number] at 3 cc/sec. Examination was obtained 09/06/20 and is compared with 07/27/20. Total exam DLP was 938.32 milligray-cm. There appears to be some minimal fine patchy infiltration in both lower lobes. This could be on the basis of a degree of edema but should be correlated clinically. There is some probable linear atelectasis which is new also at the lower lobes bilaterally more prominent at the right lower lobe with a minimal finding similarly in the lingula that is new also. The heart did not appear enlarged. No pericardial effusion was seen. The liver appeared normal with no definite biliary tree dilatation. The gallbladder appeared slightly distended but is not grossly enlarged with no calculi demonstrated. The adrenal glands and kidneys appeared normal. The spleen appeared normal allowing for the contrast enhancement technique. The pancreas was visualized and is within a collection of fluid. The pancreatic duct was not enlarged. The fluid extends anteriorly as well as medially, laterally and inferiorly and would be compatible with pancreatic phlegmon due to pancreatitis. The fluid collections extend into the upper pelvis. The appendix is absent compatible with history of its removal. No evidence of bowel obstruction or free air was seen. The aorta is normal in caliber. The major arteries arising from the aorta appear to be patent. Anterior midline, there is what appears to be extensive calcification likely on the basis of previous surgeries with surgical incision ventrally. This should be correlated clinically. IMPRESSION: 1. Findings remain compatible with pancreatic phlegmon, although other cause of the ascites scattered irregularly through the abdomen and upper pelvis cannot be excluded including peritonitis from other cause. 2. There are some interstitial-appearing infiltrates in the lower lobes which may be due to edema with some linear atelectatic-appearing changes at the lung bases. 3. Relatively normal size of the pancreas is noted with the pancreas surrounded by fluid which appears somewhat encapsulated. 4. Major abdominal vessels appear to be grossly patent. 5. Apparent midline postsurgical changes. Report was called to Dr. Díaz at 1101 hours 09/06/20. [facility]
--- NOTE | 2020-09-06 11:30 | CR ---
INDICATION: Abdominal pain. CHEST ONE VIEW: AP portable upright view of the chest 09/05/20 was compared with 10/06/17 and 09/26/16. The heart, mediastinum and bony thorax are unremarkable. Pulmonary markings are similar to the previous study without a definite active infiltrate or effusion. IMPRESSION: No acute process - no definite active disease. No free air is noted under the hemidiaphragm leaves. MTDD
--- NOTE | 2020-09-06 12:00 | PCM.DCSUM1 ---
Discharge Summary - Hospital Course Free Text/Narrative:: Patient was admitted due to weakness, abdominal pain, and diaphoresis. CT scan showed significant increase in fluid surrounding the pancreas. Given patient's history patient will be transferred to [facility] for further evaluation and treatment. Note that patient did not have leukocytosis. Note that lactic acid is pending at this time. Patient stopped taking all of his discharge medications including Seroquel 150 mg 3 times daily, statin, and fenofibrate. Patient was started on Ativan 0.5 mg 3 times daily, melatonin 9 mg nightly, and Seroquel 150 mg nightly. Patient still had difficulty sleeping but was finally able to fall asleep last night. I strongly advised the patient to continue taking his medications as directed. - Discharge Data Discharge Date: 09/06/20 Discharge Disposition: DC/Tfer to [facility] 02 Condition: Fair - Referral to Home Health Primary Care Physician: Deniz Ceballos MD - Discharge Diagnosis/Problem(s) (1) Anxiety SNOMED Code(s): 56310595 ICD Code: F41.9 - ANXIETY DISORDER, UNSPECIFIED Status: Acute Current Visit: Yes (2) Necrotizing pancreatitis SNOMED Code(s): 7373780 ICD Code: K85.91 - ACUTE PANCREATITIS WITH UNINFECTED NECROSIS, UNSPECIFIED Status: Chronic Current Visit: Yes (3) Abdominal pain SNOMED Code(s): 16564245 ICD Code: R10.9 - UNSPECIFIED ABDOMINAL PAIN Status: Acute Current Visit: Yes Qualifiers: Abdominal location: generalized Qualified Code(s): R10.84 - Generalized abdominal pain (4) Ambulatory dysfunction SNOMED Code(s): 100446259 ICD Code: R26.2 - DIFFICULTY IN WALKING, NOT ELSEWHERE CLASSIFIED Status: Acute Current Visit: Yes (5) Back pain of lumbar region with sciatica SNOMED Code(s): 508662510 ICD Code: M54.40 - LUMBAGO WITH SCIATICA, UNSPECIFIED SIDE Status: Chronic Priority: Medium Current Visit: No (6) Elevated blood pressure reading SNOMED Code(s): 34987457 ICD Code: R03.0 - ELEVATED BLOOD-PRESSURE READING, W/O DIAGNOSIS OF HTN Status: Acute Current Visit: No (7) FLORENTINO (generalized anxiety disorder) SNOMED Code(s): 81491607 ICD Code: F41.1 - GENERALIZED ANXIETY DISORDER Status: Chronic Current Visit: No (8) HTN (hypertension) SNOMED Code(s): 61944061 ICD Code: I10 - ESSENTIAL (PRIMARY) HYPERTENSION Status: Chronic Current Visit: No Qualifiers: Hypertension type: essential hypertension Qualified Code(s): I10 - Essential (primary) hypertension (9) Hypertriglyceridemia SNOMED Code(s): 104499827 ICD Code: E78.1 - PURE HYPERGLYCERIDEMIA Status: Acute Current Visit: No (10) Not taking medication for chronic disease SNOMED Code(s): 755813212, 455295402 ICD Code: WYA2815 - Status: Acute Current Visit: No (11) Alcohol abuse SNOMED Code(s): 67117740 ICD Code: F10.10 - ALCOHOL ABUSE, UNCOMPLICATED Status: Chronic Current Visit: No (12) Bipolar disorder SNOMED Code(s): 21515608 ICD Code: F31.9 - BIPOLAR DISORDER, UNSPECIFIED Status: Chronic Current Visit: No Qualifiers: Active/Remission status: currently active Current bipolar episode type: depressed Psychotic features: with psychotic features Qualified Code(s): F31.5 - Bipolar disorder, current episode depressed, severe, with psychotic features - Patient Summary/Data Consults: Consultations 09/05/20 12:58 PT Evaluation and Treatment [CONS] Routine Please Evaluate and Treat. PT Reason for Consult: Strengthening This query below is only for informational purposes and is not editable. Admission Diagnosis/Problem: Abdominal pain 09/05/20 12:59 OT Evaluation and Treatment [CONS] Routine Please Evaluate and Treat. OT Reason for Consult: ADL's This query below is only for informational purposes and is not editable. Admission Diagnosis/Problem: Abdominal pain - Discharge Plan *PRESCRIPTION DRUG MONITORING PROGRAM REVIEWED*: Not Applicable *COPY OF PRESCRIPTION DRUG MONITORING REPORT IN PATIENT MAN: Not Applicable Home Medications: Home Meds Fenofibrate 160 mg PO DAILY 09/05/20 [History] Rosuvastatin [Crestor] 10 mg PO DAILY 09/05/20 [History] QUEtiapine [SEROquel] 150 mg PO TID 09/06/20 [History] Forms: ED Department Discharge Referrals: Deniz Ceballos MD [Primary Care Provider] - - Discharge Summary/Plan Comment DC Time >30 min.: No - General Info Date of Service: 09/06/20 Admission Dx/Problem (Free Text: Admission Diagnosis/Problem Admission Diagnosis/Problem Abdominal pain Subjective Update: Patient states that he has increased abdominal pain/discomfort and increased diaphoresis. He continues to feel weak. He was able to ambulate in the shah but required some assistance intermittently Functional Status: Reports: Pain Controlled, Tolerating Diet, Ambulating, Urinating - Review of Systems General: Reports: Weakness, Fatigue, Night Sweats HEENT: Reports: No Symptoms Pulmonary: Reports: No Symptoms Cardiovascular: Reports: No Symptoms Gastrointestinal: Reports: Abdominal Pain Genitourinary: Reports: No Symptoms Musculoskeletal: Reports: No Symptoms Skin: Reports: No Symptoms Neurological: Reports: Difficulty Walking, Weakness Psychiatric: Reports: Anxiety - Patient Data Vitals - Most Recent: Last Vital Signs Temp 36.9 C 09/06/20 08:00 Pulse 117 H 09/06/20 11:14 Resp 14 09/06/20 08:00 BP 156/105 H 09/06/20 11:14 Pulse Ox 117 H 09/06/20 08:00 Weight - Most Recent: 83.5 kg Lab Results - Last 24 hrs: Laboratory Results - last 24 hr 09/05/20 Range/Units 13:35 Urine Color Yellow (YELLOW) Urine Appearance Clear (CLEAR) Urine pH 8.0 H (5.0-6.5) Ur Specific [place] 1.010 (1.010-1.025) Urine Protein Negative (NEGATIVE) mg/dL Urine Glucose (UA) Normal (NORMAL) mg/dL Urine Ketones Negative (NEGATIVE) mg/dL Urine Occult Blood Negative (NEGATIVE) Urine Nitrite Negative (NEGATIVE) Urine Bilirubin Negative (NEGATIVE) Urine Urobilinogen Normal (NEGATIVE) mg/dL Ur Leukocyte Esterase Negative (NEGATIVE) Urine RBC 0-5 (0-5) Urine WBC 0-5 (0-5) Ur Squamous Epith Cells Few H (NS,R,O) Urine Bacteria Moderate H (NS) Med Orders - Current: Current Medications Acetaminophen (Acetaminophen 325 Mg Tab) 650 mg PO Q4H PRN PRN Reason: Abdominal Pain Fenofibrate (Fenofibrate 160 Mg Tab) 160 mg PO DAILY RAHAT Last Admin: 09/06/20 09:14 Dose: 160 mg Documented by: Hydromorphone HCl (Hydromorphone 2 Mg Tab) 2 mg PO Q3H PRN PRN Reason: Pain (severe 7-10) Last Admin: 09/05/20 21:09 Dose: 2 mg Documented by: Lorazepam (Lorazepam 0.5 Mg Tab) 0.5 mg PO Q8H PRN PRN Reason: Anxiety Last Admin: 09/06/20 11:17 Dose: 0.5 mg Documented by: Melatonin (Melatonin 3 Mg Tab) 9 mg PO BEDTIME [facility] Last Admin: 09/05/20 21:47 Dose: 9 mg Documented by: Metoprolol Succinate (Metoprolol Succinate 25 Mg Tab.Er) 25 mg PO DAILY [facility] Last Admin: 09/06/20 11:14 Dose: 25 mg Documented by: Pantoprazole Sodium (Pantoprazole 40 Mg Tab.Cr) 40 mg PO 0600 [facility] Last Admin: 09/06/20 06:18 Dose: 40 mg Documented by: Quetiapine Fumarate (Quetiapine 50 Mg Tab) 150 mg PO BEDTIME [facility] Last Admin: 09/05/20 21:47 Dose: 150 mg Documented by: Rosuvastatin Calcium (Rosuvastatin 10 Mg Tab) 10 mg PO DAILY [facility] Last Admin: 09/06/20 09:14 Dose: 10 mg Documented by: Sodium Chloride (Sodium Chloride 0.9% 10 Ml Syringe) 10 ml FLUSH ASDIRECTED PRN PRN Reason: Keep Vein Open Discontinued Medications Iopamidol (Iopamidol 755 Mg/Ml 100 Ml Bottle) 100 ml IV . DIRECTED ONE Stop: 09/06/20 08:44 Lorazepam (Lorazepam 0.5 Mg Tab) 0.5 mg PO ONETIME ONE Stop: 09/05/20 12:10 Last Admin: 09/05/20 12:16 Dose: 0.5 mg Documented by: Comments:: Patient was lying in bed on his right side, he awoke alert, pleasant. Patient was diaphoretic - Exam Quality Assessment: Reports: Supplemental Oxygen, DVT Prophylaxis General: Reports: Alert, Oriented, Cooperative, Mild Distress HEENT: Reports: EOMI Lungs: Reports: Clear to Auscultation Cardiovascular: Reports: Regular Rate, Regular Rhythm, No Murmurs GI/Abdominal Exam: Normal Bowel Sounds, Distended, Tender Extremities: Normal Inspection Skin: Reports: Warm, Dry, Intact Wound/Incisions: Reports: Healing Well Psy/Mental Status: Reports: Alert, Anxious *Q Meaningful Use (DIS) - VTE *Q VTE Pharmacological Contraindications *Q: Risk of Bleeding
[2020-09-06 18:34] VITALS: BP 142/99; PULSE 118
== END 2020-09-06 18:40 ==
LOC: FB.ED 09:25 → FB.MS 11:13
PROVIDERS: ADMIT Student in an Organized Health Care Education/Training Program; ATTEND Student in an Organized Health Care Education/Training Program
DX: K85.91 Acute pancreatitis with uninfected necrosis, unspecified (principal); R53.1 Weakness; R10.84 Generalized abdominal pain; R26.2 Difficulty in walking, not elsewhere classified; M54.40 Lumbago with sciatica, unspecified side; F41.1 Generalized anxiety disorder; I10 Essential (primary) hypertension; E78.1 Pure hyperglyceridemia; F10.10 Alcohol abuse, uncomplicated; F31.5 Bipolar disorder, current episode depressed, severe, with psychotic features; G47.00 Insomnia, unspecified; Z87.891 Personal history of nicotine dependence; Z20.822 Contact with and (suspected) exposure to COVID-19
CPT/HCPCS: 36415; 71045; 74174; 80053; 80061; 80307; 81001; 83605; 83690; 83735; 84484; 85025; 93005; 97165-GO; 99285-25; A9270-GY; G0378; Q9967; U0002

== ENCOUNTER 2020-09-10 04:59 | Emergency (ER) | payer MEDICAID ==
[2020-09-10] MEDS ORDERED: traMADol 50 MG Tab PO ONE (05:05)
[2020-09-10] MEDS ORDERED: Ketorolac 30 MG/ML SDV IM ONE (05:05)
[2020-09-10 05:11] VITALS: BP 137/87; PULSE 148
[2020-09-10] MEDS ORDERED: Ondansetron 4 MG Tab.DIS PO ONE (05:46)
[2020-09-10] MEDS ORDERED: Polyethylene Glycol 3350 Powder 17 GM Packet PO ONE (06:18)
[2020-09-10] MEDS ORDERED: Polyethylene Glycol 3350 Powder 17 GM Packet PO STA (06:22)
--- NOTE | 2020-09-10 06:35 | EDM.PDOC ---
ED HPI GENERAL MEDICAL PROBLEM - General Chief Complaint: Back Pain or Injury Stated Complaint: BACK PAIN Time Seen by Provider: 09/10/20 05:10 Source of Information: Reports: Patient History Limitations: Reports: No Limitations - History of Present Illness INITIAL COMMENTS - FREE TEXT/NARRATIVE: Patient presented to the ED because of low back pain, fever, chills since yesterday. He is also constipated for 2 days. There is no cough/cold,no N/V/. He is taking hydrocodone for his back pain. Left Lower Back Pain Score (Numeric/FACES): 8 - Related Data Allergies Allergy/AdvReac Type Severity Reaction Status Date / Time No Known Allergies Allergy Verified 09/05/20 09:39 Home Meds: Home Meds Fenofibrate 160 mg PO DAILY 09/05/20 [History] Rosuvastatin [Crestor] 10 mg PO DAILY 09/05/20 [History] QUEtiapine [SEROquel] 150 mg PO TID 09/06/20 [History] Cyclobenzaprine [Flexeril] 10 mg PO TID 09/10/20 [History] Hydrocodone/Acetaminophen [HYDROcodone-Acetaminophen 5-325 MG] 325 mg PO BID 09/10/20 [History] Sennosides/Docusate Sodium [Senna-S] 2 each PO DAILY PRN #30 tablet 09/10/20 [Rx] atenoloL [Atenolol] 25 mg PO DAILY 09/10/20 [History] Past Medical History HEENT History: Reports: Impaired Vision Cardiovascular History: Reports: High Cholesterol, Hypertension Gastrointestinal History: Reports: Gastritis, Pancreatitis Other Gastrointestinal History: HX OF PANCREATITIS Musculoskeletal History: Reports: Back Pain, Chronic, Fracture, Other (See Below) Other Musculoskeletal History: Intervertebral disk disease Neurological History: Reports: Concussion Other Neuro History: concussion x 2 Psychiatric History: Reports: ADD, Addiction, Anxiety, Bipolar, Depression, Hallucinations, Panic Attack, Psych Hospitalization(s), Suicide Attempt Other Psychiatric History: ALCOHOL ABUSE Endocrine/Metabolic History: Reports: Obesity/BMI 30+ - Infectious Disease History Infectious Disease History: Reports: Chicken Pox - Past Surgical History HEENT Surgical History: Reports: None Cardiovascular Surgical History: Reports: None GI Surgical History: Reports: Appendectomy, Other (See Below) Other GI Surgeries/Procedures: Exploratory Laparatomy Neurological Surgical History: Reports: Discectomy, Lumbar Spine Other Neurological Surgeries/Procedures: disc surgery Musculoskeletal Surgical History: Reports: Other (See Below) Other Musculoskeletal Surgeries/Procedures:: hx back surgery (discetomy) Dermatological Surgical History: Reports: None Social & Family History - Family History Family Medical History: No Pertinent Family History Cardiac: Reports: None GI: Reports: None Neurological: Reports: None Psychiatric: Reports: None Endocrine/Metabolic: Reports: None - Tobacco Use Tobacco Use Status *Q: Former Tobacco User Used Tobacco, but Quit: Yes Month/Year Tobacco Last Used: 07/2020 - Caffeine Use Caffeine Use: Reports: Soda - Alcohol Use Date of Last Drink: 05/27/20 - Recreational Drug Use Recreational Drug Use: No - Living Situation & Occupation Living situation: Reports: Occupation: Unemployed (He reports that he is currently not working.) ED ROS GENERAL - Review of Systems Review Of Systems: See Below Constitutional: Reports: Fever, Chills HEENT: Reports: No Symptoms Respiratory: Reports: No Symptoms Cardiovascular: Reports: No Symptoms Endocrine: Reports: No Symptoms GI/Abdominal: Reports: Abdominal Pain : Reports: No Symptoms Musculoskeletal: Reports: Back Pain Skin: Reports: No Symptoms Neurological: Reports: No Symptoms Psychiatric: Reports: No Symptoms ED EXAM,LOWER BACK PAIN/INJURY - Physical Exam Exam: See Below Exam Limited By: No Limitations General Appearance: Alert, No Apparent Distress Ears: Normal External Exam, Normal Canal Nose: Normal Inspection, Normal Mucosa, No Blood Throat/Mouth: Normal Inspection, Normal Lips, Normal Teeth Head: Atraumatic, Normocephalic Neck: Normal Inspection, Supple, Non-Tender, Full Range of Motion Respiratory/Chest: No Respiratory Distress, Lungs Clear, No Accessory Muscle Use Cardiovascular: Normal Peripheral Pulses, Regular Rate, Rhythm, No Edema, No Gallop, No Murmur, No Rub GI/Abdominal: Normal Bowel Sounds, Soft, Non-Tender, No Organomegaly Back Exam: Vertebral Tenderness Extremities: Normal Inspection, Normal Range of Motion Neurological: Alert, Normal Mood/Affect, Normal Dorsiflexion, CN II-XII Intact Course - Vital Signs Text/Narrative:: Lab result was reviewed and discussed with patient and his Ania Toradol 60 mg IM x1 Tramadol 100 mg PO x1 Senna S 2 tabs po x1 Miralax 34 gm po x1 Patient refused ant radiology work up, doesn't want to give a urine specimen. He said he just want to go home he thinks it's just constipation. Last Recorded V/S: Last Vital Signs Temp 38.3 C H 09/10/20 05:07 Pulse 148 H 09/10/20 05:07 Resp 20 09/10/20 05:07 BP 137/87 09/10/20 05:07 Pulse Ox - Orders/Labs/Meds Labs: Laboratory Tests 09/10/20 09/10/20 09/10/20 Range/Units 06:30 06:30 06:30 WBC 19.8 H (3.2-10.1) x10-3/uL RBC 3.68 L (3.90-5.90) x10(6)uL Hgb 11.1 L (12.9-17.7) g/dL Hct 33.6 L (38.3-50.1) % MCV 91.4 (80.8-98.7) fL MCH 30.3 (27.0-33.3) pg MCHC 33.1 (28.7-35.3) g/dL RDW 14.8 (12.4-15.0) % Plt Count 244 (117-477) x10(3)uL MPV 8.4 (6.7-11.0) fL Add Manual Diff Yes Neutrophils % (Manual) 91 H (46-82) % Band Neutrophils % 3 (0-6) % Lymphocytes % (Manual) 2 L (13-37) % Monocytes % (Manual) 4 (4-12) % Sodium 135 (135-145) mmol/L Potassium 4.2 (3.5-5.3) mmol/L Chloride 97 L (100-110) mmol/L Carbon Dioxide 26 (21-32) mmol/L BUN 16 D (7-18) mg/dL Creatinine 1.1 (0.70-1.30) mg/dL Est Cr Clr Drug Dosing 105.15 mL/min Estimated GFR (MDRD) > 60 (>60) BUN/Creatinine Ratio 14.5 (9-20) Glucose 129 H (80-116) mg/dL Calcium 8.9 (8.6-10.2) mg/dL Total Bilirubin 1.0 (0.1-1.3) mg/dL AST 21 D (5-25) IU/L ALT 32 D (12-36) U/L Alkaline Phosphatase 154 H (56-112) IU/L Total Protein 7.9 (6.0-8.0) g/dL Albumin 3.2 L (3.5-5.2) g/dL Globulin 4.7 g/dL Albumin/Globulin Ratio 0.7 Triglycerides 288 H (15-150) mg/dL Cholesterol 139 (50-200) mg/dL LDL Cholesterol Direct 60 (60-130) mg/dL HDL Cholesterol 27 L (40-75) mg/dL Cholesterol/HDL Ratio 5.1 H (0-5) Amylase 50 (25-115) U/L Lipase 205 (73-393) U/L Meds: Medications Discontinued Medications Generic Name Dose Route Start Last Admin Trade Name Freq PRN Reason Stop Dose Admin Ketorolac Tromethamine 60 mg 09/10/20 05:05 09/10/20 05:14 Ketorolac 30 Mg/Ml Sdv IM 09/10/20 05:06 60 mg ONETIME ONE Administration Ondansetron HCl 4 mg 09/10/20 05:46 09/10/20 05:49 Ondansetron 4 Mg Tab.Dis PO 09/10/20 05:47 4 mg ONETIME ONE Administration Polyethylene Glycol 34 gm 09/10/20 06:18 09/10/20 06:28 Polyethylene Glycol 3350 Powder 17 Gm Packet PO 09/10/20 06:19 34 gm ONETIME ONE Administration Polyethylene Glycol 34 gm 09/10/20 06:22 09/10/20 06:33 Polyethylene Glycol 3350 Powder 17 Gm Packet PO 09/10/20 06:23 Not Given NOW STA Senna/Docusate Sodium 2 tab 09/10/20 06:18 09/10/20 06:27 Docusate Sodium/Sennosides 50-8.6 Mg Tab PO 09/10/20 06:19 2 tab NOW STA Administration Senna/Docusate Sodium 2 tab 09/10/20 06:22 09/10/20 06:33 Docusate Sodium/Sennosides 50-8.6 Mg Tab PO 09/10/20 06:23 Not Given NOW STA Tramadol HCl 100 mg 09/10/20 05:05 09/10/20 05:14 Tramadol 50 Mg Tab PO 09/10/20 05:06 100 mg ONETIME ONE Administration Departure - Departure Time of Disposition: 06:45 Disposition: Home, Self-Care 01 Condition: Good Clinical Impression: Chronic low back pain, Constipation - Discharge Information Prescriptions: Sennosides/Docusate Sodium [Senna-S] 2 each PO DAILY PRN #30 tablet PRN Reason: Constipation Instructions: Constipation, Adult, [id number], Chronic Back Pain, [id number] Referrals: PCP,None [Primary Care Provider] - Forms: ED Department Discharge Additional Instructions: Please read discharge instructions on low back pain and constipation Drink 2 liters of water daily Senna 2 tablets daily until you have a good bowel movement. Ibuprofen 800 mg with tylenol 1000 mg and flexeril 10 mg every 8 hours as needed for pain/spasms Follow up with your clinic or return to the ED if you don't feel well Sepsis Event Note (ED) - Evaluation Sepsis Screening Result: Possible Sepsis Risk - Focused Exam Vital Signs: Vital Signs Temp Pulse Resp BP 09/10/20 05:07 38.3 C H 148 H 20 137/87
== END 2020-09-10 06:45 | disposition home or self-care (01) ==
LOC: FB.ED 04:59
DX: K59.00 Constipation, unspecified (principal); E78.00 Pure hypercholesterolemia, unspecified; I10 Essential (primary) hypertension; E66.9 Obesity, unspecified; Z79.899 Other long term (current) drug therapy; Z87.891 Personal history of nicotine dependence
CPT/HCPCS: 36415; 80053; 80061; 82150; 83690; 85025; 96372; 99283; A9270; J1885

== ENCOUNTER 2020-10-02 14:45 | Emergency (ER) | payer MEDICAID ==
[2020-10-02] MEDS ORDERED: Morphine 4 MG/ML VIAL IVPUSH STA (15:19)
[2020-10-02] MEDS ORDERED: Ketorolac 30 MG/ML SDV IVPUSH STA (15:19)
[2020-10-02] MEDS ORDERED: Sodium Chloride 0.9% 10 ML Syringe FLUSH PRN (15:19)
[2020-10-02] MEDS ORDERED: Sodium Chloride 0.9% 1,000 ML IV SCH ×2 (15:30→17:00)
[2020-10-02] MEDS ORDERED: Morphine 2 MG/ML SYRINGE IVPUSH STA (16:50)
--- NOTE | 2020-10-02 17:24 | EDM.PDOC ---
ED HPI GENERAL MEDICAL PROBLEM - General Chief Complaint: Abdominal Pain Stated Complaint: ABDOMINAL PAIN Time Seen by Provider: 10/02/20 15:05 Source of Information: Reports: Patient History Limitations: Reports: No Limitations - History of Present Illness INITIAL COMMENTS - FREE TEXT/NARRATIVE: Patient presented to the ED because of abdominal pain which started night after eating lasagna. It got worse Fri after eating fried chicken. Wm has a history of chronic pancreatitis and was just seen by his twister doffer a week ago and was given a prescription of dilaudid, augmentin, and was put on a JAYA drain. He c/o nausea but no vomiting. He had chills yesterday but no fever. No urinary symptoms or changes in bowel movements. - Related Data Allergies Allergy/AdvReac Type Severity Reaction Status Date / Time No Known Allergies Allergy Verified 09/05/20 09:39 Home Meds: Home Meds Fenofibrate 160 mg PO DAILY 09/05/20 [History] Rosuvastatin [Crestor] 10 mg PO DAILY 09/05/20 [History] QUEtiapine [SEROquel] 150 mg PO TID 09/06/20 [History] Cyclobenzaprine [Flexeril] 10 mg PO TID 09/10/20 [History] Hydrocodone/Acetaminophen [HYDROcodone-Acetaminophen 5-325 MG] 325 mg PO BID 09/10/20 [History] Sennosides/Docusate Sodium [Senna-S] 2 each PO DAILY PRN #30 tablet 09/10/20 [Rx] atenoloL [Atenolol] 25 mg PO DAILY 09/10/20 [History] Past Medical History HEENT History: Reports: Impaired Vision Cardiovascular History: Reports: High Cholesterol, Hypertension Gastrointestinal History: Reports: Gastritis, Pancreatitis Other Gastrointestinal History: HX OF PANCREATITIS Musculoskeletal History: Reports: Back Pain, Chronic, Fracture, Other (See Below) Other Musculoskeletal History: Intervertebral disk disease Neurological History: Reports: Concussion Other Neuro History: concussion x 2 Psychiatric History: Reports: ADD, Addiction, Anxiety, Bipolar, Depression, Hallucinations, Panic Attack, Psych Hospitalization(s), Suicide Attempt Other Psychiatric History: ALCOHOL ABUSE Endocrine/Metabolic History: Reports: Obesity/BMI 30+ - Infectious Disease History Infectious Disease History: Reports: Chicken Pox - Past Surgical History HEENT Surgical History: Reports: None Cardiovascular Surgical History: Reports: None GI Surgical History: Reports: Appendectomy, Other (See Below) Other GI Surgeries/Procedures: Exploratory Laparatomy Neurological Surgical History: Reports: Discectomy, Lumbar Spine Other Neurological Surgeries/Procedures: disc surgery Musculoskeletal Surgical History: Reports: Other (See Below) Other Musculoskeletal Surgeries/Procedures:: hx back surgery (discetomy) Dermatological Surgical History: Reports: None Social & Family History - Family History Family Medical History: No Pertinent Family History Cardiac: Reports: None GI: Reports: None Neurological: Reports: None Psychiatric: Reports: None Endocrine/Metabolic: Reports: None - Caffeine Use Caffeine Use: Reports: Soda - Living Situation & Occupation Living situation: Reports: Occupation: Unemployed (He reports that he is currently not working.) ED ROS GENERAL - Review of Systems Review Of Systems: See Below Constitutional: Reports: No Symptoms HEENT: Reports: No Symptoms Respiratory: Reports: No Symptoms Cardiovascular: Reports: No Symptoms Endocrine: Reports: No Symptoms GI/Abdominal: Reports: No Symptoms : Reports: No Symptoms Musculoskeletal: Reports: No Symptoms Skin: Reports: No Symptoms Neurological: Reports: No Symptoms Psychiatric: Reports: No Symptoms ED EXAM, GI/ABD - Physical Exam Exam: See Below Exam Limited By: No Limitations General Appearance: Alert, No Apparent Distress Ears: Normal External Exam, Normal Canal Nose: Normal Inspection, Normal Mucosa, No Blood Throat/Mouth: Normal Inspection, Normal Lips, Normal Teeth Head: Atraumatic, Normocephalic Neck: Normal Inspection, Supple, Non-Tender Respiratory/Chest: No Respiratory Distress, Lungs Clear, Normal Breath Sounds, Chest Non-Tender Cardiovascular: Normal Peripheral Pulses, Regular Rate, Rhythm GI/Abdominal Exam: Normal Bowel Sounds, Soft, No Organomegaly, No Distention, No Abnormal Bruit, Other (LUQ and epigastric tenderness) Back Exam: Normal Inspection, Full Range of Motion Course - Vital Signs Text/Narrative:: Lab result was reviewed and discussed with patient NS 2L bolus Morphine 4 mg IV x1 Morphine 2 mg IV x1 Toradol 30 mg IV x1 Wm doesn't want to stay in the hospital for IVF hydration. He said he can do it at home. He also doesn't want to take dilaudid anymore because it's too strong for him and wants a less stronger one instead. Last Recorded V/S: Last Vital Signs Temp 36.6 C 10/02/20 15:00 Pulse 97 10/02/20 15:00 Resp 18 10/02/20 15:00 BP 134/81 10/02/20 15:00 Pulse Ox - Orders/Labs/Meds Orders: Active Orders 24 hr Category Date Time Status Sodium Chloride 0.9% [Normal Saline] 1,000 ml Med 10/02/20 15:30 Active IV ASDIRECTED Sodium Chloride 0.9% [Normal Saline] 1,000 ml Med 10/02/20 17:00 Active IV ASDIRECTED Sodium Chloride 0.9% [Saline Flush] Med 10/02/20 15:19 Active 10 ml FLUSH ASDIRECTED PRN Saline Lock Insert [OM.PC] Routine Oth 10/02/20 15:19 Ordered Medication Orders Sodium Chloride (Normal Saline) 1,000 mls @ 999 mls/hr IV ASDIRECTED RAHAT Last Admin: 10/02/20 15:41 Dose: 999 mls/hr Documented by: MATIMAR Sodium Chloride (Normal Saline) 1,000 mls @ 999 mls/hr IV ASDIRECTED RAHAT Last Admin: 10/02/20 16:58 Dose: 999 mls/hr Documented by: MATIMAR Sodium Chloride (Sodium Chloride 0.9% 10 Ml Syringe) 10 ml FLUSH ASDIRECTED PRN PRN Reason: Keep Vein Open Labs: Laboratory Tests 10/02/20 10/02/20 10/02/20 Range/Units 15:30 15:30 15:30 WBC 9.6 (3.2-10.1) x10-3/uL RBC 3.89 L (3.90-5.90) x10(6)uL Hgb 11.0 L (12.9-17.7) g/dL Hct 33.9 L (38.3-50.1) % MCV 87.3 (80.8-98.7) fL MCH 28.4 (27.0-33.3) pg MCHC 32.5 (28.7-35.3) g/dL RDW 16.1 H (12.4-15.0) % Plt Count 607 H (117-477) x10(3)uL MPV 7.6 (6.7-11.0) fL Neut % (Auto) 78.5 H (40.3-71.8) % Lymph % (Auto) 11.3 L (15.8-45.3) % [place] % (Auto) 7.2 (5.5-15.2) % Eos % (Auto) 1.7 (0.1-6.8) % Baso % (Auto) 1.3 (0.3-3.8) % Neut # (Auto) 7.5 H (1.7-6.9) x10-3/uL Lymph # (Auto) 1.1 (0.5-4.5) x10-3/uL [place] # (Auto) 0.7 (0.0-1.2) x10-3/uL Eos # (Auto) 0.2 (0.0-0.6) x10-3/uL Baso # (Auto) 0.1 (0.0-0.3) x10-3/uL Sodium 138 (135-145) mmol/L Potassium 4.1 (3.5-5.3) mmol/L Chloride 100 (100-110) mmol/L Carbon Dioxide 29 (21-32) mmol/L BUN 31 H D (7-18) mg/dL Creatinine 2.2 H* (0.70-1.30) mg/dL Est Cr Clr Drug Dosing TNP Estimated GFR (MDRD) 35 L (>60) BUN/Creatinine Ratio 14.1 (9-20) Glucose 101 (80-116) mg/dL Calcium 9.2 (8.6-10.2) mg/dL Total Bilirubin 0.3 (0.1-1.3) mg/dL AST 45 H D (5-25) IU/L ALT 43 H D (12-36) U/L Alkaline Phosphatase 133 H (56-112) IU/L Total Protein 8.8 H (6.0-8.0) g/dL Albumin 3.4 L (3.5-5.2) g/dL Globulin 5.4 g/dL Albumin/Globulin Ratio 0.6 Amylase 66 (25-115) U/L Lipase 206 (73-393) U/L Urine Color (YELLOW) Urine Appearance (CLEAR) Urine pH (5.0-6.5) Ur Specific [place] (1.010-1.025) Urine Protein (NEGATIVE) mg/dL Urine Glucose (UA) (NORMAL) mg/dL Urine Ketones (NEGATIVE) mg/dL Urine Occult Blood (NEGATIVE) Urine Nitrite (NEGATIVE) Urine Bilirubin (NEGATIVE) Urine Urobilinogen (NEGATIVE) mg/dL Ur Leukocyte Esterase (NEGATIVE) Urine WBC (0-5) Ur Squamous Epith Cells (NS,R,O) Urine Bacteria (NS) 10/02/20 Range/Units 16:40 WBC (3.2-10.1) x10-3/uL RBC (3.90-5.90) x10(6)uL Hgb (12.9-17.7) g/dL Hct (38.3-50.1) % MCV (80.8-98.7) fL MCH (27.0-33.3) pg MCHC (28.7-35.3) g/dL RDW (12.4-15.0) % Plt Count (117-477) x10(3)uL MPV (6.7-11.0) fL Neut % (Auto) (40.3-71.8) % Lymph % (Auto) (15.8-45.3) % [place] % (Auto) (5.5-15.2) % Eos % (Auto) (0.1-6.8) % Baso % (Auto) (0.3-3.8) % Neut # (Auto) (1.7-6.9) x10-3/uL Lymph # (Auto) (0.5-4.5) x10-3/uL [place] # (Auto) (0.0-1.2) x10-3/uL Eos # (Auto) (0.0-0.6) x10-3/uL Baso # (Auto) (0.0-0.3) x10-3/uL Sodium (135-145) mmol/L Potassium (3.5-5.3) mmol/L Chloride (100-110) mmol/L Carbon Dioxide (21-32) mmol/L BUN (7-18) mg/dL Creatinine (0.70-1.30) mg/dL Est Cr Clr Drug Dosing Estimated GFR (MDRD) (>60) BUN/Creatinine Ratio (9-20) Glucose (80-116) mg/dL Calcium (8.6-10.2) mg/dL Total Bilirubin (0.1-1.3) mg/dL AST (5-25) IU/L ALT (12-36) U/L Alkaline Phosphatase (56-112) IU/L Total Protein (6.0-8.0) g/dL Albumin (3.5-5.2) g/dL Globulin g/dL Albumin/Globulin Ratio Amylase (25-115) U/L Lipase (73-393) U/L Urine Color Yellow (YELLOW) Urine Appearance Clear (CLEAR) Urine pH 7.0 H (5.0-6.5) Ur Specific [place] 1.010 (1.010-1.025) Urine Protein Negative (NEGATIVE) mg/dL Urine Glucose (UA) Normal (NORMAL) mg/dL Urine Ketones Negative (NEGATIVE) mg/dL Urine Occult Blood Negative (NEGATIVE) Urine Nitrite Negative (NEGATIVE) Urine Bilirubin Negative (NEGATIVE) Urine Urobilinogen Normal (NEGATIVE) mg/dL Ur Leukocyte Esterase Negative (NEGATIVE) Urine WBC 0-5 (0-5) Ur Squamous Epith Cells Occasional (NS,R,O) Urine Bacteria Few H (NS) Meds: Medications Generic Name Dose Route Start Last Admin Trade Name Freq PRN Reason Stop Dose Admin Sodium Chloride 1,000 mls @ 999 mls/hr 10/02/20 15:30 10/02/20 15:41 Normal Saline IV 999 mls/hr ASDIRECTED RAHAT Administration Sodium Chloride 1,000 mls @ 999 mls/hr 10/02/20 17:00 10/02/20 16:58 Normal Saline IV 999 mls/hr ASDIRECTED RAHAT Administration Sodium Chloride 10 ml 10/02/20 15:19 Sodium Chloride 0.9% 10 Ml Syringe FLUSH ASDIRECTED PRN Keep Vein Open Discontinued Medications Generic Name Dose Route Start Last Admin Trade Name Freq PRN Reason Stop Dose Admin Ketorolac Tromethamine 30 mg 10/02/20 15:19 10/02/20 15:41 Ketorolac 30 Mg/Ml Sdv IVPUSH 10/02/20 15:20 30 mg NOW STA Administration Morphine Sulfate 4 mg 10/02/20 15:19 10/02/20 15:42 Morphine 4 Mg/Ml Vial IVPUSH 10/02/20 15:20 4 mg NOW STA Administration Morphine Sulfate 2 mg 10/02/20 16:50 10/02/20 16:57 Morphine 2 Mg/Ml Syringe IVPUSH 10/02/20 16:51 2 mg NOW STA Administration Departure - Departure Time of Disposition: 18:30 Disposition: Home, Self-Care 01 Condition: Good Clinical Impression: Dehydration, JILL (acute kidney injury) Chronic pancreatitis Qualifiers: Pancreatitis type: alcohol induced Qualified Code(s): K86.0 - Alcohol-induced chronic pancreatitis - Discharge Information Instructions: Acute Kidney Injury, Adult, Chronic Pancreatitis, Dehydration, Adult, [id number] Referrals: Deniz Ceballos MD [Primary Care Provider] - Forms: ED Department Discharge Additional Instructions: Please read discharge instructions on chronic pancreatitis See list of foods and beverages to avoid Keep your appointment to see Dr Stevens Sepsis Event Note (ED) - Focused Exam Vital Signs: Vital Signs Temp Pulse Resp BP 10/02/20 15:00 36.6 C 97 18 134/81 - My Orders Last 24 Hours: My Active Orders 10/02/20 15:19 Sodium Chloride 0.9% [Saline Flush] 10 ml FLUSH ASDIRECTED PRN Saline Lock Insert [OM.PC] Routine 10/02/20 15:30 Sodium Chloride 0.9% [Normal Saline] 1,000 ml IV ASDIRECTED 10/02/20 17:00 Sodium Chloride 0.9% [Normal Saline] 1,000 ml IV ASDIRECTED - Assessment/Plan Last 24 Hours: My Active Orders 10/02/20 15:19 Sodium Chloride 0.9% [Saline Flush] 10 ml FLUSH ASDIRECTED PRN Saline Lock Insert [OM.PC] Routine 10/02/20 15:30 Sodium Chloride 0.9% [Normal Saline] 1,000 ml IV ASDIRECTED 10/02/20 17:00 Sodium Chloride 0.9% [Normal Saline] 1,000 ml IV ASDIRECTED
[2020-10-02 20:43] VITALS: BP 150/104; PULSE 80
== END 2020-10-02 18:30 | disposition home or self-care (01) ==
LOC: FB.ED 14:45
DX: K86.0 Alcohol-induced chronic pancreatitis (principal); I12.9 Hypertensive chronic kidney disease with stage 1 through stage 4 chronic kidney disease, or unspecified chronic kidney disease; N18.9 Chronic kidney disease, unspecified; N17.9 Acute kidney failure, unspecified; F10.10 Alcohol abuse, uncomplicated; K86.81 Exocrine pancreatic insufficiency; E78.00 Pure hypercholesterolemia, unspecified; E66.9 Obesity, unspecified; Z68.30 Body mass index [BMI] 30.0-30.9, adult; Z79.899 Other long term (current) drug therapy
CPT/HCPCS: 36415; 80053; 81001; 82150; 83690; 85025; 96374; 96375; 96376; 99284-25; J1885; J2270; J7030

== ENCOUNTER 2020-10-09 13:50 | Emergency (ER) | payer MEDICAID ==
[2020-10-09] MEDS ORDERED: Morphine 4 MG/ML VIAL IVPUSH ONE (14:13)
[2020-10-09] MEDS ORDERED: Ondansetron 4 MG/2 ML SDV IVPUSH ONE (14:15)
[2020-10-09] MEDS ORDERED: Lactated Ringers 1,000 ML IV SCH (14:15)
[2020-10-09] MEDS ORDERED: Ketorolac 30 MG/ML SDV IVPUSH ONE (14:36)
--- NOTE | 2020-10-09 15:33 | EDM.PDOC ---
ED HPI GENERAL MEDICAL PROBLEM - General Stated Complaint: ABD PAIN Time Seen by Provider: 10/09/20 14:09 Source of Information: Reports: Patient History Limitations: Reports: No Limitations - History of Present Illness INITIAL COMMENTS - FREE TEXT/NARRATIVE: 34-year-old gentleman past medical history significant for recent pancreatitis with multiple surgeries secondary to intra-abdominal infections, renal failure, intubation emergency department due to abdominal pain and dehydration. He states that he has been trying to be careful with his diet but thinks he may have had food that irritated his stomach and thinks that he might be dehydrated and constipated. He has no other specific concerns or complaints. He specifically denies chest pain, shortness of breath or upper respiratory symptoms, dysuria. - Related Data Allergies Allergy/AdvReac Type Severity Reaction Status Date / Time No Known Allergies Allergy Verified 10/09/20 14:46 Home Meds: Home Meds Fenofibrate 160 mg PO DAILY 09/05/20 [History] Rosuvastatin [Crestor] 10 mg PO DAILY 09/05/20 [History] QUEtiapine [SEROquel] 150 mg PO TID 09/06/20 [History] Cyclobenzaprine [Flexeril] 10 mg PO TID 09/10/20 [History] Hydrocodone/Acetaminophen [HYDROcodone-Acetaminophen 5-325 MG] 325 mg PO BID 09/10/20 [History] Sennosides/Docusate Sodium [Senna-S] 2 each PO DAILY PRN #30 tablet 09/10/20 [Rx] atenoloL [Atenolol] 25 mg PO DAILY 09/10/20 [History] Past Medical History HEENT History: Reports: Impaired Vision Cardiovascular History: Reports: High Cholesterol, Hypertension Gastrointestinal History: Reports: Gastritis, Pancreatitis Other Gastrointestinal History: HX OF PANCREATITIS Musculoskeletal History: Reports: Back Pain, Chronic, Fracture, Other (See Below) Other Musculoskeletal History: Intervertebral disk disease Neurological History: Reports: Concussion Other Neuro History: concussion x 2 Psychiatric History: Reports: ADD, Addiction, Anxiety, Bipolar, Depression, Hallucinations, Panic Attack, Psych Hospitalization(s), Suicide Attempt Other Psychiatric History: ALCOHOL ABUSE Endocrine/Metabolic History: Reports: Obesity/BMI 30+ - Infectious Disease History Infectious Disease History: Reports: Chicken Pox - Past Surgical History HEENT Surgical History: Reports: None Cardiovascular Surgical History: Reports: None GI Surgical History: Reports: Appendectomy, Other (See Below) Other GI Surgeries/Procedures: Exploratory Laparatomy Neurological Surgical History: Reports: Discectomy, Lumbar Spine Other Neurological Surgeries/Procedures: disc surgery Musculoskeletal Surgical History: Reports: Other (See Below) Other Musculoskeletal Surgeries/Procedures:: hx back surgery (discetomy) Dermatological Surgical History: Reports: None Social & Family History - Family History Family Medical History: No Pertinent Family History Cardiac: Reports: None GI: Reports: None Neurological: Reports: None Psychiatric: Reports: None Endocrine/Metabolic: Reports: None - Caffeine Use Caffeine Use: Reports: Soda - Living Situation & Occupation Living situation: Reports: Occupation: Unemployed (He reports that he is currently not working.) ED ROS GENERAL - Review of Systems Review Of Systems: See Below Constitutional: Reports: Malaise, Fatigue HEENT: Reports: No Symptoms Respiratory: Reports: No Symptoms Cardiovascular: Reports: No Symptoms Endocrine: Reports: No Symptoms GI/Abdominal: Reports: Abdominal Pain, Constipation : Reports: No Symptoms Musculoskeletal: Reports: No Symptoms Skin: Reports: No Symptoms Neurological: Reports: No Symptoms Psychiatric: Reports: Depression Hematologic/Lymphatic: Reports: No Symptoms Immunologic: Reports: No Symptoms ED EXAM, GI/ABD - Physical Exam Exam: See Below Exam Limited By: No Limitations General Appearance: Alert, WD/WN, Anxious Eyes: Bilateral: EOMI Head: Atraumatic, Normocephalic Respiratory/Chest: No Respiratory Distress, Lungs Clear, Normal Breath Sounds Cardiovascular: Regular Rate, Rhythm, No Murmur GI/Abdominal Exam: Normal Bowel Sounds, Tender Back Exam: Normal Inspection. No: CVA Tenderness (R), CVA Tenderness (L) Extremities: Normal Inspection Neurological: Alert, Oriented, CN II-XII Intact, Normal Cognition Psychiatric: Anxious Skin Exam: Warm, Intact Course - Vital Signs Text/Narrative:: Review of abdominal x-ray shows moderate stool burden throughout the large colon. Abdominal drain is in place with no obvious effusion surrounding the drain. The drain is functioning properly. Review of labs shows mild normocytic anemia, however the patient has been given a bolus of fluid while here. Labs are otherwise unremarkable when compared to previous labs. Creatinine has im proved from 2.2 to 1.5 over the last week. Alkaline phosphatase is improved from 1 33 to 1 21 over the same week. Departure - Departure Time of Disposition: 16:37 Disposition: Home, Self-Care 01 Condition: Good Clinical Impression: Abdominal pain in male, Constipation due to pain medication Abdominal pain Qualifiers: Abdominal location: generalized Qualified Code(s): R10.84 - Generalized abdominal pain - Discharge Information *PRESCRIPTION DRUG MONITORING PROGRAM REVIEWED*: Not Applicable *COPY OF PRESCRIPTION DRUG MONITORING REPORT IN PATIENT MAN: Not Applicable Instructions: Constipation, Adult, [id number], Abdominal Pain, Adult, [id number] Referrals: Deniz Ceballos MD [Primary Care Provider] - Additional Instructions: Patient instructed to use MiraLAX daily and titrate use for a daily, soft, formed, easy to pass bowel movement. Patient advised to follow-up with his primary care physician. Patient advised to follow-up with his abdominal surgeon and to ensure proper function and discharge from his drain.
[2020-10-09 16:27] VITALS: BP 147/101; PULSE 78
[2020-10-09] MEDS ORDERED: Polyethylene Glycol 3350 Powder 17 GM Packet PO ONE ×2 (16:30→16:36)
== END 2020-10-09 16:50 | disposition home or self-care (01) ==
LOC: FB.ED 13:50
DX: K59.03 Drug induced constipation (principal); T50.905A Adverse effect of unspecified drugs, medicaments and biological substances, initial encounter; E78.00 Pure hypercholesterolemia, unspecified; I10 Essential (primary) hypertension; E66.9 Obesity, unspecified; Z79.899 Other long term (current) drug therapy; Z68.29 Body mass index [BMI] 29.0-29.9, adult
CPT/HCPCS: 36415; 74018; 80053; 85025; 96374; 96375; 99284; A9270; J1885; J2270; J2405; J7120

== ENCOUNTER 2020-10-15 16:02 | Emergency (ER) | payer MEDICAID ==
[2020-10-15 16:08] VITALS: BP 157/107; PULSE 94
[2020-10-15] MEDS ORDERED: Ketorolac 30 MG/ML SDV IVPUSH ONE (16:19)
[2020-10-15] MEDS ORDERED: Ondansetron 4 MG/2 ML SDV IVPUSH ONE (16:19)
--- NOTE | 2020-10-15 16:19 | EDM.PDOC ---
ED HPI GENERAL MEDICAL PROBLEM - General Chief Complaint: Abdominal Pain Stated Complaint: ABD PAIN Time Seen by Provider: 10/15/20 16:05 Source of Information: Reports: Patient History Limitations: Reports: No Limitations - History of Present Illness INITIAL COMMENTS - FREE TEXT/NARRATIVE: pt with Hx of acute pancreatitis 3 months ago followed by explanatory laboratory comes in with c/o recurrent abd pain, states it just keep coming back he was feeling fine yesterday morning but since the evening pain has been steady, pt report nausea , and watery diarrhea since yesterday denies emesis or fever or chills or any other medical concerns or any other associated sx. Lower Abdominal Pain Score (Numeric/FACES): 8 - Related Data Allergies Allergy/AdvReac Type Severity Reaction Status Date / Time No Known Allergies Allergy Verified 10/09/20 14:46 Home Meds: Home Meds Fenofibrate 160 mg PO DAILY 09/05/20 [History] Rosuvastatin [Crestor] 10 mg PO DAILY 09/05/20 [History] QUEtiapine [SEROquel] 150 mg PO TID 09/06/20 [History] Sennosides/Docusate Sodium [Senna-S] 2 each PO DAILY PRN #30 tablet 09/10/20 [Rx] atenoloL [Atenolol] 25 mg PO DAILY 09/10/20 [History] Past Medical History HEENT History: Reports: Impaired Vision Cardiovascular History: Reports: High Cholesterol, Hypertension Gastrointestinal History: Reports: Gastritis, Pancreatitis Other Gastrointestinal History: HX OF PANCREATITIS Musculoskeletal History: Reports: Back Pain, Chronic, Fracture, Other (See Below) Other Musculoskeletal History: Intervertebral disk disease Neurological History: Reports: Concussion Other Neuro History: concussion x 2 Psychiatric History: Reports: ADD, Addiction, Anxiety, Bipolar, Depression, Hallucinations, Panic Attack, Psych Hospitalization(s), Suicide Attempt Other Psychiatric History: ALCOHOL ABUSE Endocrine/Metabolic History: Reports: Obesity/BMI 30+ - Infectious Disease History Infectious Disease History: Reports: Chicken Pox - Past Surgical History HEENT Surgical History: Reports: None Cardiovascular Surgical History: Reports: None GI Surgical History: Reports: Appendectomy, Other (See Below) Other GI Surgeries/Procedures: Exploratory Laparatomy Neurological Surgical History: Reports: Discectomy, Lumbar Spine Other Neurological Surgeries/Procedures: disc surgery Musculoskeletal Surgical History: Reports: Other (See Below) Other Musculoskeletal Surgeries/Procedures:: hx back surgery (discetomy) Dermatological Surgical History: Reports: None Social & Family History - Family History Family Medical History: No Pertinent Family History Cardiac: Reports: None GI: Reports: None Neurological: Reports: None Psychiatric: Reports: None Endocrine/Metabolic: Reports: None - Caffeine Use Caffeine Use: Reports: None - Living Situation & Occupation Living situation: Reports: Occupation: Unemployed (He reports that he is currently not working.) ED ROS GENERAL - Review of Systems Review Of Systems: See Below Constitutional: Reports: Fatigue. Denies: Fever, Chills HEENT: Reports: No Symptoms Respiratory: Reports: No Symptoms Cardiovascular: Reports: No Symptoms GI/Abdominal: Reports: Abdominal Pain, Anorexia, Diarrhea, Nausea. Denies: Flatus, Hematemesis, Melena, Mucous in Stool, Stool Incontinence, Vomiting : Reports: No Symptoms Musculoskeletal: Reports: No Symptoms Skin: Reports: No Symptoms Neurological: Reports: No Symptoms ED EXAM, GENERAL - Physical Exam Exam: See Below Exam Limited By: No Limitations General Appearance: Alert, Mild Distress, Moderate Distress Eye Exam: Bilateral Eye: Normal Inspection Throat/Mouth: Normal Inspection, Other (dry oral mucosa ) Head: Atraumatic Neck: Normal Inspection Respiratory/Chest: No Respiratory Distress, Lungs Clear Cardiovascular: Normal Peripheral Pulses, Regular Rate, Rhythm GI/Abdominal: Normal Bowel Sounds, Soft, Tender. No: No Distention, Distended, Guarding, Rigid Back Exam: Normal Inspection Neurological: Alert, CN II-XII Intact, No Motor/Sensory Deficits Skin Exam: Warm, Dry Course - Vital Signs Text/Narrative:: pt has recurrent chronic abdominal pain , there are no signs of acute abd on exam and labs are reassuring , pt is comfortable after fluids, Toradol Zofran and then Dilaudid , he is medically stable for discharge. pt was asked to use own pain medications at home for this recurrent chronic pain and to follow closely with PCP on this issue for mng of chronic pain and future evaluations of its etiology. Last Recorded V/S: Last Vital Signs Temp 36.6 C 10/15/20 16:15 Pulse 94 10/15/20 16:15 Resp 16 10/15/20 16:15 BP 157/107 H 10/15/20 16:15 Pulse Ox 99 10/15/20 16:15 - Orders/Labs/Meds Orders: Active Orders 24 hr Category Date Time Status Sodium Chloride 0.9% [Normal Saline] 1,000 ml Med 10/15/20 16:52 Active IV .BOLUS Medication Orders Sodium Chloride (Normal Saline) 1,000 mls @ 999 mls/hr IV .BOLUS ONE Stop: 10/15/20 17:52 Last Admin: 10/15/20 16:53 Dose: 999 mls/hr Documented by: ANTHONY Labs: Laboratory Tests 10/15/20 10/15/20 10/15/20 Range/Units 16:28 16:28 16:28 WBC 7.8 (3.2-10.1) x10-3/uL RBC 4.12 (3.90-5.90) x10(6)uL Hgb 11.5 L (12.9-17.7) g/dL Hct 34.8 L (38.3-50.1) % MCV 84.4 (80.8-98.7) fL MCH 28.0 (27.0-33.3) pg MCHC 33.1 (28.7-35.3) g/dL RDW 15.3 H (12.4-15.0) % Plt Count 418 (117-477) x10(3)uL Sodium 141 (135-145) mmol/L Potassium 3.8 (3.5-5.3) mmol/L Chloride 102 (100-110) mmol/L Carbon Dioxide 23 (21-32) mmol/L BUN 21 H (7-18) mg/dL Creatinine 1.1 (0.70-1.30) mg/dL Est Cr Clr Drug Dosing 99.55 mL/min Estimated GFR (MDRD) > 60 (>60) BUN/Creatinine Ratio 19.1 (9-20) Glucose 102 (80-116) mg/dL Calcium 10.0 (8.6-10.2) mg/dL Total Bilirubin 0.4 (0.1-1.3) mg/dL AST 20 D (5-25) IU/L ALT 40 H D (12-36) U/L Alkaline Phosphatase 121 H (56-112) IU/L Total Protein 8.5 H (6.0-8.0) g/dL Albumin 3.7 (3.5-5.2) g/dL Globulin 4.8 g/dL Albumin/Globulin Ratio 0.8 Amylase 51 (25-115) U/L Lipase 151 (73-393) U/L Meds: Medications Generic Name Dose Route Start Last Admin Trade Name Samantha PRN Reason Stop Dose Admin Sodium Chloride 1,000 mls @ 999 mls/hr 10/15/20 16:52 10/15/20 16:53 Normal Saline IV 10/15/20 17:52 999 mls/hr .BOLUS ONE Administration Discontinued Medications Generic Name Dose Route Start Last Admin Trade Name Samantha PRN Reason Stop Dose Admin Ketorolac Tromethamine 30 mg 10/15/20 16:19 10/15/20 16:48 Ketorolac 30 Mg/Ml Sdv IVPUSH 10/15/20 16:20 30 mg ONETIME ONE Administration Ondansetron HCl 4 mg 10/15/20 16:19 10/15/20 16:48 Ondansetron 4 Mg/2 Ml Sdv IVPUSH 10/15/20 16:20 4 mg ONETIME ONE Administration Departure - Departure Time of Disposition: 17:26 Disposition: Home, Self-Care 01 Clinical Impression: Chronic abdominal pain - Discharge Information Forms: ED Department Discharge Sepsis Event Note (ED) - Evaluation Sepsis Screening Result: No Definite Risk - Focused Exam Vital Signs: Vital Signs Temp Pulse Resp BP Pulse Ox 10/15/20 16:15 36.6 C 94 16 157/107 H 99 10/15/20 16:05 36.6 C 94 16 157/107 H 99 - My Orders Last 24 Hours: My Active Orders 10/15/20 16:52 Sodium Chloride 0.9% [Normal Saline] 1,000 ml IV .BOLUS - Assessment/Plan Last 24 Hours: My Active Orders 10/15/20 16:52 Sodium Chloride 0.9% [Normal Saline] 1,000 ml IV .BOLUS
[2020-10-15] MEDS ORDERED: Sodium Chloride 0.9% 10 ML SDV IV SCH (16:30)
[2020-10-15] MEDS ORDERED: Sodium Chloride 0.9% 1,000 ML IV ONE (16:52)
[2020-10-15] MEDS ORDERED: HYDROmorphone 2 MG/ML SDV IVPUSH ONE (17:26)
== END 2020-10-15 18:04 | disposition home or self-care (01) ==
LOC: FB.ED 16:02
DX: R10.9 Unspecified abdominal pain (principal); G89.29 Other chronic pain; E78.00 Pure hypercholesterolemia, unspecified; I10 Essential (primary) hypertension; E66.9 Obesity, unspecified; Z68.25 Body mass index [BMI] 25.0-25.9, adult; Z79.899 Other long term (current) drug therapy
CPT/HCPCS: 36415; 80053; 82150; 83690; 85027; 96374; 96375; 99284; J1170; J1885; J2405; J7030

== ENCOUNTER 2020-10-17 02:31 | Emergency (ER) | payer MEDICAID ==
[2020-10-17 02:47] VITALS: BP 147/97; PULSE 75
--- NOTE | 2020-10-17 03:25 | EDM.PDOC ---
ED HPI GENERAL MEDICAL PROBLEM - General Chief Complaint: General Stated Complaint: LEFT SIDED NUMBNESS Time Seen by Provider: 10/17/20 03:05 Source of Information: Reports: Patient History Limitations: Reports: No Limitations - History of Present Illness INITIAL COMMENTS - FREE TEXT/NARRATIVE: 34-year-old gentleman with a past medical history significant for cryptitis with sepsis and ICU stay with extended chemical ventilation came to the emergency department due to left sided numbness and tingling. He states that he has been well and had no complaints prior to tonight. He denies fever, chills, cough, change in bowel or bladder habits. He states that he awoke from sleep tonight with a "tingly feeling inside that he cannot get to." He complains of numbness in his left lower extremity. Abdominal Pain Score (Numeric/FACES): 5 - Related Data Allergies Allergy/AdvReac Type Severity Reaction Status Date / Time No Known Allergies Allergy Verified 10/09/20 14:46 Home Meds: Home Meds Fenofibrate 160 mg PO DAILY 09/05/20 [History] Rosuvastatin [Crestor] 10 mg PO DAILY 09/05/20 [History] QUEtiapine [SEROquel] 150 mg PO TID 09/06/20 [History] Sennosides/Docusate Sodium [Senna-S] 2 each PO DAILY PRN #30 tablet 09/10/20 [Rx] atenoloL [Atenolol] 25 mg PO DAILY 09/10/20 [History] Past Medical History HEENT History: Reports: Impaired Vision Cardiovascular History: Reports: High Cholesterol, Hypertension Gastrointestinal History: Reports: Gastritis, Pancreatitis Other Gastrointestinal History: HX OF PANCREATITIS Musculoskeletal History: Reports: Back Pain, Chronic, Fracture, Other (See Below) Other Musculoskeletal History: Intervertebral disk disease Neurological History: Reports: Concussion Other Neuro History: concussion x 2 Psychiatric History: Reports: ADD, Addiction, Anxiety, Bipolar, Depression, Hallucinations, Panic Attack, Psych Hospitalization(s), Suicide Attempt Other Psychiatric History: ALCOHOL ABUSE Endocrine/Metabolic History: Reports: Obesity/BMI 30+ - Infectious Disease History Infectious Disease History: Reports: Chicken Pox - Past Surgical History HEENT Surgical History: Reports: None Cardiovascular Surgical History: Reports: None GI Surgical History: Reports: Appendectomy, Other (See Below) Other GI Surgeries/Procedures: Exploratory Laparatomy Neurological Surgical History: Reports: Discectomy, Lumbar Spine Other Neurological Surgeries/Procedures: disc surgery Musculoskeletal Surgical History: Reports: Other (See Below) Other Musculoskeletal Surgeries/Procedures:: hx back surgery (discetomy) Dermatological Surgical History: Reports: None Social & Family History - Family History Family Medical History: No Pertinent Family History Cardiac: Reports: None GI: Reports: None Neurological: Reports: None Psychiatric: Reports: None Endocrine/Metabolic: Reports: None - Caffeine Use Caffeine Use: Reports: Coffee, Soda - Recreational Drug Use Recreational Drug Use: No - Living Situation & Occupation Living situation: Reports: Occupation: Unemployed (He reports that he is currently not working.) ED ROS GENERAL - Review of Systems Review Of Systems: See Below Constitutional: Reports: Fatigue HEENT: Reports: No Symptoms Respiratory: Reports: No Symptoms Cardiovascular: Reports: No Symptoms Endocrine: Reports: No Symptoms GI/Abdominal: Reports: No Symptoms : Reports: No Symptoms Musculoskeletal: Reports: No Symptoms Skin: Reports: No Symptoms Neurological: Reports: Numbness, Paresthesia, Tingling, Weakness Psychiatric: Reports: No Symptoms Hematologic/Lymphatic: Reports: No Symptoms Immunologic: Reports: No Symptoms ED EXAM, GENERAL - Physical Exam Exam: See Below Exam Limited By: No Limitations General Appearance: Anxious Eye Exam: Bilateral Eye: EOMI Throat/Mouth: Normal Inspection Head: Atraumatic, Normocephalic Neck: Normal Inspection Respiratory/Chest: No Respiratory Distress, Lungs Clear, Normal Breath Sounds Cardiovascular: Regular Rate, Rhythm Peripheral Pulses: 2+: Radial (L), Radial (R), Dorsalis Pedis (L), Dorsalis Pedis (R) GI/Abdominal: Normal Bowel Sounds Back Exam: Normal Inspection Extremities: Normal Inspection Neurological: Alert, Oriented, CN II-XII Intact, Normal Cognition, Other (Proprioception intact upper and lower extremities bilateral, upper test is negative, strength is 5 out of 5 bilateral but note that patient expresses mild difference in feeling on the left side compared to the right with decreased sensation to touch the left) Skin Exam: Warm, Dry, Intact Course - Vital Signs Text/Narrative:: Review of labs are grossly within normal limits and normal for this patient. This patient has chronic anemia. CT is negative. Patient agreed to discharge to home and follow-up with primary care physician and/or neurology. Last Recorded V/S: Last Vital Signs Temp 36.8 C 10/17/20 02:36 Pulse 75 10/17/20 02:36 Resp 18 10/17/20 02:36 BP 147/97 H 10/17/20 02:36 Pulse Ox 100 10/17/20 02:36 - Orders/Labs/Meds Orders: Active Orders 24 hr Category Date Time Status Head wo Cont [CT] Stat Exams 10/17/20 03:19 Taken Labs: Laboratory Tests 10/17/20 10/17/20 Range/Units 03:33 03:33 WBC 6.0 (3.2-10.1) x10-3/uL RBC 3.77 L (3.90-5.90) x10(6)uL Hgb 10.7 L (12.9-17.7) g/dL Hct 31.9 L (38.3-50.1) % MCV 84.7 (80.8-98.7) fL MCH 28.3 (27.0-33.3) pg MCHC 33.4 (28.7-35.3) g/dL RDW 15.3 H (12.4-15.0) % Plt Count 357 (117-477) x10(3)uL MPV 7.6 (6.7-11.0) fL Neut % (Auto) 62.0 (40.3-71.8) % Lymph % (Auto) 26.1 (15.8-45.3) % Ware % (Auto) 7.7 (5.5-15.2) % Eos % (Auto) 3.2 (0.1-6.8) % Baso % (Auto) 1.0 (0.3-3.8) % Neut # (Auto) 3.7 (1.7-6.9) x10-3/uL Lymph # (Auto) 1.6 (0.5-4.5) x10-3/uL Ware # (Auto) 0.5 (0.0-1.2) x10-3/uL Eos # (Auto) 0.2 (0.0-0.6) x10-3/uL Baso # (Auto) 0.1 (0.0-0.3) x10-3/uL Sodium 140 (135-145) mmol/L Potassium 3.8 (3.5-5.3) mmol/L Chloride 103 (100-110) mmol/L Carbon Dioxide 26 (21-32) mmol/L BUN 18 (7-18) mg/dL Creatinine 1.1 (0.70-1.30) mg/dL Est Cr Clr Drug Dosing TNP Estimated GFR (MDRD) > 60 (>60) BUN/Creatinine Ratio 16.4 (9-20) Glucose 110 (80-116) mg/dL Calcium 9.3 (8.6-10.2) mg/dL Total Bilirubin 0.2 (0.1-1.3) mg/dL AST 24 D (5-25) IU/L ALT 39 H (12-36) U/L Alkaline Phosphatase 109 (56-112) IU/L Total Protein 7.8 (6.0-8.0) g/dL Albumin 3.5 (3.5-5.2) g/dL Globulin 4.3 g/dL Albumin/Globulin Ratio 0.8 Departure - Departure Time of Disposition: 05:04 Disposition: Home, Self-Care 01 Condition: Good Clinical Impression: Paresthesia and pain of left extremity - Discharge Information *PRESCRIPTION DRUG MONITORING PROGRAM REVIEWED*: Not Applicable *COPY OF PRESCRIPTION DRUG MONITORING REPORT IN PATIENT MAN: Not Applicable Instructions: Paresthesia, [id number] Referrals: PCP,None [Primary Care Provider] - Forms: ED Department Discharge Additional Instructions: Patient advised to follow-up with primary care physician and/or neurology. Patient advised to return if symptoms worsen. Sepsis Event Note (ED) - Focused Exam Vital Signs: Vital Signs Temp Pulse Resp BP Pulse Ox 10/17/20 02:36 36.8 C 75 18 147/97 H 100 - My Orders Last 24 Hours: My Active Orders 10/17/20 03:19 Head wo Cont [CT] Stat - Assessment/Plan Last 24 Hours: My Active Orders 10/17/20 03:19 Head wo Cont [CT] Stat
== END 2020-10-17 05:24 | disposition home or self-care (01) ==
LOC: FB.ED 02:31
DX: R20.2 Paresthesia of skin (principal); M79.662 Pain in left lower leg; I10 Essential (primary) hypertension; E78.00 Pure hypercholesterolemia, unspecified; E66.9 Obesity, unspecified; Z79.899 Other long term (current) drug therapy
CPT/HCPCS: 36415; 70450; 80053; 85025; 99284-25

== ENCOUNTER 2020-10-20 10:51 | Emergency (ER) | payer MEDICAID ==
[2020-10-20] MEDS ORDERED: Lactated Ringers 1,000 ML IV ONE (10:55)
[2020-10-20] MEDS ORDERED: HYDROmorphone 2 MG/ML SDV IVPUSH ONE ×5 (10:56→16:34)
[2020-10-20] MEDS ORDERED: Ondansetron 4 MG/2 ML SDV IVPUSH ONE ×2 (10:57→15:08)
--- NOTE | 2020-10-20 11:21 | EDM.PDOC ---
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 No fever. He was seen in [place] yesterday by radiology to assess if his drain was functioning properly and was told that it was. Wm has not been able to eat or drink for over 24 hrs he says. He last took a Moody yesterday without relief. Onset: Gradual Onset Date: 10/18/20 Duration: Day(s):, Getting Worse Location: Reports: Abdomen Quality: Reports: Ache Severity: Severe Improves with: Reports: Medication Worsens with: Reports: Other (unsure) Context: Reports: Other (See HPI) Associated Symptoms: Reports: Nausea/Vomiting. Denies: Fever/Chills Treatments DIRECTOR ADVANCED: Reports: Other (see below) (none) - Related Data Allergies Allergy/AdvReac Type Severity Reaction Status Date / Time No Known Allergies Allergy Verified 10/09/20 14:46 Home Meds: Home Meds Fenofibrate 160 mg PO DAILY 09/05/20 [History] Rosuvastatin [Crestor] 10 mg PO DAILY 09/05/20 [History] QUEtiapine [SEROquel] 150 mg PO TID 09/06/20 [History] Sennosides/Docusate Sodium [Senna-S] 2 each PO DAILY PRN #30 tablet 09/10/20 [Rx] atenoloL [Atenolol] 25 mg PO DAILY 09/10/20 [History] Famotidine 40 mg PO DAILY #30 tablet 10/20/20 [Rx] Hydrocodone/Acetaminophen [HYDROcodone-Acetaminophen 7.5-325 MG] 1 - 2 each PO QID PRN #12 tablet 10/20/20 [Rx] Ondansetron [Zofran ODT] 4 mg PO Q6H PRN #10 tab.dis 10/20/20 [Rx] Past Medical History HEENT History: Reports: Impaired Vision Cardiovascular History: Reports: High Cholesterol, Hypertension Gastrointestinal History: Reports: Gastritis, Pancreatitis Other Gastrointestinal History: HX OF PANCREATITIS Musculoskeletal History: Reports: Back Pain, Chronic, Fracture, Other (See Below) Other Musculoskeletal History: Intervertebral disk disease Neurological History: Reports: Concussion Other Neuro History: concussion x 2 Psychiatric History: Reports: ADD, Addiction, Anxiety, Bipolar, Depression, Hallucinations, Panic Attack, Psych Hospitalization(s), Suicide Attempt Other Psychiatric History: ALCOHOL ABUSE Endocrine/Metabolic History: Reports: Obesity/BMI 30+ - Infectious Disease History Infectious Disease History: Reports: Chicken Pox - Past Surgical History HEENT Surgical History: Reports: None Cardiovascular Surgical History: Reports: None GI Surgical History: Reports: Appendectomy, Other (See Below) Other GI Surgeries/Procedures: Exploratory Laparatomy Neurological Surgical History: Reports: Discectomy, Lumbar Spine Other Neurological Surgeries/Procedures: disc surgery Musculoskeletal Surgical History: Reports: Other (See Below) Other Musculoskeletal Surgeries/Procedures:: hx back surgery (discetomy) Dermatological Surgical History: Reports: None Social & Family History - Family History Family Medical History: No Pertinent Family History Cardiac: Reports: None GI: Reports: None Neurological: Reports: None Psychiatric: Reports: None Endocrine/Metabolic: Reports: None - Caffeine Use Caffeine Use: Reports: Coffee, Soda - Living Situation & Occupation Living situation: Reports: Occupation: Unemployed (He reports that he is currently not working.) ED ROS GENERAL - Review of Systems Review Of Systems: See Below Constitutional: Reports: No Symptoms HEENT: Reports: No Symptoms Cardiovascular: Reports: No Symptoms GI/Abdominal: Reports: Abdominal Pain, Nausea, Vomiting. Denies: Constipation, Diarrhea : Reports: No Symptoms Musculoskeletal: Reports: No Symptoms Skin: Reports: No Symptoms Neurological: Reports: No Symptoms ED EXAM, GI/ABD - Physical Exam Exam: See Below Exam Limited By: No Limitations General Appearance: Alert, WD/WN, Moderate Distress Eyes: Bilateral: Normal Appearance Ears: Normal External Exam, Normal Canal, Hearing Grossly Normal Nose: Normal Inspection, No Blood Throat/Mouth: Normal Inspection, Normal Lips, Normal Oropharynx, Normal Voice, No Airway Compromise Head: Atraumatic, Normocephalic Neck: Normal Inspection Respiratory/Chest: No Respiratory Distress, Lungs Clear, Normal Breath Sounds, No Accessory Muscle Use Cardiovascular: Regular Rate, Rhythm, No Edema GI/Abdominal Exam: Tender (diffusely), Abnormal Bowel Sounds (increased), Other (old surgical scars present, drain on left side of abdomen that appears to be functioning. ). No: Non-Tender, Distended Back Exam: Normal Inspection Extremities: Normal Inspection, Normal Range of Motion, Non-Tender, No Pedal Edema. No: Pedal Edema Neurological: Alert, Oriented, CN II-XII Intact, Normal Cognition, No Motor/Sensory Deficits Psychiatric: Normal Affect, Normal Mood Skin Exam: Warm, Dry, Intact, Normal Color, No Rash Course - Vital Signs Text/Narrative:: [facility] called @ 1511h, Dr. [place], hosopitalized advised. Will call back when a bed is available. Last Recorded V/S: Last Vital Signs Temp 37.4 C 10/20/20 10:51 Pulse 100 10/20/20 10:51 Resp 20 10/20/20 10:51 BP 136/86 10/20/20 10:51 Pulse Ox 100 10/20/20 10:51 - Orders/Labs/Meds Orders: Active Orders 24 hr Category Date Time Status NS + KCl 20mEq/L [Normal Saline with 20 mEq KCl] 1,000 Med 10/20/20 12:00 Active ml IV ASDIRECTED NS + KCl 20mEq/L [Normal Saline with 20 mEq KCl] 1,000 Med 10/20/20 16:45 Active ml IV ASDIRECTED Medication Orders Potassium Chloride/Sodium Chloride (Normal Saline With 20 Meq Kcl) 1,000 mls @ 500 mls/hr IV ASDIRECTED RAHAT Last Admin: 10/20/20 11:59 Dose: 500 mls/hr Documented by: CHANTE Potassium Chloride/Sodium Chloride (Normal Saline With 20 Meq Kcl) 1,000 mls @ 150 mls/hr IV ASDIRECTED RAHAT Last Admin: 10/20/20 16:55 Dose: 150 mls/hr Documented by: CHANTE Labs: Laboratory Tests 10/20/20 10/20/20 10/20/20 Range/Units 11:10 11:10 11:10 WBC 7.7 (3.2-10.1) x10-3/uL RBC 3.83 L (3.90-5.90) x10(6)uL Hgb 10.6 L (12.9-17.7) g/dL Hct 32.0 L (38.3-50.1) % MCV 83.7 (80.8-98.7) fL MCH 27.6 (27.0-33.3) pg MCHC 32.9 (28.7-35.3) g/dL RDW 15.2 H (12.4-15.0) % Plt Count 356 (117-477) x10(3)uL Sodium 138 (135-145) mmol/L Potassium 3.6 (3.5-5.3) mmol/L Chloride 99 L (100-110) mmol/L Carbon Dioxide 24 (21-32) mmol/L BUN 12 (7-18) mg/dL Creatinine 1.2 (0.70-1.30) mg/dL Est Cr Clr Drug Dosing TNP Estimated GFR (MDRD) > 60 (>60) BUN/Creatinine Ratio 10.0 (9-20) Glucose 116 (80-116) mg/dL Calcium 9.8 (8.6-10.2) mg/dL Magnesium (1.8-2.5) mg/dL Total Bilirubin 0.9 (0.1-1.3) mg/dL AST 26 H (5-25) IU/L ALT 39 H (12-36) U/L Alkaline Phosphatase 116 H (56-112) IU/L Total Protein 8.1 H (6.0-8.0) g/dL Albumin 3.4 L (3.5-5.2) g/dL Globulin 4.7 g/dL Albumin/Globulin Ratio 0.7 Lipase 85 (73-393) U/L 08// Range/Units 11:10 WBC (3.2-10.1) x10-3/uL RBC (3.90-5.90) x10(6)uL Hgb (12.9-17.7) g/dL Hct (38.3-50.1) % MCV (80.8-98.7) fL MCH (27.0-33.3) pg MCHC (28.7-35.3) g/dL RDW (12.4-15.0) % Plt Count (117-477) x10(3)uL Sodium (135-145) mmol/L Potassium (3.5-5.3) mmol/L Chloride (100-110) mmol/L Carbon Dioxide (21-32) mmol/L BUN (7-18) mg/dL Creatinine (0.70-1.30) mg/dL Est Cr Clr Drug Dosing Estimated GFR (MDRD) (>60) BUN/Creatinine Ratio (9-20) Glucose (80-116) mg/dL Calcium (8.6-10.2) mg/dL Magnesium 1.4 L (1.8-2.5) mg/dL Total Bilirubin (0.1-1.3) mg/dL AST (5-25) IU/L ALT (12-36) U/L Alkaline Phosphatase (56-112) IU/L Total Protein (6.0-8.0) g/dL Albumin (3.5-5.2) g/dL Globulin g/dL Albumin/Globulin Ratio Lipase (73-393) U/L Meds: Medications Generic Name Dose Route Start Last Admin Trade Name Freq PRN Reason Stop Dose Admin Potassium Chloride/Sodium Chloride 1,000 mls @ 500 mls/hr 10/20/20 12:00 10/20/20 11:59 Normal Saline With 20 Meq Kcl IV 500 mls/hr ASDIRECTED RAHAT Administration Potassium Chloride/Sodium Chloride 1,000 mls @ 150 mls/hr 10/20/20 16:45 10/20/20 16:55 Normal Saline With 20 Meq Kcl IV 150 mls/hr ASDIRECTED RAHAT Administration Discontinued Medications Generic Name Dose Route Start Last Admin Trade Name Freq PRN Reason Stop Dose Admin Al Hydroxide/Mg Hydroxide 15 0 ml 10/20/20 11:50 10/20/20 12:26 ml/ Lidocaine HCl 15 ml PO 10/20/20 11:51 30 ml ONETIME ONE Administration Famotidine 20 mg 10/20/20 16:35 10/20/20 16:54 Famotidine 20 Mg/2 Ml Sdv IVPUSH 10/20/20 16:36 20 mg ONETIME ONE Administration Hydromorphone HCl 1 mg 10/20/20 10:56 10/20/20 11:07 Hydromorphone 2 Mg/Ml Sdv IVPUSH 10/20/20 10:57 1 mg ONETIME ONE Administration Hydromorphone HCl 1 mg 10/20/20 11:34 10/20/20 11:45 Hydromorphone 2 Mg/Ml Sdv IVPUSH 10/20/20 11:35 1 mg ONETIME ONE Administration Hydromorphone HCl 0.5 mg 10/20/20 13:34 10/20/20 14:01 Hydromorphone 2 Mg/Ml Sdv IVPUSH 10/20/20 13:35 0.5 mg ONETIME ONE Administration Hydromorphone HCl 1 mg 10/20/20 15:27 10/20/20 15:32 Hydromorphone 2 Mg/Ml Sdv IVPUSH 10/20/20 15:28 1 mg ONETIME ONE Administration Hydromorphone HCl 0.5 mg 10/20/20 16:34 10/20/20 16:54 Hydromorphone 2 Mg/Ml Sdv IVPUSH 10/20/20 16:35 0.5 mg ONETIME ONE Administration Lactated Ringer's 1,000 mls @ 1,000 mls/hr 10/20/20 10:55 10/20/20 11:09 Ringers, Lactated IV 10/20/20 11:54 1,000 mls/hr BOLUS ONE Administration Magnesium Sulfate 2 gm/ Premix 50 mls @ 50 mls/hr 10/20/20 12:42 10/20/20 12:54 IV 10/20/20 13:41 50 mls/hr ONETIME ONE Administration Iopamidol 100 ml 10/20/20 14:22 10/20/20 14:40 Iopamidol 755 Mg/Ml 100 Ml Bottle IV 10/20/20 14:23 100 ml . DIRECTED ONE Administration Ondansetron HCl 4 mg 10/20/20 10:57 10/20/20 11:07 Ondansetron 4 Mg/2 Ml Sdv IVPUSH 10/20/20 10:58 4 mg ONETIME ONE Administration Ondansetron HCl 4 mg 10/20/20 15:08 10/20/20 15:19 Ondansetron 4 Mg/2 Ml Sdv IVPUSH 10/20/20 15:09 4 mg ONETIME ONE Administration - Radiology Interpretation Free Text/Narrative:: CT abd/pelvis with IV contrast-acute on chronic pancreatitis, new and larger cysts since his last CT CT Results Date: 10/20/20 CT Results Time: 15:08 - Re-Assessments/Exams Free Text/Narrative Re-Assessment/Exam: 10/20/20 12:48 slight benefit with GI cocktail po Departure - Departure Time of Disposition: 17:23 Disposition: DC/Tfer to Acute Hospital 02 Condition: Fair Clinical Impression: Hypomagnesemia Chronic pancreatitis Qualifiers: Pancreatitis type: alcohol induced Qualified Code(s): K86.0 - Alcohol-induced chronic pancreatitis Gastritis Qualifiers: Gastritis type: superficial Chronicity: acute Gastritis bleeding: without bleeding Qualified Code(s): K29.00 - Acute gastritis without bleeding Abdominal pain Qualifiers: Abdominal location: generalized Qualified Code(s): R10.84 - Generalized abdominal pain - Discharge Information *PRESCRIPTION DRUG MONITORING PROGRAM REVIEWED*: No *COPY OF PRESCRIPTION DRUG MONITORING REPORT IN PATIENT MAN: No Prescriptions: Famotidine 40 mg PO DAILY #30 tablet Hydrocodone/Acetaminophen [HYDROcodone-Acetaminophen 7.5-325 MG] 1 - 2 each PO QID PRN #12 tablet PRN Reason: Pain Ondansetron [Zofran ODT] 4 mg PO Q6H PRN #10 tab.dis PRN Reason: Nausea Referrals: Deniz Ceballos MD [Primary Care Provider] - Forms: ED Department Discharge Additional Instructions: Take famotidine 40 mg daily starting today for gastritis. Take Zofran as directed for nausea control. Take hydrocodone/APAP as needed for pain relief(may substitute acetaminophen for mild pain). Clear liquid diet today, advance diet slowly as tolerated. F/U with your doctors rama regarding your ongoing pain. Avoid ibuprofen, Aleve, aspirin, carbonated beverages, or alcohol. Sepsis Event Note (ED) - Focused Exam Vital Signs: Vital Signs Temp Pulse Resp BP Pulse Ox 10/20/20 10:51 37.4 C 100 20 136/86 100 - My Orders Last 24 Hours: My Active Orders 10/20/20 12:00 NS + KCl 20mEq/L [Normal Saline with 20 mEq KCl] 1,000 ml IV ASDIRECTED 10/20/20 16:45 NS + KCl 20mEq/L [Normal Saline with 20 mEq KCl] 1,000 ml IV ASDIRECTED - Assessment/Plan Last 24 Hours: My Active Orders 10/20/20 12:00 NS + KCl 20mEq/L [Normal Saline with 20 mEq KCl] 1,000 ml IV ASDIRECTED 10/20/20 16:45 NS + KCl 20mEq/L [Normal Saline with 20 mEq KCl] 1,000 ml IV ASDIRECTED
[2020-10-20] MEDS ORDERED: Alum Hydroxide/Mag Hydroxide 15 ML, Lidocaine 2% 15 ML PO ONE ×2 (11:50)
[2020-10-20] MEDS ORDERED: NS + KCl 20mEq/L 1,000 ML IV SCH ×2 (12:00→16:45)
[2020-10-20 12:42] VITALS: BP 136/86; PULSE 100
[2020-10-20] MEDS ORDERED: Magnesium Sulfate/Water 2 GM in Premix Bag 1 BAG IV ONE (12:42)
[2020-10-20] MEDS ORDERED: Iopamidol 755 Mg/ML 100 ML Bottle IV ONE (14:22)
--- NOTE | 2020-10-20 15:29 | CT ---
INDICATION: History of chronic recurrent pancreatitis, lipase normal, severe pain today. CT ABDOMEN AND PELVIS WITH CONTRAST: Spiral 3.75 mm axial sections were obtained through the abdomen and pelvis with 100 mL [id number] at 2 mL/sec with sagittal and coronal reconstructions 10/20/20 and compared with 07/27/20. Total exam DLP was 557.98 milligray-cm. There is some probable atelectatic change at both lower lobes, right greater than left. There is some pleuroparenchymal change in the area on the right and to a lesser extent on the left which could be at least partly atelectatic on the right. The possibility of fibrosis or even minimal pneumonia and localized pleuritis is difficult to exclude with this appearance especially at the right lower lobe posteriorly at the lung base. The heart was not grossly enlarged. No pericardial effusion was seen. The liver appears to be somewhat generous in size but otherwise unremarkable. The gallbladder appears mildly distended and no definite calculi were seen. The spleen, adrenal glands, and kidneys appeared normal. There is an appearance compatible with recurrent pancreatitis with fluid surrounding the pancreas and extending inferiorly and into the paracolic gutters. The fluid does not appear to reach the pelvis however. The stomach appears to be somewhat distended. No other organomegaly, mass lesions, or free fluid collections were identified in the abdomen or pelvis. There does appear to be a drain extending into a fluid collection apparently postsurgical on the left with a pigtail noted in the apparent fluid collection. The fluid collection is surrounded by a mildly prominent wall and extends into the epigastrium. IMPRESSION: 1. Recurrent pancreatitis with phlegmon and abnormal fluid collections apparently present since the previous pancreatitis with a drain in one of the fluid collections in the left flank. 2. Extensive calcifications at the surgical site in the epigastric area through lower abdomen. 3. Apparent abnormal fluid collection in the mid abdomen inferior to the gastric antrum fairly large in size and apparently new compared with the previous study of July of this year and post previous pancreatitis. Report was called to Dr. Do at 1506 hours 10/20/20. [facility]
[2020-10-20] MEDS ORDERED: Famotidine 20 MG/2 ML SDV IVPUSH ONE (16:35)
== END 2020-10-20 17:35 ==
LOC: FB.ED 10:51
DX: K86.0 Alcohol-induced chronic pancreatitis (principal); K29.00 Acute gastritis without bleeding; E83.42 Hypomagnesemia; E78.00 Pure hypercholesterolemia, unspecified; I10 Essential (primary) hypertension; E66.9 Obesity, unspecified; Z68.30 Body mass index [BMI] 30.0-30.9, adult
CPT/HCPCS: 36415; 74177; 80053; 83690; 83735; 85027; 96365; 96375; 96376; 99285; A9270; J1170; J2405; J3475; J3480; J3490; J7120; Q9967

== ENCOUNTER 2020-12-05 17:43 | Emergency (ER) | payer MEDICAID ==
[2020-12-05] MEDS ORDERED: HYDROmorphone 2 MG/ML SDV IVPUSH ONE ×2 (18:04→19:01)
[2020-12-05] MEDS ORDERED: Sodium Chloride 0.9% 10 ML Syringe FLUSH PRN (18:04)
--- NOTE | 2020-12-05 18:15 | EDM.PDOC ---
<Juan Jose Do G - Last Filed: 12/05/20 18:10> ED HPI GENERAL MEDICAL PROBLEM - General Chief Complaint: Abdominal Pain Stated Complaint: ABD PAIN Time Seen by Provider: 12/05/20 18:00 Source of Information: Reports: Patient, Old Records, RN History Limitations: Reports: No Limitations - History of Present Illness INITIAL COMMENTS - FREE TEXT/NARRATIVE: 35 yo male here with 4 days of progressive abdominal pain. Has had some chills, but no fever. No nausea. Has a pHx of pancreatic pseudocysts and recently spent a month in [place] after having a drain placed in this cyst. He is almost done with the antibiotics that were prescribed to him. He has a pic line. He didn't mention this pain to anyone before coming to the ER. Onset: Gradual Onset Date: 12/01/20 Duration: Day(s): (4), Getting Worse Location: Reports: Abdomen Quality: Reports: Ache Severity: Moderate Improves with: Reports: None Worsens with: Reports: Other (time) Context: Reports: Other (See HPI) Associated Symptoms: Reports: Fever/Chills (no fever). 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 only) - Related Data Allergies Allergy/AdvReac Type Severity Reaction Status Date / Time No Known Allergies Allergy Verified 10/09/20 14:46 Home Meds: Home Meds Fenofibrate 160 mg PO DAILY 09/05/20 [History] Rosuvastatin [Crestor] 10 mg PO DAILY 09/05/20 [History] QUEtiapine [SEROquel] 150 mg PO TID 09/06/20 [History] Sennosides/Docusate Sodium [Senna-S] 2 each PO DAILY PRN #30 tablet 09/10/20 [Rx] atenoloL [Atenolol] 25 mg PO DAILY 09/10/20 [History] Famotidine 40 mg PO DAILY #30 tablet 10/20/20 [Rx] Hydrocodone/Acetaminophen [HYDROcodone-Acetaminophen 7.5-325 MG] 1 - 2 each PO QID PRN #12 tablet 10/20/20 [Rx] Ondansetron [Zofran ODT] 4 mg PO Q6H PRN #10 tab.dis 10/20/20 [Rx] Past Medical History HEENT History: Reports: Impaired Vision Cardiovascular History: Reports: High Cholesterol, Hypertension Gastrointestinal History: Reports: Gastritis, Pancreatitis Other Gastrointestinal History: HX OF PANCREATITIS Musculoskeletal History: Reports: Back Pain, Chronic, Fracture, Other (See Below) Other Musculoskeletal History: Intervertebral disk disease Neurological History: Reports: Concussion Other Neuro History: concussion x 2 Psychiatric History: Reports: ADD, Addiction, Anxiety, Bipolar, Depression, Hallucinations, Panic Attack, Psych Hospitalization(s), Suicide Attempt Other Psychiatric History: ALCOHOL ABUSE Endocrine/Metabolic History: Reports: Obesity/BMI 30+ - Infectious Disease History Infectious Disease History: Reports: Chicken Pox - Past Surgical History HEENT Surgical History: Reports: None Cardiovascular Surgical History: Reports: None GI Surgical History: Reports: Appendectomy, Other (See Below) Other GI Surgeries/Procedures: Exploratory Laparatomy Neurological Surgical History: Reports: Discectomy, Lumbar Spine Other Neurological Surgeries/Procedures: disc surgery Musculoskeletal Surgical History: Reports: Other (See Below) Other Musculoskeletal Surgeries/Procedures:: hx back surgery (discetomy) Dermatological Surgical History: Reports: None Social & Family History - Family History Family Medical History: No Pertinent Family History Cardiac: Reports: None GI: Reports: None Neurological: Reports: None Psychiatric: Reports: None Endocrine/Metabolic: Reports: None - Caffeine Use Caffeine Use: Reports: Coffee - Living Situation & Occupation Living situation: Reports: Occupation: Unemployed (He reports that he is currently not working.) ED ROS GENERAL - Review of Systems Review Of Systems: See Below Constitutional: Reports: Chills. Denies: Fever HEENT: Reports: No Symptoms Respiratory: Reports: No Symptoms Cardiovascular: Reports: No Symptoms Endocrine: Reports: No Symptoms GI/Abdominal: Reports: Abdominal Pain. Denies: Black Stool, Bloody Stool, Constipation, Diarrhea, Hematochezia, Nausea : Reports: No Symptoms Musculoskeletal: Reports: No Symptoms Skin: Reports: No Symptoms Neurological: Reports: No Symptoms Psychiatric: Reports: No Symptoms ED EXAM, GI/ABD - Physical Exam Exam: See Below Exam Limited By: No Limitations General Appearance: Alert, WD/WN, No Apparent Distress Eyes: Bilateral: Normal Appearance Ears: Normal External Exam, Normal Canal, Hearing Grossly Normal Nose: Normal Inspection, No Blood Throat/Mouth: Normal Inspection, Normal Lips, Normal Oropharynx, Normal Voice, No Airway Compromise Head: Atraumatic, Normocephalic Neck: Normal Inspection Respiratory/Chest: No Respiratory Distress, Lungs Clear, Normal Breath Sounds, No Accessory Muscle Use Cardiovascular: Regular Rate, Rhythm, No Edema GI/Abdominal Exam: Normal Bowel Sounds, Soft, No Distention, Tender (upper abdomen), Other (multiple surgical scars). No: Non-Tender, Distended Back Exam: Normal Inspection. No: CVA Tenderness (R), CVA Tenderness (L) Extremities: Normal Inspection, Normal Range of Motion, Non-Tender, No Pedal Edema. No: Pedal Edema Neurological: Alert, Oriented, CN II-XII Intact, Normal Cognition, No Motor/Sensory Deficits Psychiatric: Normal Affect, Normal Mood Skin Exam: Warm, Dry, Intact, Normal Color, No Rash Departure - Departure Disposition: Home, Self-Care 01 Clinical Impression: Dehydration, Chronic abdominal pain - Discharge Information Instructions: Dehydration, Adult, [id number], Abdominal Pain, Adult, [id number] Referrals: Deniz Ceballos MD [Primary Care Provider] - Forms: ED Department Discharge Additional Instructions: Please read discharge instructions on chronic abdominal pain and dehydration Drink 2 liters of fluid daily Continue your pain medication Follow up as needed <Roberto Venegas - Last Filed: 12/05/20 20:32> ED HPI GENERAL MEDICAL PROBLEM - General Source of Information: Reports: Patient History Limitations: Reports: No Limitations Upper Abdomen Pain Score (Numeric/FACES): 8 ED ROS GENERAL - Review of Systems Review Of Systems: See Below Constitutional: Reports: No Symptoms HEENT: Reports: No Symptoms Respiratory: Reports: No Symptoms Cardiovascular: Reports: No Symptoms Endocrine: Reports: No Symptoms GI/Abdominal: Reports: Abdominal Pain : Reports: No Symptoms Musculoskeletal: Reports: No Symptoms Skin: Reports: No Symptoms Neurological: Reports: No Symptoms ED EXAM, GI/ABD - Physical Exam Exam: See Below Exam Limited By: No Limitations General Appearance: Alert, WD/WN, No Apparent Distress Ears: Normal External Exam, Normal Canal, Hearing Grossly Normal Nose: Normal Inspection Throat/Mouth: Normal Inspection, Normal Lips, Normal Teeth, Normal Oropharynx, Normal Voice Head: Atraumatic, Normocephalic Neck: Normal Inspection, Supple Respiratory/Chest: No Respiratory Distress, Lungs Clear, Normal Breath Sounds Cardiovascular: Normal Peripheral Pulses, Regular Rate, Rhythm GI/Abdominal Exam: Normal Bowel Sounds, Soft, No Distention, Other (multiple surgical scars, epigastric tenderness) Back Exam: Normal Inspection, Full Range of Motion Extremities: Normal Inspection, Normal Range of Motion, Non-Tender, No Pedal Edema Neurological: Alert, Oriented, CN II-XII Intact, Normal Cognition Psychiatric: Normal Affect Course - Vital Signs Text/Narrative:: Lab result was reviewed and discussed with patient Last Recorded V/S: Last Vital Signs Temp 36.7 C 12/05/20 17:45 Pulse 89 12/05/20 17:45 Resp 20 12/05/20 17:45 BP 127/83 12/05/20 17:45 Pulse Ox 97 12/05/20 17:45 - Orders/Labs/Meds Orders: Active Orders 24 hr Category Date Time Status UA W/MICROSCOPIC [URIN] Stat Lab 12/05/20 18:05 Ordered Sodium Chloride 0.9% [Normal Saline] 1,000 ml Med 12/05/20 20:30 Ordered IV ASDIRECTED Sodium Chloride 0.9% [Saline Flush] Med 12/05/20 18:04 Active 10 ml FLUSH ASDIRECTED PRN Saline Lock Insert [OM.PC] Routine Oth 12/05/20 18:04 Ordered Medication Orders Sodium Chloride (Normal Saline) 1,000 mls @ 999 mls/hr IV ASDIRECTED RAHAT Sodium Chloride (Sodium Chloride 0.9% 10 Ml Syringe) 10 ml FLUSH ASDIRECTED PRN PRN Reason: Keep Vein Open Labs: Laboratory Tests 12/05/20 12/05/20 12/05/20 Range/Units 18:25 18:25 18:25 WBC 4.3 (3.2-10.1) x10-3/uL RBC 3.78 L (3.90-5.90) x10(6)uL Hgb 10.7 L (12.9-17.7) g/dL Hct 32.1 L (38.3-50.1) % MCV 84.8 (80.8-98.7) fL MCH 28.1 (27.0-33.3) pg MCHC 33.2 (28.7-35.3) g/dL RDW 18.6 H (12.4-15.0) % Plt Count 266 (117-477) x10(3)uL Sodium 145 (135-145) mmol/L Potassium 3.8 (3.5-5.3) mmol/L Chloride 106 D (100-110) mmol/L Carbon Dioxide 28 (21-32) mmol/L BUN 21 H (7-18) mg/dL Creatinine 0.7 (0.70-1.30) mg/dL Est Cr Clr Drug Dosing TNP Estimated GFR (MDRD) > 60 (>60) BUN/Creatinine Ratio 30.0 H (9-20) Glucose 119 H (80-116) mg/dL Calcium 8.9 (8.6-10.2) mg/dL Total Bilirubin 0.4 (0.1-1.3) mg/dL AST 27 H (5-25) IU/L ALT 34 D (12-36) U/L Alkaline Phosphatase 74 (56-112) IU/L C-Reactive Protein (0.5-0.9) mg/dL Total Protein 7.1 (6.0-8.0) g/dL Albumin 3.5 (3.5-5.2) g/dL Globulin 3.6 g/dL Albumin/Globulin Ratio 1.0 Lipase 106 (73-393) U/L // Range/Units 18:25 WBC (3.2-10.1) x10-3/uL RBC (3.90-5.90) x10(6)uL Hgb (12.9-17.7) g/dL Hct (38.3-50.1) % MCV (80.8-98.7) fL MCH (27.0-33.3) pg MCHC (28.7-35.3) g/dL RDW (12.4-15.0) % Plt Count (117-477) x10(3)uL Sodium (135-145) mmol/L Potassium (3.5-5.3) mmol/L Chloride (100-110) mmol/L Carbon Dioxide (21-32) mmol/L BUN (7-18) mg/dL Creatinine (0.70-1.30) mg/dL Est Cr Clr Drug Dosing Estimated GFR (MDRD) (>60) BUN/Creatinine Ratio (9-20) Glucose (80-116) mg/dL Calcium (8.6-10.2) mg/dL Total Bilirubin (0.1-1.3) mg/dL AST (5-25) IU/L ALT (12-36) U/L Alkaline Phosphatase (56-112) IU/L C-Reactive Protein < 0.2 L (0.5-0.9) mg/dL Total Protein (6.0-8.0) g/dL Albumin (3.5-5.2) g/dL Globulin g/dL Albumin/Globulin Ratio Lipase (73-393) U/L Meds: Medications Generic Name Dose Route Start Last Admin Trade Name Dagobertoq PRN Reason Stop Dose Admin Sodium Chloride 1,000 mls @ 999 mls/hr 12/05/20 20:30 Normal Saline IV ASDIRECTED RAHAT Sodium Chloride 10 ml 12/05/20 18:04 Sodium Chloride 0.9% 10 Ml Syringe FLUSH ASDIRECTED PRN Keep Vein Open Discontinued Medications Generic Name Dose Route Start Last Admin Trade Name Samantha PRN Reason Stop Dose Admin Hydromorphone HCl 1 mg 12/05/20 18:04 12/05/20 18:22 Hydromorphone 2 Mg/Ml Sdv IVPUSH 12/05/20 18:05 1 mg ONETIME ONE Administration Hydromorphone HCl 1 mg 12/05/20 19:01 Hydromorphone 2 Mg/Ml Sdv IVPUSH 12/05/20 19:02 ONETIME ONE Departure - Departure Time of Disposition: 21:30 Condition: Good Sepsis Event Note (ED) - Focused Exam Vital Signs: Vital Signs Temp Pulse Resp BP Pulse Ox 12/05/20 17:45 36.7 C 89 20 127/83 97 - My Orders Last 24 Hours: My Active Orders 12/05/20 20:30 Sodium Chloride 0.9% [Normal Saline] 1,000 ml IV ASDIRECTED - Assessment/Plan Last 24 Hours: My Active Orders 12/05/20 20:30 Sodium Chloride 0.9% [Normal Saline] 1,000 ml IV ASDIRECTED
[2020-12-05] MEDS ORDERED: Sodium Chloride 0.9% 1,000 ML IV SCH (20:30)
[2020-12-05] MEDS ORDERED: Heparin Sodium 10 Units/ML 5 ML Syringe FLUSH PRN (21:25)
[2020-12-06 03:24] VITALS: BP 123/78; PULSE 71
== END 2020-12-05 21:50 | disposition home or self-care (01) ==
LOC: FB.ED 17:43 → SUPCPDRO 17:43 → FB.ED 21:50
DX: R10.13 Epigastric pain (principal); G89.29 Other chronic pain; E86.0 Dehydration; E78.00 Pure hypercholesterolemia, unspecified; I10 Essential (primary) hypertension; E66.9 Obesity, unspecified; Z68.25 Body mass index [BMI] 25.0-25.9, adult
CPT/HCPCS: 36415; 80053; 81001; 83690; 85027; 86140; 96374; 96376; 99284; J1170; J1642; J7030

== ENCOUNTER 2020-12-17 12:25 | Emergency (ER) | payer MEDICAID ==
[2020-12-17] MEDS ORDERED: Ketorolac 30 MG/ML SDV IVPUSH ONE (13:51)
[2020-12-17] MEDS ORDERED: Pantoprazole 40 MG Vial IVPUSH ONE (13:56)
--- NOTE | 2020-12-17 13:57 | EDM.PDOC ---
ED HPI GENERAL MEDICAL PROBLEM - General Chief Complaint: Abdominal Pain Stated Complaint: ABDOMINAL PAIN Time Seen by Provider: 12/17/20 13:15 Source of Information: Reports: Patient History Limitations: Reports: No Limitations - History of Present Illness INITIAL COMMENTS - FREE TEXT/NARRATIVE: States he has history of chronic pancreatitis , multiple surgeries and in the last week had drain removed Was told he may have an infection again , developed epigastric pain in the last 24 hrs and believes he is having an infection again No fever or chills has no nausea of vomiting states he is dehydrated and needs dilaudid did state he has dilaudid at home but wanted to be checked first before he took the dilaudid Onset: Gradual Onset Date: 12/16/20 Duration: Colic, Intermittent Location: Reports: Abdomen (epigastrium) Quality: Reports: Ache, Dull, Stabbing Severity: Mild Improves with: Reports: Medication (dilaudid) Worsens with: Reports: Eating, Movement Context: Reports: Other (history of chronic pancreatitis) Associated Symptoms: Reports: Diaphoresis, Loss of Appetite, Malaise Abdomen Pain Score (Numeric/FACES): 8 - Related Data Allergies Allergy/AdvReac Type Severity Reaction Status Date / Time No Known Allergies Allergy Verified 10/09/20 14:46 Home Meds: Home Meds Fenofibrate 160 mg PO DAILY 09/05/20 [History] Rosuvastatin [Crestor] 10 mg PO DAILY 09/05/20 [History] QUEtiapine [SEROquel] 150 mg PO TID 09/06/20 [History] Sennosides/Docusate Sodium [Senna-S] 2 each PO DAILY PRN #30 tablet 09/10/20 [Rx] atenoloL [Atenolol] 25 mg PO DAILY 09/10/20 [History] Famotidine 40 mg PO DAILY #30 tablet 10/20/20 [Rx] Hydrocodone/Acetaminophen [HYDROcodone-Acetaminophen 7.5-325 MG] 1 - 2 each PO QID PRN #12 tablet 10/20/20 [Rx] Ondansetron [Zofran ODT] 4 mg PO Q6H PRN #10 tab.dis 10/20/20 [Rx] Past Medical History HEENT History: Reports: Impaired Vision Cardiovascular History: Reports: High Cholesterol, Hypertension Gastrointestinal History: Reports: Gastritis, Pancreatitis Other Gastrointestinal History: HX OF PANCREATITIS Musculoskeletal History: Reports: Back Pain, Chronic, Fracture, Other (See Below) Other Musculoskeletal History: Intervertebral disk disease Neurological History: Reports: Concussion Other Neuro History: concussion x 2 Psychiatric History: Reports: ADD, Addiction, Anxiety, Bipolar, Depression, Hallucinations, Panic Attack, Psych Hospitalization(s), Suicide Attempt Other Psychiatric History: ALCOHOL ABUSE Endocrine/Metabolic History: Reports: Obesity/BMI 30+ - Infectious Disease History Infectious Disease History: Reports: Chicken Pox - Past Surgical History HEENT Surgical History: Reports: None Cardiovascular Surgical History: Reports: None GI Surgical History: Reports: Appendectomy, Other (See Below) Other GI Surgeries/Procedures: Exploratory Laparatomy Neurological Surgical History: Reports: Discectomy, Lumbar Spine Other Neurological Surgeries/Procedures: disc surgery Musculoskeletal Surgical History: Reports: Other (See Below) Other Musculoskeletal Surgeries/Procedures:: hx back surgery (discetomy) Dermatological Surgical History: Reports: None Social & Family History - Family History Family Medical History: No Pertinent Family History Cardiac: Reports: None GI: Reports: None Neurological: Reports: None Psychiatric: Reports: None Endocrine/Metabolic: Reports: None - Caffeine Use Caffeine Use: Reports: None - Living Situation & Occupation Living situation: Reports: Occupation: Unemployed (He reports that he is currently not working.) ED ROS GENERAL - Review of Systems Review Of Systems: See Below Constitutional: Reports: Malaise, Weakness HEENT: Reports: No Symptoms Respiratory: Reports: No Symptoms Cardiovascular: Reports: No Symptoms Endocrine: Reports: No Symptoms GI/Abdominal: Reports: Abdominal Pain, Anorexia. Denies: Constipation, Diarrhea, Difficulty Swallowing, Distension, Flatus, Nausea Musculoskeletal: Reports: No Symptoms Skin: Reports: No Symptoms Neurological: Reports: No Symptoms Psychiatric: Reports: No Symptoms Hematologic/Lymphatic: Reports: No Symptoms Immunologic: Reports: No Symptoms ED EXAM, GI/ABD - Physical Exam Exam: See Below Exam Limited By: No Limitations General Appearance: Alert, WD/WN, No Apparent Distress, Other (watching on his phone , seems comfortable) Eyes: Bilateral: EOMI Ears: Hearing Grossly Normal Nose: Normal Inspection Throat/Mouth: Normal Oropharynx Head: Atraumatic, Normocephalic Neck: Supple, Non-Tender Respiratory/Chest: Lungs Clear, Normal Breath Sounds Cardiovascular: Regular Rate, Rhythm GI/Abdominal Exam: Soft, Tender (in the epigastrium on deep palpation) Back Exam: No: CVA Tenderness (R), CVA Tenderness (L) Extremities: Normal Range of Motion, Non-Tender Neurological: Alert, Oriented, CN II-XII Intact, Normal Cognition, Normal Gait, No Motor/Sensory Deficits Psychiatric: Normal Mood, Flat Affect Skin Exam: Warm, Dry, Intact, Normal Color Lymphatic: No Adenopathy Course - Vital Signs Last Recorded V/S: Last Vital Signs Temp 36.7 C 12/17/20 12:25 Pulse 69 12/17/20 12:25 Resp 20 12/17/20 12:25 BP 137/90 12/17/20 12:25 Pulse Ox 99 12/17/20 12:25 - Orders/Labs/Meds Orders: Active Orders 24 hr Category Date Time Status Sodium Chloride 0.9% [Normal Saline] 1,000 ml Med 12/17/20 14:00 Active IV ASDIRECTED Medication Orders Sodium Chloride (Normal Saline) 1,000 mls @ 999 mls/hr IV ASDIRECTED RAHAT Last Admin: 12/17/20 14:35 Dose: 999 mls/hr Documented by: KODY Labs: Laboratory Tests 12/17/20 12/17/20 12/17/20 Range/Units 14:00 14:00 14:00 WBC 4.0 (3.2-10.1) x10-3/uL RBC 4.30 (3.90-5.90) x10(6)uL Hgb 12.2 L (12.9-17.7) g/dL Hct 35.8 L (38.3-50.1) % MCV 83.4 (80.8-98.7) fL MCH 28.4 (27.0-33.3) pg MCHC 34.0 (28.7-35.3) g/dL RDW 16.9 H (12.4-15.0) % Plt Count 319 (117-477) x10(3)uL MPV 7.9 (6.7-11.0) fL Neut % (Auto) 58.6 (40.3-71.8) % Lymph % (Auto) 28.5 (15.8-45.3) % Tripp % (Auto) 8.5 (5.5-15.2) % Eos % (Auto) 1.8 (0.1-6.8) % Baso % (Auto) 2.6 (0.3-3.8) % Neut # (Auto) 2.3 (1.7-6.9) x10-3/uL Lymph # (Auto) 1.1 (0.5-4.5) x10-3/uL Tripp # (Auto) 0.3 (0.0-1.2) x10-3/uL Eos # (Auto) 0.1 (0.0-0.6) x10-3/uL Baso # (Auto) 0.1 (0.0-0.3) x10-3/uL Sodium 143 (135-145) mmol/L Potassium 3.6 (3.5-5.3) mmol/L Chloride 107 (100-110) mmol/L Carbon Dioxide 28 (21-32) mmol/L BUN 14 (7-18) mg/dL Creatinine 0.8 (0.70-1.30) mg/dL Est Cr Clr Drug Dosing 122.79 mL/min Estimated GFR (MDRD) > 60 (>60) BUN/Creatinine Ratio 17.5 (9-20) Glucose 104 (80-116) mg/dL Calcium 9.3 (8.6-10.2) mg/dL Total Bilirubin 0.7 (0.1-1.3) mg/dL AST 20 D (5-25) IU/L ALT 33 (12-36) U/L Alkaline Phosphatase 61 (56-112) IU/L Total Protein 7.2 (6.0-8.0) g/dL Albumin 3.7 (3.5-5.2) g/dL Globulin 3.5 g/dL Albumin/Globulin Ratio 1.1 Amylase 32 (25-115) U/L Lipase 73 (73-393) U/L Meds: Medications Generic Name Dose Route Start Last Admin Trade Name Freq PRN Reason Stop Dose Admin Sodium Chloride 1,000 mls @ 999 mls/hr 12/17/20 14:00 12/17/20 14:35 Normal Saline IV 999 mls/hr ASDIRECTED RAHAT Administration Discontinued Medications Generic Name Dose Route Start Last Admin Trade Name Freq PRN Reason Stop Dose Admin Ketorolac Tromethamine 30 mg 12/17/20 13:51 12/17/20 14:36 Ketorolac 30 Mg/Ml Sdv IVPUSH 12/17/20 13:52 30 mg ONETIME ONE Administration Pantoprazole Sodium 40 mg 12/17/20 13:56 12/17/20 14:36 Pantoprazole 40 Mg Vial IVPUSH 12/17/20 13:57 40 mg ONETIME ONE Administration - Re-Assessments/Exams Free Text/Narrative Re-Assessment/Exam: 12/17/20 16:14 pt given IVF and toradol seems comfortable States he has dilaudid at home to take Departure - Departure Time of Disposition: 16:15 Disposition: Home, Self-Care 01 Clinical Impression: Acute epigastric pain, Chronic abdominal pain Chronic pancreatitis Qualifiers: Pancreatitis type: alcohol induced Qualified Code(s): K86.0 - Alcohol-induced chronic pancreatitis - Discharge Information *PRESCRIPTION DRUG MONITORING PROGRAM REVIEWED*: Not Applicable *COPY OF PRESCRIPTION DRUG MONITORING REPORT IN PATIENT MAN: Not Applicable Instructions: Chronic Pancreatitis, Abdominal Pain, Adult, [id number] Referrals: Deniz Ceballos MD [Primary Care Provider] - Forms: ED Department Discharge Additional Instructions: Follow up with your PCP in 3-5 days or with any concerns Sepsis Event Note (ED) - Focused Exam Vital Signs: Vital Signs Temp Pulse Resp BP Pulse Ox 12/17/20 12:25 36.7 C 69 20 137/90 99 - My Orders Last 24 Hours: My Active Orders 12/17/20 14:00 Sodium Chloride 0.9% [Normal Saline] 1,000 ml IV ASDIRECTED - Assessment/Plan Last 24 Hours: My Active Orders 12/17/20 14:00 Sodium Chloride 0.9% [Normal Saline] 1,000 ml IV ASDIRECTED
[2020-12-17] MEDS ORDERED: Sodium Chloride 0.9% 1,000 ML IV SCH (14:00)
[2020-12-17 14:02] VITALS: BP 137/90; PULSE 69
== END 2020-12-17 16:10 | disposition home or self-care (01) ==
LOC: FB.ED 12:25
DX: K86.0 Alcohol-induced chronic pancreatitis (principal); E78.00 Pure hypercholesterolemia, unspecified; I10 Essential (primary) hypertension; E66.9 Obesity, unspecified; Z68.25 Body mass index [BMI] 25.0-25.9, adult; Z79.899 Other long term (current) drug therapy
CPT/HCPCS: 36415; 80053; 82150; 83690; 85025; 96374; 96375; 99284; C9113; J1885; J7030

== ENCOUNTER 2021-06-08 17:12 | Emergency (ER) | payer MEDICAID ==
[2021-06-08 17:33] VITALS: BP 170/111; PULSE 84
[2021-06-08] MEDS ORDERED: Sodium Chloride 0.9% 10 ML Syringe FLUSH PRN (17:52)
[2021-06-08] MEDS ORDERED: Prochlorperazine 10 MG/2 ML SDV IVPUSH ONE (17:54)
[2021-06-08] MEDS ORDERED: Ketorolac 30 MG/ML SDV IVPUSH ONE (17:54)
[2021-06-08] MEDS ORDERED: diphenhydrAMINE 50 MG/ML SDV IVPUSH ONE (17:54)
[2021-06-08] MEDS ORDERED: Sodium Chloride 0.9% 1,000 ML IV ONE (17:54)
== END 2021-06-08 19:05 | disposition home or self-care (01) ==
LOC: FB.ED 17:12
DX: R10.13 Epigastric pain (principal); G89.29 Other chronic pain; E86.0 Dehydration; E78.00 Pure hypercholesterolemia, unspecified; I10 Essential (primary) hypertension; E66.9 Obesity, unspecified; Z68.29 Body mass index [BMI] 29.0-29.9, adult; Z79.899 Other long term (current) drug therapy
CPT/HCPCS: 36415; 80053; 81001; 83605; 83690; 83735; 85025; 86140; 96374; 96375; 99282; 99284-25; J0780; J1200; J1885; J7030

== ENCOUNTER 2021-10-19 13:58 | Emergency (ER) | payer MEDICAID ==
[2021-10-19] MEDS ORDERED: Sodium Chloride 0.9% 10 ML Syringe FLUSH PRN (14:33)
[2021-10-19] MEDS ORDERED: Ondansetron 4 MG/2 ML SDV IVPUSH ONE (14:34)
[2021-10-19] MEDS ORDERED: Morphine 4 MG/ML VIAL IVPUSH ONE (14:34)
[2021-10-19] MEDS ORDERED: Sodium Chloride 0.9% 1,000 ML IV SCH (14:45)
[2021-10-19 15:05] LABS: ESTIMATED GFR 115 mL/min (>60)
[2021-10-19] MEDS ORDERED: Iopamidol 755 Mg/ML 100 ML Bottle IV ONE (15:20)
[2021-10-19] MEDS ORDERED: Alum Hydroxide/Mag Hydroxide 15 ML, Lidocaine 2% 15 ML PO ONE ×2 (16:24)
[2021-10-19] MEDS ORDERED: Potassium Chloride 20 MEQ Tab.ER PO STA (16:44)
[2021-10-19 19:21] VITALS: BP 167/110; PULSE 73
== END 2021-10-19 17:15 | disposition home or self-care (01) ==
LOC: FB.ED 13:58
DX: K86.0 Alcohol-induced chronic pancreatitis (principal); E87.6 Hypokalemia; I10 Essential (primary) hypertension; E66.9 Obesity, unspecified; Z68.32 Body mass index [BMI] 32.0-32.9, adult; Z79.899 Other long term (current) drug therapy; Z86.16 Personal history of COVID-19; Z90.49 Acquired absence of other specified parts of digestive tract; Z87.891 Personal history of nicotine dependence
CPT/HCPCS: 36415; 74177; 80053; 81001; 82150; 83690; 85025; 96361; 96374; 96375; 99284; A9270; J2270; J2405; J7030; Q9967

== ENCOUNTER 2021-12-26 17:32 | Emergency (ER) | payer MEDICAID ==
[2021-12-26 19:11] VITALS: BP 148/92; PULSE 93
[2021-12-26] MEDS ORDERED: Ketorolac 10 MG Tab PO ONE (19:41)
== END 2021-12-26 19:50 | disposition home or self-care (01) ==
LOC: FB.ED 17:32
DX: S43.401A Unspecified sprain of right shoulder joint, initial encounter (principal); E78.00 Pure hypercholesterolemia, unspecified; I10 Essential (primary) hypertension; E66.9 Obesity, unspecified; Z68.32 Body mass index [BMI] 32.0-32.9, adult; Z79.899 Other long term (current) drug therapy; Z90.49 Acquired absence of other specified parts of digestive tract
CPT/HCPCS: 73030; 99283; A9270

== ENCOUNTER 2022-01-18 10:05 | Emergency (ER) | payer MEDICAID ==
[2022-01-18] MEDS ORDERED: Morphine 4 MG/ML VIAL IM ONE (10:39)
[2022-01-18] MEDS ORDERED: Metoprolol Tartrate 50 MG Tab PO ONE (10:39)
[2022-01-18] MEDS ORDERED: LORazepam 1 MG Tab PO ONE (10:40)
[2022-01-18 11:11] VITALS: PULSE 104
[2022-01-18] MEDS ORDERED: Acetaminophen/oxyCODONE 325-5 MG Tab PO PRN (12:03)
[2022-01-18] MEDS ORDERED: cloNIDine 0.1 MG Tab PO ONE (12:05)
[2022-01-18] MEDS ORDERED: amLODIPine 10 MG Tab PO STA (12:05)
[2022-01-18 12:14] VITALS: BP 157/117
[2022-01-18] MEDS ORDERED: Ondansetron 4 MG Tab.DIS PO ONE (12:17)
[2022-01-18] MEDS ORDERED: hydrOXYzine HCl 50 MG/ML SDV IM STA (16:13)
[2022-01-18] MEDS ORDERED: Acetaminophen/oxyCODONE 325-5 MG Tab PO STA (16:13)
[2022-01-18 16:33] LABS: ESTIMATED GFR 119 mL/min (>60)
== END 2022-01-18 17:10 | disposition home or self-care (01) ==
LOC: FB.ED 10:05
DX: R07.89 Other chest pain (principal); E78.5 Hyperlipidemia, unspecified; I10 Essential (primary) hypertension; E66.9 Obesity, unspecified; Z68.32 Body mass index [BMI] 32.0-32.9, adult; Z72.0 Tobacco use; Z79.899 Other long term (current) drug therapy
CPT/HCPCS: 36415; 71045; 80053; 81001; 82150; 83690; 84484; 85025; 93005; 96372; 99285; A9270; J2270; J3410; Q0162

== ENCOUNTER 2022-01-23 16:29 | Emergency (ER) | payer MEDICAID ==
[2022-01-23] MEDS ORDERED: Acetaminophen/oxyCODONE 325-5 MG Tab PO ONE (16:30)
[2022-01-23] MEDS ORDERED: Sodium Chloride 0.9% 10 ML Syringe FLUSH PRN (16:48)
[2022-01-23] MEDS ORDERED: Morphine 4 MG/ML VIAL IVPUSH ONE (16:52)
[2022-01-23] MEDS ORDERED: Ondansetron 4 MG/2 ML SDV IVPUSH ONE (16:52)
[2022-01-23] MEDS ORDERED: Sodium Chloride 0.9% 1,000 ML IV SCH ×2 (17:00→19:00)
[2022-01-23] MEDS ORDERED: Iopamidol 755 Mg/ML 100 ML Bottle IV ONE (17:11)
[2022-01-23] MEDS ORDERED: HYDROmorphone 2 MG/ML SDV IVPUSH STA (17:26)
[2022-01-23] MEDS ORDERED: hydrOXYzine HCl 50 MG/ML SDV IM ONE (17:26)
[2022-01-23 17:28] LABS: ESTIMATED GFR 119 mL/min (>60)
[2022-01-23] MEDS ORDERED: HYDROmorphone 2 MG/ML SDV IVPUSH ONE (18:51)
[2022-01-23 20:38] VITALS: BP 159/107; PULSE 94
== END 2022-01-23 20:11 | disposition home or self-care (01) ==
LOC: FB.ED 16:29
DX: K86.1 Other chronic pancreatitis (principal); E78.5 Hyperlipidemia, unspecified; E78.00 Pure hypercholesterolemia, unspecified; I10 Essential (primary) hypertension; E66.9 Obesity, unspecified; Z79.899 Other long term (current) drug therapy; Z86.16 Personal history of COVID-19; Z68.32 Body mass index [BMI] 32.0-32.9, adult
CPT/HCPCS: 36415; 74177; 80053; 80307; 81001; 82150; 83690; 85025; 85610; 85730; 96361; 96372; 96374; 96375; 96376; 99284-25; A9270-GY; J1170; J2270; J2405; J3410; J7030; Q9967

== ENCOUNTER 2022-03-28 11:42 | Emergency (ER) | payer MEDICAID ==
[2022-03-28] MEDS ORDERED: Ondansetron 4 MG/2 ML SDV IVPUSH ONE (12:05)
[2022-03-28] MEDS ORDERED: Ketorolac 30 MG/ML SDV IVPUSH ONE (12:05)
[2022-03-28] MEDS ORDERED: Sodium Chloride 0.9% 1,000 ML IV ONE ×3 (12:05→14:10)
[2022-03-28] MEDS ORDERED: Morphine 4 MG/ML VIAL IVPUSH ONE ×3 (12:59→16:36)
[2022-03-28] MEDS ORDERED: Alum Hydroxide/Mag Hydroxide 30 ML, Lidocaine 2% 15 ML PO ONE ×2 (12:59)
[2022-03-28 19:52] VITALS: BP 150/96; PULSE 90
== END 2022-03-28 17:13 | disposition home or self-care (01) ==
LOC: FB.ED 11:42
DX: K85.20 Alcohol induced acute pancreatitis without necrosis or infection (principal); E78.5 Hyperlipidemia, unspecified; E78.00 Pure hypercholesterolemia, unspecified; I10 Essential (primary) hypertension; E66.9 Obesity, unspecified; Z68.34 Body mass index [BMI] 34.0-34.9, adult; Z79.899 Other long term (current) drug therapy; Z20.822 Contact with and (suspected) exposure to COVID-19
CPT/HCPCS: 36415; 74019; 80053; 81001; 82947; 83605; 83690; 85025; 86140; 96361; 96374; 96375; 96376; 99283; 99284-25; A9270-GY; J1885; J2270; J2405; J7030; U0002

== ENCOUNTER 2022-03-30 11:49 | Emergency (ER) | payer MEDICAID ==
[2022-03-30] MEDS ORDERED: Acetaminophen/HYDROcodone 325-5 MG Tab PO ONE (11:50)
[2022-03-30] MEDS ORDERED: Morphine 4 MG/ML VIAL IVPUSH ONE ×3 (12:58→15:56)
[2022-03-30] MEDS ORDERED: Ketorolac 30 MG/ML SDV IM ONE (12:58)
[2022-03-30] MEDS ORDERED: Morphine 4 MG/ML VIAL IM ONE (13:01)
[2022-03-30] MEDS ORDERED: Sodium Chloride 0.9% 1,000 ML IV ONE (13:51)
[2022-03-30] MEDS ORDERED: Morphine 2 MG/ML SYRINGE IVPUSH ONE (16:02)
[2022-03-30] MEDS ORDERED: Sodium Chloride 0.9% 10 ML Syringe FLUSH PRN (16:32)
[2022-03-30 16:53] VITALS: BP 150/102; PULSE 79
== END 2022-03-30 16:18 | disposition home or self-care (01) ==
LOC: FB.ED 11:49
DX: K85.90 Acute pancreatitis without necrosis or infection, unspecified (principal); E78.00 Pure hypercholesterolemia, unspecified; I10 Essential (primary) hypertension; E66.9 Obesity, unspecified; Z68.33 Body mass index [BMI] 33.0-33.9, adult; Z87.891 Personal history of nicotine dependence; Z79.899 Other long term (current) drug therapy
CPT/HCPCS: 36415; 80048; 81003; 83690; 85025; 86140; 96361; 96372; 96374; 96376; 99283; 99284-25; A9270-GY; J1885; J2270; J3490; J7030

== ENCOUNTER 2022-03-31 16:11 | Observation (INO) | payer MEDICAID ==
[2022-03-31] MEDS: HYDROmorphone 2 MG/ML SDV IVPUSH PRN ×4 (16:49→23:26)
[2022-03-31] MEDS: Sodium Chloride 0.9% 10 ML Syringe FLUSH PRN ×3 (16:51→21:21)
[2022-03-31] MEDS: Ondansetron 4 MG/2 ML SDV IV PRN (16:51)
[2022-03-31] MEDS ORDERED: Iopamidol 755 Mg/ML 100 ML Bottle IV ONE (17:20)
[2022-03-31] MEDS: Sodium Chloride 0.9% 1,000 ML IV SCH (17:30)
[2022-04-01] MEDS: Sodium Chloride 0.9% 1,000 ML IV SCH ×2 (00:49→07:39)
[2022-04-01] MEDS: HYDROmorphone 2 MG/ML SDV IVPUSH PRN ×4 (01:35→08:35)
[2022-04-01] MEDS: Ondansetron 4 MG/2 ML SDV IV PRN (03:52)
[2022-04-01 07:48] VITALS: BP 144/94; PULSE 78
[2022-04-01] MEDS: Sodium Chloride 0.9% 10 ML Syringe FLUSH PRN (08:36)
== END 2022-04-01 09:50 | disposition home or self-care (01) ==
LOC: FB.MS 16:22
PROVIDERS: ADMIT Family Medicine; ATTEND Family Medicine
DX: K85.90 Acute pancreatitis without necrosis or infection, unspecified (principal); I10 Essential (primary) hypertension; E78.00 Pure hypercholesterolemia, unspecified; E66.9 Obesity, unspecified; F41.1 Generalized anxiety disorder; F31.9 Bipolar disorder, unspecified; Z88.4 Allergy status to anesthetic agent; Z79.899 Other long term (current) drug therapy; Z86.16 Personal history of COVID-19; Z98.890 Other specified postprocedural states; Z87.891 Personal history of nicotine dependence
CPT/HCPCS: 36415; 74177; 80053; 80061; 82150; 83690; 83735; 84100; 85025; 96374; 96375; 96376; 99222; 99238; G0378; G0379; J1170; J2405; J3490; J7030; Q9967

== ENCOUNTER 2022-04-12 23:23 | Emergency (ER) | payer MEDICAID ==
[2022-04-13] MEDS ORDERED: HYDROmorphone 2 MG/ML SDV IVPUSH ONE ×2 (00:22→02:07)
[2022-04-13] MEDS ORDERED: Ketorolac 30 MG/ML SDV IVPUSH ONE (00:22)
[2022-04-13] MEDS ORDERED: Sodium Chloride 0.9% 1,000 ML IV SCH (00:30)
[2022-04-13] MEDS ORDERED: Sodium Chloride 0.9% 1,000 ML IV ONE (00:37)
[2022-04-13 02:58] VITALS: BP 142/84; PULSE 89
[2022-04-13] MEDS ORDERED: Metoclopramide 10 MG/2 ML SDV IVPUSH ONE (03:52)
[2022-04-13] MEDS ORDERED: Alum Hydroxide/Mag Hydroxide 30 ML, Lidocaine 2% 15 ML PO ONE ×2 (03:53)
[2022-04-13] MEDS: diphenhydrAMINE 50 MG/ML SDV IVPUSH ONE ×2 (04:08→05:06)
== END 2022-04-13 04:40 | disposition home or self-care (01) ==
LOC: FB.ED 23:23
DX: E78.1 Pure hyperglyceridemia (principal); E78.00 Pure hypercholesterolemia, unspecified; I10 Essential (primary) hypertension; E66.9 Obesity, unspecified; Z68.34 Body mass index [BMI] 34.0-34.9, adult; Z88.8 Allergy status to other drugs, medicaments and biological substances; Z88.4 Allergy status to anesthetic agent; Z79.899 Other long term (current) drug therapy
CPT/HCPCS: 36415; 80053; 80307; 81001; 83605; 83690; 85025; 85651; 86140; 96361; 96374; 96375; 96376; 99283; 99284-25; A9270-GY; J1170; J1200; J1885; J2765; J7030

== ENCOUNTER 2022-04-28 15:03 | Emergency (ER) | payer MEDICAID ==
[2022-04-28] MEDS ORDERED: Sodium Chloride 0.9% 10 ML Syringe FLUSH PRN (15:13)
[2022-04-28] MEDS ORDERED: Ondansetron 4 MG/2 ML SDV ONE (15:39)
[2022-04-28] MEDS ORDERED: Morphine 4 MG/ML VIAL ONE (15:39)
[2022-04-28] MEDS ORDERED: Sodium Chloride 0.9% 1,000 ML IV SCH (15:45)
[2022-04-28] MEDS ORDERED: Morphine 2 MG/ML SYRINGE IM ONE (15:46)
[2022-04-28] MEDS ORDERED: Ondansetron 4 MG/2 ML SDV IVPUSH ONE (15:47)
[2022-04-28] MEDS ORDERED: Morphine 4 MG/ML VIAL IVPUSH ONE (15:51)
[2022-04-28] MEDS ORDERED: Ketorolac 30 MG/ML SDV IVPUSH ONE ×2 (17:21→17:24)
[2022-04-28] MEDS ORDERED: Ketorolac 30 MG/ML SDV ONE (17:23)
[2022-04-28] MEDS ORDERED: HYDROmorphone 2 MG/ML SDV IVPUSH STA (18:52)
[2022-04-28] MEDS ORDERED: HYDROmorphone 2 MG/ML SDV ONE (18:53)
[2022-04-28] MEDS ORDERED: Iopamidol 755 Mg/ML 100 ML Bottle IV ONE (19:28)
[2022-04-28 20:06] VITALS: BP 145/94; PULSE 99
== END 2022-04-28 21:11 | disposition home or self-care (01) ==
LOC: FB.ED 15:03
DX: K86.1 Other chronic pancreatitis (principal); E78.00 Pure hypercholesterolemia, unspecified; I10 Essential (primary) hypertension; E66.9 Obesity, unspecified; Z88.8 Allergy status to other drugs, medicaments and biological substances; Z88.4 Allergy status to anesthetic agent; Z79.899 Other long term (current) drug therapy
CPT/HCPCS: 36415; 74177; 80053; 81001; 82150; 83690; 85025; 96361; 96374; 96375; 99284-25; J1170; J1885; J2270; J2405; J7030; Q9967

== ENCOUNTER 2022-06-12 15:39 | Emergency (ER) | payer MEDICAID ==
[2022-06-12] MEDS ORDERED: Acetaminophen/oxyCODONE 325-5 MG Tab PO ONE (15:40)
[2022-06-12] MEDS ORDERED: fentaNYL 100 MCG/2 ML SDV IVPUSH ONE ×6 (16:05→21:52)
[2022-06-12] MEDS ORDERED: Ondansetron 4 MG/2 ML SDV IVPUSH ONE (16:06)
[2022-06-12] MEDS ORDERED: Pantoprazole 40 MG Vial IVPUSH ONE (16:12)
[2022-06-12] MEDS ORDERED: Lactated Ringers 1,000 ML IV ONE (16:21)
[2022-06-12 17:10] VITALS: BP 159/99; PULSE 83
[2022-06-12] MEDS ORDERED: Lactated Ringers 1,000 ML IV SCH ×2 (18:00→20:15)
[2022-06-12] MEDS ORDERED: Ondansetron 4 MG/2 ML SDV IVPUSH PRN (18:07)
[2022-06-12 20:06] LABS: ESTIMATED GFR 119 mL/min (>60)
[2022-06-12] MEDS ORDERED: Iopamidol 755 Mg/ML 100 ML Bottle IV ONE (20:11)
== END 2022-06-12 22:23 | disposition home or self-care (01) ==
LOC: FB.ED 15:39
DX: K86.1 Other chronic pancreatitis (principal); E78.00 Pure hypercholesterolemia, unspecified; I10 Essential (primary) hypertension; E66.9 Obesity, unspecified; Z68.33 Body mass index [BMI] 33.0-33.9, adult; Z88.4 Allergy status to anesthetic agent; Z88.8 Allergy status to other drugs, medicaments and biological substances; Z79.899 Other long term (current) drug therapy; Z86.16 Personal history of COVID-19; Z90.49 Acquired absence of other specified parts of digestive tract
CPT/HCPCS: 36415; 74177; 80053; 81001; 83690; 84478; 85025; 86140; 96361; 96374; 96375; 96376; 99284; A9270; C9113; J2405; J3010; J7120; Q9967; 99283

== ENCOUNTER 2022-06-26 05:37 | Emergency (ER) | payer MEDICAID ==
[2022-06-26] MEDS ORDERED: LORazepam 2 MG/ML SDV IVPUSH ONE (06:29)
[2022-06-26] MEDS ORDERED: Haloperidol Lactate 5 MG/ML SDV IVPUSH ONE (06:29)
[2022-06-26] MEDS ORDERED: Sodium Chloride 0.9% 10 ML Syringe FLUSH PRN (06:29)
[2022-06-26] MEDS ORDERED: Sodium Chloride 0.9% 1,000 ML IV ONE (06:29)
[2022-06-26] MEDS ORDERED: Ketorolac 30 MG/ML SDV IVPUSH ONE (06:29)
[2022-06-26 07:15] LABS: ESTIMATED GFR 115 mL/min (>60)
[2022-06-26 08:27] VITALS: BP 152/90; PULSE 77
== END 2022-06-26 08:20 | disposition home or self-care (01) ==
LOC: FB.ED 05:37
DX: G89.29 Other chronic pain (principal); R10.13 Epigastric pain; E78.00 Pure hypercholesterolemia, unspecified; I10 Essential (primary) hypertension; E66.9 Obesity, unspecified; Z68.31 Body mass index [BMI] 31.0-31.9, adult; Z86.16 Personal history of COVID-19; Z88.8 Allergy status to other drugs, medicaments and biological substances; Z88.4 Allergy status to anesthetic agent; Z79.899 Other long term (current) drug therapy
CPT/HCPCS: 36415; 80053; 83690; 83735; 84484; 85025; 86140; 93005; 93010; 96361; 96374; 99283; 99284-25; J1630; J1885; J2060; J7030

== ENCOUNTER 2022-07-01 21:49 | Emergency (ER) | payer MEDICAID ==
[2022-07-01] MEDS ORDERED: Acetaminophen/oxyCODONE 325-5 MG Tab PO ONE (21:50)
[2022-07-01] MEDS ORDERED: HYDROmorphone 2 MG/ML SDV IVPUSH ONE ×2 (21:53→23:39)
[2022-07-01] MEDS ORDERED: Ondansetron 4 MG/2 ML SDV ONE (21:58)
[2022-07-01] MEDS ORDERED: Ondansetron 4 MG/2 ML SDV IVPUSH ONE (22:01)
[2022-07-01] MEDS ORDERED: Iopamidol 755 Mg/ML 100 ML Bottle IV ONE (22:12)
[2022-07-01] MEDS ORDERED: Ketorolac 30 MG/ML SDV IVPUSH ONE (22:42)
[2022-07-01] MEDS ORDERED: Sodium Chloride 0.9% 10 ML Syringe FLUSH PRN (23:49)
[2022-07-02 00:07] VITALS: BP 146/92; PULSE 98
[2022-07-02 00:26] LABS: EST CRCL DRUG DOSING (CG) 130.11 mL/min; ESTIMATED GFR 119 mL/min (>60)
[2022-07-02 00:38] LABS: ALANINE AMINOTRANSFERASE,ALT 167 U/L (12-36)
[2022-07-02 00:40] LABS: PROTEIN TOTAL,TP 8.8 g/dL (6.0-8.0)
[2022-07-02 00:41] LABS: ASPARTATE AMNIOTRANSFERASE,AST 104 IU/L (5-25)
[2022-07-02 00:42] LABS: CARBON DIOXIDE,CO2 21 mmol/L (21-32)
[2022-07-02 00:43] LABS: SODIUM,NA 138 mmol/L (135-145)
[2022-07-02 00:44] LABS: CHLORIDE,CL 104 mmol/L (100-110)
[2022-07-02 00:45] LABS: GLUCOSE RANDOM 97 mg/dL (80-116)
[2022-07-02 00:54] LABS: BLOOD UREA NITROGEN,BUN 16 mg/dL (7-18); CREATININE 0.8 mg/dL (0.70-1.30)
[2022-07-02 00:57] LABS: ALBUMIN 4.4 g/dL (3.5-5.2); CALCIUM 8.6 mg/dL (8.6-10.2)
[2022-07-02 00:59] LABS: ALKALINE PHOSPHATASE 95 IU/L (56-112)
[2022-07-02 01:00] LABS: AMYLASE 77 U/L (25-115)
[2022-07-02 02:04] LABS: MEAN CORPUSCULAR HEMOGLOBIN 33.6 pg (27.0-33.3)
[2022-07-02 02:05] LABS: HEMOGLOBIN 18.6 g/dL (12.9-17.7); MEAN CORPUSCULAR HGB CONC 39.3 g/dL (28.7-35.3)
[2022-07-02 02:06] LABS: WHITE BLOOD CELL COUNT,WBC 7.5 x10-3/uL (3.2-10.1)
[2022-07-02 02:07] LABS: HEMATOCRIT 47.3 % (38.3-50.1); RED BLOOD CELL COUNT 5.54 x10(6)uL (3.90-5.90)
[2022-07-02 02:08] LABS: MEAN CORPUSCULAR VOLUME 85.4 fL (80.8-98.7)
[2022-07-02 02:09] LABS: PLATELET COUNT,PLT 351 x10(3)uL (117-477); RED CELL DISTRIBUTION WIDTH 12.9 % (12.4-15.0)
[2022-07-02 02:10] LABS: MEAN PLATELET VOLUME 11.6 fL (6.7-11.0)
[2022-07-02 02:11] LABS: BASOPHILS ABSOLUTE AUTO 0.1 x10-3/uL (0.0-0.3); EOSINOPHILS ABSOLUTE AUTO 0.1 x10-3/uL (0.0-0.6); LYMPHOCYTES ABSOLUTE AUTO 2.2 x10-3/uL (0.5-4.5); LYMPHOCYTES PERCENT AUTO 29.9 % (15.8-45.3); MONOCYTES ABSOLUTE AUTO 0.6 x10-3/uL (0.0-1.2); MONOCYTES PERCENT AUTO 7.7 % (5.5-15.2); NEUTROPHILS ABSOLUTE AUTO 4.4 x10-3/uL (1.7-6.9); NEUTROPHILS PERCENT AUTO 59.2 % (40.3-71.8)
[2022-07-02 02:12] LABS: BASOPHILS PERCENT AUTO 1.2 % (0.3-3.8); EOSINOPHILS PERCENT AUTO 1.3 % (0.1-6.8)
== END 2022-07-01 23:58 | disposition home or self-care (01) ==
LOC: FB.ED 21:49
DX: R10.9 Unspecified abdominal pain (principal); E78.00 Pure hypercholesterolemia, unspecified; E78.5 Hyperlipidemia, unspecified; I10 Essential (primary) hypertension; E66.9 Obesity, unspecified; Z68.32 Body mass index [BMI] 32.0-32.9, adult; Z88.8 Allergy status to other drugs, medicaments and biological substances; Z79.899 Other long term (current) drug therapy; Z86.16 Personal history of COVID-19
CPT/HCPCS: 36415; 74177; 80053; 82150; 83690; 85025; 96374; 96375; 96376; 99283; 99284; A9270; J1170; J1885; J2405; J3490; Q9967

== ENCOUNTER 2022-07-24 21:47 | Emergency (ER) | payer MEDICAID ==
[2022-07-24] MEDS ORDERED: Sodium Chloride 0.9% 10 ML Syringe FLUSH PRN (22:00)
[2022-07-24] MEDS: Sodium Chloride 0.9% 1,000 ML IV ONE (22:28)
[2022-07-24] MEDS: Ondansetron 4 MG/2 ML SDV IVPUSH ONE (22:47)
[2022-07-24] MEDS: HYDROmorphone 2 MG/ML SDV IVPUSH ONE (22:53)
[2022-07-25 03:23] VITALS: BP 134/74; PULSE 82
== END 2022-07-24 23:43 | disposition home or self-care (01) ==
LOC: FB.ED 21:47
DX: E86.0 Dehydration (principal); E78.00 Pure hypercholesterolemia, unspecified; I10 Essential (primary) hypertension; E66.9 Obesity, unspecified; Z68.32 Body mass index [BMI] 32.0-32.9, adult; Z88.4 Allergy status to anesthetic agent; Z88.8 Allergy status to other drugs, medicaments and biological substances; Z79.899 Other long term (current) drug therapy; Z86.16 Personal history of COVID-19
CPT/HCPCS: 96361; 96374; 96375; 99283; J1170; J2405; J7030

== ENCOUNTER 2022-07-25 16:49 | Emergency (ER) | payer MEDICAID ==
[2022-07-25 17:08] VITALS: BP 148/100; PULSE 71
[2022-07-25] MEDS ORDERED: Sodium Chloride 0.9% 10 ML Syringe FLUSH PRN (17:18)
[2022-07-25] MEDS ORDERED: Prochlorperazine 10 MG/2 ML SDV IVPUSH ONE (17:34)
[2022-07-25] MEDS ORDERED: Ketorolac 30 MG/ML SDV IVPUSH ONE (17:36)
[2022-07-25] MEDS ORDERED: HYDROmorphone 2 MG/ML SDV IVPUSH STA (17:36)
[2022-07-25] MEDS ORDERED: Sodium Chloride 0.9% 1,000 ML IV SCH (17:45)
[2022-07-25 19:03] LABS: APPEARANCE,URINE CLEAR (CLEAR); COLOR,URINE YELLOW (YELLOW); PH,URINE 6.5 (5.0-6.5)
[2022-07-25 19:04] LABS: BILIRUBIN,URINE NEGATIVE (NEGATIVE); GLUCOSE,URINE NORMAL (NORMAL); KETONES,URINE NEGATIVE (NEGATIVE); LEUKOCYTE ESTERASE,URINE NEGATIVE (NEGATIVE); NITRITE,URINE NEGATIVE (NEGATIVE); OCCULT BLOOD,URINE NEGATIVE (NEGATIVE); PROTEIN,URINE NEGATIVE (NEGATIVE); UROBILINOGEN,URINE 1 mg/dL (NEGATIVE)
== END 2022-07-25 19:00 | disposition home or self-care (01) ==
LOC: FB.ED 16:49
DX: K86.1 Other chronic pancreatitis (principal); Z88.4 Allergy status to anesthetic agent; Z88.8 Allergy status to other drugs, medicaments and biological substances
CPT/HCPCS: 36415; 80053; 81003; 82150; 83690; 85025; 96361; 96374; 96375; 99284; J0780; J1170; J1885; J7030

== ENCOUNTER 2022-08-18 13:07 | Emergency (ER) | payer MEDICAID ==
[2022-08-18] MEDS ORDERED: Ketorolac 30 MG/ML SDV IVPUSH ONE (13:34)
[2022-08-18] MEDS ORDERED: Sodium Chloride 0.9% 10 ML Syringe FLUSH PRN (13:34)
[2022-08-18] MEDS ORDERED: Morphine 4 MG/ML VIAL IVPUSH ONE ×2 (13:34→16:47)
[2022-08-18] MEDS ORDERED: Ondansetron 4 MG/2 ML SDV IVPUSH ONE (13:35)
[2022-08-18] MEDS ORDERED: Sodium Chloride 0.9% 1,000 ML IV SCH ×2 (13:45→15:00)
[2022-08-18] MEDS ORDERED: Iopamidol 755 Mg/ML 100 ML Bottle IV ONE (14:12)
[2022-08-18 14:23] LABS: BILIRUBIN,URINE NEGATIVE (NEGATIVE); GLUCOSE,URINE NORMAL (NORMAL); KETONES,URINE NEGATIVE (NEGATIVE); LEUKOCYTE ESTERASE,URINE NEGATIVE (NEGATIVE); NITRITE,URINE NEGATIVE (NEGATIVE); OCCULT BLOOD,URINE NEGATIVE (NEGATIVE); PROTEIN,URINE NEGATIVE (NEGATIVE); UROBILINOGEN,URINE NORMAL (NEGATIVE)
[2022-08-18 14:30] LABS: APPEARANCE,URINE CLEAR (CLEAR); BACTERIA,URINE FEW (NS); COLOR,URINE YELLOW (YELLOW); RBC,URINE NOT SEEN (0-5); SQUAMOUS EPITHELIAL CELLS,UR OCCASIONAL (NS,R,O); WBC,URINE 0-5 (0-5)
[2022-08-18] MEDS ORDERED: Acetaminophen/oxyCODONE 325-5 MG Tab PO STA (14:35)
[2022-08-18 16:03] VITALS: BP 141/97; PULSE 80
[2022-08-18] MEDS ORDERED: hydrOXYzine HCl 50 MG/ML SDV IM ONE (16:55)
== END 2022-08-18 19:28 | disposition home or self-care (01) ==
LOC: FB.ED 13:07
DX: K29.00 Acute gastritis without bleeding (principal); E78.00 Pure hypercholesterolemia, unspecified; I10 Essential (primary) hypertension; F17.210 Nicotine dependence, cigarettes, uncomplicated; E66.9 Obesity, unspecified; Z68.34 Body mass index [BMI] 34.0-34.9, adult; Z88.8 Allergy status to other drugs, medicaments and biological substances; Z88.4 Allergy status to anesthetic agent; Z79.899 Other long term (current) drug therapy; Z86.16 Personal history of COVID-19; Z90.49 Acquired absence of other specified parts of digestive tract
CPT/HCPCS: 36415; 74177; 80053; 81001; 82150; 83690; 85025; 96361; 96372; 96374; 96375; 96376; 99284-25; A9270-GY; J1885; J2270; J2405; J3410; J7030; Q9967

== ENCOUNTER 2022-09-10 18:41 | Emergency (ER) | payer MEDICAID ==
[2022-09-10] MEDS ORDERED: Acetaminophen/oxyCODONE 325-5 MG Tab PO ONE (18:42)
[2022-09-10] MEDS ORDERED: Sodium Chloride 0.9% 10 ML Syringe FLUSH PRN (19:21)
[2022-09-10] MEDS ORDERED: Ondansetron 4 MG/2 ML SDV IVPUSH ONE (19:23)
[2022-09-10] MEDS ORDERED: Ketorolac 30 MG/ML SDV IVPUSH ONE (19:23)
[2022-09-10] MEDS ORDERED: Morphine 4 MG/ML VIAL IVPUSH ONE ×2 (19:23→21:32)
[2022-09-10] MEDS ORDERED: Sodium Chloride 0.9% 1,000 ML IV SCH (19:30)
[2022-09-10] MEDS ORDERED: Acetaminophen/oxyCODONE 325-5 MG Tab PO STA (21:08)
[2022-09-10] MEDS ORDERED: Pantoprazole 40 MG Vial IVPUSH ONE (21:31)
[2022-09-11 01:23] VITALS: BP 125/5; PULSE 82
== END 2022-09-10 21:47 | disposition home or self-care (01) ==
LOC: FB.ED 18:41
DX: K86.1 Other chronic pancreatitis (principal); E78.00 Pure hypercholesterolemia, unspecified; I10 Essential (primary) hypertension; K21.9 Gastro-esophageal reflux disease without esophagitis; E66.9 Obesity, unspecified; Z68.1 Body mass index [BMI] 19.9 or less, adult; Z86.16 Personal history of COVID-19; Z88.8 Allergy status to other drugs, medicaments and biological substances; Z88.4 Allergy status to anesthetic agent; Z79.899 Other long term (current) drug therapy
CPT/HCPCS: 36415; 80053; 82150; 83690; 85025; 96361; 96374; 96375; 99284; A9270; C9113; J1885; J2270; J2405; J3490; J7030

== ENCOUNTER 2022-09-18 21:35 | Emergency (ER) | payer MEDICAID ==
[2022-09-18] MEDS ORDERED: Acetaminophen/oxyCODONE 325-5 MG Tab PO ONE (21:36)
[2022-09-18 22:27] VITALS: BP 166/114; PULSE 85
[2022-09-18] MEDS ORDERED: Ketorolac 30 MG/ML SDV IM STA (22:29)
[2022-09-18] MEDS ORDERED: Morphine 4 MG/ML VIAL IM ONE (22:29)
[2022-09-18] MEDS ORDERED: Acetaminophen/oxyCODONE 325-5 MG Tab PO STA (22:29)
[2022-09-18] MEDS ORDERED: Ondansetron 4 MG Tab.DIS PO ONE (22:30)
[2022-09-18 23:20] LABS: BASOPHILS PERCENT AUTO 0.8 % (0.3-3.8); EOSINOPHILS ABSOLUTE AUTO 0.1 x10-3/uL (0.0-0.6); EOSINOPHILS PERCENT AUTO 1.7 % (0.1-6.8); HEMATOCRIT 43.1 % (38.3-50.1); LYMPHOCYTES ABSOLUTE AUTO 1.5 x10-3/uL (0.5-4.5); MEAN CORPUSCULAR HEMOGLOBIN 32.3 pg (27.0-33.3); MEAN CORPUSCULAR HGB CONC 35.2 g/dL (28.7-35.3); MEAN CORPUSCULAR VOLUME 91.8 fL (80.8-98.7); MEAN PLATELET VOLUME 10.7 fL (6.7-11.0); MONOCYTES ABSOLUTE AUTO 0.4 x10-3/uL (0.0-1.2); MONOCYTES PERCENT AUTO 8.7 % (5.5-15.2); NEUTROPHILS ABSOLUTE AUTO 2.7 x10-3/uL (1.7-6.9); NEUTROPHILS PERCENT AUTO 57.8 % (40.3-71.8); PLATELET COUNT,PLT 241 x10(3)uL (117-477); RED BLOOD CELL COUNT 4.69 x10(6)uL (3.90-5.90); RED CELL DISTRIBUTION WIDTH 13.5 % (12.4-15.0); WHITE BLOOD CELL COUNT,WBC 4.7 x10-3/uL (3.2-10.1)
[2022-09-18 23:42] LABS: HEMOGLOBIN 15.1 g/dL (12.9-17.7)
[2022-09-19 02:21] LABS: BLOOD UREA NITROGEN,BUN 14 mg/dL (7-18); BUN/CREATININE RATIO 17.5 (9-20); CARBON DIOXIDE,CO2 19 mmol/L (21-32); CHLORIDE,CL 103 mmol/L (100-110); CREATININE 0.8 mg/dL (0.70-1.30); EST CRCL DRUG DOSING (CG) 130.11 mL/min; ESTIMATED GFR 119 mL/min (>60); GLUCOSE RANDOM 118 mg/dL (80-116); SODIUM,NA 133 mmol/L (135-145)
[2022-09-19 02:22] LABS: A/G RATIO 0.9; ALANINE AMINOTRANSFERASE,ALT 90 U/L (12-36); ALBUMIN 3.7 g/dL (3.5-5.2); ALKALINE PHOSPHATASE 77 IU/L (56-112); AMYLASE 54 U/L (25-115); ASPARTATE AMNIOTRANSFERASE,AST 72 IU/L (5-25); BILIRUBIN TOTAL 1.1 mg/dL (0.1-1.3); CALCIUM 8.6 mg/dL (8.6-10.2); PROTEIN TOTAL,TP 7.7 g/dL (6.0-8.0)
== END 2022-09-18 23:00 | disposition home or self-care (01) ==
LOC: FB.ED 21:35
DX: K86.1 Other chronic pancreatitis (principal); E78.00 Pure hypercholesterolemia, unspecified; I10 Essential (primary) hypertension; E66.9 Obesity, unspecified; Z88.4 Allergy status to anesthetic agent; Z88.8 Allergy status to other drugs, medicaments and biological substances; Z79.899 Other long term (current) drug therapy; Z86.16 Personal history of COVID-19; Z68.32 Body mass index [BMI] 32.0-32.9, adult
CPT/HCPCS: 36415; 80053; 82150; 83690; 85025; 96372; 99284; A9270; J1885; J2270; Q0162; 99283

== ENCOUNTER 2022-09-22 11:06 | Emergency (ER) | payer MEDICAID ==
[2022-09-22] MEDS ORDERED: Sodium Chloride 0.9% 1,000 ML IV SCH (11:30)
[2022-09-22] MEDS: Sodium Chloride 0.9% 1,000 ML IV SCH (11:32)
[2022-09-22] MEDS: Morphine 4 MG/ML VIAL IVPUSH ONE (11:32)
[2022-09-22] MEDS: Ondansetron 4 MG/2 ML SDV IVPUSH ONE (11:33)
[2022-09-22] MEDS: Ketorolac 30 MG/ML SDV IVPUSH ONE (11:33)
[2022-09-22 11:35] LABS: BASOPHILS ABSOLUTE AUTO 0.1 x10-3/uL (0.0-0.3)
[2022-09-22] MEDS: Iopamidol 755 Mg/ML 100 ML Bottle IV ONE (12:02)
[2022-09-22] MEDS: Acetaminophen/oxyCODONE 325-5 MG Tab PO ONE (12:28)
[2022-09-22 13:23] LABS: HEMATOCRIT 48.2 % (38.3-50.1); HEMOGLOBIN 18.5 g/dL (12.9-17.7); MEAN CORPUSCULAR HEMOGLOBIN 33.9 pg (27.0-33.3); MEAN CORPUSCULAR VOLUME 88.3 fL (80.8-98.7); RED BLOOD CELL COUNT 5.46 x10(6)uL (3.90-5.90)
[2022-09-22 13:24] LABS: EOSINOPHILS PERCENT AUTO 0.3 % (0.1-6.8); LYMPHOCYTES ABSOLUTE AUTO 1.9 x10-3/uL (0.5-4.5); LYMPHOCYTES PERCENT AUTO 27.9 % (15.8-45.3); MEAN CORPUSCULAR HGB CONC 38.4 g/dL (28.7-35.3); MEAN PLATELET VOLUME 11.1 fL (6.7-11.0); MONOCYTES ABSOLUTE AUTO 0.5 x10-3/uL (0.0-1.2); MONOCYTES PERCENT AUTO 7.6 % (5.5-15.2); NEUTROPHILS ABSOLUTE AUTO 4.2 x10-3/uL (1.7-6.9); NEUTROPHILS PERCENT AUTO 62.8 % (40.3-71.8); PLATELET COUNT,PLT 284 x10(3)uL (117-477); RED CELL DISTRIBUTION WIDTH 12.9 % (12.4-15.0)
[2022-09-22 13:26] LABS: WHITE BLOOD CELL COUNT,WBC 6.7 x10-3/uL (3.2-10.1)
[2022-09-22 15:59] VITALS: BP 171/107; PULSE 109
== END 2022-09-22 13:56 | disposition home or self-care (01) ==
LOC: FB.ED 11:06
DX: R10.13 Epigastric pain (principal); R10.12 Left upper quadrant pain; G89.29 Other chronic pain; E78.00 Pure hypercholesterolemia, unspecified; I10 Essential (primary) hypertension; E66.9 Obesity, unspecified; Z68.30 Body mass index [BMI] 30.0-30.9, adult; Z88.4 Allergy status to anesthetic agent; Z88.8 Allergy status to other drugs, medicaments and biological substances; Z79.899 Other long term (current) drug therapy; Z86.16 Personal history of COVID-19
CPT/HCPCS: 74160; 80053; 82150; 83690; 85025; 96361; 96374; 96375; 99284-25; A9270-GY; J1885; J2270; J2405; J7030; Q9967

== ENCOUNTER 2022-09-23 20:37 | Emergency (ER) | payer MEDICAID ==
[2022-09-23] MEDS ORDERED: fentaNYL 100 MCG/2 ML SDV IVPUSH ONE ×3 (20:54→23:45)
[2022-09-23] MEDS ORDERED: Lactated Ringers 1,000 ML IV ONE (20:54)
[2022-09-23] MEDS ORDERED: Lactated Ringers 1,000 ML IV SCH (22:15)
[2022-09-23 22:49] LABS: EOSINOPHILS ABSOLUTE AUTO 0.1 x10-3/uL (0.0-0.6); MONOCYTES ABSOLUTE AUTO 0.6 x10-3/uL (0.0-1.2)
[2022-09-23 22:52] LABS: BASOPHILS ABSOLUTE AUTO 0.1 x10-3/uL (0.0-0.3)
[2022-09-23 23:07] LABS: BASOPHILS PERCENT AUTO 0.8 % (0.3-3.8); EOSINOPHILS PERCENT AUTO 1.5 % (0.1-6.8); HEMATOCRIT 49.1 % (38.3-50.1); LYMPHOCYTES ABSOLUTE AUTO 1.6 x10-3/uL (0.5-4.5); LYMPHOCYTES PERCENT AUTO 24.7 % (15.8-45.3); MEAN CORPUSCULAR HEMOGLOBIN 32.5 pg (27.0-33.3); MEAN CORPUSCULAR HGB CONC 36.1 g/dL (28.7-35.3); MEAN CORPUSCULAR VOLUME 89.9 fL (80.8-98.7); MEAN PLATELET VOLUME 10.4 fL (6.7-11.0); MONOCYTES PERCENT AUTO 8.5 % (5.5-15.2); NEUTROPHILS ABSOLUTE AUTO 4.3 x10-3/uL (1.7-6.9); NEUTROPHILS PERCENT AUTO 64.5 % (40.3-71.8); PLATELET COUNT,PLT 266 x10(3)uL (117-477); RED BLOOD CELL COUNT 5.47 x10(6)uL (3.90-5.90); RED CELL DISTRIBUTION WIDTH 13.5 % (12.4-15.0); WHITE BLOOD CELL COUNT,WBC 6.6 x10-3/uL (3.2-10.1)
[2022-09-23 23:08] LABS: HEMOGLOBIN 17.8 g/dL (12.9-17.7)
[2022-09-24 00:59] LABS: A/G RATIO 1.1; ALBUMIN 4.1 g/dL (3.5-5.2); BLOOD UREA NITROGEN,BUN 18 mg/dL (7-18); CALCIUM 8.9 mg/dL (8.6-10.2); CARBON DIOXIDE,CO2 24 mmol/L (21-32); CHLORIDE,CL 100 mmol/L (100-110); CREATININE 0.9 mg/dL (0.70-1.30); EST CRCL DRUG DOSING (CG) 115.65 mL/min; ESTIMATED GFR 115 mL/min (>60); GLUCOSE RANDOM 111 mg/dL (80-116); POTASSIUM,K 4.2 mmol/L (3.5-5.3); PROTEIN TOTAL,TP 7.9 g/dL (6.0-8.0)
[2022-09-24 01:00] LABS: ALKALINE PHOSPHATASE 74 IU/L (56-112); BILIRUBIN TOTAL 1.2 mg/dL (0.1-1.3); TRIGLYCERIDES 3131 mg/dL (25-150)
[2022-09-24 01:01] LABS: ALANINE AMINOTRANSFERASE,ALT 122 U/L (12-36); ASPARTATE AMNIOTRANSFERASE,AST 93 IU/L (5-25); C-REACTIVE PROTEIN 0.5 mg/dL (<0.33)
[2022-09-24 01:03] LABS: SODIUM,NA 136 mmol/L (135-145)
[2022-09-24] MEDS ORDERED: fentaNYL 100 MCG/2 ML SDV IVPUSH ONE (02:08)
[2022-09-24] MEDS ORDERED: Lactated Ringers 1,000 ML IV SCH (02:15)
[2022-09-24] MEDS ORDERED: Acetaminophen/oxyCODONE 325-5 MG Tab PO ONE (03:40)
[2022-09-24 03:54] VITALS: BP 147/97; PULSE 73
== END 2022-09-24 03:53 | disposition home or self-care (01) ==
LOC: FB.ED 20:37
DX: K86.1 Other chronic pancreatitis (principal); K86.89 Other specified diseases of pancreas; E78.1 Pure hyperglyceridemia; E78.00 Pure hypercholesterolemia, unspecified; I10 Essential (primary) hypertension; E66.9 Obesity, unspecified; Z86.16 Personal history of COVID-19; Z79.899 Other long term (current) drug therapy; Z88.8 Allergy status to other drugs, medicaments and biological substances; Z68.32 Body mass index [BMI] 32.0-32.9, adult
CPT/HCPCS: 36415; 80053; 83690; 84478; 85025; 86140; 96361; 96374; 96376; 99283; 99284-25; A9270-GY; J3010; J7120

== ENCOUNTER 2022-09-29 03:11 | Emergency (ER) | payer MEDICAID ==
[2022-09-29] MEDS ORDERED: hydrOXYzine HCl 50 MG/ML SDV IM ONE (03:32)
[2022-09-29] MEDS ORDERED: HYDROmorphone 2 MG/ML SDV IM ONE (03:32)
[2022-09-29 04:32] VITALS: BP 152/96; PULSE 109
== END 2022-09-29 04:10 | disposition home or self-care (01) ==
LOC: FB.ED 03:11
DX: F32.A Depression, unspecified (principal); E78.00 Pure hypercholesterolemia, unspecified; I10 Essential (primary) hypertension; E66.9 Obesity, unspecified; Z86.16 Personal history of COVID-19; Z88.8 Allergy status to other drugs, medicaments and biological substances; Z79.899 Other long term (current) drug therapy
CPT/HCPCS: 96372; 99283; J1170; J3410

== ENCOUNTER 2022-11-02 00:06 | Emergency (ER) | payer MEDICAID ==
[2022-11-02] MEDS ORDERED: Acetaminophen/oxyCODONE 325-5 MG Tab PO ONE (00:07)
[2022-11-02] MEDS ORDERED: Ketorolac 30 MG/ML SDV IM ONE (00:19)
[2022-11-02] MEDS ORDERED: Naloxone 0.4 MG/ML SDV IVPUSH PRN (00:20)
[2022-11-02] MEDS ORDERED: Morphine 4 MG/ML VIAL IM ONE ×2 (00:20→04:30)
[2022-11-02 00:55] VITALS: BP 167/122; PULSE 113
[2022-11-02 03:42] LABS: RED BLOOD CELL COUNT 5.36 x10(6)uL (3.90-5.90)
[2022-11-02 03:47] LABS: HEMATOCRIT 47.3 % (38.3-50.1); HEMOGLOBIN 18.4 g/dL (12.9-17.7)
[2022-11-02 03:48] LABS: MEAN CORPUSCULAR HEMOGLOBIN 34.3 pg (27.0-33.3); MEAN CORPUSCULAR HGB CONC 38.9 g/dL (28.7-35.3); MEAN CORPUSCULAR VOLUME 88.2 fL (80.8-98.7)
[2022-11-02 03:55] LABS: PLATELET COUNT,PLT 301 x10(3)uL (117-477); RED CELL DISTRIBUTION WIDTH 12.4 % (12.4-15.0)
[2022-11-02 03:56] LABS: LYMPHOCYTES PERCENT AUTO 23.2 % (15.8-45.3); MEAN PLATELET VOLUME 10.5 fL (6.7-11.0); MONOCYTES PERCENT AUTO 8.7 % (5.5-15.2); NEUTROPHILS PERCENT AUTO 65.2 % (40.3-71.8)
[2022-11-02 03:57] LABS: BASOPHILS ABSOLUTE AUTO 0.1 x10-3/uL (0.0-0.3); BASOPHILS PERCENT AUTO 1.3 % (0.3-3.8); EOSINOPHILS ABSOLUTE AUTO 0.1 x10-3/uL (0.0-0.6); EOSINOPHILS PERCENT AUTO 0.9 % (0.1-6.8); MONOCYTES ABSOLUTE AUTO 0.7 x10-3/uL (0.0-1.2); NEUTROPHILS ABSOLUTE AUTO 5.6 x10-3/uL (1.7-6.9)
[2022-11-02 04:15] LABS: WHITE BLOOD CELL COUNT,WBC 8.5 x10-3/uL (3.2-10.1)
[2022-11-02 04:20] LABS: CARBON DIOXIDE,CO2 21 mmol/L (21-32); CHLORIDE,CL 102 mmol/L (100-110); GLUCOSE RANDOM 128 mg/dL (80-116); POTASSIUM,K 3.7 mmol/L (3.5-5.3); SODIUM,NA 139 mmol/L (135-145)
[2022-11-02 04:21] LABS: A/G RATIO 1.1; ALANINE AMINOTRANSFERASE,ALT 127 U/L (12-36); ALBUMIN 4.3 g/dL (3.5-5.2); ALKALINE PHOSPHATASE 82 IU/L (56-112); ASPARTATE AMNIOTRANSFERASE,AST 91 IU/L (5-25); BLOOD UREA NITROGEN,BUN 9 mg/dL (7-18); BUN/CREATININE RATIO 11.3 (9-20); CALCIUM 8.9 mg/dL (8.6-10.2); CREATININE 0.8 mg/dL (0.70-1.30); EST CRCL DRUG DOSING (CG) 120.49 mL/min; ESTIMATED GFR 118 mL/min (>60); PROTEIN TOTAL,TP 8.4 g/dL (6.0-8.0)
[2022-11-02] MEDS ORDERED: Morphine 4 MG/ML VIAL IVPUSH ONE (04:22)
[2022-11-02 04:39] LABS: BILIRUBIN,URINE NEGATIVE (NEGATIVE); GLUCOSE,URINE NORMAL (NORMAL); KETONES,URINE 15 mg/dL (NEGATIVE); LEUKOCYTE ESTERASE,URINE NEGATIVE (NEGATIVE); NITRITE,URINE NEGATIVE (NEGATIVE); OCCULT BLOOD,URINE NEGATIVE (NEGATIVE); PROTEIN,URINE NEGATIVE (NEGATIVE); UROBILINOGEN,URINE NORMAL (NEGATIVE)
[2022-11-02 04:40] LABS: APPEARANCE,URINE CLEAR (CLEAR); COLOR,URINE YELLOW (YELLOW)
== END 2022-11-02 04:52 | disposition home or self-care (01) ==
LOC: FB.ED 00:06
DX: K86.1 Other chronic pancreatitis (principal); E78.00 Pure hypercholesterolemia, unspecified; I10 Essential (primary) hypertension; E66.9 Obesity, unspecified; Z88.4 Allergy status to anesthetic agent; Z88.8 Allergy status to other drugs, medicaments and biological substances; Z79.899 Other long term (current) drug therapy; Z86.16 Personal history of COVID-19; Z68.36 Body mass index [BMI] 36.0-36.9, adult
CPT/HCPCS: 36415; 80053; 81003; 82150; 83690; 85025; 96372; 99284; A9270; J1885; J2270

== ENCOUNTER 2022-11-17 05:12 | Emergency (ER) | payer MEDICAID ==
[2022-11-17] MEDS ORDERED: HYDROmorphone 2 MG/ML SDV IM ONE (05:40)
[2022-11-17] MEDS ORDERED: hydrOXYzine HCl 50 MG/ML SDV IM ONE (05:40)
[2022-11-17] MEDS ORDERED: Ondansetron 4 MG/2 ML SDV IVPUSH ONE (05:42)
[2022-11-17] MEDS ORDERED: Ketorolac 30 MG/ML SDV IVPUSH ONE (05:42)
[2022-11-17] MEDS ORDERED: Sodium Chloride 0.9% 1,000 ML IV SCH (05:45)
[2022-11-17] MEDS ORDERED: HYDROmorphone 2 MG/ML SDV IVPUSH ONE (06:34)
[2022-11-17] MEDS ORDERED: Iopamidol 755 Mg/ML 100 ML Bottle IV SCH (07:30)
[2022-11-17] MEDS ORDERED: Morphine 4 MG/ML VIAL IVPUSH ONE (07:31)
[2022-11-17] MEDS ORDERED: Prochlorperazine 10 MG/2 ML SDV IVPUSH ONE (07:31)
[2022-11-17 09:14] VITALS: BP 129/64; PULSE 82
[2022-11-17 11:38] LABS: HEMATOCRIT 50.1 % (38.3-50.1); HEMOGLOBIN 18.6 g/dL (12.9-17.7); MEAN CORPUSCULAR HEMOGLOBIN 33.2 pg (27.0-33.3); MEAN CORPUSCULAR HGB CONC 37.1 g/dL (28.7-35.3); MEAN CORPUSCULAR VOLUME 89.5 fL (80.8-98.7); MEAN PLATELET VOLUME 10.6 fL (6.7-11.0); PLATELET COUNT,PLT 280 x10(3)uL (117-477); RED CELL DISTRIBUTION WIDTH 12.7 % (12.4-15.0)
[2022-11-17 11:39] LABS: BASOPHILS ABSOLUTE AUTO 0.1 x10-3/uL (0.0-0.3); BASOPHILS PERCENT AUTO 1.2 % (0.3-3.8); EOSINOPHILS ABSOLUTE AUTO 0.1 x10-3/uL (0.0-0.6); EOSINOPHILS PERCENT AUTO 1.2 % (0.1-6.8); LYMPHOCYTES ABSOLUTE AUTO 1.6 x10-3/uL (0.5-4.5); MONOCYTES ABSOLUTE AUTO 0.4 x10-3/uL (0.0-1.2); MONOCYTES PERCENT AUTO 7.7 % (5.5-15.2); NEUTROPHILS PERCENT AUTO 58.5 % (40.3-71.8)
[2022-11-17 12:26] LABS: A/G RATIO 1.1; ALBUMIN 4.4 g/dL (3.5-5.2); ALKALINE PHOSPHATASE 93 IU/L (56-112); BILIRUBIN TOTAL 0.9 mg/dL (0.1-1.3); BLOOD UREA NITROGEN,BUN 14 mg/dL (7-18); CALCIUM 8.8 mg/dL (8.6-10.2); CARBON DIOXIDE,CO2 23 mmol/L (21-32); CHLORIDE,CL 103 mmol/L (100-110); EST CRCL DRUG DOSING (CG) 99.75 mL/min; ESTIMATED GFR 101 mL/min (>60); GLUCOSE RANDOM 116 mg/dL (80-116); PROTEIN TOTAL,TP 8.4 g/dL (6.0-8.0); SODIUM,NA 142 mmol/L (135-145)
[2022-11-17 12:27] LABS: ALANINE AMINOTRANSFERASE,ALT 111 U/L (12-36); ASPARTATE AMNIOTRANSFERASE,AST 87 IU/L (5-25)
== END 2022-11-17 08:27 | disposition home or self-care (01) ==
LOC: FB.ED 05:12
DX: K86.1 Other chronic pancreatitis (principal); I10 Essential (primary) hypertension; E78.00 Pure hypercholesterolemia, unspecified; E66.9 Obesity, unspecified; Z68.33 Body mass index [BMI] 33.0-33.9, adult; Z86.16 Personal history of COVID-19; Z79.899 Other long term (current) drug therapy; Z88.6 Allergy status to analgesic agent; Z88.8 Allergy status to other drugs, medicaments and biological substances
CPT/HCPCS: 36415; 74177; 80053; 83690; 85025; 96361; 96374; 96375; 99284; 99284-25; J0780; J1170; J1885; J2270; J2405; J7030; Q9967

== ENCOUNTER 2022-12-14 14:33 | Emergency (ER) | payer MEDICAID ==
[2022-12-14] MEDS ORDERED: Ondansetron 4 MG/2 ML SDV IVPUSH ONE (15:03)
[2022-12-14] MEDS ORDERED: Sodium Chloride 0.9% 10 ML Syringe FLUSH PRN (15:03)
[2022-12-14] MEDS ORDERED: Ketorolac 30 MG/ML SDV IVPUSH ONE (15:03)
[2022-12-14] MEDS ORDERED: Morphine 4 MG/ML VIAL IVPUSH ONE (15:03)
[2022-12-14] MEDS ORDERED: Sodium Chloride 0.9% 1,000 ML IV SCH (15:30)
[2022-12-14 15:49] LABS: EOSINOPHILS ABSOLUTE AUTO 0.1 x10-3/uL (0.0-0.6)
[2022-12-14] MEDS ORDERED: HYDROmorphone 2 MG/ML SDV IVPUSH ONE (15:49)
[2022-12-14 15:51] LABS: RED CELL DISTRIBUTION WIDTH 13.3 % (12.4-15.0)
[2022-12-14 15:54] LABS: BILIRUBIN,URINE NEGATIVE (NEGATIVE); GLUCOSE,URINE NORMAL (NORMAL); KETONES,URINE NEGATIVE (NEGATIVE); LEUKOCYTE ESTERASE,URINE NEGATIVE (NEGATIVE); NITRITE,URINE NEGATIVE (NEGATIVE); OCCULT BLOOD,URINE NEGATIVE (NEGATIVE); PH,URINE 6.5 (5.0-6.5); PROTEIN,URINE NEGATIVE (NEGATIVE); UROBILINOGEN,URINE NORMAL (NEGATIVE)
[2022-12-14 16:07] LABS: AMPHETAMINES SCREEN, URINE NEGATIVE (NEGATIVE); BARBITURATE SCREEN,URINE NEGATIVE (NEGATIVE); BENZODIAZEPINES SCREEN,URINE NEGATIVE (NEGATIVE); METHADONE SCREEN, URINE NEGATIVE (NEGATIVE); METHAMPHETAMINE SCREEN, URINE NEGATIVE (NEGATIVE); OXYCODONE SCREEN,URINE NEGATIVE (NEGATIVE); THC SCREEN,URINE NEGATIVE (NEGATIVE)
[2022-12-14 16:08] LABS: BASOPHILS PERCENT AUTO 0.8 % (0.3-3.8); EOSINOPHILS PERCENT AUTO 2.1 % (0.1-6.8); HEMATOCRIT 43.9 % (38.3-50.1); HEMOGLOBIN 15.3 g/dL (12.9-17.7); LYMPHOCYTES PERCENT AUTO 24.4 % (15.8-45.3); MEAN CORPUSCULAR HEMOGLOBIN 31.7 pg (27.0-33.3); MEAN CORPUSCULAR HGB CONC 34.9 g/dL (28.7-35.3); MEAN CORPUSCULAR VOLUME 90.8 fL (80.8-98.7); MEAN PLATELET VOLUME 8.9 fL (6.7-11.0); MONOCYTES ABSOLUTE AUTO 0.3 x10-3/uL (0.0-1.2); MONOCYTES PERCENT AUTO 6.7 % (5.5-15.2); NEUTROPHILS ABSOLUTE AUTO 2.8 x10-3/uL (1.7-6.9); PLATELET COUNT,PLT 218 x10(3)uL (117-477); RED BLOOD CELL COUNT 4.84 x10(6)uL (3.90-5.90); WHITE BLOOD CELL COUNT,WBC 4.2 x10-3/uL (3.2-10.1)
[2022-12-14 16:08] LABS: BUPRENORPHINE SCREEN,URINE NEGATIVE (NEGATIVE)
[2022-12-14 16:10] LABS: APPEARANCE,URINE CLEAR (CLEAR); COLOR,URINE YELLOW (YELLOW); RBC,URINE 0-5 (0-5); SQUAMOUS EPITHELIAL CELLS,UR OCCASIONAL (NS,R,O); WBC,URINE 0-5 (0-5)
[2022-12-14 16:11] LABS: BACTERIA,URINE OCCASIONAL (NS)
[2022-12-14 17:31] VITALS: BP 180/121; PULSE 89
[2022-12-14 18:36] LABS: BLOOD UREA NITROGEN,BUN 11 mg/dL (7-18); BUN/CREATININE RATIO 13.8 (9-20); CARBON DIOXIDE,CO2 24 mmol/L (21-32); CHLORIDE,CL 103 mmol/L (100-110); CREATININE 0.8 mg/dL (0.70-1.30); ESTIMATED GFR 118 mL/min (>60); GLUCOSE RANDOM 116 mg/dL (80-116); POTASSIUM,K 3.8 mmol/L (3.5-5.3)
[2022-12-14 18:37] LABS: A/G RATIO 1.2; ALBUMIN 4.2 g/dL (3.5-5.2); ALKALINE PHOSPHATASE 81 IU/L (56-112); BILIRUBIN TOTAL 0.9 mg/dL (0.1-1.3); CALCIUM 8.5 mg/dL (8.6-10.2); PROTEIN TOTAL,TP 7.6 g/dL (6.0-8.0)
[2022-12-14 18:38] LABS: ALANINE AMINOTRANSFERASE,ALT 174 U/L (12-36); AMYLASE 58 U/L (25-115); ASPARTATE AMNIOTRANSFERASE,AST 108 IU/L (5-25)
[2022-12-14 18:39] LABS: SODIUM,NA 138 mmol/L (135-145)
== END 2022-12-14 17:00 | disposition home or self-care (01) ==
LOC: FB.ED 14:33
DX: N20.0 Calculus of kidney (principal); E78.00 Pure hypercholesterolemia, unspecified; I10 Essential (primary) hypertension; E66.9 Obesity, unspecified; Z79.899 Other long term (current) drug therapy; Z88.4 Allergy status to anesthetic agent; Z88.6 Allergy status to analgesic agent
CPT/HCPCS: 74176; 80053; 80307; 81001; 82150; 83690; 85025; 96361; 96374; 96375; 99284; J1170; J1885; J2270; J2405; J3490; J7030

== ENCOUNTER 2023-01-22 08:48 | Emergency (ER) | payer MEDICAID ==
[2023-01-22] MEDS ORDERED: Sodium Chloride 0.9% 10 ML Syringe FLUSH PRN (09:52)
[2023-01-22] MEDS: Cyclobenzaprine 10 MG Tab PO ONE (10:15)
[2023-01-22] MEDS: Ketorolac 30 MG/ML SDV IVPUSH ONE (10:17)
[2023-01-22] MEDS: Morphine 4 MG/ML VIAL IVPUSH ONE (10:19)
[2023-01-22 10:30] VITALS: BP 142/103; PULSE 82
[2023-01-22] MEDS: HYDROmorphone 2 MG/ML SDV IVPUSH ONE (10:50)
== END 2023-01-22 10:56 ==
LOC: FB.ED 08:48
DX: M54.50 Low back pain, unspecified (principal); R32 Unspecified urinary incontinence; I10 Essential (primary) hypertension; E78.00 Pure hypercholesterolemia, unspecified; K21.9 Gastro-esophageal reflux disease without esophagitis; W00.0XXA Fall on same level due to ice and snow, initial encounter; E66.9 Obesity, unspecified; Z68.34 Body mass index [BMI] 34.0-34.9, adult; Z88.4 Allergy status to anesthetic agent; Z88.8 Allergy status to other drugs, medicaments and biological substances; Z79.899 Other long term (current) drug therapy; Z86.16 Personal history of COVID-19
CPT/HCPCS: 72100; 96374; 96375; 99285; 99285-25; A9270-GY; J1170; J1885; J2270

== ENCOUNTER 2023-02-05 15:42 | Emergency (ER) | payer MEDICAID ==
[2023-02-05] MEDS ORDERED: Ketorolac 30 MG/ML SDV IM ONE (16:16)
[2023-02-05 17:42] VITALS: BP 159/105; PULSE 86
== END 2023-02-05 16:35 | disposition home or self-care (01) ==
LOC: FB.ED 15:42
DX: M54.16 Radiculopathy, lumbar region (principal); I10 Essential (primary) hypertension; E78.00 Pure hypercholesterolemia, unspecified; E66.9 Obesity, unspecified; Z68.33 Body mass index [BMI] 33.0-33.9, adult; Z88.8 Allergy status to other drugs, medicaments and biological substances; Z88.4 Allergy status to anesthetic agent; Z79.899 Other long term (current) drug therapy; Z86.16 Personal history of COVID-19; Z72.0 Tobacco use
CPT/HCPCS: 96372; 99283; J1885

== ENCOUNTER 2023-02-13 18:38 | Emergency (ER) | payer MEDICAID ==
[2023-02-13] MEDS ORDERED: Acetaminophen/oxyCODONE 325-5 MG Tab PO ONE (18:39)
[2023-02-13] MEDS ORDERED: Ketorolac 30 MG/ML SDV IM ONE (19:08)
[2023-02-13] MEDS ORDERED: HYDROmorphone 2 MG/ML SDV IM ONE (19:08)
[2023-02-13 19:56] VITALS: BP 174/110; PULSE 97
== END 2023-02-13 20:29 | disposition home or self-care (01) ==
LOC: FB.ED 18:38
DX: M51.36 Other intervertebral disc degeneration, lumbar region (principal); R10.9 Unspecified abdominal pain; G89.29 Other chronic pain; I10 Essential (primary) hypertension; E78.00 Pure hypercholesterolemia, unspecified; E66.9 Obesity, unspecified; Z86.16 Personal history of COVID-19; Z90.49 Acquired absence of other specified parts of digestive tract; Z79.899 Other long term (current) drug therapy; Z88.8 Allergy status to other drugs, medicaments and biological substances; Z68.31 Body mass index [BMI] 31.0-31.9, adult
CPT/HCPCS: 36415; 80053; 82150; 83690; 85025; 96372; 99284; A9270-GY; J1170; J1885

== ENCOUNTER 2023-03-02 16:26 | Emergency (ER) | payer MEDICAID ==
[2023-03-02 16:43] VITALS: BP 155/98; PULSE 98
[2023-03-02] MEDS ORDERED: Cyclobenzaprine 10 MG Tab PO ONE (17:22)
[2023-03-02] MEDS ORDERED: Acetaminophen 325 MG Tab PO ONE (17:22)
[2023-03-02] MEDS ORDERED: HYDROmorphone 2 MG/ML SDV IM ONE (17:22)
[2023-03-02] MEDS ORDERED: Ondansetron 4 MG Tab.DIS PO ONE (17:24)
== END 2023-03-02 18:35 | disposition home or self-care (01) ==
LOC: FB.ED 16:26
DX: M54.16 Radiculopathy, lumbar region (principal); I10 Essential (primary) hypertension; E78.00 Pure hypercholesterolemia, unspecified; Z88.8 Allergy status to other drugs, medicaments and biological substances; Z88.4 Allergy status to anesthetic agent; Z86.16 Personal history of COVID-19; Z90.49 Acquired absence of other specified parts of digestive tract; Z79.899 Other long term (current) drug therapy
CPT/HCPCS: 96372; 99283; A9270; J1170; Q0162

== ENCOUNTER 2023-03-03 12:25 | Emergency (ER) | payer MEDICAID ==
[2023-03-03] MEDS ORDERED: Acetaminophen/oxyCODONE 325-5 MG Tab PO ONE (12:26)
[2023-03-03] MEDS ORDERED: Ketorolac 30 MG/ML SDV IM ONE (12:51)
[2023-03-03] MEDS ORDERED: HYDROmorphone 2 MG/ML SDV IM ONE (12:51)
[2023-03-03 14:03] VITALS: BP 134/89; PULSE 89
== END 2023-03-03 14:18 | disposition home or self-care (01) ==
LOC: FB.ED 12:25
DX: M51.36 Other intervertebral disc degeneration, lumbar region (principal); M51.17 Intervertebral disc disorders with radiculopathy, lumbosacral region; E78.00 Pure hypercholesterolemia, unspecified; I10 Essential (primary) hypertension; E66.9 Obesity, unspecified; Z86.16 Personal history of COVID-19; Z88.4 Allergy status to anesthetic agent; Z68.24 Body mass index [BMI] 24.0-24.9, adult
CPT/HCPCS: 96372; 99283; A9270; J1170; J1885

== ENCOUNTER 2023-04-04 06:39 | Emergency (ER) | payer MEDICAID ==
[2023-04-04] MEDS ORDERED: Acetaminophen/oxyCODONE 325-5 MG Tab PO ONE (06:40)
[2023-04-04] MEDS: Ketorolac 30 MG/ML SDV IM ONE ×2 (07:12→07:16)
[2023-04-04] MEDS: Cyclobenzaprine 10 MG Tab PO ONE (07:15)
[2023-04-04] MEDS: HYDROmorphone 2 MG/ML SDV IM ONE (07:16)
[2023-04-04 07:46] VITALS: BP 155/89; PULSE 89
== END 2023-04-04 07:45 | disposition home or self-care (01) ==
LOC: FB.ED 06:39
DX: M54.50 Low back pain, unspecified (principal); M54.30 Sciatica, unspecified side; M51.36 Other intervertebral disc degeneration, lumbar region; M54.16 Radiculopathy, lumbar region; I10 Essential (primary) hypertension; E78.00 Pure hypercholesterolemia, unspecified; Z88.4 Allergy status to anesthetic agent; Z88.8 Allergy status to other drugs, medicaments and biological substances; Z79.899 Other long term (current) drug therapy; Z86.16 Personal history of COVID-19
CPT/HCPCS: 96372; 99283; 99284; A9270-GY; J1170; J1885

== ENCOUNTER 2023-04-08 23:17 | Emergency (ER) | payer SELFPAY ==
[2023-04-08] MEDS ORDERED: Ketorolac 30 MG/ML SDV ONE (23:41)
[2023-04-08] MEDS: HYDROmorphone 2 MG/ML SDV IM ONE (23:42)
[2023-04-08] MEDS: Ketorolac 30 MG/ML SDV IM ONE (23:46)
[2023-04-08] MEDS: Cyclobenzaprine 10 MG Tab PO ONE (23:47)
[2023-04-09 00:50] LABS: BILIRUBIN,URINE NEGATIVE (NEGATIVE); GLUCOSE,URINE NORMAL (NORMAL); KETONES,URINE NEGATIVE (NEGATIVE); LEUKOCYTE ESTERASE,URINE SMALL (NEGATIVE); NITRITE,URINE POSITIVE (NEGATIVE); OCCULT BLOOD,URINE TRACE (NEGATIVE); PROTEIN,URINE 30 mg/dL (NEGATIVE); UROBILINOGEN,URINE NORMAL (NEGATIVE)
[2023-04-09 00:51] LABS: APPEARANCE,URINE CLEAR (CLEAR); COLOR,URINE YELLOW (YELLOW)
[2023-04-09] MEDS: Acetaminophen/oxyCODONE 325-5 MG Tab PO STA (01:10)
[2023-04-09] MEDS: Sulfamethoxazole/Trimethoprim 800-160 MG Tab PO ONE (01:10)
[2023-04-09 01:29] VITALS: PULSE 114
== END 2023-04-09 01:29 | disposition home or self-care (01) ==
LOC: FB.ED 23:17
DX: M51.16 Intervertebral disc disorders with radiculopathy, lumbar region (principal); N39.0 Urinary tract infection, site not specified; I10 Essential (primary) hypertension; E78.00 Pure hypercholesterolemia, unspecified; Z88.4 Allergy status to anesthetic agent; Z88.8 Allergy status to other drugs, medicaments and biological substances; Z86.16 Personal history of COVID-19; Z90.49 Acquired absence of other specified parts of digestive tract; Z79.899 Other long term (current) drug therapy
CPT/HCPCS: 81003; 87086; 96372; 99283; 99284; A9270-GY; J1170; J1885

== ENCOUNTER 2023-04-12 09:54 | Emergency (ER) | payer SELFPAY ==
[2023-04-12 10:02] VITALS: BP 155/106; PULSE 92
[2023-04-12] MEDS: Ketorolac 30 MG/ML SDV IM ONE (10:28)
[2023-04-12] MEDS: Acetaminophen/HYDROcodone 325-5 MG Tab PO ONE (10:28)
[2023-04-12] MEDS: Morphine 4 MG/ML VIAL IM ONE (11:05)
== END 2023-04-12 11:25 | disposition home or self-care (01) ==
LOC: FB.ED 09:54
DX: G89.29 Other chronic pain (principal); M54.40 Lumbago with sciatica, unspecified side; M51.36 Other intervertebral disc degeneration, lumbar region; I10 Essential (primary) hypertension; E78.00 Pure hypercholesterolemia, unspecified; E66.9 Obesity, unspecified; F17.210 Nicotine dependence, cigarettes, uncomplicated; Z68.34 Body mass index [BMI] 34.0-34.9, adult; Z88.8 Allergy status to other drugs, medicaments and biological substances; Z79.899 Other long term (current) drug therapy; Z86.16 Personal history of COVID-19; Z90.49 Acquired absence of other specified parts of digestive tract
CPT/HCPCS: 96372; 99283; A9270; J1885; J2270

== ENCOUNTER 2023-04-23 07:59 | Emergency (ER) | payer SELFPAY ==
[2023-04-23] MEDS: Ketorolac 30 MG/ML SDV IVPUSH ONE (08:20)
[2023-04-23] MEDS: HYDROmorphone 2 MG/ML SDV IVPUSH ONE (08:22)
[2023-04-23] MEDS: Prochlorperazine 10 MG/2 ML SDV IVPUSH ONE (08:30)
[2023-04-23] MEDS: Sodium Chloride 0.9% 1,000 ML IV SCH (08:30)
[2023-04-23 09:23] VITALS: BP 131/86; PULSE 89
[2023-04-23 11:57] LABS: WHITE BLOOD CELL COUNT,WBC 6.9 x10-3/uL (3.2-10.1)
[2023-04-23 11:58] LABS: SODIUM,NA 140 mmol/L (135-145)
[2023-04-23 11:59] LABS: LACTIC ACID 1.3 mmol/L (0.4-2.0)
== END 2023-04-23 09:16 | disposition home or self-care (01) ==
LOC: FB.ED 07:59
DX: M51.16 Intervertebral disc disorders with radiculopathy, lumbar region (principal); G89.29 Other chronic pain; I10 Essential (primary) hypertension; E78.00 Pure hypercholesterolemia, unspecified; E66.9 Obesity, unspecified; Z68.31 Body mass index [BMI] 31.0-31.9, adult; Z79.899 Other long term (current) drug therapy; Z88.4 Allergy status to anesthetic agent; Z88.8 Allergy status to other drugs, medicaments and biological substances; Z86.16 Personal history of COVID-19
CPT/HCPCS: 80053; 83605; 85025; 96361; 96374; 96375; 99283; 99284; J0780; J1170; J1885; J7030

== ENCOUNTER 2023-04-24 22:19 | Emergency (ER) | payer SELFPAY ==
[2023-04-24 22:31] VITALS: BP 164/120; PULSE 106
[2023-04-24] MEDS: Ketorolac 30 MG/ML SDV IM ONE (23:10)
[2023-04-24] MEDS: Baclofen 10 MG Tab PO ONE (23:10)
[2023-04-24] MEDS: Metoclopramide 10 MG/2 ML SDV IM ONE (23:12)
== END 2023-04-24 23:25 | disposition home or self-care (01) ==
LOC: FB.ED 22:19
DX: G89.29 Other chronic pain (principal); M54.41 Lumbago with sciatica, right side; I10 Essential (primary) hypertension; E78.00 Pure hypercholesterolemia, unspecified; E66.9 Obesity, unspecified; F17.210 Nicotine dependence, cigarettes, uncomplicated; Z88.8 Allergy status to other drugs, medicaments and biological substances; Z86.16 Personal history of COVID-19; Z79.899 Other long term (current) drug therapy; Z90.49 Acquired absence of other specified parts of digestive tract
CPT/HCPCS: 96372; 99283; A9270; J1885; J2765; 99284

== ENCOUNTER 2023-05-12 08:28 | Emergency (ER) | payer SELFPAY ==
[2023-05-12 08:47] VITALS: BP 143/86; PULSE 105
[2023-05-12] MEDS ORDERED: Baclofen 10 MG Tab PO ONE (09:14)
[2023-05-12] MEDS ORDERED: hydrOXYzine HCl 50 MG/ML SDV IM ONE (09:14)
[2023-05-12] MEDS ORDERED: Ketorolac 30 MG/ML SDV IM ONE (09:14)
== END 2023-05-12 09:25 | disposition left against medical advice (07) ==
LOC: FB.ED 08:28
DX: M54.10 Radiculopathy, site unspecified (principal); E78.00 Pure hypercholesterolemia, unspecified; I10 Essential (primary) hypertension; E66.9 Obesity, unspecified; Z88.8 Allergy status to other drugs, medicaments and biological substances; Z79.899 Other long term (current) drug therapy; Z86.19 Personal history of other infectious and parasitic diseases; Z86.16 Personal history of COVID-19; Z68.25 Body mass index [BMI] 25.0-25.9, adult
CPT/HCPCS: 99283

== ENCOUNTER 2023-09-05 07:34 | Emergency (ER) | payer MEDICAID ==
[2023-09-05 07:50] VITALS: BP 121/92; PULSE 103
[2023-09-05] MEDS: Cyclobenzaprine 10 MG Tab PO ONE (08:06)
[2023-09-05] MEDS: HYDROmorphone 2 MG/ML SDV IM ONE (08:07)
[2023-09-05] MEDS: methylPREDNISolone Sodium Succinate 125 MG/2 ML SDV IM ONE (08:07)
== END 2023-09-05 08:55 | disposition home or self-care (01) ==
LOC: FB.ED 07:34
DX: M54.41 Lumbago with sciatica, right side (principal); G89.29 Other chronic pain; I10 Essential (primary) hypertension; E78.00 Pure hypercholesterolemia, unspecified; E66.9 Obesity, unspecified; Z90.49 Acquired absence of other specified parts of digestive tract; Z86.16 Personal history of COVID-19; Z79.899 Other long term (current) drug therapy; Z88.8 Allergy status to other drugs, medicaments and biological substances; Z68.39 Body mass index [BMI] 39.0-39.9, adult
CPT/HCPCS: 96372; 99283; A9270; J1170; J2919

== ENCOUNTER 2023-09-08 01:25 | Emergency (ER) | payer MEDICAID ==
[2023-09-08] MEDS: Ketorolac 30 MG/ML SDV IM ONE (02:16)
[2023-09-08 02:32] VITALS: BP 157/102; PULSE 109
== END 2023-09-08 02:35 | disposition home or self-care (01) ==
LOC: FB.ED 01:25
DX: G89.29 Other chronic pain (principal); M54.41 Lumbago with sciatica, right side; R46.89 Other symptoms and signs involving appearance and behavior; I10 Essential (primary) hypertension; E78.00 Pure hypercholesterolemia, unspecified; E66.9 Obesity, unspecified; Z88.6 Allergy status to analgesic agent; Z88.8 Allergy status to other drugs, medicaments and biological substances; Z79.899 Other long term (current) drug therapy; Z86.16 Personal history of COVID-19; Z90.49 Acquired absence of other specified parts of digestive tract
CPT/HCPCS: 96372; 99283; J1885; J3360

== ENCOUNTER 2023-10-11 21:46 | Emergency (ER) | payer SELFPAY ==
[2023-10-11] MEDS ORDERED: Acetaminophen/oxyCODONE 325-5 MG Tab PO ONE (21:47)
[2023-10-11] MEDS ORDERED: Naloxone 0.4 MG/ML SDV IVPUSH PRN (22:07)
[2023-10-11 22:15] VITALS: BP 162/97; PULSE 95
[2023-10-11] MEDS: HYDROmorphone 2 MG/ML SDV IM ONE (22:19)
[2023-10-11] MEDS: Ketorolac 30 MG/ML SDV IM ONE (22:20)
[2023-10-11] MEDS: Cyclobenzaprine 10 MG Tab PO ONE (22:21)
== END 2023-10-11 22:44 | disposition home or self-care (01) ==
LOC: FB.ED 21:46
DX: M51.36 Other intervertebral disc degeneration, lumbar region (principal); M54.41 Lumbago with sciatica, right side; G89.29 Other chronic pain; I10 Essential (primary) hypertension; E78.00 Pure hypercholesterolemia, unspecified; E66.9 Obesity, unspecified; Z86.16 Personal history of COVID-19; Z90.49 Acquired absence of other specified parts of digestive tract; Z79.899 Other long term (current) drug therapy; Z88.8 Allergy status to other drugs, medicaments and biological substances; Z68.31 Body mass index [BMI] 31.0-31.9, adult
CPT/HCPCS: 96372; 99283-25; 99284; A9270-GY; J1170; J1885

== ENCOUNTER 2023-11-03 21:34 | Emergency (ER) | payer MEDICAID ==
[2023-11-03 21:52] VITALS: BP 154/102; PULSE 117
[2023-11-03] MEDS: HYDROmorphone 2 MG/ML SDV IM ONE (22:14)
[2023-11-03] MEDS: hydrOXYzine HCl 50 MG/ML SDV IM ONE (22:14)
[2023-11-03] MEDS: hydrOXYzine HCl 50 MG/ML SDV ONE (22:14)
== END 2023-11-03 22:39 | disposition home or self-care (01) ==
LOC: FB.ED 21:34
DX: F41.1 Generalized anxiety disorder (principal); R29.898 Other symptoms and signs involving the musculoskeletal system; I10 Essential (primary) hypertension; E78.00 Pure hypercholesterolemia, unspecified; E66.9 Obesity, unspecified; Z86.16 Personal history of COVID-19; Z90.49 Acquired absence of other specified parts of digestive tract; Z79.899 Other long term (current) drug therapy; Z88.8 Allergy status to other drugs, medicaments and biological substances; Z88.4 Allergy status to anesthetic agent
CPT/HCPCS: 96372; 99283; J1170; J3410; 99284

== ENCOUNTER 2023-11-17 05:49 | Emergency (ER) | payer SELFPAY ==
[2023-11-17] MEDS ORDERED: Naloxone 0.4 MG/ML SDV IVPUSH PRN (06:02)
[2023-11-17] MEDS: Ondansetron 4 MG Tab.DIS PO ONE (06:09)
[2023-11-17] MEDS: HYDROmorphone 2 MG/ML SDV IM ONE (06:10)
[2023-11-17] MEDS: Ketorolac 30 MG/ML SDV IM ONE (06:12)
[2023-11-17 06:32] VITALS: BP 149/98; PULSE 114
== END 2023-11-17 06:30 | disposition home or self-care (01) ==
LOC: FB.ED 05:49
DX: M51.16 Intervertebral disc disorders with radiculopathy, lumbar region (principal); E78.00 Pure hypercholesterolemia, unspecified; I10 Essential (primary) hypertension; E66.9 Obesity, unspecified; Z86.16 Personal history of COVID-19; Z79.899 Other long term (current) drug therapy
CPT/HCPCS: 96372; 99283; J1170; J1885; Q0162

== ENCOUNTER 2023-12-08 22:04 | Emergency (ER) | payer SELFPAY ==
[2023-12-08] MEDS: hydrOXYzine HCl 50 MG/ML SDV IM ONE (22:25)
[2023-12-08] MEDS: HYDROmorphone 2 MG/ML SDV IM ONE (22:25)
[2023-12-08 22:38] VITALS: BP 165/98; PULSE 75
== END 2023-12-08 22:28 | disposition home or self-care (01) ==
LOC: FB.ED 22:04
DX: M46.1 Sacroiliitis, not elsewhere classified (principal); M54.30 Sciatica, unspecified side; I10 Essential (primary) hypertension; E78.00 Pure hypercholesterolemia, unspecified; E66.9 Obesity, unspecified; Z86.16 Personal history of COVID-19; Z90.49 Acquired absence of other specified parts of digestive tract; Z79.899 Other long term (current) drug therapy
CPT/HCPCS: 96372; 99282-25; 99283; J1171; J3410

== ENCOUNTER 2024-01-12 23:55 | Emergency (ER) | payer SELFPAY ==
[2024-01-13 00:07] VITALS: BP 161/105; PULSE 111
[2024-01-13] MEDS: hydrOXYzine HCl 50 MG/ML SDV IM ONE (00:12)
[2024-01-13] MEDS: HYDROmorphone 2 MG/ML SDV IM ONE (00:12)
== END 2024-01-13 00:37 | disposition home or self-care (01) ==
LOC: FB.ED 23:55
DX: G89.29 Other chronic pain (principal); M54.50 Low back pain, unspecified; I10 Essential (primary) hypertension; E78.00 Pure hypercholesterolemia, unspecified; E66.9 Obesity, unspecified; Z86.16 Personal history of COVID-19; Z90.49 Acquired absence of other specified parts of digestive tract; Z79.899 Other long term (current) drug therapy
CPT/HCPCS: 96372; 99283; J1171; J3410

== ENCOUNTER 2024-02-24 06:26 | Emergency (ER) | payer SELFPAY ==
[2024-02-24 06:52] VITALS: BP 151/97; PULSE 148
[2024-02-24] MEDS: Ketorolac 30 MG/ML SDV IM ONE (07:37)
[2024-02-24] MEDS: hydrOXYzine HCl 50 MG/ML SDV IM ONE (07:38)
[2024-02-24 10:32] LABS: A/G RATIO 1.3 (0.8-2.0)
[2024-02-24 10:34] LABS: POTASSIUM,K 5.2 mmol/L (3.5-5.3); SODIUM,NA 134 mmol/L (135-145)
[2024-02-24 10:35] LABS: CARBON DIOXIDE,CO2 12 mmol/L (21-32); CHLORIDE,CL 107 mmol/L (100-110); CREATININE 0.7 mg/dL (0.70-1.30); GLUCOSE RANDOM 122 mg/dL (80-116)
[2024-02-24 10:36] LABS: CALCIUM 8.4 mg/dL (8.6-10.2); ESTIMATED GFR 122 (>60); PROTEIN TOTAL,TP 8.7 g/dL (6.0-8.0)
[2024-02-24 10:37] LABS: ALANINE AMINOTRANSFERASE,ALT 114 U/L (12-36); ALKALINE PHOSPHATASE 56 IU/L (56-112); ASPARTATE AMNIOTRANSFERASE,AST 116 IU/L (5-25); BILIRUBIN TOTAL 2.3 mg/dL (0.1-1.3)
[2024-02-24 10:39] LABS: ALBUMIN 4.9 g/dL (3.5-5.2); BLOOD UREA NITROGEN,BUN 9 mg/dL (7-18); BUN/CREATININE RATIO 12.85
[2024-02-24 10:45] LABS: C-REACTIVE PROTEIN < 0.50 mg/dL (<0.50); LIPASE 138 U/L (16-77)
[2024-02-24 10:58] LABS: HEMATOCRIT 48.2 % (40.0-54.0); MEAN CORPUSCULAR HEMOGLOBIN 34 pg (27-31); RED BLOOD CELL COUNT 5.57 M/uL (4.30-5.90); WHITE BLOOD CELL COUNT,WBC 6.3 K/uL (4.5-11.0)
[2024-02-24 10:59] LABS: LYMPHOCYTES PERCENT AUTO 24.6 % (24-44); NEUTROPHILS PERCENT AUTO 68.3 % (36-66)
[2024-02-24 11:01] LABS: MEAN CORPUSCULAR HGB CONC 39 % (32-36); MEAN CORPUSCULAR VOLUME 87 fL (80-98); PLATELET COUNT,PLT 335 K/uL (150-400); RED CELL DISTRIBUTION WIDTH 12.4 % (11.0-16.0)
[2024-02-24 11:02] LABS: EOSINOPHILS PERCENT AUTO 0.3 % (2-4); MEAN PLATELET VOLUME 11.4 fL (6.0-10.0); MONOCYTES PERCENT AUTO 5.1 % (2-6)
[2024-02-24 11:03] LABS: BASOPHILS PERCENT AUTO 0.9 % (0-1); EOSINOPHILS ABSOLUTE AUTO 0 % (2-4); NEUTROPHILS ABSOLUTE AUTO 4.3
== END 2024-02-24 08:22 | disposition left against medical advice (07) ==
LOC: FB.ED 06:26
DX: M54.16 Radiculopathy, lumbar region (principal); F10.10 Alcohol abuse, uncomplicated; I10 Essential (primary) hypertension; E78.00 Pure hypercholesterolemia, unspecified; E66.9 Obesity, unspecified; Z86.16 Personal history of COVID-19; Z90.49 Acquired absence of other specified parts of digestive tract; Z79.899 Other long term (current) drug therapy
CPT/HCPCS: 36415; 80053; 80307; 83690; 85025; 86140; 96372; 99283; J1885; J3410

== ENCOUNTER 2024-05-30 12:25 | Emergency (ER) | payer SELFPAY ==
[2024-05-30] MEDS: Atenolol 50 MG Tab PO ONE (12:57)
[2024-05-30] MEDS: Ketorolac 30 MG/ML SDV IM ONE (12:58)
[2024-05-30] MEDS: LORazepam 2 MG/ML SDV IM ONE (12:59)
[2024-05-30 13:16] VITALS: PULSE 94
[2024-05-30 13:33] VITALS: BP 164/108
== END 2024-05-30 13:33 | disposition home or self-care (01) ==
LOC: FB.ED 12:25
DX: G89.29 Other chronic pain (principal); M54.41 Lumbago with sciatica, right side; I10 Essential (primary) hypertension; F41.9 Anxiety disorder, unspecified; E78.00 Pure hypercholesterolemia, unspecified; E66.9 Obesity, unspecified; Z79.899 Other long term (current) drug therapy; Z86.16 Personal history of COVID-19
CPT/HCPCS: 96372; 99283; A9270-GY; J1885; J2060

== ENCOUNTER 2024-06-25 22:32 | Emergency (ER) | payer SELFPAY ==
[2024-06-25] MEDS: hydrOXYzine HCl 50 MG/ML SDV IM ONE (22:58)
[2024-06-25] MEDS: HYDROmorphone 2 MG/ML SDV IM STA (22:58)
[2024-06-25 23:21] VITALS: BP 152/108; PULSE 88
== END 2024-06-25 23:25 | disposition home or self-care (01) ==
LOC: FB.ED 22:32
DX: M51.16 Intervertebral disc disorders with radiculopathy, lumbar region (principal); I10 Essential (primary) hypertension; E66.9 Obesity, unspecified; Z79.899 Other long term (current) drug therapy; Z86.16 Personal history of COVID-19; Z90.49 Acquired absence of other specified parts of digestive tract
CPT/HCPCS: 96372; 99283; J1171; J3410

== ENCOUNTER 2024-06-28 22:25 | Emergency (ER) | payer SELFPAY ==
[2024-06-28] MEDS: hydrOXYzine HCl 50 MG/ML SDV IM ONE (23:36)
[2024-06-28] MEDS: HYDROmorphone 2 MG/ML SDV IM ONE (23:37)
[2024-06-28 23:49] VITALS: BP 142/90; PULSE 106
== END 2024-06-28 23:58 | disposition home or self-care (01) ==
LOC: FB.ED 22:25
DX: M54.40 Lumbago with sciatica, unspecified side (principal); I10 Essential (primary) hypertension; E78.00 Pure hypercholesterolemia, unspecified; E66.9 Obesity, unspecified; Z86.16 Personal history of COVID-19; Z79.899 Other long term (current) drug therapy
CPT/HCPCS: 96372; 96374; 99283; J1171; J3410

== ENCOUNTER 2024-06-30 10:31 | Emergency (ER) | payer SELFPAY ==
[2024-06-30] MEDS: Sodium Chloride 0.9% 1,000 ML IV ONE (11:00)
[2024-06-30] MEDS: fentaNYL 100 MCG/2 ML SDV IVPUSH ONE ×3 (11:14→14:09)
[2024-06-30] MEDS: Ketorolac 30 MG/ML SDV IVPUSH ONE (12:10)
[2024-06-30] MEDS: Iopamidol 755 Mg/ML 100 ML Bottle IV SCH (13:48)
[2024-06-30] MEDS: methylPREDNISolone Sodium Succinate 125 MG/2 ML SDV IVPUSH ONE (13:59)
[2024-06-30 14:43] VITALS: BP 168/99; PULSE 90
== END 2024-06-30 14:30 | disposition home or self-care (01) ==
LOC: FB.ED 10:31
DX: R10.9 Unspecified abdominal pain (principal); I10 Essential (primary) hypertension; M54.41 Lumbago with sciatica, right side; E78.00 Pure hypercholesterolemia, unspecified; E66.9 Obesity, unspecified; Z79.899 Other long term (current) drug therapy; Z86.16 Personal history of COVID-19; Z90.49 Acquired absence of other specified parts of digestive tract; Z87.891 Personal history of nicotine dependence
CPT/HCPCS: 36415; 74177; 80053; 83605; 83690; 84484; 85025; 93005; 96361; 96374; 96375; 96376; 99285; J1885; J2919; J3010; J7030; Q9967

== ENCOUNTER 2024-09-04 10:09 | Emergency (ER) | payer MEDICAID ==
[2024-09-04 10:23] VITALS: BP 161/97; PULSE 68
[2024-09-04] MEDS: Ketorolac 30 MG/ML SDV IM ONE (11:17)
== END 2024-09-04 11:31 | disposition home or self-care (01) ==
LOC: FB.ED 10:09
DX: M54.41 Lumbago with sciatica, right side (principal); I10 Essential (primary) hypertension; E78.00 Pure hypercholesterolemia, unspecified; E66.9 Obesity, unspecified; Z86.16 Personal history of COVID-19; Z79.899 Other long term (current) drug therapy; Z68.32 Body mass index [BMI] 32.0-32.9, adult
CPT/HCPCS: 96372; 99283; J1885

== ENCOUNTER 2024-11-05 18:26 | Emergency (ER) | payer OTHER, MEDICAID ==
[2024-11-05] MEDS: Acetaminophen/oxyCODONE 325-5 MG Tab PO PRN (18:54)
[2024-11-05 19:10] VITALS: BP 168/111; PULSE 90
== END 2024-11-05 19:05 | disposition home or self-care (01) ==
LOC: FB.ED 18:26
DX: M54.50 Low back pain, unspecified (principal); G89.29 Other chronic pain; I10 Essential (primary) hypertension; E78.00 Pure hypercholesterolemia, unspecified; Z88.8 Allergy status to other drugs, medicaments and biological substances; Z79.899 Other long term (current) drug therapy; Z86.16 Personal history of COVID-19
CPT/HCPCS: 99284; A9270-GY

== ENCOUNTER 2024-11-19 09:59 | Emergency (ER) | payer MEDICAID ==
[2024-11-19 10:55] VITALS: BP 167/115; PULSE 92
== END 2024-11-19 11:05 | disposition home or self-care (01) ==
LOC: FB.ED 09:59
DX: T63.441A Toxic effect of venom of bees, accidental (unintentional), initial encounter (principal); L03.114 Cellulitis of left upper limb; E78.00 Pure hypercholesterolemia, unspecified; I10 Essential (primary) hypertension; Z86.16 Personal history of COVID-19; Z88.8 Allergy status to other drugs, medicaments and biological substances; Z79.899 Other long term (current) drug therapy
CPT/HCPCS: 99283